=== PATIENT | male | born 1935 | race Two or more races ===

== ENCOUNTER 2017-07-18 13:01 | Inpatient (IN) | payer MEDICARE ==
[~2017-07-18] VITALS: Ht 167.6 cm; Wt 105.7 kg
--- NOTE | 2017-07-18 13:07 | NUR ---
BBPA FROM [place]:S/P GLF TODAY; REFUSES TO EAT; LETHARGIC. PLACED ON MONITOR. AWAITING MD ORDER
[2017-07-18 13:36] LABS: BASOPHILS # (AUTO) 0.3 /CMM (0.0-0.2); BASOPHILS % (AUTO) 4.4 % (0.0-2.0); EOSINOPHILS % (AUTO) 2.5 % (0.0-6.0); HEMATOCRIT 41 % (39-51); HEMOGLOBIN 13.7 g/dL (13.5-17.5); LYMPHOCYTES # (AUTO) 1.3 /CMM (0.8-4.8); LYMPHOCYTES % (AUTO) 21.7 % (20.0-44.0); MEAN CORPUSCULAR HGB CONC 33 g/dl (31.0-36.0); MEAN CORPUSCULAR VOLUME 86 fL (80-96); MONOCYTES # (AUTO) 0.4 /CMM (0.1-1.30); NEUTROPHILS # (AUTO) 3.9 /CMM (1.8-8.9); NEUTROPHILS % (AUTO) 64.4 % (43.0-81.0); PLATELET COUNT (AUTO) 143 /CMM (150-450); RED BLOOD CELL COUNT(AUTO) 4.83 MIL/uL (4.5-6.0); WHITE BLOOD COUNT (AUTO) 6.1 K/uL (4.3-11.0)
--- NOTE | 2017-07-18 13:36 | NUR ---
EKG IN PROGRESS
--- NOTE | 2017-07-18 13:36 | NUR ---
RAC #20 IV ACCESS. BLOOD SAMPLE COLLECTED SENT TO LAB
[2017-07-18 13:48] LABS: CALCIUM, SERUM 8.8 mg/dL (8.5-10.1); CARBON DIOXIDE 29 mmol/L (21-32); CHLORIDE 106 mmol/L (98-107); CREATININE 1.7 mg/dL (0.6-1.3); GLUCOSE 113 mg/dL (74-106); POTASSIUM 4.3 mmol/L (3.5-5.1); SODIUM SERUM 141 mmol/L (136-145); UREA NITROGEN, BLOOD 27 mg/dL (7-18)
[2017-07-18 13:54] LABS: TROPONIN I < 0.017 ng/mL (0.00-0.056)
--- NOTE | 2017-07-18 13:59 | NUR ---
PT TAKEN TO CT
[2017-07-18 14:01] LABS: ALANINE AMINOTRANSFERASE 19 U/L (12-78); ALBUMIN 3.3 g/dL (3.4-5.0); ALKALINE PHOSPHATASE 68 U/L (46-116); ASPARTATE AMINOTRANSFERASE 22 U/L (15-37); B-TYPE NATRIURETIC PEPTIDE 856 PG/ML (0-125); BILIRUBIN,DIRECT 0.1 mg/dL (0.0-0.2); BILIRUBIN,TOTAL 0.4 mg/dL (0.2-1.0); TOTAL PROTEIN, SERUM 7.1 g/dL (6.4-8.2)
[2017-07-18] MEDS ORDERED: NORT25CA PO (15:22)
[2017-07-18] MEDS ORDERED: PARO40TA4 PO (15:22)
[2017-07-18] MEDS ORDERED: ROSU10TA PO (15:22)
[2017-07-18] MEDS ORDERED: GABA-534 PO (15:22)
[2017-07-18] MEDS ORDERED: TAMS0.4C34 PO (15:22)
[2017-07-18] MEDS ORDERED: LEVO150T8 PO (15:22)
--- NOTE | 2017-07-18 16:16 | NUR ---
PAGED DR BARKER
--- NOTE | 2017-07-18 16:56 | NUR ---
CALLED NURSE SUP FOR TELE BED Addendum: 07/18/17 at 1720 by RBATACLAN MED SURG BED
--- NOTE | 2017-07-18 17:53 | NUR ---
308-[facility]
--- NOTE | 2017-07-18 18:05 | NUR ---
GAVE REPORT TO FARHEEN LEMA RN ROOM 308-1 DR BARKER ADMITTING PUBIC RAMUS FX
--- NOTE | 2017-07-18 19:30 | NUR ---
MS RN ADMIN NOTES PT IS IN BED SLEEPING, EASILY AROUSED. A/O X2, POOR HISTORIAN. PT IS BREATHING EVENLY AND UNLABORED ON 4.5L NC. NO SIGNS OF SOB OR DISTRESS. DENIES PAIN AT THIS TIME. IV ACCESS IS INTACT AND PATENT WITH FLUIDS TO BE INFUSED. PSORIASIS ON BODY NOTED, PICTURES TAKEN. BED IS IN LOW AND LOCKED POSITION, CALL LIGHT WITHIN REACH. WILL CONTINUE TO MONITOR.
[2017-07-18 20:00] VITALS: BP 132/74
[2017-07-18] MEDS ORDERED: ONDANSETRON HCL/PF 4 MG/2 ML VIAL IV PRN (20:00)
[2017-07-18] MEDS ORDERED: ONDANSETRON HCL/PF 4 MG/2 ML VIAL IVP PRN (20:00)
[2017-07-18] MEDS ORDERED: IV NS 0.9% 1,000 ML IV PRN (20:00)
[2017-07-18] MEDS ORDERED: MORPHINE SULFATE INJ 2 MG/ML DISP.SYRIN IV PRN (20:00)
[2017-07-18] MEDS ORDERED: HYDROCODONE/APAP 5/325MG 1 EACH TABLET PO PRN ×2 (20:00)
[2017-07-18] MEDS ORDERED: IV NS 0.9% 1,000 ML BAG IV PRN (20:00)
[2017-07-18] MEDS ORDERED: ACETAMINOPHEN 325 MG TABLET PO PRN (20:00)
[2017-07-18] MEDS ORDERED: HYDROMORPHONE INJ 0.5 MG/0.5 ML SYRINGE IV PRN (20:00)
--- NOTE | 2017-07-19 06:21 | NUR ---
MS RN CLOSING NOTES PT IS IN BED RESTING. NO SIGNS OF SOB OR DISTRESS, BREATHING EVENLY AND UNLABORED ON 4L NC. NEW IV ACCESS WAS INSERTED, ITS INTACT AND PATENT. DENIES PAIN AT THIS TIME. BED IS IN LOW AND LOCKED POSITION, CALL LIGHT WITHIN REACH. WILL CONTINUE TO MONITOR PT.
[2017-07-19 06:43] LABS: BASOPHILS % (AUTO) 0.2 % (0.0-2.0); EOSINOPHILS % (AUTO) 1.4 % (0.0-6.0); HEMATOCRIT 40 % (39-51); HEMOGLOBIN 13.1 g/dL (13.5-17.5); LYMPHOCYTES % (AUTO) 14.2 % (20.0-44.0); MEAN CORPUSCULAR HGB CONC 33 g/dl (31.0-36.0); MEAN CORPUSCULAR VOLUME 87 fL (80-96); MONOCYTES # (AUTO) 0.5 /CMM (0.1-1.30); MONOCYTES % (AUTO) 7.4 % (2.0-12.0); NEUTROPHILS # (AUTO) 5.4 /CMM (1.8-8.9); NEUTROPHILS % (AUTO) 76.8 % (43.0-81.0); PLATELET COUNT (AUTO) 126 /CMM (150-450); RDW COEFFICIENT OF VARIATION 13.6 (11.5-15.0); RED BLOOD CELL COUNT(AUTO) 4.58 MIL/uL (4.5-6.0); WHITE BLOOD COUNT (AUTO) 7.1 K/uL (4.3-11.0)
[2017-07-19 06:44] LABS: CALCIUM, SERUM 8.6 mg/dL (8.5-10.1); CARBON DIOXIDE 32 mmol/L (21-32); CHLORIDE 106 mmol/L (98-107); CREATININE 1.5 mg/dL (0.6-1.3); GLUCOSE 98 mg/dL (74-106); MAGNESIUM 2.2 mg/dL (1.8-2.4); PHOSPHORUS 4.2 mg/dL (2.5-4.9); POTASSIUM 4.6 mmol/L (3.5-5.1); SODIUM SERUM 142 mmol/L (136-145); UREA NITROGEN, BLOOD 31 mg/dL (7-18)
--- NOTE | 2017-07-19 07:51 | NUR ---
RN OPENING NOTES RECEIVED PT. PT IS STABLE AND RESTING IN BED. A/OX3. PT APPEARS TO BE ANXIOUS, WITH X/O UNCONTROLLABLE COUGHING WHICH CAUSES PAIN IN THROAT, WILL F/U WITH . PT IS ON O2 2L VIA NC. IV ACCESS LOCATED ON LEFT FA 22G INFUSING NS AT 75 ML/HR. IV FLUID RATE TITRATED DOWN DUE TO ELEVATED BNP SUGGESTING CHF EXACERBATION. SAFETY MEASURES IN PLACE, CALL LIGHT WITHIN REACH. WILL CONTINUE TO MONITOR. Addendum: 07/19/17 at 0756 by IRVING SHABAZZ PLEASE DISREGARD NOTE, WRONG PATIENT REPORT.
--- NOTE | 2017-07-19 07:57 | NUR ---
RN OPENING NOTES RECEIVED PT. PT IS STABLE AND RESTING IN BED. NO S/S OF RESP DISTRESS OR SOB. NO C/O PAIN AT THIS TIME. A/OX2, PT IS FORGETFUL AND CONFUSED. IV ACCESS LOCATED ON RFA INFUSING NS AT 65 ML/HR. PT TO HAVE ORTHO CONSULT FOR PELVIC FX TODAY. SAFETY MEASURES IN PLACE, CALL LIGHT WITHIN REACH. WILL CONTINUE TO MONITOR.
[2017-07-19 08:00] VITALS: BP 147/77
[2017-07-19] MEDS: PANTOPRAZOLE 40 MG TABLET.DR PO SCH (08:19)
[2017-07-19 09:00] VITALS: BP 147/77
[2017-07-19] MEDS ORDERED: PANTOPRAZOLE 40 MG TABLET.DR PO SCH (09:00)
[2017-07-19] MEDS: ENOXAPARIN SODIUM 40 MG/0.4 ML DISP.SYRIN SQ SCH (12:30)
[2017-07-19] MEDS: TAMSULOSIN 0.4 MG CAP.SR.24H PO SCH ×2 (12:49→21:01)
[2017-07-19] MEDS: GABAPENTIN 300 MG CAPSULE PO SCH ×2 (12:50→16:26)
[2017-07-19] MEDS: NORTRIPTYLINE HCL 25 MG CAPSULE PO SCH ×2 (12:50→21:01)
[2017-07-19] MEDS: ATORVASTATIN 10 MG TABLET PO SCH (12:50)
[2017-07-19] MEDS: PAROXETINE HCL 20 MG TABLET PO SCH (12:50)
[2017-07-19 16:00] VITALS: BP 137/66
--- NOTE | 2017-07-19 18:28 | NUR ---
RN CLOSING NOTE PT IN BED RESTING. NO S/S OF RESP DISTRESS OR SOB. PT IS ON 2L O2 VIA NC. NO C/O PAIN AT THIS TIME. PER ORTHO, PT MOST LIKELY NOT TO HAVE ANY SURGICAL INTERVENTION FOR PELVIC FX. SARAH FINNEY TO ASSESS PT IN AM. ALL PT NEEDS ANTICIPATED AND MET. SAFETY MEASURES IN PLACE, CALL LIGHT IN REACH, WILL ENDORSE TO TESTBOARD OPERATOR FOR DEEPIKA.
--- NOTE | 2017-07-19 18:56 | NUR ---
Patient resides at [facility] [phone]. Patient requires assistance with adl's and ambulation with walker prior to admission.Awaiting ortho consult. Current plan is for SNF placement for rehab. Addendum: 07/19/17 at 1857 by CHERYL CASE RN Amended: Links added.
--- NOTE | 2017-07-19 19:30 | NUR ---
MS RN INITIAL NOTES PT IS IN BED RESTING, EASILY AROUSED. NO SIGNS OF SOB OR DISTRESS. BREATHING EVENLY AND UNLABORED ON 4L NC. BED IS IN LOW AND LOCKED POSITION, CALL LIGHT WITHIN REACH. WILL CONTINUE TO MONITOR PT
[2017-07-19 20:00] VITALS: BP 141/68
--- NOTE | 2017-07-20 06:19 | NUR ---
MS RN CLOSING NOTES PT IS IN BED RESTING. NO SIGNS OF SOB OR DISTRESS, BREATHING EVENLY AND UNLABORED ON 4L NC. IV ACCESS IS INTACT AND PATENT. DENIES PAIN AT THIS TIME. BED IS IN LOW AND LOCKED POSITION, CALL LIGHT WITHIN REACH. WILL CONTINUE TO MONITOR PT.
[2017-07-20 08:00] VITALS: BP 145/76
[2017-07-20] MEDS: PAROXETINE HCL 20 MG TABLET PO SCH (09:59)
[2017-07-20] MEDS: ATORVASTATIN 10 MG TABLET PO SCH (09:59)
[2017-07-20] MEDS: LEVOTHYROXINE SODIUM 75 MCG TABLET PO SCH (09:59)
[2017-07-20] MEDS: GABAPENTIN 300 MG CAPSULE PO SCH ×3 (09:59→18:26)
[2017-07-20] MEDS: ENOXAPARIN SODIUM 40 MG/0.4 ML DISP.SYRIN SQ SCH (10:01)
[2017-07-20] MEDS: PANTOPRAZOLE 40 MG TABLET.DR PO SCH (10:04)
--- NOTE | 2017-07-20 11:00 | NUR ---
DR. BARKER IN,PHYSICAL [place]. HERE AND GOT PT. UP.PT. COOPERATIVE,PLEASANT,CONFUSED.MED COMPLIANT.NO C/O PAIN.
--- NOTE | 2017-07-20 14:30 | NUR ---
ADENIKE SMITH HERE AND DISCUSSED POSSIBLE NEED FOR SURGERY-BUT THAT HIS SURGERY MDS DON,T DO THE PROCEDURE PT. NEEDS.
[2017-07-20 16:00] VITALS: BP 147/65
--- NOTE | 2017-07-20 18:00 | NUR ---
NO CHG. IN STATUS.
[2017-07-20 20:00] VITALS: BP 148/74
--- NOTE | 2017-07-20 20:00 | NUR ---
RN NOTES PATIENT AWAKE IN BED, VERY ANXIOUS TO GO HOME TO [facility], EXPLAINED TO PATIENT THAT THERE IS NO DISCHARGE ORDER YET FROM THE DOCTOR. PATIENT VERBALIZES UNDERSTANDING. ALERT AND ORIENTED, NO DISTRESS NOTED. BREATHING EVEN AND UNLABORED. NO COMPLAINT OF PAIN OR DISCOMFORT. KEPT CLEAN AND DRY.
[2017-07-20] MEDS: NORTRIPTYLINE HCL 25 MG CAPSULE PO SCH (21:22)
[2017-07-20] MEDS: TAMSULOSIN 0.4 MG CAP.SR.24H PO SCH (21:22)
--- NOTE | 2017-07-21 06:40 | NUR ---
RN CLOSING NOTES IN BED WITH NO DISTRESS NOTED. AWAKE, ABLE TO COMMUNICATE NEEDS. NO COMPLAINT OF PAIN OR DISCOMFORT. NO SIGNIFICANT CHANGE OF CONDITION. VITAL SIGNS WNL. WILL ENDORSE TO AM SHIFT FOR CONTINUITY OF CARE
--- NOTE | 2017-07-21 07:15 | NUR ---
RN OPENING NOTES RECEIVED PT. IN BED A&OX2-3. BREATHING UNLABORED, AND EVENLY ON OXYGEN 4L/MIN VIA NASAL CANNULA. IV FLUIDS AT BEDSIDE. NO S/S OF ACUTE DISTRESS. BED IS IN LOWEST, AND LOCKED POSITION. 2 SIDE RAILS UP, AND CALL LIGHT IS WITHIN REACH. WILL CONTINUE TO ASSESS AND MONITOR. ALL NEEDS MET.
[2017-07-21 08:53] VITALS: BP 155/75
[2017-07-21] MEDS: GABAPENTIN 300 MG CAPSULE PO SCH ×3 (11:12→18:22)
[2017-07-21] MEDS: LEVOTHYROXINE SODIUM 75 MCG TABLET PO SCH (11:13)
[2017-07-21] MEDS: PAROXETINE HCL 20 MG TABLET PO SCH (11:13)
[2017-07-21] MEDS: ATORVASTATIN 10 MG TABLET PO SCH (11:13)
[2017-07-21] MEDS: PANTOPRAZOLE 40 MG TABLET.DR PO SCH (11:13)
[2017-07-21] MEDS: ENOXAPARIN SODIUM 40 MG/0.4 ML DISP.SYRIN SQ SCH (11:14)
[2017-07-21 16:12] VITALS: BP 146/92
--- NOTE | 2017-07-21 19:25 | NUR ---
MS/TAX PREPARER; RECEIVED PT IN BED AWAKE, ALERT AND VERBALLY RESPONSIVE BUT FORGETFUL KEEP TAKING OFF O2. WITH O2 4L NC ON. NOTED PT IS COUGHING. HL ON RFA INTACT. BED ON LOWER POSITION AND LOCKED FOR SAFETY. SIDE RAILS ARE ALL UP FOR SAFETY. CALL LIGHT WITHIN REACH. WILL CONTINUE TO MONITOR.
--- NOTE | 2017-07-21 19:30 | NUR ---
RN CLOSING NOTES PT. IN BED A&OX2-3. BREATHING UNLABORED, AND EVENLY ON OXYGEN 4L/MIN VIA NASAL CANNULA. IV FLUIDS AT BEDSIDE. NO S/S OF ACUTE DISTRESS. BED IS IN LOWEST, AND LOCKED POSITION. 2 SIDE RAILS UP, AND CALL LIGHT IS WITHIN REACH. WILL ENDORSE REPORT TO NURSE.
[2017-07-21 20:00] VITALS: BP 158/76
--- NOTE | 2017-07-21 21:00 | NUR ---
MS/COMBINED RAIL OPERATOR; PT HAS BEEN MONITORED FOR SAFETY. NOTED PT KEPT MOVING AND REMOVING O2 AT THIS. PT REMINDED NOT TO REMOVE THE O2 HE RESPONDED BUT FORGETFUL . INCONTINENT URINE DEE CARE DONE AND DIAPER CHANGED. REPOSITIONED. COUGHING STILL NOTED.
--- NOTE | 2017-07-21 22:20 | NUR ---
MS/LABOR RELATIONS OFFICER; CHARGE NURSE NOTIFIED PT APPEARED RESTLESS. PT NOTED WITH SLIGHT WHEEZING. REMAINED ON O2. PT REPOSITIONED. CHARGE NURSE SAID PT HAS BEEN LIKE THAT DURING THE DAY SHIFT. I DID TRY TO SUCTION PT ORALLY BUT REFUSED.
[2017-07-21] MEDS: TAMSULOSIN 0.4 MG CAP.SR.24H PO SCH (22:34)
[2017-07-21] MEDS: NORTRIPTYLINE HCL 25 MG CAPSULE PO SCH (22:35)
--- NOTE | 2017-07-21 22:50 | NUR ---
MS/SURVEY PROJECT MANAGER; PT C/O NAUSEA BUT NO ACTUAL EMESIS. I TOLD THE RN TO GIVE PT ZOFRAN IV.
--- NOTE | 2017-07-21 23:07 | NUR ---
ms/rn notes Patient complained of nausea and vomiting , medicated with zofran 4 mg ivp as ordered. will monitor.
--- NOTE | 2017-07-21 23:35 | NUR ---
MS/ENERGY CONSERVATION TECHNICIAN; AT THIS TIME PT APPEARED CALM BUT AROUSABLE WHEN I CALLED HIS NAME AND RESPONDING.
[2017-07-22] VITALS (48 sets, daily range): BP systolic 92–164; BP diastolic 29–108
--- NOTE | 2017-07-22 01:45 | NUR ---
MS/ACCESSORIES REPAIRER; I INFORMED AGAIN THE PT TO RE ASSESS THE PT. AND SHE CHECKED THE PT AND SHE SAID TO CHECK THE O2 SAT.
--- NOTE | 2017-07-22 01:55 | NUR ---
MS/EMERGENCY SERVICES PROFESSIONAL ; PT'S RA BP 92/ 53 HR 85 O2 SAT 91 % AT 4L NC.
--- NOTE | 2017-07-22 02:00 | NUR ---
MS /MARKET DEVELOPMENT MANAGER; O2 SAT AT THIS TIME 94 % HR 108, 144, 145 LETHARGIC BUT AROUSABLE WITH OPENED EYES BUT UNABLE TO UNDERSTAND PT .
--- NOTE | 2017-07-22 02:15 | NUR ---
MS/SMELLER; CHARGE NURSE SAID SHE WILL ORDER ABG AND EKG AND I CALLED THE RT AND SAMIR CABALLERO , RT ALSO CAME AND DID TRY TO SUCTION BY NASAL AND ORALLY. PT COUGHING WITH CRACKLES BREATHING SOUND. THEY ARE ON THE PROCESS OF DOING ABG AND EKG. BS 110.
--- NOTE | 2017-07-22 02:30 | NUR ---
MS/HOT METAL MIXER OPERATOR; HR 89, O2 SAT ON 4L NC 94 % .
--- NOTE | 2017-07-22 02:45 | NUR ---
MS/CERTIFIED ATHLETIC TRAINER; O2 SAT DOWN TO 81, 86 THEN 94 HR 94.
[2017-07-22 02:47] LABS: ABG BASE EXCESS 0.6 mmol/L; ABG OXYGEN SATURATION 96.1 % (92.0-98.5); ABG PCO2 84.7 mmHg (35.0-45.0); ABG PH 7.185 (7.350-7.450); ABG PO2 96.8 mmHg (75.0-100.0); AaDO2 179.1 mmHg; COHb 1.5 % (0.5-1.5); MetHb 0.4 % (0.0-1.5); O2Hb 94.3 % (94.0-97.0); SITE, ABG Right Radial; VENT MODE, BG Simple Mask
--- NOTE | 2017-07-22 02:50 | NUR ---
MS/HARD METALS HAND ENGRAVER; I PLACED A CALL TO DR. BARKER REGARDING PT'S PRESENT CONDITION I LEFT MESSAGE. AWAITING. CHARGE NURSE CALLED ICU SPOKE TO [facility] ICU MELE. CHARGE NURSE SPOKE TO NURSING CLINICAL SECRETARY. I PLACED PT ON CORRECTIONAL COOK PER CHARGE NURSE. ST 132.
--- NOTE | 2017-07-22 03:00 | NUR ---
MS/SEALER OPERATOR; CHARGE NURSE CALLED FOR RAPID RESPONSE AND ICU CHARGE NURSE RT,CHARGE AND ME WITH THE PT. BS 118.
--- NOTE | 2017-07-22 03:15 | NUR ---
MS/ASSIGNMENT OFFICER; PT TRANSFERRED TO ICU VIA BED ACCOMPANIED BY THE CERTIFIED MEDICAL DOSIMETRIST , RT, BICYCLE FITTER AND ME .
--- NOTE | 2017-07-22 03:20 | NUR ---
MS/MEAT SLICER ; CHARGE NURSE ERWIN TALKED TO DR. BARKER REGRADING PT'S PRESENT CONDITION WITH ORDER TO TRANSFER TO ICU . PT ON ROOM 262. REPORTS GIVEN TO ACTIVITIES ASSISTANTJAIDEN.
--- NOTE | 2017-07-22 03:42 | NUR ---
PT PLACED ON BIPAP. WILL CONTINUE TO MONITOR.
--- NOTE | 2017-07-22 03:49 | NUR ---
BUCKET HOOKER. RECEIVED THE PT FROM MED/SURG. S/P UTILITY SPECIALIST. TRANSFER ,THE PT IN THE ICU ROOM 262.FOR PT WAS LETHARGIC, ABG DONE, BIPAP PLACED. SETTINGS 22/5,RATE IS 18,FIO2 40%. SAT 98%PT AWAKE, ALERT, LETHARGIC, AFEBRILE. HOB ELEVATED. IV LT HAND 22G. WILL CONTINUE TO MONITOR VITALS.
--- NOTE | 2017-07-22 03:55 | NUR ---
CALL WORKER PERSON, VENEER TAPING MACHINE OPERATOR SHOWING AFIB. EKG DONE.
--- NOTE | 2017-07-22 04:00 | NUR ---
ICU/RN- RECEIVED PT. FROM Katelyn CASTRO RN S/P PANCAKE PROFESSIONAL FROM [facility] FOR ALTERED RESPIRATORY STATUS R/T RESPIRATORY FAILURE. PT. ON BIPAP, AROUSABLE TO STIMULATION BUT FALLS BACK TO SLEEP RIGHT AWAY. SATS.-93%, NO S/S OF DISTRESS. EKG ATRIAL FIBRILLATION W/ RVR. HR-130'S. WILL NOTIFY MD. WAITING FOR ABG RESULT. NOTED TO HAVE RED, RAISED, DRY SKIN LESIONS ALL OVER THE BODY. WILL CONTINUE TO MONITOR PER PROTOCOL. PT. IS A FULL CODE.
--- NOTE | 2017-07-22 04:05 | NUR ---
/ZULLY; I PLACED A CALL TO PT'S SISTER HELIO SUN TELEPHONE # [phone] AND I SPOKE THER AND NOTIFIED THAT PT WAS TRANSFERRED TO ICU ROOM # 262 fFOR RESPIRATORY PROBLEM AND SHE SAID OK.
--- NOTE | 2017-07-22 04:40 | NUR ---
ABG DONE. NOTIFIED RN WITH THE RESULT. WILL CONTINUE TO MONITOR.
[2017-07-22 04:48] LABS: ABG BASE EXCESS -0.5 mmol/L; ABG PCO2 71.7 mmHg (35.0-45.0); ABG PH 7.224 (7.350-7.450); ABG PO2 75.4 mmHg (75.0-100.0); AaDO2 127.3 mmHg; COHb 1.3 % (0.5-1.5); MetHb 0.4 % (0.0-1.5); O2Hb 91.4 % (94.0-97.0); SITE, ABG Right Radial
--- NOTE | 2017-07-22 04:59 | NUR ---
ICU/RN- DR. BARKER WAS CALLED REGARDING ABG RESULTS AND EKG AFIB W/ RVR, HR-130'S-140'S, W/ PHONE ORDERS TO CONSULT DR. GARCIA FOR CARDIOLOGY, START CARDIZEM DRIP PER PROTOCOL, BIPAP CHANGES ORDERED.
--- NOTE | 2017-07-22 05:12 | NUR ---
BIPAP SETTINGS CHANGED PER DR BARKER. IPAP 25, RATE 22. Addendum: 07/22/17 at 0514 by CODEY NIX RT Amended: Links added.
--- NOTE | 2017-07-22 05:15 | NUR ---
ICU/RN- NOW EKG IS ATRIAL FIB. W/ HR-85/MIN. WILL HOLD OFF ON THE CARDIZEM AND WILL NOTIFY DR. GARCIA. WILL MONITOR CLOSELY PER PROTOCOL.
[2017-07-22] MEDS ORDERED: DILTIAZEM HCL 25 MG IV IV ONE (05:30)
[2017-07-22] MEDS ORDERED: DILTIAZEM HCL IV 125 MG in IV D5W 100 ML IV PRN (05:30)
--- NOTE | 2017-07-22 05:50 | NUR ---
ICU/RN- DR. GARCIA HERE TO SEE PT. AWARE OF NOT STARTING CARDIZEM DRIP DUE TO HR-80'S
[2017-07-22 07:25] LABS: EOSINOPHILS % (AUTO) 0.4 % (0.0-6.0); HEMATOCRIT 38 % (39-51); HEMOGLOBIN 12.5 g/dL (13.5-17.5); LYMPHOCYTES % (AUTO) 13.7 % (20.0-44.0); MEAN CORPUSCULAR HGB CONC 33 g/dl (31.0-36.0); MEAN CORPUSCULAR VOLUME 87 fL (80-96); MONOCYTES # (AUTO) 0.4 /CMM (0.1-1.30); MONOCYTES % (AUTO) 5.6 % (2.0-12.0); NEUTROPHILS # (AUTO) 6.1 /CMM (1.8-8.9); NEUTROPHILS % (AUTO) 80.3 % (43.0-81.0); PLATELET COUNT (AUTO) 117 /CMM (150-450); RDW COEFFICIENT OF VARIATION 13.8 (11.5-15.0); RED BLOOD CELL COUNT(AUTO) 4.32 MIL/uL (4.5-6.0); WHITE BLOOD COUNT (AUTO) 7.6 K/uL (4.3-11.0)
[2017-07-22] MEDS: LEVOTHYROXINE SODIUM 75 MCG TABLET PO SCH (07:30)
[2017-07-22 07:37] LABS: CALCIUM, SERUM 8.6 mg/dL (8.5-10.1); CARBON DIOXIDE 30 mmol/L (21-32); CHLORIDE 104 mmol/L (98-107); CREATININE 1.9 mg/dL (0.6-1.3); GLUCOSE 115 mg/dL (74-106); POTASSIUM 5.1 mmol/L (3.5-5.1); SODIUM SERUM 142 mmol/L (136-145); UREA NITROGEN, BLOOD 37 mg/dL (7-18)
[2017-07-22 07:41] LABS: TROPONIN I 0.105 ng/mL (0.00-0.056)
--- NOTE | 2017-07-22 07:45 | NUR ---
PAYMENT PROCESSOR RECEIVED PATIENT FROM THE PREVIOUS SHIFT. PATIENT IS IN BED. RESTLESS ON THE BIPAP. STABLE VITAL SINGS. WILL CONTINUE TO MONITOR AND PROVIDE CARE.
[2017-07-22 07:47] LABS: ALANINE AMINOTRANSFERASE 25 U/L (12-78); ALKALINE PHOSPHATASE 56 U/L (46-116); ASPARTATE AMINOTRANSFERASE 25 U/L (15-37); BILIRUBIN,TOTAL 0.5 mg/dL (0.2-1.0); CHOLESTEROL 107 mg/dL (<200); HDL CHOLESTEROL 34 mg/dL (40-60); LDL 64 mg/dL (0-99); MAGNESIUM 2.2 mg/dL (1.8-2.4); PHOSPHORUS 4.9 mg/dL (2.5-4.9); THYROID STIMULATING HORMONE 0.151 uIU/mL (0.358-3.74); TOTAL PROTEIN, SERUM 6.7 g/dL (6.4-8.2); TRIGLYCERIDES 75 mg/dL (30-150)
[2017-07-22] MEDS: GABAPENTIN 300 MG CAPSULE PO SCH ×3 (08:33→16:36)
[2017-07-22] MEDS: ATORVASTATIN 10 MG TABLET PO SCH (08:33)
[2017-07-22] MEDS: PAROXETINE HCL 20 MG TABLET PO SCH (08:33)
[2017-07-22] MEDS: PANTOPRAZOLE 40 MG VIAL IV SCH (08:40)
[2017-07-22] MEDS: ENOXAPARIN SODIUM 40 MG/0.4 ML DISP.SYRIN SQ SCH (08:41)
[2017-07-22 09:40] LABS: ABG BASE EXCESS 1.7 mmol/L; ABG OXYGEN SATURATION 90.5 % (92.0-98.5); ABG PH 7.195 (7.350-7.450); ABG PO2 66.6 mmHg (75.0-100.0); AaDO2 193.2 mmHg; MetHb 0.4 % (0.0-1.5); O2Hb 89.2 % (94.0-97.0); SITE, ABG Left Radial
--- NOTE | 2017-07-22 10:10 | NUR ---
WOUND CARE CONSULT: PT NOT SEEN YET FOR SKIN ASSESSMENT DUE TO PT BEING PREPARED FOR INTUBATION AT THIS TIME. RECOMMENDATIONS MADE FOR SKIN PROTECTION. DISCUSSED WITH NURSING STAFF. BARIMAX BED ORDERED. WILL SEE PRN. IN AGREEMENT WITH PLAN OF CARE.
[2017-07-22] MEDS ORDERED: Z GUARD REMEDY 2 OZ OINT TP PRN (10:30)
--- NOTE | 2017-07-22 10:49 | NUR ---
RT NOTE PT INTUBATED PER MD ORDER. 7.5 ETT 23 CM @ LIP. SETTINGS PRESCRIBED AC 16 600 +5 100%. ALARMS SET FOR PROTOCOL AND AUDIBLE. VENT PLUGGED IN TO RED OUTLET. AMBU BAG AT BEDSIDE. NO DISTRESS NOTED AT MOMENT. WILL CONTINUE TO MONITOR. Addendum: 07/22/17 at 1054 by LUCIEN ALVARES RT Amended: Links added.
--- NOTE | 2017-07-22 10:50 | NUR ---
MODELING AGENT PATIENT INTUBATED BY ER PHYSICIAN PER MD ORDER. STABLE ON THE VENT. PROPOFOL FOR SEDATION. WILL CONTINUE TO MONITOR.
[2017-07-22] MEDS: Z GUARD REMEDY 2 OZ OINT TP SCH (11:16)
[2017-07-22] MEDS: VANCOMYCIN 1.25 GM in IV NS 0.9% 500 ML IV SCH (11:16)
[2017-07-22] MEDS: PIPERACILLIN /TAZOBACTAM 2.25 G in IV D5W 50 ML IV SCH ×3 (11:17→23:18)
[2017-07-22 11:59] LABS: ABG BASE EXCESS 1.3 mmol/L; ABG OXYGEN SATURATION 90.8 % (92.0-98.5); ABG PCO2 48.8 mmHg (35.0-45.0); ABG PH 7.365 (7.350-7.450); ABG PO2 55.5 mmHg (75.0-100.0); AaDO2 246.1 mmHg; COHb 0.7 % (0.5-1.5); MetHb 0.2 % (0.0-1.5); PEEP,BG 5 cm H2O; SITE, ABG Left Radial; VT, ABG 600 mL
[2017-07-22] MEDS ORDERED: PIPERACILLIN /TAZOBACTAM 3.375 G in IV D5W 50 ML IV SCH (12:00)
[2017-07-22] MEDS ORDERED: FEE PK DOSING 1 MIN EA MC ONE (12:02)
[2017-07-22] MEDS: PROPOFOL 100 ML IV PRN ×2 (12:27→21:24)
--- NOTE | 2017-07-22 12:42 | NUR ---
WOUND CARE CONSULT: PT SEEN FOR SKIN ASSESSMENT. PT INTUBATED AND IMMOBILE. BOLAND CATH NOTED. PT HAS SKIN CONDITION WITH PATCHY AREAS TO RT ELBOW AND ARM AND FEW RED SPOTS TO BUTTOCKS AND THIGHS. DEFER TO MD FOR SKIN CONDITION. DRY ABRASIONS NOTED TO BILATERAL TOES. NO DRAINAGE NOTED. RECOMMEND BARIMAX BED. RECOMMENDATIONS MADE FOR SKIN PROTECTION AND DISCUSSED WITH NURSING STAFF. WILL SEE PRN. MD IN AGREEMENT WITH PLAN OF CARE. Addendum: 07/22/17 at 1244 by ЮЛИЯ PAGE WNDNU Amended: Links added.
[2017-07-22] MEDS ORDERED: ETOMIDATE 2 MG/ML VIAL ONE (13:12)
[2017-07-22] MEDS ORDERED: SUCCINYLCHOLINE CHLORIDE 20 MG/ML VIAL ONE (13:12)
[2017-07-22] MEDS ORDERED: ALBUTEROL HALF STRENGTH 1.25 MG/3 ML VIAL.NEB NEB SCH (15:00)
[2017-07-22] MEDS ORDERED: ALBUTEROL HALF STRENGTH 1.25 MG/3 ML VIAL.NEB ONE (15:03)
[2017-07-22] MEDS ORDERED: IPRATROPIUM NEB FS 0.5 MG/2.5 ML AMPUL.NEB ONE (15:03)
[2017-07-22] MEDS: IPRATROPIUM NEB FS 0.5 MG/2.5 ML AMPUL.NEB NEB SCH ×3 (15:04→23:56)
[2017-07-22] MEDS: ALBUTEROL HALF STRENGTH 1.25 MG/3 ML VIAL.NEB NEB SCH ×3 (15:30→23:56)
[2017-07-22] MEDS: methylPREDNISolone SOD SUCC 125 MG/2ML VIAL IV SCH ×2 (16:36→21:43)
[2017-07-22] MEDS: ACETAMINOPHEN 325 MG TABLET PO PRN (18:27)
--- NOTE | 2017-07-22 19:41 | NUR ---
VENDETTE. INITIAL ASSESSMENT. RECEIVED THE PT REST ON THE BED. ORALLY INTUBATED. SEDATED WITH DIPRIVAN. ETT 7.5CM,LIP 23CM,RATE 16,TV 550,FIO2 60%,PEEP 5. SAT 98%. NO ACUTE DISTRESS NOTED. FINANCIAL ADMINISTRATIVE ASSISTANT SHOWING NSR. IV RT UPPER ARM MID LINE DIPRIVAN 25MCG/KG/MIN,LT FA 22G, OGT INTACT, NPO. FC PATENT. HOB ELEVATED. LORELEI SOT WRIST RESTRAINT CHECKED AND RELEASED. NO INJURY OR REDNESS NOTED. WILL CONTINUE TO MONITOR VITALS.
[2017-07-22] MEDS: TAMSULOSIN 0.4 MG CAP.SR.24H PO SCH (21:43)
[2017-07-22] MEDS: NORTRIPTYLINE HCL 25 MG CAPSULE PO SCH (22:00)
[2017-07-23] VITALS (50 sets, daily range): BP systolic 98–189; BP diastolic 42–109
[2017-07-23] MEDS: PROPOFOL 100 ML IV PRN ×4 (00:13→19:59)
--- NOTE | 2017-07-23 03:06 | NUR ---
cvicu rn. AM CARE, ORAL CARE, BED BATH GIVEN. LINEN CHANGED. REMAINING SAME VENT SETTING TOLERATED WELL, SAT 98%. NO ACUTE DISTRESS NOTED. MEASURER SHOWING AFIB. IV RT UPPER ARM MID LINE DIPRIVAN 30MCG/KG/MIN. HOB ELEVATED. LORELEI SOFT WRIST RESTRAINT CHECKED AND RELEASED. NO INJURY OR REDNESS NOTED. FC PATENT. OGT INTACT. NPO. TU=RN AND REPOSITION Q2H. WILL CONTINUE TO MONITOR VITALS.
[2017-07-23] MEDS: IPRATROPIUM NEB FS 0.5 MG/2.5 ML AMPUL.NEB NEB SCH ×6 (03:45→23:30)
[2017-07-23] MEDS: ALBUTEROL HALF STRENGTH 1.25 MG/3 ML VIAL.NEB NEB SCH ×6 (03:45→23:30)
[2017-07-23 04:43] LABS: HEMATOCRIT 38 % (39-51); HEMOGLOBIN 12.7 g/dL (13.5-17.5); LYMPHOCYTES # (AUTO) 0.6 /CMM (0.8-4.8); LYMPHOCYTES % (AUTO) 6.5 % (20.0-44.0); MEAN CORPUSCULAR HGB CONC 34 g/dl (31.0-36.0); MEAN CORPUSCULAR VOLUME 86 fL (80-96); MONOCYTES # (AUTO) 0.1 /CMM (0.1-1.30); MONOCYTES % (AUTO) 1.5 % (2.0-12.0); NEUTROPHILS # (AUTO) 8.8 /CMM (1.8-8.9); PLATELET COUNT (AUTO) 110 /CMM (150-450); RDW COEFFICIENT OF VARIATION 13.6 (11.5-15.0); RED BLOOD CELL COUNT(AUTO) 4.38 MIL/uL (4.5-6.0); WHITE BLOOD COUNT (AUTO) 9.5 K/uL (4.3-11.0)
[2017-07-23 04:56] LABS: ALANINE AMINOTRANSFERASE 22 U/L (12-78); ALBUMIN 2.8 g/dL (3.4-5.0); ALKALINE PHOSPHATASE 52 U/L (46-116); ASPARTATE AMINOTRANSFERASE 23 U/L (15-37); BILIRUBIN,TOTAL 0.5 mg/dL (0.2-1.0); CALCIUM, SERUM 8.3 mg/dL (8.5-10.1); CARBON DIOXIDE 28 mmol/L (21-32); CHLORIDE 104 mmol/L (98-107); CREATININE 1.8 mg/dL (0.6-1.3); GLUCOSE 167 mg/dL (74-106); MAGNESIUM 2.3 mg/dL (1.8-2.4); PHOSPHORUS 3.2 mg/dL (2.5-4.9); POTASSIUM 4.4 mmol/L (3.5-5.1); SODIUM SERUM 141 mmol/L (136-145); TOTAL PROTEIN, SERUM 6.7 g/dL (6.4-8.2); UREA NITROGEN, BLOOD 41 mg/dL (7-18)
[2017-07-23 04:58] LABS: TROPONIN I 0.069 ng/mL (0.00-0.056)
[2017-07-23] MEDS: methylPREDNISolone SOD SUCC 125 MG/2ML VIAL IV SCH ×3 (05:11→21:12)
[2017-07-23] MEDS: PIPERACILLIN /TAZOBACTAM 2.25 G in IV D5W 50 ML IV SCH ×3 (05:11→17:16)
[2017-07-23] MEDS: CLONIDINE HCL 0.2MG/24H PTWK 1 EA PATCH TD SCH (08:16)
[2017-07-23] MEDS: LEVOTHYROXINE SODIUM 75 MCG TABLET PO SCH (08:16)
--- NOTE | 2017-07-23 09:22 | NUR ---
VP TRAINING DURING SEDATION VACATION PATIENT NOTED TO WAKE UP. UNABLE TO FOLLOW COMMANDS. RESTLESS NOTED WITH MOVEMENT WITHOUT PURPOSE. RESTRAINTS ON FOR SAFETY. AGITATION WITH ORAL SECRETIONS. RE SEDATED FOR COMFORT.
[2017-07-23] MEDS: Z GUARD REMEDY 2 OZ OINT TP SCH (10:13)
[2017-07-23] MEDS: PAROXETINE HCL 20 MG TABLET PO SCH (10:18)
[2017-07-23] MEDS: PANTOPRAZOLE 40 MG VIAL IV SCH (10:18)
[2017-07-23] MEDS: GABAPENTIN 300 MG CAPSULE PO SCH ×3 (10:18→17:16)
[2017-07-23] MEDS: ENOXAPARIN SODIUM 40 MG/0.4 ML DISP.SYRIN SQ SCH (10:19)
[2017-07-23] MEDS: NITROGLYCERIN 30 GM TUBE TP SCH ×2 (10:21→21:13)
[2017-07-23] MEDS: VANCOMYCIN 1.25 GM in IV NS 0.9% 500 ML IV SCH (10:21)
[2017-07-23 11:07] LABS: ABG BASE EXCESS 4.1 mmol/L; ABG OXYGEN SATURATION 96.1 % (92.0-98.5); ABG PCO2 50.4 mmHg (35.0-45.0); ABG PH 7.393 (7.350-7.450); ABG PO2 89.3 mmHg (75.0-100.0); AaDO2 210.5 mmHg; COHb 0.3 % (0.5-1.5); MetHb 0.4 % (0.0-1.5); O2Hb 95.4 % (94.0-97.0); PEEP,BG 5 cm H2O; SITE, ABG Right Radial; VENT MODE, BG AC16; VT, ABG 550 mL
[2017-07-23] MEDS: IV D5/ 0.9% NACL 1,000 ML IV PRN (17:17)
--- NOTE | 2017-07-23 20:00 | NUR ---
Received patient sedated on Diprivan gtt at 30 mcg via zach midline.Noted purposeful movement both arms.Bilateral soft wrist restraints on for safety.Maintained on current prescribed vent support.Well tolerated.No distress noted.SR with occasional pvc's.Normotensive.OGT clamped and placement verified. NPO with ivf infusing well.FC to gravity drainage.Turned and repositioned.
[2017-07-23] MEDS: TAMSULOSIN 0.4 MG CAP.SR.24H PO SCH (21:41)
[2017-07-23] MEDS: NORTRIPTYLINE HCL 25 MG CAPSULE PO SCH (21:42)
[2017-07-24] VITALS (49 sets, daily range): BP systolic 119–167; BP diastolic 42–87
--- NOTE | 2017-07-24 | NUR ---
Patient resting.VS stable.No distress noted.Turned and repositioned.
[2017-07-24] MEDS: PIPERACILLIN /TAZOBACTAM 2.25 G in IV D5W 50 ML IV SCH ×2 (00:01→05:30)
[2017-07-24] MEDS: PROPOFOL 100 ML IV PRN ×4 (00:02→19:29)
[2017-07-24] MEDS: IV D5/ 0.9% NACL 1,000 ML IV PRN ×2 (03:36→17:34)
[2017-07-24] MEDS: IPRATROPIUM NEB FS 0.5 MG/2.5 ML AMPUL.NEB NEB SCH ×6 (03:54→23:26)
[2017-07-24] MEDS: ALBUTEROL HALF STRENGTH 1.25 MG/3 ML VIAL.NEB NEB SCH ×6 (03:54→23:26)
--- NOTE | 2017-07-24 04:30 | NUR ---
Patient resting.VS stable.SR with occasional pac's.Bed bath rendered and complete linens changed.Oral care done.Turned and repositioned.
[2017-07-24] MEDS: methylPREDNISolone SOD SUCC 125 MG/2ML VIAL IV SCH ×3 (05:01→20:58)
[2017-07-24 05:05] LABS: CALCIUM, SERUM 7.7 mg/dL (8.5-10.1); CARBON DIOXIDE 27 mmol/L (21-32); CHLORIDE 109 mmol/L (98-107); CREATININE 1.7 mg/dL (0.6-1.3); GLUCOSE 182 mg/dL (74-106); POTASSIUM 4.3 mmol/L (3.5-5.1); SODIUM SERUM 146 mmol/L (136-145); UREA NITROGEN, BLOOD 40 mg/dL (7-18)
[2017-07-24] MEDS: hydrALAZINE HCL IV 20 MG VIAL IV PRN (05:36)
--- NOTE | 2017-07-24 07:15 | NUR ---
RADIO REPAIRMAN RECEIVED PATIENT FROM THE PREVIOUS SHIFT. PATIENT IS IN BED. RESTING COMFORTABLY. NO ACUTE DISTRESS NOTED. EVEN AND NON LABORED BREATHING PATTERN. VENT SETTINGS REVIEWED AND VERIFIED. AFEBRILE. SINUS RHYTHM ON MONITOR WITH PACS. TURNED AND REPOSITIONED FOR COMFORT AND WOUND PREVENTION. WILL CONTINUE TO MONITOR AND PROVIDE CARE.
--- NOTE | 2017-07-24 07:36 | NUR ---
REFUSE AND RECYCLING WORKER RECEIVED PATIENT FROM THE PREVIOUS SHIFT. PATIENT IS IN BED. RESTING COMFORTABLY. NO ACUTE DISTRESS NOTED. SEDATED ON DIPRIVAN. VENT SETTINGS REVIEWED AND VERIFIED. TURNED AND REPOSITIONED FOR COMFORT AND WOUND PREVENTION. WILL CONTINUE TO MONITOR AND PROVIDE CARE.
--- NOTE | 2017-07-24 09:45 | NUR ---
SUPPLY SPECIALIST PATIENT WAS LEFT OFF OF PROPOFOL FOR 20 MINUTES. PATIENT NOTED TO WAKE UP WITH SEVERE AGITATION. PATIENT NOTED TO FOLLOW SIMPLE COMMANDS. PATIENT NOTED TO HAVE COPIOUS AMOUNTS OF ORAL AND ETT SECRETIONS. PATIENT WAS PLACED ON SIMV MODE. SEEN BY BOWLING ALLEY FLOORS INSTALLER AFTER.
[2017-07-24 09:52] LABS: ABG BASE EXCESS -3.1 mmol/L; ABG OXYGEN SATURATION 88.4 % (92.0-98.5); ABG PCO2 51.6 mmHg (35.0-45.0); ABG PH 7.287 (7.350-7.450); ABG PO2 62.7 mmHg (75.0-100.0); AaDO2 163.2 mmHg; COHb 0.3 % (0.5-1.5); MetHb 0.3 % (0.0-1.5); O2Hb 87.9 % (94.0-97.0); PEEP,BG 5 cm H2O; SITE, ABG Right Radial
[2017-07-24] MEDS: Z GUARD REMEDY 2 OZ OINT TP SCH (09:56)
[2017-07-24] MEDS: PANTOPRAZOLE 40 MG VIAL IV SCH (09:58)
[2017-07-24] MEDS: GABAPENTIN 300 MG CAPSULE PO SCH ×3 (09:58→17:34)
[2017-07-24] MEDS: PAROXETINE HCL 20 MG TABLET PO SCH (09:58)
[2017-07-24] MEDS: NITROGLYCERIN 30 GM TUBE TP SCH ×2 (09:59→21:07)
[2017-07-24] MEDS: ENOXAPARIN SODIUM 40 MG/0.4 ML DISP.SYRIN SQ SCH (10:00)
[2017-07-24] MEDS: LEVOTHYROXINE SODIUM 75 MCG TABLET PO SCH (10:04)
--- NOTE | 2017-07-24 10:10 | NUR ---
PHARMACY HELPER PRIMARY MD MADE AWARE OF PATIENT'S MARGINAL URINE OUTPUT.
[2017-07-24] MEDS: VANCOMYCIN 1.25 GM in IV NS 0.9% 500 ML IV SCH (10:30)
[2017-07-24] MEDS: PIPERACILLIN /TAZOBACTAM 3.375 G in IV D5W 50 ML IV SCH ×2 (12:13→17:34)
--- NOTE | 2017-07-24 14:09 | NUR ---
RT NOTE: @0842- PATIENT PLACE ON SIMV @0933- ABG REPORTED TO NURSE(TINY) AND PATIENT PLACED BACK ON AC PER MD ORDER. PATIENT RECEIVED ORALLY INTUBATED WITH 7.5 ETT TAPED AT 23 CM MID LIP LINE ON PB 840 VENT. ETT MOVED FROM LEFT TO RIGHT SIDE OF THE MOUTH THROUGHOUT SHIFT VIA ANCHOR FAST. PATIENT SUCTIONED AND LAVAGED TO OBTAIN MODERATE-LARGE AMOUNTS OF THICK BROTHERS SECRETIONS. VENT PLUGGED INTO RED OUTLET. AMBU BAG AT [facility].
[2017-07-24] MEDS: LACTOBACILLUS RHAMNOSUS GG 1 EACH CAP.SPRINK PO SCH (17:34)
[2017-07-24] MEDS: FIBERSOURCE HN 1,000 ML BOTTLE GT PRN (18:18)
--- NOTE | 2017-07-24 20:00 | NUR ---
TRUCK BRACER - NOTES - RECEIVED PATIENT FROM THE PREVIOUS SHIFT. PATIENT IS IN BED. RESTING COMFORTABLY. NO ACUTE DISTRESS NOTED. EVEN AND NON LABORED BREATHING PATTERN. VENT SETTINGS REVIEWED AND VERIFIED. AFEBRILE. SINUS RHYTHM ON MONITOR WITH PACS. TURNED AND REPOSITIONED FOR COMFORT AND WOUND PREVENTION. WILL CONTINUE TO MONITOR AND PROVIDE CARE.
[2017-07-24] MEDS: TAMSULOSIN 0.4 MG CAP.SR.24H PO SCH (21:07)
[2017-07-24] MEDS: NORTRIPTYLINE HCL 25 MG CAPSULE PO SCH (21:07)
[2017-07-25] VITALS (55 sets, daily range): BP systolic 132–173; BP diastolic 43–107
[2017-07-25] MEDS: PROPOFOL 100 ML IV PRN ×5 (00:15→20:40)
[2017-07-25] MEDS: PIPERACILLIN /TAZOBACTAM 3.375 G in IV D5W 50 ML IV SCH ×4 (00:15→17:15)
[2017-07-25] MEDS: IPRATROPIUM NEB FS 0.5 MG/2.5 ML AMPUL.NEB NEB SCH ×6 (03:47→23:55)
[2017-07-25] MEDS: ALBUTEROL HALF STRENGTH 1.25 MG/3 ML VIAL.NEB NEB SCH ×6 (03:47→23:55)
[2017-07-25] MEDS: methylPREDNISolone SOD SUCC 125 MG/2ML VIAL IV SCH ×3 (04:39→20:41)
[2017-07-25] MEDS: VANCOMYCIN 1.25 GM in IV D5W 500 ML IV SCH ×2 (04:39→21:36)
--- NOTE | 2017-07-25 05:05 | NUR ---
SHORTLY AFTER CHEST XRAY, PT CONVERTS TO AFIB, HR 120S-130S, BP WNL
[2017-07-25 05:31] LABS: HEMATOCRIT 36 % (39-51); HEMOGLOBIN 11.9 g/dL (13.5-17.5); LYMPHOCYTES # (AUTO) 0.7 /CMM (0.8-4.8); LYMPHOCYTES % (AUTO) 4.9 % (20.0-44.0); MEAN CORPUSCULAR HGB CONC 33 g/dl (31.0-36.0); MEAN CORPUSCULAR VOLUME 87 fL (80-96); MONOCYTES # (AUTO) 0.3 /CMM (0.1-1.30); MONOCYTES % (AUTO) 2.4 % (2.0-12.0); NEUTROPHILS # (AUTO) 13.2 /CMM (1.8-8.9); NEUTROPHILS % (AUTO) 92.7 % (43.0-81.0); PLATELET COUNT (AUTO) 132 /CMM (150-450); RDW COEFFICIENT OF VARIATION 13.9 (11.5-15.0); RED BLOOD CELL COUNT(AUTO) 4.16 MIL/uL (4.5-6.0); WHITE BLOOD COUNT (AUTO) 14.3 K/uL (4.3-11.0)
[2017-07-25 05:53] LABS: CALCIUM, SERUM 7.7 mg/dL (8.5-10.1); CARBON DIOXIDE 27 mmol/L (21-32); CHLORIDE 107 mmol/L (98-107); CREATININE 1.4 mg/dL (0.6-1.3); GLUCOSE 187 mg/dL (74-106); MAGNESIUM 2.4 mg/dL (1.8-2.4); PHOSPHORUS 3.4 mg/dL (2.5-4.9); SODIUM SERUM 144 mmol/L (136-145); UREA NITROGEN, BLOOD 38 mg/dL (7-18)
--- NOTE | 2017-07-25 07:35 | NUR ---
NON DESTRUCTIVE TESTER RECEIVED PATIENT FROM THE PREVIOUS SHIFT. PATIENT IS IN BED. RESTING COMFORTABLY. NO ACUTE DISTRESS. SEDATED ON DIPRIVAN. AFIB ON MONITOR. GOOD BP. AFEBRILE. BOLAND DRAINING URINE TO GRAVITY. TURNED AND REPOSITIONED FOR COMFORT AND WOUND PREVENTION. WILL CONTINUE TO MONITOR AND PROVIDE CARE.
[2017-07-25] MEDS: Z GUARD REMEDY 2 OZ OINT TP SCH (08:10)
[2017-07-25] MEDS: GABAPENTIN 300 MG CAPSULE PO SCH ×3 (08:20→16:05)
[2017-07-25] MEDS: PAROXETINE HCL 20 MG TABLET PO SCH (08:20)
[2017-07-25] MEDS: IV D5/ 0.9% NACL 1,000 ML IV PRN ×2 (08:20→20:40)
[2017-07-25] MEDS: PANTOPRAZOLE 40 MG VIAL IV SCH (08:20)
[2017-07-25] MEDS: LEVOTHYROXINE SODIUM 75 MCG TABLET PO SCH (08:20)
[2017-07-25] MEDS: LACTOBACILLUS RHAMNOSUS GG 1 EACH CAP.SPRINK PO SCH ×2 (08:20→16:05)
[2017-07-25] MEDS: NITROGLYCERIN 30 GM TUBE TP SCH ×2 (08:21→20:42)
[2017-07-25] MEDS: ENOXAPARIN SODIUM 40 MG/0.4 ML DISP.SYRIN SQ SCH (08:23)
[2017-07-25] MEDS ORDERED: AMIODARONE 150 MG in IV D5W 100 ML IV ONE (09:00)
[2017-07-25 09:26] LABS: ABG OXYGEN SATURATION 95.5 % (92.0-98.5); ABG PCO2 44.8 mmHg (35.0-45.0); ABG PH 7.359 (7.350-7.450); ABG PO2 82.6 mmHg (75.0-100.0); AaDO2 187.3 mmHg; COHb 0.2 % (0.5-1.5); MetHb 0.2 % (0.0-1.5); O2Hb 95.1 % (94.0-97.0); PEEP,BG 5 cm H2O; SITE, ABG Right Radial; VT, ABG 550 mL
[2017-07-25] MEDS: AMIODARONE 900 MG in IV D5W 482 ML IV PRN (09:36)
--- NOTE | 2017-07-25 09:37 | NUR ---
DIRECTOR SHOPPER MARKETING RN CONTACTED DR. CUNNINGHAM AND INFORMED THAT PATIENT CONVERTED BACK TO SINUS RHYTHM. RECEIVED MD ORDERS TO HOLD AMIODARONE IV BOLUS AND MAINTENANCE DOSES. WILL CONTINUE TO MONITOR.
--- NOTE | 2017-07-25 10:11 | NUR ---
TRACK LAYING MACHINE OPERATOR DURING 20 MINUTE SEDATION VACATION, RN TURNED OFF THE PROPOFOL GTT. PATIENT NOTED TO WAKE UP, FOLLOW SIMPLE COMMANDS. PATIENT WAS ALSO SEVERELY AGITATED, RESTLESS MOVING ALL LIMBS. COPIOUS AMOUNTS OF SECRETIONS ALSO NOTED. WILL CONTINUE TO MONITOR AND PROVIDE CARE.
--- NOTE | 2017-07-25 10:15 | NUR ---
WARDROBE SPECIALIST RN INFORMED PROCESSING ASSISTANT THAT PATIENT'S ETT TIP IS 5.3 CM ABOVE DURAN PER CXR. NO ADJUSTMENTS NECESSARY PER MD.
[2017-07-25] MEDS: FIBERSOURCE HN 1,000 ML BOTTLE GT PRN (16:03)
--- NOTE | 2017-07-25 20:00 | NUR ---
BRANCH CONTROLLER - NOTES - RECEIVED PATIENT FROM THE PREVIOUS SHIFT. PATIENT IS IN BED. RESTING COMFORTABLY. NO ACUTE DISTRESS. SEDATED ON DIPRIVAN. SR W PACS ON MONITOR. BP WNL. AFEBRILE. BOLAND DRAINING URINE TO GRAVITY. TURNED AND REPOSITIONED FOR COMFORT AND WOUND PREVENTION. WILL CONTINUE TO MONITOR AND PROVIDE CARE.
[2017-07-25] MEDS: hydrALAZINE HCL IV 20 MG VIAL IV PRN (20:41)
[2017-07-25] MEDS: NORTRIPTYLINE HCL 25 MG CAPSULE PO SCH (21:36)
[2017-07-25] MEDS: TAMSULOSIN 0.4 MG CAP.SR.24H PO SCH (21:36)
--- NOTE | 2017-07-25 22:16 | NUR ---
PT RECEIVED INTUBATED 7.5 ETT SECURED AT 23CM AT THE LIP. PT IS ON 840 VENT TOLERATING VENT SETTINGS. SX'D FOR SML AMT OF THIN PALE SECRETIONS. VENT ALARMS SET AND AUDIBLE. AMBU BAG AT BEDSIDE. VENT PLUGGED INTO RED OUTLET. WILL CONTINUE TO MONITOR. Addendum: 07/25/17 at 2218 by CODEY NIX RT Amended: Links added.
[2017-07-26] VITALS (51 sets, daily range): BP systolic 132–179; BP diastolic 58–93
[2017-07-26] MEDS: PIPERACILLIN /TAZOBACTAM 3.375 G in IV D5W 50 ML IV SCH ×2 (00:06→05:24)
[2017-07-26] MEDS: PROPOFOL 100 ML IV PRN ×3 (01:00→08:38)
[2017-07-26] MEDS: ALBUTEROL HALF STRENGTH 1.25 MG/3 ML VIAL.NEB NEB SCH ×5 (03:30→19:53)
[2017-07-26] MEDS: IPRATROPIUM NEB FS 0.5 MG/2.5 ML AMPUL.NEB NEB SCH ×5 (03:30→19:53)
[2017-07-26 05:09] LABS: HEMATOCRIT 35 % (39-51); HEMOGLOBIN 11.7 g/dL (13.5-17.5); LYMPHOCYTES # (AUTO) 0.7 /CMM (0.8-4.8); LYMPHOCYTES % (AUTO) 5.9 % (20.0-44.0); MEAN CORPUSCULAR HGB CONC 33 g/dl (31.0-36.0); MEAN CORPUSCULAR VOLUME 87 fL (80-96); MONOCYTES # (AUTO) 0.4 /CMM (0.1-1.30); MONOCYTES % (AUTO) 3.3 % (2.0-12.0); NEUTROPHILS # (AUTO) 11.6 /CMM (1.8-8.9); NEUTROPHILS % (AUTO) 90.8 % (43.0-81.0); PLATELET COUNT (AUTO) 132 /CMM (150-450); RDW COEFFICIENT OF VARIATION 13.9 (11.5-15.0); RED BLOOD CELL COUNT(AUTO) 4.03 MIL/uL (4.5-6.0); WHITE BLOOD COUNT (AUTO) 12.8 K/uL (4.3-11.0)
[2017-07-26 05:22] LABS: CALCIUM, SERUM 7.5 mg/dL (8.5-10.1); CARBON DIOXIDE 28 mmol/L (21-32); CHLORIDE 108 mmol/L (98-107); CREATININE 1.5 mg/dL (0.6-1.3); GLUCOSE 159 mg/dL (74-106); MAGNESIUM 2.3 mg/dL (1.8-2.4); POTASSIUM 4.3 mmol/L (3.5-5.1); SODIUM SERUM 142 mmol/L (136-145); UREA NITROGEN, BLOOD 35 mg/dL (7-18)
[2017-07-26] MEDS: methylPREDNISolone SOD SUCC 125 MG/2ML VIAL IV SCH ×3 (05:24→21:16)
--- NOTE | 2017-07-26 08:04 | NUR ---
ICU/RN INITIAL NOTES,AM RECEIVED REPORT FROM NIGHT NURSE. RECEIVED PT SEDATED ON DIPRIVAN, INTUBATED ETT 7.5 23CM AT THE LIP, ON VENT SETTINGS ORDERED BY MD, NO ACUTE DISTRESS NOTED AT THIS TIME. PT ON TELE, SINUS RHYTHM/SINUS DESTINY. OG TUBE IN PLACE, TUBE FEEDING INFUSING, TOLERATING WELL, NO ISSUES NOTED. RIGHT UPPER ARM MIDLINE AND PIV PATENT AND INTACT, NO S/S OF INFECTION OR INFILTRATION NOTED. IV FLUIDS INFUSING ORDERED. BOLAND CATH IN PLACE, DRAINING URINE. ALL NEEDS WILL BE ATTENDED TO, SAFETY MEASURES TAKEN, BED IN LOW POSITION, PT TURNED AND REPOSITIONED. WILL CONTINUE CARE. BILATERAL WRIST RESTRAINTS ON, ASSESSED PER PROTOCOL.
[2017-07-26] MEDS: ENOXAPARIN SODIUM 40 MG/0.4 ML DISP.SYRIN SQ SCH (08:21)
[2017-07-26] MEDS: LEVOTHYROXINE SODIUM 75 MCG TABLET PO SCH (08:21)
[2017-07-26] MEDS: PANTOPRAZOLE 40 MG VIAL IV SCH (08:21)
[2017-07-26] MEDS: GABAPENTIN 300 MG CAPSULE PO SCH ×3 (08:22→17:00)
[2017-07-26] MEDS: LACTOBACILLUS RHAMNOSUS GG 1 EACH CAP.SPRINK PO SCH ×2 (08:22→17:00)
[2017-07-26] MEDS: PAROXETINE HCL 20 MG TABLET PO SCH (08:22)
[2017-07-26] MEDS: Z GUARD REMEDY 2 OZ OINT TP SCH (08:23)
[2017-07-26] MEDS: NITROGLYCERIN 30 GM TUBE TP SCH ×2 (08:25→21:17)
--- NOTE | 2017-07-26 12:35 | NUR ---
ICU/RN: PER WE ARE TO WEAN OFF SEDATION FOR WEANING TRIAL. DIPRIVAN OFF PER PROTOCOL. WILL CONTINUE TO MONITOR AND ASSESS
--- NOTE | 2017-07-26 12:40 | NUR ---
ICU/RN: PT PLACED ON CPAP MODE. TOLERATING WELL, WILL CONTINUE TO MONITOR AND ASSESS.
[2017-07-26] MEDS: PIPERACILLIN /TAZOBACTAM 2.25 G in IV D5W 50 ML IV SCH ×2 (12:54→17:34)
[2017-07-26] MEDS: IV D5/ 0.9% NACL 1,000 ML IV PRN (13:01)
--- NOTE | 2017-07-26 13:35 | NUR ---
ICU/RN: ABG DONE. PER OK TO EXTUBATE. PT EXTUBATED, PLACED ON SIMPLE MASK. TOLERATING WELL, HOWEVER TAKING OFF MASK. LOT OF SECRETIONS NOTED, PT SUCTIONED PRIOR TO EXTUBATION. PT ABLE TO SPEAK, FOLLOWS COMMANDS YET CONFUSED. WILL CONTINUE TO CLOSELY MONITOR. Addendum: 07/26/17 at 1826 by JENNIFER TOURE RN DISREGARD, WRONG TIME DOCUMENTED.
[2017-07-26 13:52] LABS: ABG BASE EXCESS -0.5 mmol/L; ABG PCO2 48.7 mmHg (35.0-45.0); ABG PO2 89.5 mmHg (75.0-100.0); COHb 0.1 % (0.5-1.5); MetHb 0.4 % (0.0-1.5); O2Hb 95.5 % (94.0-97.0); SITE, ABG Right Radial; VENT MODE, BG CPAP 5 PS10
--- NOTE | 2017-07-26 15:10 | NUR ---
ICU/RN: ABG DONE. PER OK TO EXTUBATE. PT EXTUBATED, PLACED ON SIMPLE MASK. TOLERATING WELL, HOWEVER TAKING OFF MASK. LOT OF SECRETIONS NOTED, PT SUCTIONED PRIOR TO EXTUBATION. PT ABLE TO SPEAK, FOLLOWS COMMANDS YET CONFUSED. WILL CONTINUE TO CLOSELY MONITOR.
[2017-07-26] MEDS: VANCOMYCIN 1.25 GM in IV D5W 500 ML IV SCH (15:58)
[2017-07-26] MEDS: hydrALAZINE HCL IV 20 MG VIAL IV PRN (17:40)
--- NOTE | 2017-07-26 18:00 | NUR ---
ICU/RN: PT PULLED OUT LEFT PIV. PT AGITATED, CONFUSED. REORIENTED PT AND PLACED ON 6LITERS NASAL CANULA. WILL CONTINUE TO MONITOR AND ASSESS.
--- NOTE | 2017-07-26 18:28 | NUR ---
ICU/RN ENDING NOTES,AM REPORT WILL BE ENDORSED TO NIGHT NURSE FOR CONTINUATION OF CARE, ALL NEEDS ATTENDED TO. PT EXTUBATED TODAY, NOW ON NASAL CANULA, NO ACUTE DISTRESS NOTED. SECRETIONS NOTED, SUCTION AT BEDSIDE. PT SINUS ON MONITOR WITH OCCASIONAL PAC'S. IV FLUIDS INFUSING ORDERED, LEFT PIV INTACT AND NO S/S OF INFECTION OR INFILTRATION NOTED, PT PULLED OUT OTHER IV AND REFUSED INSERTION OF ANOTHER PIV. ATTEMPTED TWICE. ALL NEEDS ATTENDED TO, SAFETY MEASURES TAKEN, EMANUEL IN LOW POSITION, SIDE RAILS UP, CALL LIGHT WITHIN REACH. PT TURNED AND REPOSITIONED, LINENS CHANGED.
--- NOTE | 2017-07-26 19:30 | NUR ---
Received patient awake alert and confused,verbally abusive and combative tried to kick RN and kicking side rails.With bilateral soft wrist restraints on.Afebrile.SR with occasional pac's. Normotensive.With O2 6L NC saturation 90%-93%.Respiration even and unlabored.NPO status. Awaiting swallow eval.IVF infusing well to RH.FC to gravity.Denies pain.Continue monitoring.
[2017-07-26] MEDS: TAMSULOSIN 0.4 MG CAP.SR.24H PO SCH (22:00)
[2017-07-26] MEDS: NORTRIPTYLINE HCL 25 MG CAPSULE PO SCH (22:00)
[2017-07-27] VITALS (39 sets, daily range): BP systolic 72–165; BP diastolic 52–100
--- NOTE | 2017-07-27 | NUR ---
Patient awake oriented to person and place but still with periods of confusion.Incontinent of stool. Perineal care and bed bath rendered.Complete linens changed.Turned and repositioned.
[2017-07-27] MEDS: IPRATROPIUM NEB FS 0.5 MG/2.5 ML AMPUL.NEB NEB SCH ×7 (00:09→23:58)
[2017-07-27] MEDS: ALBUTEROL HALF STRENGTH 1.25 MG/3 ML VIAL.NEB NEB SCH ×7 (00:09→23:58)
[2017-07-27] MEDS: PIPERACILLIN /TAZOBACTAM 2.25 G in IV D5W 50 ML IV SCH ×5 (00:14→23:45)
[2017-07-27] MEDS ORDERED: AMIODARONE 150 MG/3 ML VIAL IV ONE (03:36)
[2017-07-27] MEDS: AMIODARONE 900 MG in IV D5W 482 ML IV PRN ×2 (03:48→17:01)
--- NOTE | 2017-07-27 03:48 | NUR ---
Patient Tele reading Afib with RVR.Amiodarone drip started per protocol.Continue monitoring.
[2017-07-27 04:12] LABS: BASOPHILS # (AUTO) 0.1 /CMM (0.0-0.2); BASOPHILS % (AUTO) 0.4 % (0.0-2.0); HEMATOCRIT 40 % (39-51); LYMPHOCYTES # (AUTO) 0.8 /CMM (0.8-4.8); LYMPHOCYTES % (AUTO) 5.6 % (20.0-44.0); MEAN CORPUSCULAR HGB CONC 33 g/dl (31.0-36.0); MEAN CORPUSCULAR VOLUME 87 fL (80-96); MONOCYTES # (AUTO) 0.4 /CMM (0.1-1.30); MONOCYTES % (AUTO) 2.6 % (2.0-12.0); NEUTROPHILS # (AUTO) 13.4 /CMM (1.8-8.9); NEUTROPHILS % (AUTO) 91.4 % (43.0-81.0); PLATELET COUNT (AUTO) 132 /CMM (150-450); RDW COEFFICIENT OF VARIATION 13.9 (11.5-15.0); RED BLOOD CELL COUNT(AUTO) 4.54 MIL/uL (4.5-6.0); WHITE BLOOD COUNT (AUTO) 14.6 K/uL (4.3-11.0)
[2017-07-27 04:34] LABS: CALCIUM, SERUM 7.9 mg/dL (8.5-10.1); CARBON DIOXIDE 24 mmol/L (21-32); CHLORIDE 112 mmol/L (98-107); CREATININE 1.5 mg/dL (0.6-1.3); GLUCOSE 152 mg/dL (74-106); MAGNESIUM 2.5 mg/dL (1.8-2.4); POTASSIUM 4.5 mmol/L (3.5-5.1); SODIUM SERUM 145 mmol/L (136-145); UREA NITROGEN, BLOOD 42 mg/dL (7-18)
[2017-07-27] MEDS: IV D5/ 0.9% NACL 1,000 ML IV PRN ×2 (04:38→17:02)
[2017-07-27] MEDS: methylPREDNISolone SOD SUCC 125 MG/2ML VIAL IV SCH ×3 (05:20→21:03)
--- NOTE | 2017-07-27 07:00 | NUR ---
Patient resting in no acute distress.VS stable.Still Afib 130's.Amiodarone gtt infusing well. All due medications administered.Report will be given to am shift RN for continuity of care.
--- NOTE | 2017-07-27 07:15 | NUR ---
MEDICAL OBSERVER NOTES RECEIVED PATIENT AWAKE ALERT X2 WITH EPISODES OF CONFUSION , ON 6LPM NC SPO2 OF 90-92% , AFIB - SR 85 ON BEDSIDE MONITOR , FC DRAINING WITH NAYELI COLORED URINE VIA GRAVITY , [facility] , IV OF R HAND # 18 WITH D5NS @ 80ML/HR , AMIODRIP @ 1MG/HR INFUSING WELL , ALL NEEDS ATTENDED , BED ON LOW AND LOCKED POSITION , SIDE RAILS X2 ,CALL LIGHT WITHIN REACH , HOB @ 35 , WILL CONTINUE TO MONITOR
[2017-07-27] MEDS: LEVOTHYROXINE SODIUM 75 MCG TABLET PO SCH (07:30)
[2017-07-27] MEDS: GABAPENTIN 300 MG CAPSULE PO SCH ×3 (09:00→17:01)
[2017-07-27] MEDS: PAROXETINE HCL 20 MG TABLET PO SCH (09:00)
[2017-07-27] MEDS: LACTOBACILLUS RHAMNOSUS GG 1 EACH CAP.SPRINK PO SCH ×2 (09:00→17:01)
--- NOTE | 2017-07-27 09:30 | NUR ---
TRANSIT MAN NOTES SEEN AND EVALUATED BY DR PIERRE , DISCUSSED LABS , CHEST XRAY , ON 6LPM NC SPO2 OF 88-90% , AFIB - SR 70-80 ON BEDSIDE MONITOR , AFEBRILE , AWARE
[2017-07-27] MEDS: Z GUARD REMEDY 2 OZ OINT TP SCH (09:31)
[2017-07-27] MEDS: VANCOMYCIN 1.25 GM in IV D5W 500 ML IV SCH (09:31)
[2017-07-27] MEDS: NITROGLYCERIN 30 GM TUBE TP SCH ×2 (09:33→21:04)
[2017-07-27] MEDS: ENOXAPARIN SODIUM 40 MG/0.4 ML DISP.SYRIN SQ SCH (09:35)
[2017-07-27] MEDS: PANTOPRAZOLE 40 MG VIAL IV SCH (09:35)
--- NOTE | 2017-07-27 11:31 | NUR ---
WORKFORCE PLANNER NOTES SEEN AND EVALUATED BY DR DR BARKER , DISCUSSED LABS , CHEXT XRAY ON 6LPM NC SPO2 OF 93% , AFIB SR 132 ON BEDSIDE MONITOR F/U FOR CARDIO EVAL , ON AMIODRIP STARTED @ 0348 , CURRENTLY ON 0.5MG AMIODRIP , AFEBRILE , AOX2 CONFUSED , AGITATED , MD AWARE SPEECH EVAL AT BEDSIDE FOR DIET , AWAITING FOR DIET ORDER
[2017-07-27] MEDS ORDERED: DILTIAZEM HCL CD 240 MG PO SCH (16:00)
[2017-07-27] MEDS ORDERED: DILTIAZEM HCL CD 120 MG PO SCH (17:00)
[2017-07-27] MEDS: DILTIAZEM HCL CD 120 MG PO SCH (17:16)
[2017-07-27] MEDS: hydrALAZINE HCL IV 20 MG VIAL IV PRN (19:05)
--- NOTE | 2017-07-27 20:00 | NUR ---
Received patient awake and oriented x 2 otherwise confused.Talking to himself and aggressive at times during patient care.SR with occasional pac's.Maintained on O2 6L NC sat 93%.Respiration even and unlabored.VS stable.Patient complaints of headache and will administer Tylenol as requested.FC to gravity with dark anne-marie urine.Turned and repositioned.Continue monitoring. Addendum: 07/27/17 at 2057 by CHERYL ORTA RN Amiodarone gtt infusing via zach midline and ivf.Site intact.
[2017-07-27] MEDS: ACETAMINOPHEN 325 MG TABLET PO PRN (20:08)
[2017-07-27] MEDS: NORTRIPTYLINE HCL 25 MG CAPSULE PO SCH (22:04)
[2017-07-27] MEDS: TAMSULOSIN 0.4 MG CAP.SR.24H PO SCH (22:04)
[2017-07-28] VITALS (38 sets, daily range): BP systolic 121–184; BP diastolic 45–125
--- NOTE | 2017-07-28 | NUR ---
Patient resting.VS remains stable.SR with occasional pac's.Denies pain.Turned and repositioned.
[2017-07-28] MEDS ORDERED: VANCOMYCIN 1 GM in IV D5W 250 ML IV SCH (04:00)
[2017-07-28] MEDS: ALBUTEROL HALF STRENGTH 1.25 MG/3 ML VIAL.NEB NEB SCH ×6 (04:03→23:30)
[2017-07-28] MEDS: IPRATROPIUM NEB FS 0.5 MG/2.5 ML AMPUL.NEB NEB SCH ×6 (04:03→23:35)
[2017-07-28 04:58] LABS: HEMATOCRIT 38 % (39-51); HEMOGLOBIN 12.4 g/dL (13.5-17.5); LYMPHOCYTES # (AUTO) 0.6 /CMM (0.8-4.8); LYMPHOCYTES % (AUTO) 3.6 % (20.0-44.0); MEAN CORPUSCULAR HGB CONC 33 g/dl (31.0-36.0); MEAN CORPUSCULAR VOLUME 87 fL (80-96); MONOCYTES # (AUTO) 0.1 /CMM (0.1-1.30); MONOCYTES % (AUTO) 0.8 % (2.0-12.0); NEUTROPHILS # (AUTO) 15.3 /CMM (1.8-8.9); NEUTROPHILS % (AUTO) 95.6 % (43.0-81.0); PLATELET COUNT (AUTO) 144 /CMM (150-450); RDW COEFFICIENT OF VARIATION 14.2 (11.5-15.0); RED BLOOD CELL COUNT(AUTO) 4.35 MIL/uL (4.5-6.0)
[2017-07-28] MEDS: methylPREDNISolone SOD SUCC 125 MG/2ML VIAL IV SCH ×3 (05:01→21:27)
[2017-07-28 05:10] LABS: CALCIUM, SERUM 7.8 mg/dL (8.5-10.1); CARBON DIOXIDE 25 mmol/L (21-32); CHLORIDE 111 mmol/L (98-107); CREATININE 1.6 mg/dL (0.6-1.3); GLUCOSE 164 mg/dL (74-106); MAGNESIUM 2.5 mg/dL (1.8-2.4); POTASSIUM 4.4 mmol/L (3.5-5.1); SODIUM SERUM 146 mmol/L (136-145); UREA NITROGEN, BLOOD 45 mg/dL (7-18)
[2017-07-28] MEDS: PIPERACILLIN /TAZOBACTAM 2.25 G in IV D5W 50 ML IV SCH ×2 (05:33→12:38)
--- NOTE | 2017-07-28 06:00 | NUR ---
Patient awake with stable vs during the night.AM care done.Oral care done.Turned and repositioned. Good po intake.No BM noted.Slept at short intervals.Most of the time talking to himself.No distress noted.
[2017-07-28] MEDS: IV D5/ 0.9% NACL 1,000 ML IV PRN (06:10)
--- NOTE | 2017-07-28 07:15 | NUR ---
FORENSIC IDENTIFICATION SPECIALIST NOTES RECEIVED PATIENT AWAKE ALERT X2 WITH EPISODES OF CONFUSION , ON 6LPM NC SPO2 OF 93% , ASR 85 ON BEDSIDE MONITOR , FC DRAINING WITH NAYELI COLORED URINE VIA GRAVITY , ON BARIMAXXX BED , IV OF R HAND # 18 PATENT AND INTACT SL , LIONEL MIDLINE WITH D5NS @ 80ML/HR INFUSING WELL , ALL NEEDS ATTENDED , BED ON LOW AND LOCKED POSITION , SIDE RAILS X2 ,CALL LIGHT WITHIN REACH , HOB @ 35 , WILL CONTINUE TO MONITOR
[2017-07-28] MEDS: LACTOBACILLUS RHAMNOSUS GG 1 EACH CAP.SPRINK PO SCH ×2 (08:02→16:20)
[2017-07-28] MEDS: NITROGLYCERIN 30 GM TUBE TP SCH ×2 (08:02→21:29)
[2017-07-28] MEDS: PAROXETINE HCL 20 MG TABLET PO SCH (08:03)
[2017-07-28] MEDS: PANTOPRAZOLE 40 MG VIAL IV SCH (08:03)
[2017-07-28] MEDS: GABAPENTIN 300 MG CAPSULE PO SCH ×3 (08:03→16:20)
[2017-07-28] MEDS: LEVOTHYROXINE SODIUM 75 MCG TABLET PO SCH (08:03)
[2017-07-28] MEDS: DILTIAZEM HCL CD 120 MG PO SCH (08:03)
[2017-07-28] MEDS: ENOXAPARIN SODIUM 40 MG/0.4 ML DISP.SYRIN SQ SCH (08:03)
[2017-07-28] MEDS: Z GUARD REMEDY 2 OZ OINT TP SCH (08:04)
[2017-07-28] MEDS ORDERED: AMIODARONE 150 MG in IV D5W 100 ML IV ONE (09:30)
[2017-07-28] MEDS ORDERED: AMIODARONE 900 MG in IV D5W 482 ML IV SCH (09:30)
--- NOTE | 2017-07-28 11:30 | NUR ---
ELECTRONICS ENGINEER NOTES SEEN AND EVALUATED BY DR SPAULDING , DISCUSSED LABS , CHEST XEAY RESULT , ON 6LPM NC SPO2 OF 90-92% , AFEBRILE , V.S STABLE , AWARE
--- NOTE | 2017-07-28 11:30 | NUR ---
SENIOR SOUS CHEF NOTES SEEN AND EVALUATED BY DR BARKER , DISCUSSED LABS , CHEST XRAY , AFEBRILE , V/S STABLE ON 6LPM NC SPO2 OF 90-92% , PT HAS EPISODES OF CONFUSION , CRYING , VERIFYING WITH MD IF PT NEEDS PSCY CONSULT , MD AWARE , AWAITING FOR ORDERS
--- NOTE | 2017-07-28 12:54 | NUR ---
AUDIT MACHINE OPERATOR NOTES SPOKE WITH DR BARKER , VERIFIED IF HE WANTS TO CONTINUE ANTIBIOTICS PT WBC IS 16.0 , AFEBRILE , ON SOLU MEDROL 80MG Q8 , PER MD MARTINS ALL IV ANTIBIOTICS , DECREASE SOLU DEMROL DOSE TO 40MG Q12 , ORDERS CARRIED OUT
[2017-07-28] MEDS: hydrALAZINE HCL IV 20 MG VIAL IV PRN (16:20)
--- NOTE | 2017-07-28 16:30 | NUR ---
TECHNICAL SUPPORT CONSULTANT NOTES DISCUSSED WITH DR BARKER THAT PT STILL CONFUSE HALLUCINATING , PER MD HE WILL CALL [facility] FOR CONSULT ,
--- NOTE | 2017-07-28 20:00 | NUR ---
Received patient awake oriented x 2with periods of confusion.Bilateral soft restraints in place for safety.VS stable.Denies pain. Respiration even and unlabored with O2 6L NC.Afib 147 per monitor with Amiodarone gtt infusing at 0.5 mcg/min via zach midline. Site intact.FC with anne-marie urine.Turned and repositioned.
[2017-07-28] MEDS: TAMSULOSIN 0.4 MG CAP.SR.24H PO SCH (21:27)
[2017-07-28] MEDS: NORTRIPTYLINE HCL 25 MG CAPSULE PO SCH (21:28)
[2017-07-29] VITALS (26 sets, daily range): BP systolic 107–171; BP diastolic 64–89
[2017-07-29] MEDS ORDERED: TEMAZEPAM 15 MG CAPSULE PO PRN (00:30)
--- NOTE | 2017-07-29 00:40 | NUR ---
Patient awake and restless.Tele monitoring with sustained Afib 140's with Amiodarone gtt infusing. notified with orders received.Medicated with Restoril as PRN.Will reassess effectiveness of medication.
--- NOTE | 2017-07-29 02:00 | NUR ---
Patient still awake.Bed bath rendered for comfort.Complete linens changed.Turned and repositioned. Addendum: 07/29/17 at 0340 by CHERYL ORTA RN Patient desat to 87 RT,Lorenzo here and notified.Placed patient on Simple mask 7L.O2 sat went up to 93%-95%. Continue to monitor.
[2017-07-29] MEDS: IPRATROPIUM NEB FS 0.5 MG/2.5 ML AMPUL.NEB NEB SCH ×6 (03:28→23:15)
[2017-07-29] MEDS: ALBUTEROL HALF STRENGTH 1.25 MG/3 ML VIAL.NEB NEB SCH ×3 (03:28→11:49)
--- NOTE | 2017-07-29 04:00 | NUR ---
Patient quietly resting in bed.VS stable.Turned and repositioned.
[2017-07-29 05:13] LABS: HEMATOCRIT 39 % (39-51); HEMOGLOBIN 12.9 g/dL (13.5-17.5); LYMPHOCYTES # (AUTO) 0.6 /CMM (0.8-4.8); LYMPHOCYTES % (AUTO) 2.9 % (20.0-44.0); MEAN CORPUSCULAR HGB CONC 33 g/dl (31.0-36.0); MEAN CORPUSCULAR VOLUME 87 fL (80-96); MONOCYTES # (AUTO) 0.1 /CMM (0.1-1.30); MONOCYTES % (AUTO) 0.4 % (2.0-12.0); NEUTROPHILS % (AUTO) 96.7 % (43.0-81.0); PLATELET COUNT (AUTO) 165 /CMM (150-450); RDW COEFFICIENT OF VARIATION 14.3 (11.5-15.0); RED BLOOD CELL COUNT(AUTO) 4.51 MIL/uL (4.5-6.0); WHITE BLOOD COUNT (AUTO) 20.7 K/uL (4.3-11.0)
[2017-07-29 05:32] LABS: CARBON DIOXIDE 21 mmol/L (21-32); CHLORIDE 111 mmol/L (98-107); CREATININE 1.6 mg/dL (0.6-1.3); GLUCOSE 158 mg/dL (74-106); MAGNESIUM 2.5 mg/dL (1.8-2.4); POTASSIUM 4.6 mmol/L (3.5-5.1); SODIUM SERUM 144 mmol/L (136-145); UREA NITROGEN, BLOOD 51 mg/dL (7-18)
--- NOTE | 2017-07-29 06:54 | NUR ---
Patient sleeping at this time.VS stable.Remains Afib with RVR 140's Amiodarone drip infusing. Safety precaution maintained with call light in his hand.No distress noted.All needs attended. Will endorse to AM shift RN for continuity of care.
[2017-07-29] MEDS ORDERED: AMIODARONE 900 MG in IV D5W 482 ML IV SCH (08:00)
[2017-07-29] MEDS: LEVOTHYROXINE SODIUM 75 MCG TABLET PO SCH (08:22)
[2017-07-29] MEDS: GABAPENTIN 300 MG CAPSULE PO SCH ×3 (08:22→16:26)
[2017-07-29] MEDS: LACTOBACILLUS RHAMNOSUS GG 1 EACH CAP.SPRINK PO SCH ×2 (08:23→16:26)
[2017-07-29] MEDS: PANTOPRAZOLE 40 MG VIAL IV SCH (08:23)
[2017-07-29] MEDS: methylPREDNISolone SOD SUCC 125 MG/2ML VIAL IV SCH ×2 (08:23→22:00)
[2017-07-29] MEDS: Z GUARD REMEDY 2 OZ OINT TP SCH (08:23)
[2017-07-29] MEDS: PAROXETINE HCL 20 MG TABLET PO SCH (08:23)
[2017-07-29] MEDS: DILTIAZEM HCL CD 120 MG PO SCH (08:48)
[2017-07-29] MEDS: NITROGLYCERIN 30 GM TUBE TP SCH ×2 (08:48→22:08)
[2017-07-29] MEDS: ENOXAPARIN SODIUM 60 MG/0.6 ML DISP.SYRIN SQ SCH ×2 (08:50→22:03)
[2017-07-29 09:13] LABS: ABG BASE EXCESS -3.3 mmol/L; ABG OXYGEN SATURATION 96.5 % (92.0-98.5); ABG PCO2 44.6 mmHg (35.0-45.0); ABG PH 7.326 (7.350-7.450); ABG PO2 96.9 mmHg (75.0-100.0); AaDO2 281.8 mmHg; COHb 0.9 % (0.5-1.5); MetHb 0.5 % (0.0-1.5); O2Hb 95.1 % (94.0-97.0); SITE, ABG Left Radial; VENT MODE, BG SIMPLE MASK
[2017-07-29] MEDS ORDERED: MORPHINE SULFATE INJ 4 MG/ML DISP.SYRIN IV PRN (09:30)
[2017-07-29 09:43] LABS: BAND % (MANUAL) 3 % (0.0-5.0); LYMPHOCYTES % (MANUAL) 6 % (16-48); MONOCYTES % (MANUAL) 2 % (0-11.0); NEUTROPHILS % (MANUAL) 89 (42-76)
[2017-07-29] MEDS ORDERED: LORAZEPAM 0.5 MG TABLET PO PRN (10:00)
--- NOTE | 2017-07-29 14:43 | NUR ---
MANAGER MEDICAL AFFAIRS NOTE 0720: Received patient awake, A/Ox2, with confusion. On 7LPM of O2 via simple mask. 97% O2 sat. Will titrate as tolerated. Afib 140's on the monitor. LIONEL midline intact, on Amio drip 0.5mg/min. FOOD OPERATIONS MANAGER restraints on for safety. On Barimaxx. Fang cath intact, noted with yellow urine with sediments. 0900: S/E by Dr. Velez, with order to change Amio drip to keep on 1mg/min and he added Cardizem PO. On Pureed diet, tolerated well, given assistance on feeding. No downgrade from ICU for now per Cardio. 1130: S/E by Dr. Serra, with order to DC albuterol for still AFlutter 140's. 1200: S/E by Dr. Centeno, with order to DC Pamelor and new order of Ativan PRN. 1430: No any significant changes noted at this time. Kept clean, warm and dry. Needs attended. Kept call light at reach. Remained on 6LPM of O2 via NC or 7LPM of O2 via simple mask when noted Sat 89 at times on NC.
[2017-07-29] MEDS ORDERED: OLANZAPINE 2.5 MG TABLET PO PRN (17:00)
--- NOTE | 2017-07-29 18:43 | NUR ---
LADLER NOTE 1615: Patient converted to SR 60's with PACs. 1830: Done with dinner, tolerated. Remained SR 60's with PACs. Kept clean, warm and dry. Remained on 6LPM of O2 via NC.
[2017-07-29] MEDS: TAMSULOSIN 0.4 MG CAP.SR.24H PO SCH (22:00)
--- NOTE | 2017-07-29 23:00 | NUR ---
CAMERA OPERATOR NOTES Received patient asleep ,but easily awakens,converses,answers coherently,although a little confuse with date and place.Follows commands,cooperative and calm.comfort care done,needs attended.On Amiodarone drip for Afib with RVR ,now HR in the low 60's,will closely monitor HR ,may need rto decrease or DC Amiodarone.O2 face mask alternating with Nasal Cannula 6-7 L/min.Not in acute distress but with productive cough.Encouraged deep breathing and coughing exercise. Addendum: 07/30/17 at 0614 by TARUN MONROE RN ABOVE NOTE IS FOR 1899
[2017-07-30] VITALS (40 sets, daily range): BP systolic 112–172; BP diastolic 47–94
--- NOTE | 2017-07-30 | NUR ---
HAWK MISSILE SYSTEM CREWMEMBER NOTES r Remains stable,not in distress,sleeps on and off but coughing a lot,encouraged to cough out phlegm.HR consistently in the low 60's -58-59.Amiodarone drip decrease to 0.5 mcg.
--- NOTE | 2017-07-30 01:00 | NUR ---
GRINDER MACHINE SETTER NOTES HR STILL IN THE 58-59,60 .bp STABLE ,SINUS BRADYCARDIA,AMIODARONE DRIP DC'D.WILL CLOSELY MONITOR HR.
[2017-07-30] MEDS: IPRATROPIUM NEB FS 0.5 MG/2.5 ML AMPUL.NEB NEB SCH ×6 (02:58→23:17)
--- NOTE | 2017-07-30 04:00 | NUR ---
ETHICS OFFICER NOTES AM CARE DONE,TOLERATED FLAT ON BED ,NO SOB NOTED.
--- NOTE | 2017-07-30 07:00 | NUR ---
STORAGE BATTERY INSPECTOR NOTES 0600 Seen by Dami Johnston ,aware of the low HR 58-60 ,SR . 0700 Remains stable,Report given to Chinedu WELSH
[2017-07-30] MEDS: GABAPENTIN 300 MG CAPSULE PO SCH ×4 (08:30→18:32)
[2017-07-30] MEDS: LACTOBACILLUS RHAMNOSUS GG 1 EACH CAP.SPRINK PO SCH ×3 (08:31→18:32)
[2017-07-30] MEDS: CLONIDINE HCL 0.2MG/24H PTWK 1 EA PATCH TD SCH (08:31)
[2017-07-30] MEDS: PAROXETINE HCL 20 MG TABLET PO SCH (08:31)
[2017-07-30] MEDS: LEVOTHYROXINE SODIUM 75 MCG TABLET PO SCH (08:31)
[2017-07-30] MEDS: ASPIRIN 325 MG TABLET PO SCH (08:31)
[2017-07-30] MEDS: DILTIAZEM HCL CD 120 MG PO SCH (08:31)
[2017-07-30] MEDS: ENOXAPARIN SODIUM 60 MG/0.6 ML DISP.SYRIN SQ SCH ×2 (08:32→21:42)
[2017-07-30] MEDS: methylPREDNISolone SOD SUCC 125 MG/2ML VIAL IV SCH ×2 (08:32→21:40)
[2017-07-30] MEDS: PANTOPRAZOLE 40 MG VIAL IV SCH (08:32)
[2017-07-30] MEDS: Z GUARD REMEDY 2 OZ OINT TP SCH (08:33)
[2017-07-30] MEDS: NITROGLYCERIN 30 GM TUBE TP SCH ×2 (08:33→21:57)
[2017-07-30] MEDS: AMIODARONE HCL 200 MG TABLET PO SCH ×2 (08:34→22:34)
[2017-07-30 08:59] LABS: CARBON DIOXIDE 23 mmol/L (21-32); CHLORIDE 109 mmol/L (98-107); CREATININE 1.9 mg/dL (0.6-1.3); GLUCOSE 151 mg/dL (74-106); POTASSIUM 5.2 mmol/L (3.5-5.1); SODIUM SERUM 142 mmol/L (136-145); UREA NITROGEN, BLOOD 69 mg/dL (7-18)
[2017-07-30 09:07] LABS: ABG BASE EXCESS -4.1 mmol/L; ABG OXYGEN SATURATION 94.1 % (92.0-98.5); ABG PCO2 54.6 mmHg (35.0-45.0); ABG PH 7.254 (7.350-7.450); ABG PO2 77.7 mmHg (75.0-100.0); AaDO2 144.7 mmHg; COHb 0.6 % (0.5-1.5); MetHb 0.5 % (0.0-1.5); O2Hb 93.1 % (94.0-97.0); SITE, ABG Left Radial; VENT MODE, BG N/C 5LPM
[2017-07-30 09:25] LABS: HEMATOCRIT 39 % (39-51); HEMOGLOBIN 12.8 g/dL (13.5-17.5); LYMPHOCYTES # (AUTO) 0.7 /CMM (0.8-4.8); LYMPHOCYTES % (AUTO) 3.2 % (20.0-44.0); MEAN CORPUSCULAR HGB CONC 33 g/dl (31.0-36.0); MEAN CORPUSCULAR VOLUME 88 fL (80-96); MONOCYTES # (AUTO) 0.3 /CMM (0.1-1.30); MONOCYTES % (AUTO) 1.1 % (2.0-12.0); NEUTROPHILS # (AUTO) 21.3 /CMM (1.8-8.9); NEUTROPHILS % (AUTO) 95.7 % (43.0-81.0); PLATELET COUNT (AUTO) 173 /CMM (150-450); RED BLOOD CELL COUNT(AUTO) 4.43 MIL/uL (4.5-6.0); WHITE BLOOD COUNT (AUTO) 22.3 K/uL (4.3-11.0)
--- NOTE | 2017-07-30 10:49 | NUR ---
RT NOTE PLACED PT ON BIPAP MODE DUE TO MD ORDERS POST ABG RESULTS WILL MONITOR CLOSELY. Addendum: 07/30/17 at 1052 by JOE HAMMER RT Amended: Links added.
--- NOTE | 2017-07-30 10:52 | NUR ---
SHOVEL OPERATOR NOTE 0720: Received awake, A/Ox3 patient. No respiratory distress noted at this time, on 6LPM of O2 via mask, tolerated at this time. With LIONEL midline intact. Fang cath intact, noted with dark anne-marie colored urine with sediments. On Barimaxx. 0900: Pureed diet on breakfast tolerated well. 1030: S/E by Dr. Cody, made aware for the ABG, with order to place patient on Bipap, RT at bedside. Cleaned patient before placing on Bipap, as requested, noted with good brown soft BM. 1035: S/E by Dr. Machuca, aware for placing patient on Bipap. Made aware patient converted back on SB-SR 50-60's. 1045: Placed on Bipap by RT, tolerated at this time, will continue to monitor.
[2017-07-30] MEDS ORDERED: CEFTRIAXONE 1 G VIAL IM SCH (15:00)
--- NOTE | 2017-07-30 15:08 | NUR ---
ACTIVITIES DIRECTOR SCOUTING NOTE Patient c/o burning sensation on the urinary tract, WBC 22.3, not on ATB at this time, made Dr. Machuca aware. With order of UA CS and Rocephin 1gm IV q24. aware for PCN allergy, said ok to give, made patient aware for the new order, agreed for Rocephin order. Will monitor for S/S adverse reactions. Sent urine specimen to lab, awaiting ATB first dose. Temp 98.4 at this time.
[2017-07-30] MEDS: CEFTRIAXONE 1 G in IV D5W 50 ML IV SCH (15:55)
[2017-07-30 16:54] LABS: APPEARANCE,URINE CLOUDY (CLEAR); COLOR,URINE RED (YELLOW)
[2017-07-30 16:56] LABS: RBC,URINE TOO NUMEROUS TO COUN /HPF (0-2)
[2017-07-30 16:57] LABS: BACTERIA,URINE 1+ /HPF (None Seen); SQUAMOUS EPITHELIAL CELL,UR 0-2 /HPF (None Seen)
--- NOTE | 2017-07-30 17:00 | NUR ---
RECEIVED PT ON 6LPM, SPO2 AT 96% ATTEMPTED TO PLACE PT ON N/C BUT SPO2 DROPPED BELOW 90%, PLACED BACK ON MASK, WHEN PT WAS AWAKE, PLACED PT ON NASAL CANNULA SPO2 AT 93%, ROUTINE ABG DONE, SHOWED RESP ACIDOSIS, MD ORDERED TO BE PLACED ON BIPAP, WILL MONITOR CLOSELY
--- NOTE | 2017-07-30 19:00 | NUR ---
EXCEPTIONAL STUDENT EDUCATION TEACHER NOTES Received patient on BIPAP awakae,alert,converses,coherent and appropriate but confuse with date ,time ,year.Follows commands and cooperative.Tolerating BIPAP,breathing regular and nonlabored.Comfort care done,needs attended.Will closely monitor on BIPAP.
--- NOTE | 2017-07-30 21:24 | NUR ---
PT RECEIVED ON BIPAP WAKE AND ALERT. PT TOLERATING SETTINGS. NO RESP DISTRESS. BIPAP ALARMS SET AND AUDIBLE. AMBU BAG AT BEDSIDE. WILL CONTINUE TO MONITOR. Addendum: 07/30/17 at 2125 by CODEY NIX RT Amended: Links added.
[2017-07-30] MEDS: TAMSULOSIN 0.4 MG CAP.SR.24H PO SCH ×2 (21:40→22:36)
--- NOTE | 2017-07-30 22:00 | NUR ---
EDITOR SOUND NOTES Awakens very confuse and uncooperative,fighting ,refusing to take all meds .,will hold off meds for now and try later once patient calm and less confuse
[2017-07-31] VITALS (34 sets, daily range): BP systolic 102–154; BP diastolic 36–121
--- NOTE | 2017-07-31 | NUR ---
INTERNAL GRINDING MACHINE OPERATOR NOTES Awake,now calm and cooperative again,stated he was sorry the way he behaves.Still with a litle confusion but now cooperative,coherent.
[2017-07-31] MEDS: IPRATROPIUM NEB FS 0.5 MG/2.5 ML AMPUL.NEB NEB SCH ×6 (03:24→23:44)
[2017-07-31 04:36] LABS: HEMATOCRIT 38 % (39-51); HEMOGLOBIN 12.6 g/dL (13.5-17.5); LYMPHOCYTES # (AUTO) 1.9 /CMM (0.8-4.8); LYMPHOCYTES % (AUTO) 10.4 % (20.0-44.0); MEAN CORPUSCULAR HGB CONC 33 g/dl (31.0-36.0); MEAN CORPUSCULAR VOLUME 87 fL (80-96); MONOCYTES # (AUTO) 0.4 /CMM (0.1-1.30); MONOCYTES % (AUTO) 2.4 % (2.0-12.0); NEUTROPHILS # (AUTO) 15.5 /CMM (1.8-8.9); NEUTROPHILS % (AUTO) 87.2 % (43.0-81.0); PLATELET COUNT (AUTO) 165 /CMM (150-450); RDW COEFFICIENT OF VARIATION 13.9 (11.5-15.0); RED BLOOD CELL COUNT(AUTO) 4.41 MIL/uL (4.5-6.0); WHITE BLOOD COUNT (AUTO) 17.8 K/uL (4.3-11.0)
[2017-07-31 04:42] LABS: CARBON DIOXIDE 26 mmol/L (21-32); CHLORIDE 109 mmol/L (98-107); CREATININE 1.7 mg/dL (0.6-1.3); GLUCOSE 161 mg/dL (74-106); MAGNESIUM 2.6 mg/dL (1.8-2.4); SODIUM SERUM 143 mmol/L (136-145); UREA NITROGEN, BLOOD 66 mg/dL (7-18)
--- NOTE | 2017-07-31 07:00 | NUR ---
ENVELOPE PATTERNMAKER NOTES Stable,still on BIPAP,tolerating well.report give to Chinedu WELSH
--- NOTE | 2017-07-31 07:58 | NUR ---
Pt received on BiPAP. BiPAP is plugged into a red outlet, alarms are set and audible, and BVM is at bedside. Addendum: 07/31/17 at 0759 by SHREYAS CHAVEZ RT Amended: Links added.
[2017-07-31] MEDS: PANTOPRAZOLE 40 MG VIAL IV SCH (08:16)
[2017-07-31] MEDS: ASPIRIN 325 MG TABLET PO SCH (08:16)
[2017-07-31] MEDS: LACTOBACILLUS RHAMNOSUS GG 1 EACH CAP.SPRINK PO SCH ×2 (08:16→17:05)
[2017-07-31] MEDS: PAROXETINE HCL 20 MG TABLET PO SCH (08:16)
[2017-07-31] MEDS: methylPREDNISolone SOD SUCC 125 MG/2ML VIAL IV SCH ×2 (08:16→20:36)
[2017-07-31] MEDS: GABAPENTIN 300 MG CAPSULE PO SCH ×3 (08:16→17:05)
[2017-07-31] MEDS: LEVOTHYROXINE SODIUM 75 MCG TABLET PO SCH (08:17)
[2017-07-31] MEDS: DILTIAZEM HCL CD 120 MG PO SCH (08:17)
[2017-07-31] MEDS: Z GUARD REMEDY 2 OZ OINT TP SCH (08:18)
[2017-07-31] MEDS: AMIODARONE HCL 200 MG TABLET PO SCH ×2 (08:18→20:36)
[2017-07-31] MEDS: NITROGLYCERIN 30 GM TUBE TP SCH ×2 (08:20→20:37)
[2017-07-31 08:58] LABS: ABG BASE EXCESS -1.6 mmol/L; ABG OXYGEN SATURATION 93.5 % (92.0-98.5); ABG PCO2 46.9 mmHg (35.0-45.0); ABG PH 7.337 (7.350-7.450); ABG PO2 74.5 mmHg (75.0-100.0); AaDO2 185.8 mmHg; COHb 0.5 % (0.5-1.5); MetHb 0.2 % (0.0-1.5); O2Hb 92.8 % (94.0-97.0); SITE, ABG Left Radial; VENT MODE, BG Nasal Cannula
[2017-07-31] MEDS: CEFTRIAXONE 1 G in IV D5W 50 ML IV SCH (15:24)
--- NOTE | 2017-07-31 18:23 | NUR ---
SEWING MACHINE OPERATOR PAPER BAGS NOTE S/E by MDs today. Dr. Cody, seen ABG and with order for Bipap PRN. S/E/ by Dr. Machuca, still hematuric, no adverse reactions from Rocephin. WBC trending down. With order to keep in ICU and do CBI, changed Fang to 3way. S/E by Dr. Velez, with order to DC Lovenox for hematuria. S/E by Dr. Centeno, no new orders at this time. Kept clean, warm and dry. Needs attended. Kept call light at reach. 6LPM of O2 via NC tolerated. On Barimaxx. With episode of Afib 1700 to 1800, back to SR 70's.
--- NOTE | 2017-07-31 19:00 | NUR ---
RN INITIAL NOTES RECEIVED PT AWAKE ON BED, A/O X1 WITH PERIODS OF CONFUSION. ON 5L HUMIDIFIED O2 THRU NASAL CANNULA. UNCONTROLLED AFIB ON THE MONITOR, HR 140'S. BOLAND WITH CONTINUOUS BLADDER IRRIGATION FOR HEMATURIA. RIGHT UPPER ARM MIDLINE AND RIGHT HAND 18G BOTH FLUSHED AND PATENT, NO S/S OF INFILTRATION/INFECTION, DRESSINGS CDI. BED LOW AND LOCKED, SIDERAILS UP, CALL LIGHT WITHIN REACH. WILL MONITOR
[2017-07-31] MEDS: ENOXAPARIN SODIUM 60 MG/0.6 ML DISP.SYRIN SQ SCH (20:18)
--- NOTE | 2017-07-31 20:18 | NUR ---
RN NOTES NON-ADMINISTERED SCHEDULED LOVENOX DUE TO ACTIVE HEMATURIA
[2017-08-01] VITALS (21 sets, daily range): BP systolic 112–163; BP diastolic 46–74
[2017-08-01] MEDS: IPRATROPIUM NEB FS 0.5 MG/2.5 ML AMPUL.NEB NEB SCH ×6 (03:46→23:41)
[2017-08-01 04:49] LABS: BASOPHILS % (AUTO) 0.1 % (0.0-2.0); HEMATOCRIT 33 % (39-51); HEMOGLOBIN 10.8 g/dL (13.5-17.5); LYMPHOCYTES # (AUTO) 0.4 /CMM (0.8-4.8); LYMPHOCYTES % (AUTO) 2.2 % (20.0-44.0); MEAN CORPUSCULAR HGB CONC 33 g/dl (31.0-36.0); MEAN CORPUSCULAR VOLUME 87 fL (80-96); MONOCYTES # (AUTO) 0.4 /CMM (0.1-1.30); MONOCYTES % (AUTO) 1.8 % (2.0-12.0); NEUTROPHILS # (AUTO) 18.5 /CMM (1.8-8.9); NEUTROPHILS % (AUTO) 95.9 % (43.0-81.0); PLATELET COUNT (AUTO) 140 /CMM (150-450); RDW COEFFICIENT OF VARIATION 13.9 (11.5-15.0); RED BLOOD CELL COUNT(AUTO) 3.79 MIL/uL (4.5-6.0); WHITE BLOOD COUNT (AUTO) 19.3 K/uL (4.3-11.0)
[2017-08-01 04:57] LABS: CALCIUM, SERUM 7.7 mg/dL (8.5-10.1); CARBON DIOXIDE 27 mmol/L (21-32); CHLORIDE 109 mmol/L (98-107); CREATININE 1.7 mg/dL (0.6-1.3); GLUCOSE 169 mg/dL (74-106); POTASSIUM 5.5 mmol/L (3.5-5.1); SODIUM SERUM 144 mmol/L (136-145); UREA NITROGEN, BLOOD 60 mg/dL (7-18)
[2017-08-01 05:06] LABS: BAND % (MANUAL) 6 % (0.0-5.0); LYMPHOCYTES % (MANUAL) 4 % (16-48); MONOCYTES % (MANUAL) 3 % (0-11.0); NEUTROPHILS % (MANUAL) 87 (42-76)
--- NOTE | 2017-08-01 05:06 | NUR ---
TOOK PT OFF BIPAP. PLACED ON NC 5L.
--- NOTE | 2017-08-01 06:00 | NUR ---
RN CLOSING NOTES PT REMAINS STABLE OF THE MOMENT. ALL DUE MEDS GIVEN, AM CARE PROVIDED. WILL ENDORSE DEEPIKA TO AM RN
[2017-08-01 08:05] LABS: ABG BASE EXCESS 0.3 mmol/L; ABG OXYGEN SATURATION 94.6 % (92.0-98.5); ABG PCO2 57.2 mmHg (35.0-45.0); ABG PH 7.301 (7.350-7.450); AaDO2 165.5 mmHg; COHb 0.3 % (0.5-1.5); MetHb 0.4 % (0.0-1.5); O2Hb 93.9 % (94.0-97.0); SITE, ABG Right Radial; VENT MODE, BG 6L N/C
[2017-08-01] MEDS: methylPREDNISolone SOD SUCC 125 MG/2ML VIAL IV SCH ×2 (08:14→21:01)
[2017-08-01] MEDS: DILTIAZEM HCL CD 120 MG PO SCH (08:14)
[2017-08-01] MEDS: PANTOPRAZOLE 40 MG VIAL IV SCH (08:14)
[2017-08-01] MEDS: LEVOTHYROXINE SODIUM 75 MCG TABLET PO SCH (08:14)
[2017-08-01] MEDS: LACTOBACILLUS RHAMNOSUS GG 1 EACH CAP.SPRINK PO SCH ×2 (08:14→16:49)
[2017-08-01] MEDS: ASPIRIN 325 MG TABLET PO SCH (08:15)
[2017-08-01] MEDS: Z GUARD REMEDY 2 OZ OINT TP SCH (08:15)
[2017-08-01] MEDS: GABAPENTIN 300 MG CAPSULE PO SCH ×3 (08:15→16:49)
[2017-08-01] MEDS: ENOXAPARIN SODIUM 60 MG/0.6 ML DISP.SYRIN SQ SCH (08:15)
[2017-08-01] MEDS: PAROXETINE HCL 20 MG TABLET PO SCH (08:15)
[2017-08-01] MEDS: NITROGLYCERIN 30 GM TUBE TP SCH ×2 (08:17→21:23)
[2017-08-01] MEDS: AMIODARONE HCL 200 MG TABLET PO SCH ×2 (09:00→21:00)
--- NOTE | 2017-08-01 13:43 | NUR ---
CREDIT COLLECTIONS REP NOTE 0720: Received patient awake, A/Ox3. No respiratory distress noted at this time. Off Bipap, on 6LPM of O2 via NC tolerated at this time. With LIONEL midline intact. Fang cath [address] imnt[address], still connected to CBI with 50mL/hr infusing, noted hematuria resolved, will continue to monitor and resume CBI if needed. On Barimaxx. 0830: Patient tolerated Pureed diet well. Meds given as ordered. Will continue to hold Lovenox. 1000: S/E by Dr. Serra, aware for the ABG on 6LPM, continue POC. Per MD MELE verbalized may transfer to [facility]. 1100: Patient sleeping, noted with mouth breathing, placed NC 2LPM of O2 in the mouth, 96% O2 sat. Will continue to monitor. 1240: S/E by Dr. Centeno, aware for the episode of agitation last night. 1340: No any significant changes noted at this time. Kept clean, warm and dry. Needs attended, kept call light at reach. Remained on 2LPM of O2 via NC in the mouth, 96% O2 sat. Patient remained compliant to care at this time.
[2017-08-01] MEDS: CEFTRIAXONE 1 G in IV D5W 50 ML IV SCH (14:56)
--- NOTE | 2017-08-01 16:15 | NUR ---
MILK POWDER GRINDER NOTE Transferred patient via bed, suing ACLS protocol. Patient has no significant changes noted. Kept clean, warm and dry. Needs attended. Able to tolerate 2-4LPM of O2 via NC when awake and 2LPM of O2 via NC in mouth when asleep.
--- NOTE | 2017-08-01 19:30 | NUR ---
RN NOTES PT ASLEEP WELL ON BED BREATHING EVEN AND UNLABORED WITH O2 6LPM VIA NC .. PT IS AOX 3 ABLE TO VERBALIZED NEEDS. DENIES PAIN AT THIS TIME. TELE MONITOR REVEALS SB HR 58/ WITH IV SITE ON LIONEL PICC LINE TLC INTACT AND PATENT WITH GOOD BLOOD RETURN. WITH BLADDER IRRIGATION RUNNING WT 50 CC/HR F/C DRAINED WITH PINKISH COLOR SEDIMENTED URINE. PT IS CHEERFUL. COMPLIANT WITH CARE. UNDERSTAND REGARDING PLAN OF CARE. KEPT PT CLEAN AND COMFORTABLE IN BED. ENCOURAGED TO USED CALL LIGHT WHEN NEEDS ASSISTANCE CALL LIGHT KEPT WITHIN EASY REACH. WILL CONTINUE TO MONITOR. OFFLOADED EXT WITH PILLOWS. REPOSITIONED FOR SKIN MANAGEMENT . WILL CONTINUE TO MONITOR.
[2017-08-01] MEDS: TAMSULOSIN 0.4 MG CAP.SR.24H PO SCH (21:01)
--- NOTE | 2017-08-01 21:10 | NUR ---
RN NOTES HELD AMIODARONE AT THIS TIME HR SUSTAINED AT 50'S PT TELE MONITOR REVEALS SINUS DESTINY HR 56-58
[2017-08-02] VITALS: BP 159/61
--- NOTE | 2017-08-02 00:10 | NUR ---
RN NOTES BIPAP PLACED TO PT BY RT
[2017-08-02] MEDS: IPRATROPIUM NEB FS 0.5 MG/2.5 ML AMPUL.NEB NEB SCH ×6 (03:30→20:31)
[2017-08-02 04:00] VITALS: BP 152/62
--- NOTE | 2017-08-02 05:30 | NUR ---
RN NOTES REQUEST TO REMOVE THE BIPAP. BIPAP REMOVE BY RT. PT REMAINED IN STABLE CONDITION. SB ON TELE MONITOR. SATURATION > 92% AOX 3 NO UNUSUAL CHANGE OF MENTAL STATUS. PT ATE PUDDING AND DRINK JUICE ALL NEEDS ATTENDED. WILL ENDORSED CONTINUITY OF CARE TO AM NURSE.
[2017-08-02 07:54] LABS: HEMATOCRIT 32 % (39-51); HEMOGLOBIN 10.7 g/dL (13.5-17.5); LYMPHOCYTES # (AUTO) 0.6 /CMM (0.8-4.8); LYMPHOCYTES % (AUTO) 3.2 % (20.0-44.0); MEAN CORPUSCULAR HGB CONC 33 g/dl (31.0-36.0); MEAN CORPUSCULAR VOLUME 87 fL (80-96); MONOCYTES # (AUTO) 0.2 /CMM (0.1-1.30); MONOCYTES % (AUTO) 1.3 % (2.0-12.0); NEUTROPHILS # (AUTO) 18.8 /CMM (1.8-8.9); NEUTROPHILS % (AUTO) 95.5 % (43.0-81.0); PLATELET COUNT (AUTO) 120 /CMM (150-450); RDW COEFFICIENT OF VARIATION 13.9 (11.5-15.0); WHITE BLOOD COUNT (AUTO) 19.7 K/uL (4.3-11.0)
[2017-08-02 08:00] VITALS: BP 143/50
--- NOTE | 2017-08-02 08:00 | NUR ---
RN NOTE RECEIVED PATIENT AWAKE ALERT AND ORIENTED. HE IS ABLE TO MAKE THINGS KNOWN. BREATHING EVEN UNLABORED WITH CONTINUOUS O2 @5LPM VIA SATURATING AT 95%. ON CONTRACT ADMINISTRATOR WITH SINUS RHYTHM HR-57. F/C INTACT AND PATENT WITH ADEQUATE FLOW OF URINE NOTED WITH PINK TINGED COLOR WITH CONTINUOUS BLADDER IRRIGATION PRN. LIONEL PICC INTACT AND PATENT. WILL CONTINUE TO MONITOR. PLACED CALL LIGHT WITHIN REACH.
[2017-08-02 08:13] LABS: CALCIUM, SERUM 7.8 mg/dL (8.5-10.1); CARBON DIOXIDE 29 mmol/L (21-32); CHLORIDE 107 mmol/L (98-107); CREATININE 1.4 mg/dL (0.6-1.3); GLUCOSE 182 mg/dL (74-106); MAGNESIUM 2.5 mg/dL (1.8-2.4); POTASSIUM 5.4 mmol/L (3.5-5.1); SODIUM SERUM 141 mmol/L (136-145); UREA NITROGEN, BLOOD 56 mg/dL (7-18)
[2017-08-02] MEDS: PANTOPRAZOLE 40 MG VIAL IV SCH (08:50)
[2017-08-02] MEDS: LACTOBACILLUS RHAMNOSUS GG 1 EACH CAP.SPRINK PO SCH ×2 (08:50→16:29)
[2017-08-02] MEDS: GABAPENTIN 300 MG CAPSULE PO SCH ×3 (08:50→16:29)
[2017-08-02] MEDS: methylPREDNISolone SOD SUCC 125 MG/2ML VIAL IV SCH (08:50)
[2017-08-02] MEDS: PAROXETINE HCL 20 MG TABLET PO SCH (08:50)
[2017-08-02] MEDS: AMIODARONE HCL 200 MG TABLET PO SCH ×2 (08:51→21:00)
[2017-08-02] MEDS: ASPIRIN 325 MG TABLET PO SCH (08:52)
[2017-08-02] MEDS: LEVOTHYROXINE SODIUM 75 MCG TABLET PO SCH (08:52)
[2017-08-02] MEDS: DILTIAZEM HCL CD 120 MG PO SCH (08:52)
[2017-08-02] MEDS: Z GUARD REMEDY 2 OZ OINT TP SCH (08:53)
[2017-08-02] MEDS: NITROGLYCERIN 30 GM TUBE TP SCH ×2 (08:53→21:05)
[2017-08-02 12:00] VITALS: BP 141/56
[2017-08-02 12:08] LABS: BAND % (MANUAL) 4 % (0.0-5.0); LYMPHOCYTES % (MANUAL) 3 % (16-48); METAMYELOCYTES % 1 % (0-0); MONOCYTES % (MANUAL) 1 % (0-11.0); NEUTROPHILS % (MANUAL) 91 (42-76)
[2017-08-02] MEDS: CEFTRIAXONE 1 G in IV D5W 50 ML IV SCH (15:31)
[2017-08-02 16:00] VITALS: BP 128/51
--- NOTE | 2017-08-02 18:54 | NUR ---
RN NOTES PT RESTING IN BED COMFORTABLY. ON UPRIGHT SITTING POSITION. AFEBRILE. O2@6LPM VIA NC WITH HUMIDIFIER. PT WITH EPISODES OF DESATINNG DOWN TO 88% WHEN ASLEEP. DENIES SOB. DENIES PAIN AT THIS TIME. COMPLETE BED BATH GIVEN. PT ON CONTINUOS BLADDER IRRIGATION, RATE DECREASED TO 10ML/HR, HEMATURIA IMPROVING. ATE 100% DINNER. ALL DUE MEDS GIVEN, NEEDS ATTENDED AND MET. MONITORED CLOSELY.
[2017-08-02 20:00] VITALS: BP 126/59
[2017-08-02] MEDS: TAMSULOSIN 0.4 MG CAP.SR.24H PO SCH (21:04)
[2017-08-02] MEDS: methylPREDNISolone SOD SUCC 40 MG/ML VIAL IV SCH (21:20)
[2017-08-02] MEDS ORDERED: OLANZAPINE 2.5 MG TABLET PO SCH (22:00)
[2017-08-03] MEDS: IPRATROPIUM NEB FS 0.5 MG/2.5 ML AMPUL.NEB NEB SCH ×7 (00:01→23:57)
[2017-08-03 00:03] VITALS: BP 127/50
[2017-08-03 04:00] VITALS: BP 138/67
[2017-08-03 07:06] LABS: CALCIUM, SERUM 7.8 mg/dL (8.5-10.1); CARBON DIOXIDE 30 mmol/L (21-32); CHLORIDE 107 mmol/L (98-107); CREATININE 1.2 mg/dL (0.6-1.3); GLUCOSE 123 mg/dL (74-106); MAGNESIUM 2.3 mg/dL (1.8-2.4); POTASSIUM 5.4 mmol/L (3.5-5.1); SODIUM SERUM 142 mmol/L (136-145); UREA NITROGEN, BLOOD 46 mg/dL (7-18)
--- NOTE | 2017-08-03 07:23 | NUR ---
BULK TRUCK DRIVER NOTES RECEIVED PT ON BED SLEEPING SLEEPING ON BIPAP. A/OX3. ON TELE MONITOR HR 45. ON [address] WAY BOLAND CCATH WITH CONTINUOUS IRRIGATION. IV ACCESS ON LIONEL MID TKO.HEAD OF BED ELEVATED, SIDE RAILS UP.CALL LIGHT WITHIN REACH. WILL CONTINUE TO MONITOR PT CLOSELY.
[2017-08-03 08:00] VITALS: BP 128/58
[2017-08-03] MEDS: ASPIRIN 325 MG TABLET PO SCH (08:56)
[2017-08-03] MEDS: LEVOTHYROXINE SODIUM 75 MCG TABLET PO SCH (08:56)
[2017-08-03] MEDS: methylPREDNISolone SOD SUCC 40 MG/ML VIAL IV SCH (08:56)
[2017-08-03] MEDS: PANTOPRAZOLE 40 MG VIAL IV SCH (08:56)
[2017-08-03] MEDS: GABAPENTIN 300 MG CAPSULE PO SCH ×3 (08:56→17:54)
[2017-08-03] MEDS: PAROXETINE HCL 20 MG TABLET PO SCH (08:56)
[2017-08-03] MEDS: LACTOBACILLUS RHAMNOSUS GG 1 EACH CAP.SPRINK PO SCH ×2 (08:56→17:54)
[2017-08-03] MEDS: DILTIAZEM HCL CD 120 MG PO SCH (08:58)
[2017-08-03] MEDS: NITROGLYCERIN 30 GM TUBE TP SCH ×2 (08:58→21:14)
[2017-08-03] MEDS: AMIODARONE HCL 200 MG TABLET PO SCH ×2 (08:59→21:00)
[2017-08-03] MEDS: Z GUARD REMEDY 2 OZ OINT TP SCH (09:00)
--- NOTE | 2017-08-03 11:00 | NUR ---
SOLAR INSTALLER PV NOTES PER DOCTOR MJ OBSERVE FOR HEMATURIA WHILE BLADDER IRRIGATION IS CLAMPED.
[2017-08-03 12:00] VITALS: BP 126/61
[2017-08-03] MEDS: CEFTRIAXONE 1 G in IV D5W 50 ML IV SCH (15:39)
[2017-08-03 16:00] VITALS: BP 115/68
--- NOTE | 2017-08-03 18:25 | NUR ---
PAPERBACK MACHINE OPERATOR NOTES NO ACUTE CHANGES NOTED DURING THE SHIFT. HEAD OF BED ELEVATED. DUE MEDS GIVEN. WILL ENDORSE TO THE PM NURSE FOR DEEPIKA.
[2017-08-03 20:00] VITALS: BP 161/59
[2017-08-03] MEDS ORDERED: methylPREDNISolone SOD SUCC 40 MG/ML VIAL IV SCH (21:00)
[2017-08-03] MEDS: OLANZAPINE 2.5 MG TABLET PO SCH (21:13)
[2017-08-03] MEDS: TAMSULOSIN 0.4 MG CAP.SR.24H PO SCH (21:13)
[2017-08-04] VITALS: BP 130/42
[2017-08-04 04:00] VITALS: BP 123/54
[2017-08-04] MEDS: IPRATROPIUM NEB FS 0.5 MG/2.5 ML AMPUL.NEB NEB SCH ×6 (04:01→23:28)
[2017-08-04 06:25] LABS: CARBON DIOXIDE 32 mmol/L (21-32); CHLORIDE 107 mmol/L (98-107); CREATININE 1.1 mg/dL (0.6-1.3); GLUCOSE 103 mg/dL (74-106); POTASSIUM 5.1 mmol/L (3.5-5.1); SODIUM SERUM 142 mmol/L (136-145); UREA NITROGEN, BLOOD 40 mg/dL (7-18)
[2017-08-04 06:35] LABS: EOSINOPHILS % (AUTO) 0.1 % (0.0-6.0); HEMATOCRIT 32 % (39-51); HEMOGLOBIN 10.8 g/dL (13.5-17.5); LYMPHOCYTES # (AUTO) 0.8 /CMM (0.8-4.8); LYMPHOCYTES % (AUTO) 4.7 % (20.0-44.0); MEAN CORPUSCULAR HGB CONC 34 g/dl (31.0-36.0); MEAN CORPUSCULAR VOLUME 87 fL (80-96); MONOCYTES # (AUTO) 0.1 /CMM (0.1-1.30); MONOCYTES % (AUTO) 0.4 % (2.0-12.0); NEUTROPHILS # (AUTO) 17.1 /CMM (1.8-8.9); NEUTROPHILS % (AUTO) 94.8 % (43.0-81.0); PLATELET COUNT (AUTO) 111 /CMM (150-450); RDW COEFFICIENT OF VARIATION 13.6 (11.5-15.0); RED BLOOD CELL COUNT(AUTO) 3.72 MIL/uL (4.5-6.0)
--- NOTE | 2017-08-04 07:15 | NUR ---
MOTION PICTURE OPERATOR NOTES RECEIVED PT ON BED SLEEPING, ON BIPAP. SATURATING WELL. IV ACCESS ON LIONEL MIDLINE @ TKO. HEAD OF BED ELEVATED. SIDE RAILS UP. CALL LIGHT WITHIN REACH. WILL CONTINUE TO MONITOR PT CLOSELY.
[2017-08-04 08:00] VITALS: BP 117/48
[2017-08-04] MEDS: methylPREDNISolone SOD SUCC 40 MG/ML VIAL IV SCH (08:21)
[2017-08-04] MEDS: NITROGLYCERIN 30 GM TUBE TP SCH ×2 (08:22→21:49)
[2017-08-04] MEDS: GABAPENTIN 300 MG CAPSULE PO SCH ×3 (08:22→18:08)
[2017-08-04] MEDS: ASPIRIN 325 MG TABLET PO SCH (08:23)
[2017-08-04] MEDS: DILTIAZEM HCL CD 120 MG PO SCH (08:23)
[2017-08-04] MEDS: LEVOTHYROXINE SODIUM 75 MCG TABLET PO SCH (08:23)
[2017-08-04] MEDS: Z GUARD REMEDY 2 OZ OINT TP SCH (08:23)
[2017-08-04] MEDS: PAROXETINE HCL 20 MG TABLET PO SCH (08:23)
[2017-08-04] MEDS: LACTOBACILLUS RHAMNOSUS GG 1 EACH CAP.SPRINK PO SCH ×2 (08:23→18:08)
[2017-08-04] MEDS: AMIODARONE HCL 200 MG TABLET PO SCH ×2 (08:24→21:00)
[2017-08-04 09:02] LABS: LYMPHOCYTES % (MANUAL) 4 % (16-48); MONOCYTES % (MANUAL) 4 % (0-11.0); NEUTROPHILS % (MANUAL) 92 (42-76)
--- NOTE | 2017-08-04 09:43 | NUR ---
COMPUTER NETWORK ENGINEER NOTES HOLDING AMIODARONE AND DILTIAZEM. HR IS 55-59.
[2017-08-04 12:00] VITALS: BP 110/45
--- NOTE | 2017-08-04 15:06 | NUR ---
TELE/RN NOTES DAY NURSE ENDORSE REPORT FOR DEEPIKA, WHILE PATIENT RESTING IN BED , SLEEPING AT THIS TIME, AROUSABLE TO VERBAL, TACTILE STIMULI. RESPIRATIONS EVEN AND UNLABORED, ON OXYGEN VIA NC AT 4LPM, NO S/S OF PAIN OR DISCOMFORT NOTED. ON TELE MONITOR SB HR 58. IV TO LIONEL MIDLINE TKO, BOLAND CATH DRAINING YELLOW URINE, IRRIGATION ORDER DISCONTINUE. PATIENT HAS BIPAP NEXT TO BEDSIDE FOR NIGHTLY USE. WILL CONTINUE TO MONITOR PT.
[2017-08-04 16:00] VITALS: BP 139/49
[2017-08-04] MEDS: CEFTRIAXONE 1 G in IV D5W 50 ML IV SCH (16:43)
--- NOTE | 2017-08-04 19:15 | NUR ---
TELE/RN NOTES RECEIVED PT IN BED, AWAKE, A/O X 3, VERBALLY RESPONSIVE. NO DISTRESS NOR SOB NOTED, RESPIRATIONS EVEN AND UNLABORED, ON OXYGEN VIA NC AT 4LPM, YOKASTA WELL. NO C/O OF PAIN OR DISCOMFORT NOTED. ON TELE MONITOR SB HR 58. LIONEL MIDLINE INTACT AND PATENT, NO S/S OF INFECTION NOR INFILTRATION NOTED. BOLAND CATH DRAINING WITH YELLOW URINE, NO HEMATURIA NOTED. ALL NEEDS ATTENDED AND MET , PLAN OF CARE DISCUSSED WITH THE PT , VERBALIZED UNDERSTANDING. CALL LIGHT WITHIN REACH. SAFETY PRECAUTIONS OBSERVED. WILL CONTINUE TO MONITOR PT CLOSELY. Addendum: 08/05/17 at 0449 by DELMY KILLIAN RN INCORRECT TIME DOCUMENTATION
--- NOTE | 2017-08-04 19:30 | NUR ---
TELE/RN NOTES PATIENT RESTING IN BED COMFORTABLY, IN NO ACUTE DISTRESS, APPEARS CALM AND COMFORTABLE. ALL DUE MEDICATIONS GIVEN, ALL NEEDS MET AND ATTENDED. BOLAND CATH IN PLACE DRAINING WELL. PER TELE READING SB, 02 ABOVE 91%. TKO TO LIONEL , ON 0XYGEN CONNECTED TO HUMIDIFIER. BREATHING TX SCHEDULED. RECEIVED PHYSICAL THERAPY TODAY. SAFETY MEASURES RENDERED. WILL ENDORSE CARE TO CONTROL CLERK AUDITING FOR DEEPIKA.
--- NOTE | 2017-08-04 19:30 | NUR ---
TELE/RN NOTES RECEIVED PT IN BED, AWAKE, A/O X 3, VERBALLY RESPONSIVE. NO DISTRESS NOR SOB NOTED, RESPIRATIONS EVEN AND UNLABORED, ON OXYGEN VIA NC AT 4LPM, YOKASTA WELL. NO C/O OF PAIN OR DISCOMFORT NOTED. ON TELE MONITOR SB HR 58. LIONEL MIDLINE INTACT AND PATENT, NO S/S OF INFECTION NOR INFILTRATION NOTED. BOLAND CATH DRAINING WITH YELLOW URINE, NO HEMATURIA NOTED. ALL NEEDS ATTENDED AND MET , PLAN OF CARE DISCUSSED WITH THE PT , VERBALIZED UNDERSTANDING. CALL LIGHT WITHIN REACH. SAFETY PRECAUTIONS OBSERVED. WILL CONTINUE TO MONITOR PT CLOSELY.
[2017-08-04 20:00] VITALS: BP_SYST 129; BP_SYST 141; BP_DIAS 51; BP_DIAS 56
[2017-08-04] MEDS: OLANZAPINE 2.5 MG TABLET PO SCH (20:38)
[2017-08-04] MEDS: TAMSULOSIN 0.4 MG CAP.SR.24H PO SCH (21:48)
--- NOTE | 2017-08-04 23:40 | NUR ---
RT AT BEDSIDE SETTING UP BIPAP.
[2017-08-05] VITALS: BP 133/55
--- NOTE | 2017-08-05 | NUR ---
PT IS RESTING COMFORTABLY AT THIS TIME, NO DISTRESS , NO C/O PAIN OR DISCOMFORT AT THIS TIME, ON BIPAP YOKASTA WELL. CALL LIGHT WITHIN REACH. WILL CONT TO MONITOR.
[2017-08-05] MEDS: IPRATROPIUM NEB FS 0.5 MG/2.5 ML AMPUL.NEB NEB SCH ×5 (03:12→19:30)
[2017-08-05 04:00] VITALS: BP 143/58
--- NOTE | 2017-08-05 06:27 | NUR ---
TELE/RN NOTES PT IN BED, RESTING COMFORTABLY IN BED, AROUSES EASILY A/O X 3, VERBALLY RESPONSIVE. NO DISTRESS NOR SOB NOTED, RESPIRATIONS EVEN AND UNLABORED, ON BIPAP YOKASTA SET UP BY RT. NO C/O OF PAIN OR DISCOMFORT NOTED. ON TELE MONITOR SB HR 56 WITH PAC'S. LIONEL MIDLINE INTACT AND PATENT, NO S/S OF INFECTION NOR INFILTRATION NOTED. BOLAND CATH DRAINING WITH YELLOW URINE, NO HEMATURIA NOTED. ALL NEEDS ATTENDED AND MET. ALL DUE MEDS GIVEN. CALL LIGHT WITHIN REACH. SAFETY PRECAUTIONS OBSERVED. WILL ENDORSE PT TO DAY SHIFT NURSE ACCORDINGLY.
[2017-08-05 07:20] LABS: CALCIUM, SERUM 7.6 mg/dL (8.5-10.1); CARBON DIOXIDE 36 mmol/L (21-32); CHLORIDE 106 mmol/L (98-107); CREATININE 1.1 mg/dL (0.6-1.3); GLUCOSE 82 mg/dL (74-106); SODIUM SERUM 143 mmol/L (136-145); UREA NITROGEN, BLOOD 35 mg/dL (7-18)
[2017-08-05 08:00] VITALS: BP 115/55
--- NOTE | 2017-08-05 08:00 | NUR ---
RN NOTES RECEIVED PATIENT IN THE BED WITH BIPAP WHICH IS REMOVED BY RT, V/S TAKEN STABLE, PATIENT ON O2-2L NC, PATIENT A/O X3/4, NO ACUTE RESPIRATORY DISTRESS, PATIENT D/C ON TELE AT THIS TIME FOR MED/SURGE PER DR NEWSOME. PATIENT MED COMPLIANT, MIDLINE ON RIGHT UPPER ARM INTACT. ASSIST EATING, ASSIST TURN AND REPOSTION Q 2 HR, CALL LIGHT WITHIN TO REACH, CONTINUED MONITORING.
[2017-08-05 08:44] LABS: BASOPHILS % (AUTO) 0.1 % (0.0-2.0); EOSINOPHILS % (AUTO) 0.8 % (0.0-6.0); HEMATOCRIT 34 % (39-51); LYMPHOCYTES # (AUTO) 1.3 /CMM (0.8-4.8); LYMPHOCYTES % (AUTO) 8.9 % (20.0-44.0); MEAN CORPUSCULAR HGB CONC 33 g/dl (31.0-36.0); MEAN CORPUSCULAR VOLUME 87 fL (80-96); MONOCYTES # (AUTO) 0.3 /CMM (0.1-1.30); MONOCYTES % (AUTO) 1.9 % (2.0-12.0); NEUTROPHILS # (AUTO) 12.6 /CMM (1.8-8.9); NEUTROPHILS % (AUTO) 88.3 % (43.0-81.0); PLATELET COUNT (AUTO) 103 /CMM (150-450); RED BLOOD CELL COUNT(AUTO) 3.84 MIL/uL (4.5-6.0); WHITE BLOOD COUNT (AUTO) 14.3 K/uL (4.3-11.0)
[2017-08-05] MEDS: ASPIRIN 325 MG TABLET PO SCH (10:23)
[2017-08-05] MEDS: methylPREDNISolone SOD SUCC 40 MG/ML VIAL IV SCH (10:24)
[2017-08-05] MEDS: DILTIAZEM HCL CD 120 MG PO SCH (10:25)
[2017-08-05] MEDS: LACTOBACILLUS RHAMNOSUS GG 1 EACH CAP.SPRINK PO SCH ×2 (10:25→17:19)
[2017-08-05] MEDS: LEVOTHYROXINE SODIUM 75 MCG TABLET PO SCH (10:25)
[2017-08-05] MEDS: GABAPENTIN 300 MG CAPSULE PO SCH ×3 (10:25→17:18)
[2017-08-05] MEDS: PAROXETINE HCL 20 MG TABLET PO SCH (10:25)
[2017-08-05] MEDS: AMIODARONE HCL 200 MG TABLET PO SCH (10:26)
[2017-08-05] MEDS: Z GUARD REMEDY 2 OZ OINT TP SCH (10:26)
[2017-08-05] MEDS: NITROGLYCERIN 30 GM TUBE TP SCH (10:29)
[2017-08-05 12:00] VITALS: BP 144/53
[2017-08-05 13:00] VITALS: BP 144/53
--- NOTE | 2017-08-05 13:33 | NUR ---
RN NOTES PATIENT STABLE , EATING LUNCH, SCHEDULED MEDICATION ADMINISTERED, PATIENT GOING TO D/C SNF.
--- NOTE | 2017-08-05 15:30 | NUR ---
RN NOTES PATIENT UNABLE TO SIGN DISCHARGE PAPER, PICTURE TAKEN. PATIENT'S SISTER NAME HELIO PHONE # [phone] NOTIFIED ABOUT DISCHARGE PLANING.
--- NOTE | 2017-08-05 18:23 | NUR ---
RN NOTES PATIENT IN THE BED, EATING. SCHEDULED MEDICATION ADMINISTERED, V/S STABLE, NO ACUTE RESPIRATORY DISTRESS, ASSIST PATIENT TURN AND REPOSTION Q 2 HR. REPORT GIVEN SNF RN BLAISE REILLY VERBALIZED UNDERSTANDING. ENDORSED ONCOMING NURSE FOR DEEPIKA.
--- NOTE | 2017-08-05 19:40 | NUR ---
MS RN NOTE PT HAS DC ORDER AND AMBULANCE ARRIVED FOR TRANSPORT TO [facility]. REPORT GIVEN AND CONFIRMED WITH THE FACILITY THAT HIS BIPAP MACHINE IS AVAILABLE OR NOT. MID LINE AND ID REMOVED. DC PACKET ALREADY PREPARED BY DAY SHIFT NURSE, PATIENT SIGNED ALREADY.
== END 2017-08-05 20:00 | DRG 535 ==
LOC: ER 13:03 → MED 18:31 → ICU 07-22 03:19 → TELE-TD 08-01 15:49 → TELE1 08-02 12:29 → MEDSG1 08-05 10:01
PROVIDERS: ADMIT Legal Medicine; ATTEND Legal Medicine
PROC: 5A1955Z Respiratory Ventilation, Greater than 96 Consecutive Hours (ICD-10-PCS; principal; 2017-07-22)
PROC: 0BH17EZ Insertion of Endotracheal Airway into Trachea, Via Natural or Artificial Opening (ICD-10-PCS; 2017-07-22)
PROC: 05H533Z Insertion of Infusion Device into Right Subclavian Vein, Percutaneous Approach (ICD-10-PCS; 2017-07-22)
PROC: B546ZZA Ultrasonography of Right Subclavian Vein, Guidance (ICD-10-PCS; 2017-07-22)
PROC: 5A09557 Assistance with Respiratory Ventilation, Greater than 96 Consecutive Hours, Continuous Positive Airway Pressure (ICD-10-PCS; 2017-07-30)
DX: S32.502A Unspecified fracture of left pubis, initial encounter for closed fracture (principal); J69.0 Pneumonitis due to inhalation of food and vomit; J96.01 Acute respiratory failure with hypoxia; I21.A1 Myocardial infarction type 2; J90 Pleural effusion, not elsewhere classified; N17.9 Acute kidney failure, unspecified; I48.0 Paroxysmal atrial fibrillation; D68.59 Other primary thrombophilia; E87.2 Acidosis; G31.84 Mild cognitive impairment of uncertain or unknown etiology; I48.92 Unspecified atrial flutter; G40.909 Epilepsy, unspecified, not intractable, without status epilepticus; E03.9 Hypothyroidism, unspecified; W06.XXXA Fall from bed, initial encounter; E78.5 Hyperlipidemia, unspecified; I10 Essential (primary) hypertension; Y92.122 Bedroom in nursing home as the place of occurrence of the external cause; G47.33 Obstructive sleep apnea (adult) (pediatric); J44.9 Chronic obstructive pulmonary disease, unspecified; F32.9 Major depressive disorder, single episode, unspecified; Z88.0 Allergy status to penicillin; Z91.010 Allergy to peanuts; F41.9 Anxiety disorder, unspecified; I25.10 Atherosclerotic heart disease of native coronary artery without angina pectoris; I70.0 Atherosclerosis of aorta; M16.0 Bilateral primary osteoarthritis of hip; M41.9 Scoliosis, unspecified; M48.061 Spinal stenosis, lumbar region without neurogenic claudication; Y95 Nosocomial condition; Z79.899 Other long term (current) drug therapy; E55.9 Vitamin D deficiency, unspecified; J40 Bronchitis, not specified as acute or chronic
CPT/HCPCS: 31720; 36415; 36569; 36600; 71045-TC; 72131-TC; 72170-TC; 72192-TC; 80048-TC; 80053-TC; 80061-TC; 80076-TC; 80202-TC; 81000-TC; 82140-TC; 82306; 82803-TC; 82962-TC; 83735-TC; 83880; 84100-TC; 84439-TC; 84443-TC; 84484-TC; 85025-TC; 85730-TC; 87040-TC; 87081-TC; 87086-TC; 92611-TC; 93307-TC; 94002-TC; 94003-TC; 94660; 94760-TC; 94762-TC; 94799-TC; 97110-TC; 97530-TC; A4217; A4606; C9113; J0282; J0330; J0360; J0696; J1650; J2405; J2543; J2920; J2930; J3370; J3490; J7030; J7040; J7042; J7050; J7060; Z7610

== ENCOUNTER 2017-08-13 08:47 | Inpatient (IN) | payer MEDICARE ==
[2017-08-13] VITALS (29 sets, daily range): BP systolic 101–133; BP diastolic 35–79
[~2017-08-13] VITALS: Ht 167.6 cm; Wt 119.3 kg
[~2017-08-13 08:47] MED LIST: GABA-534 PO; LEVO150T8 PO; NORT25CA PO; PARO40TA4 PO; ROSU10TA PO; TAMS0.4C34 PO
--- NOTE | 2017-08-13 08:47 | NUR ---
RADHA Guevara FROM [facility]. HOME FOR SOB, 02 SAT IN 80'S WITH CONGESTION. PLACED ON 15 LPM NON REBREATHER MASK. PLACED ON MONITOR. AWAITING MD ORDER.
--- NOTE | 2017-08-13 08:52 | NUR ---
LEFT FOREARM #20 IV ACCESS.
--- NOTE | 2017-08-13 08:57 | NUR ---
LAB AT BEDSIDE FOR BLOOD DRAW
[2017-08-13] MEDS ORDERED: AMIO200T4 PO (08:58)
[2017-08-13] MEDS ORDERED: IPRA0.2S9 IH (08:58)
[2017-08-13] MEDS ORDERED: LORA0.5T PO (08:58)
[2017-08-13] MEDS ORDERED: NA P133E RC (08:58)
[2017-08-13] MEDS ORDERED: ASPI-992 PO (08:58)
[2017-08-13] MEDS ORDERED: BISA10SU8 RC (08:58)
[2017-08-13] MEDS ORDERED: OLAN2.5T3 PO (08:58)
[2017-08-13] MEDS ORDERED: ACET-868 PO (08:58)
[2017-08-13] MEDS ORDERED: DOCU-141 PO (08:58)
[2017-08-13] MEDS ORDERED: CLON1PAT2 TD (08:58)
[2017-08-13] MEDS ORDERED: PARO20TA7 PO (08:58)
[2017-08-13] MEDS ORDERED: MAGN400O6 PO (08:58)
[2017-08-13] MEDS ORDERED: SACC250C PO (08:58)
[2017-08-13] MEDS ORDERED: DILT240C88 PO (08:58)
--- NOTE | 2017-08-13 09:08 | NUR ---
ADMIT PATIENT TO [facility] PER DR. BARKER'S OFFICE VOICE MESSAGE
[2017-08-13 09:16] LABS: ABG BASE EXCESS 4.2 mmol/L; ABG OXYGEN SATURATION 98.7 % (92.0-98.5); ABG PCO2 63.3 mmHg (35.0-45.0); ABG PH 7.318 (7.350-7.450); ABG PO2 260.1 mmHg (75.0-100.0); AaDO2 389.6 mmHg; COHb 0.3 % (0.5-1.5); MetHb 0.7 % (0.0-1.5); O2Hb 97.7 % (94.0-97.0); SITE, ABG Right Radial; VENT MODE, BG NRB
[2017-08-13 09:26] LABS: BASOPHILS % (AUTO) 0.1 % (0.0-2.0); EOSINOPHILS % (AUTO) 3.8 % (0.0-6.0); HEMATOCRIT 31 % (39-51); HEMOGLOBIN 10.1 g/dL (13.5-17.5); LYMPHOCYTES # (AUTO) 0.9 /CMM (0.8-4.8); LYMPHOCYTES % (AUTO) 10.8 % (20.0-44.0); MEAN CORPUSCULAR HGB CONC 33 g/dl (31.0-36.0); MEAN CORPUSCULAR VOLUME 87 fL (80-96); MONOCYTES # (AUTO) 0.4 /CMM (0.1-1.30); MONOCYTES % (AUTO) 4.7 % (2.0-12.0); NEUTROPHILS # (AUTO) 6.5 /CMM (1.8-8.9); NEUTROPHILS % (AUTO) 80.6 % (43.0-81.0); PLATELET COUNT (AUTO) 74 /CMM (150-450); RED BLOOD CELL COUNT(AUTO) 3.49 MIL/uL (4.5-6.0); WHITE BLOOD COUNT (AUTO) 8.1 K/uL (4.3-11.0)
[2017-08-13 09:36] LABS: CALCIUM, SERUM 8.3 mg/dL (8.5-10.1); CARBON DIOXIDE 34 mmol/L (21-32); CHLORIDE 105 mmol/L (98-107); CREATININE 1.5 mg/dL (0.6-1.3); GLUCOSE 125 mg/dL (74-106); POTASSIUM 3.9 mmol/L (3.5-5.1); SODIUM SERUM 143 mmol/L (136-145); UREA NITROGEN, BLOOD 20 mg/dL (7-18)
[2017-08-13 09:44] LABS: TROPONIN I 0.019 ng/mL (0.00-0.056)
[2017-08-13 09:45] LABS: INR 1.03 (0.87-1.13)
[2017-08-13 09:47] LABS: EOSINOPHILS % (MANUAL) 2 % (0-4); LYMPHOCYTES % (MANUAL) 14 % (16-48); MONOCYTES % (MANUAL) 5 % (0-11.0); NEUTROPHILS % (MANUAL) 79 (42-76)
--- NOTE | 2017-08-13 09:48 | NUR ---
BIPAP 15/5 FIO2 40% RATE 12
[2017-08-13 09:49] LABS: ALANINE AMINOTRANSFERASE 36 U/L (12-78); ALBUMIN 2.3 g/dL (3.4-5.0); ALKALINE PHOSPHATASE 44 U/L (46-116); ASPARTATE AMINOTRANSFERASE 16 U/L (15-37); B-TYPE NATRIURETIC PEPTIDE 880 PG/ML (0-125); BILIRUBIN,DIRECT 0.1 mg/dL (0.0-0.2); BILIRUBIN,TOTAL 0.5 mg/dL (0.2-1.0); TOTAL PROTEIN, SERUM 5.4 g/dL (6.4-8.2)
--- NOTE | 2017-08-13 09:54 | NUR ---
[facility] CALLED [phone], DR RIOS MANAGEMENT ASSOCIATE.
--- NOTE | 2017-08-13 10:23 | NUR ---
ICU 260
--- NOTE | 2017-08-13 10:28 | NUR ---
GIVEN REPORT TO [facility] ICU ROOM 262 DR RIOS ADMITTING . ACUTE REPSIRATORY FAILURE ON BIPAP
--- NOTE | 2017-08-13 10:40 | NUR ---
SKOOG OPERATOR NOTES RECEIVED PATIENT FROM ER WITH DIAGNOSIS OF ACUTE RESPIRATORY FAILURE AOX2 FOLLOWS COMMANDS , ON BIPAP RATE OF 12 15/5 FIO2 OF 40% WITH SPO2 OF 92% , AFIB 65 ON BEDSIDE MONITOR , IV OF L FA # 20 AND R AC # 20 PATENT AND INTACT SL , SKIN ASSESSMENT DONE , TOOK PICTURES AND PLACED ON THE CHART , CALLED DR RIOS FOR ADMISSION ORDERED , PT STABLE , AFEBRILE , ALL NEEDS ATTENDED , BED ON LOW AND LOCKED POSITION , SIDE RAILS X2, CALL LIGHT WITHIN REACH , HOB @ 45 , WILL CONTINUE TO MONITOR .
[2017-08-13] MEDS ORDERED: ONDANSETRON HCL/PF 4 MG/2 ML VIAL IVP PRN (11:30)
[2017-08-13] MEDS ORDERED: HYDROCODONE/APAP 5/325MG 1 EACH TABLET PO PRN (11:30)
[2017-08-13] MEDS ORDERED: ZOLPIDEM TARTRATE 5 MG TABLET PO PRN (11:30)
[2017-08-13] MEDS ORDERED: Z GUARD REMEDY 2 OZ OINT TP PRN (11:30)
[2017-08-13] MEDS ORDERED: MAGNESIUM HYDROXIDE 30 ML UDC PO PRN ×2 (11:30→14:00)
[2017-08-13] MEDS ORDERED: MAG HYDROX/AL HYDROX/SIMETH 30 ML UDC PO PRN (11:30)
[2017-08-13] MEDS: PANTOPRAZOLE 40 MG VIAL IV SCH (11:40)
[2017-08-13] MEDS: ENOXAPARIN SODIUM 40 MG/0.4 ML DISP.SYRIN SQ SCH (11:41)
[2017-08-13] MEDS ORDERED: ALBUTEROL SULFATE 8 GM HFA.AER.AD IH PRN (13:30)
[2017-08-13] MEDS ORDERED: IPRATROPIUM BROMIDE 14 GM INHALER (or 12.9 GM) IH PRN (13:30)
[2017-08-13] MEDS ORDERED: LEVOFLOXACIN 500 MG /D5W 100ML 500 MG in PREMIX 1 EA IV SCH (13:30)
--- NOTE | 2017-08-13 13:58 | NUR ---
REAL ESTATE SALES AGENT NOTES SEEN AND EVALUATED BY DR GRANT , DISCUSSED LABS , CHEST XRAY , CURRENT V/S AFEBRILE , ABG FROM ER , TOLERATING CURRENT BIPAP SETTINGS WITH SPO2 OF 91% WITH NO SIGNS OF DISTRESS , TITRATED FIO2 TO 35% PER MD ORDERED , AWAITING FOR ORDERS Addendum: 08/13/17 at 1400 by EDMAR TAYLOR RN PATIENT IS AOX2 CONFUSE , ABLE TO FOLLOWS COMMANDS ,
[2017-08-13] MEDS ORDERED: BISACODYL SUPP (10 MG) 10 MG/SUPP.RECT SUPP.RECT RC PRN (14:00)
[2017-08-13] MEDS ORDERED: IPRATROPIUM NEB FS 0.5 MG/2.5 ML AMPUL.NEB NEB PRN (14:00)
[2017-08-13] MEDS ORDERED: ALBUTEROL FS 2.5 MG/0.5 ML VIAL.NEB NEB PRN (14:00)
[2017-08-13] MEDS ORDERED: NA PHOS,M-B/NA PHOS,DI-BA 1 EA ENEMA RC PRN (14:00)
[2017-08-13] MEDS ORDERED: ACETAMINOPHEN 325 MG TABLET PO PRN (14:00)
--- NOTE | 2017-08-13 14:10 | NUR ---
JUDGE NOTES ABG RESULT RELAYED TO DR GRANT , FIO2 TITRATED TO 40% , SPO2 OF 95% WITH NO SIGNS OF DISTRESS , AWAITING FOR CALL BACK
[2017-08-13 14:18] LABS: ABG BASE EXCESS 5.9 mmol/L; ABG OXYGEN SATURATION 89.7 % (92.0-98.5); ABG PCO2 57.3 mmHg (35.0-45.0); ABG PO2 59.3 mmHg (75.0-100.0); AaDO2 123.6 mmHg; MetHb 0.5 % (0.0-1.5); O2Hb 89.3 % (94.0-97.0); SITE, ABG Right Radial; VENT MODE, BG 15/5 PS 10
--- NOTE | 2017-08-13 15:00 | NUR ---
PRESS MACHINE FEEDER NOTES SEEN AND EVALUATED BY RANDY EPPERSON , DISCUSSED LABS , CHEST XRAY , REPEAT ABG @ 1400 , CURRENT V/S , PT IS AFEBRILE , TOLERATING CURRENT BIPAP SETTINGS , AOX2 CONFUSED BUT ABLE TO FOLLOW COMMANDS , NOTED WITH LARGE BRUISE AT ABDOMINAL REGION , AFIB 55-60 ON BEDSIDE MONITOR , FC DRAINING VIA GRAVITY WITH ADEQUATE UO . TELEGRAPH OFFICE MANAGER AWARE .
[2017-08-13] MEDS: IPRATROPIUM NEB FS 0.5 MG/2.5 ML AMPUL.NEB IH SCH ×3 (15:02→23:38)
[2017-08-13] MEDS: CLONIDINE HCL 0.2MG/24H PTWK 1 EA PATCH TD SCH (15:36)
[2017-08-13] MEDS: GABAPENTIN 300 MG CAPSULE PO SCH (15:37)
[2017-08-13] MEDS: IV NS 0.9% 250 ML IV PRN (15:41)
[2017-08-13] MEDS: CEFTRIAXONE 1 G in IV D5W 50 ML IV SCH (15:41)
[2017-08-13 16:53] LABS: APPEARANCE,URINE SL CLOUDY (CLEAR); BILIRUBIN,URINE NEGATIVE (NEGATIVE); BLOOD, URINE 3+ Ery/uL (NEGATIVE); COLOR,URINE YELLOW (YELLOW); KETONES,URINE NEGATIVE (NEGATIVE); LEUKOCYTE ESTERASE ,URINE NEGATIVE (NEGATIVE); NITRITE, URINE NEGATIVE (NEGATIVE); PH,URINE 5.5 (5.0-8.0); PROTEIN,URINE TRACE mg/dl (NEGATIVE); UGLUCOSE NEGATIVE (NEGATIVE); UROBILINOGEN,URINE 0.2 EU/dL (0.2)
[2017-08-13 17:10] LABS: BACTERIA,URINE 2+ /HPF (None Seen); RBC,URINE 51-80 /HPF (0-2); SQUAMOUS EPITHELIAL CELL,UR 0-2 /HPF (None Seen)
[2017-08-13 17:11] LABS: MUCUS,URINE Few /LPF (None Seen)
--- NOTE | 2017-08-13 19:00 | NUR ---
SOLAR PROJECT MANAGER NOTES Received patient asleep on BIPAP,easily awakens ,converses,appropriate,follows commands.Not in acute distress but with mild SB on exertion ,on BIPAP 12, 15/5, 40 %.,tolerating BIPAP well. Comfort care done,needs attended
[2017-08-13] MEDS: NORTRIPTYLINE HCL 25 MG CAPSULE PO SCH (22:00)
[2017-08-13] MEDS: TAMSULOSIN 0.4 MG CAP.SR.24H PO SCH (22:00)
[2017-08-13] MEDS: OLANZAPINE 2.5 MG TABLET PO SCH (22:00)
[2017-08-14] VITALS (32 sets, daily range): BP systolic 111–158; BP diastolic 34–82
--- NOTE | 2017-08-14 | NUR ---
BEAD WORKER SEWING NOTES Remains stable,asleep most of the time but easily awakens.Continues to comply with BIPAP breathing regular and non labored,not in distress,.Comfort care done ,needs attended. 0200 AM care done/skin care done,Tolerated flat position,able to turn side to side with no difficulty of breathing.
[2017-08-14] MEDS: IPRATROPIUM NEB FS 0.5 MG/2.5 ML AMPUL.NEB IH SCH ×6 (03:17→23:11)
[2017-08-14 04:48] LABS: BASOPHILS % (AUTO) 0.1 % (0.0-2.0); EOSINOPHILS % (AUTO) 4.5 % (0.0-6.0); HEMATOCRIT 32 % (39-51); HEMOGLOBIN 10.6 g/dL (13.5-17.5); LYMPHOCYTES # (AUTO) 0.6 /CMM (0.8-4.8); LYMPHOCYTES % (AUTO) 7.1 % (20.0-44.0); MEAN CORPUSCULAR HGB CONC 33 g/dl (31.0-36.0); MEAN CORPUSCULAR VOLUME 88 fL (80-96); MONOCYTES # (AUTO) 0.3 /CMM (0.1-1.30); MONOCYTES % (AUTO) 3.3 % (2.0-12.0); NEUTROPHILS # (AUTO) 7.4 /CMM (1.8-8.9); PLATELET COUNT (AUTO) 75 /CMM (150-450); RDW COEFFICIENT OF VARIATION 15.4 (11.5-15.0); RED BLOOD CELL COUNT(AUTO) 3.62 MIL/uL (4.5-6.0); WHITE BLOOD COUNT (AUTO) 8.7 K/uL (4.3-11.0)
[2017-08-14 05:13] LABS: CALCIUM, SERUM 8.5 mg/dL (8.5-10.1); CARBON DIOXIDE 35 mmol/L (21-32); CHLORIDE 106 mmol/L (98-107); CREATININE 1.3 mg/dL (0.6-1.3); GLUCOSE 111 mg/dL (74-106); MAGNESIUM 1.9 mg/dL (1.8-2.4); PHOSPHORUS 4.2 mg/dL (2.5-4.9); POTASSIUM 4.5 mmol/L (3.5-5.1); SODIUM SERUM 144 mmol/L (136-145); UREA NITROGEN, BLOOD 18 mg/dL (7-18)
[2017-08-14 05:15] LABS: CHOLESTEROL 139 mg/dL (<200); HDL CHOLESTEROL 43 mg/dL (40-60); LDL 86 mg/dL (0-99); THYROID STIMULATING HORMONE 0.561 uIU/mL (0.358-3.74); TRIGLYCERIDES 101 mg/dL (30-150)
--- NOTE | 2017-08-14 07:10 | NUR ---
FISH CUTTER NOTES Remains stable,not in any distress,converses,coherent and appropriate.Wants to eat/drink.Will probably tolerate off BIPAP during daytime.Will follow up with MD,Report given to Jarred WELSH dayshift.
--- NOTE | 2017-08-14 07:15 | NUR ---
ONLINE EDUCATION MANAGER NOTES RECEIVED AOX2 MORE AWAKE , FOLLOWS COMMANDS , ON BIPAP RATE OF 12 15/5 FIO2 OF 40% WITH SPO2 OF 93% , AFIB 67 ON BEDSIDE MONITOR , IV OF L FA # 20 AND R WRIST # 20 PATENT AND INTACT WITH NS @ TKO , PT STABLE , AFEBRILE , ALL NEEDS ATTENDED , BED ON LOW AND LOCKED POSITION , SIDE RAILS X2, CALL LIGHT WITHIN REACH , HOB @ 45 , WILL CONTINUE TO MONITOR .
[2017-08-14] MEDS ORDERED: LEVOTHYROXINE SODIUM 150 MCG TABLET PO SCH (07:30)
--- NOTE | 2017-08-14 08:00 | NUR ---
HANDBELL CHOIR DIRECTOR NOTES RT SWEET AT BEDSIDE , PT OFF BIPAP , PLACED ON 3LPM SPO2 OF 90% WITH NO SIGNS OF DISTRESS , WILL CONTINUE TO MONITOR
[2017-08-14 08:32] LABS: ABG BASE EXCESS 7.3 mmol/L; ABG OXYGEN SATURATION 89.6 % (92.0-98.5); ABG PCO2 54.9 mmHg (35.0-45.0); ABG PH 7.402 (7.350-7.450); ABG PO2 56.8 mmHg (75.0-100.0); AaDO2 92.6 mmHg; COHb 0.4 % (0.5-1.5); MetHb 0.5 % (0.0-1.5); O2Hb 88.8 % (94.0-97.0); SITE, ABG Right Radial; VENT MODE, BG 3L N/C
[2017-08-14] MEDS ORDERED: ASPIRIN 325 MG TABLET PO SCH (09:00)
[2017-08-14] MEDS: DOCUSATE SODIUM 100 MG CAPSULE PO SCH (09:40)
[2017-08-14] MEDS: PAROXETINE HCL 20 MG TABLET PO SCH (09:40)
[2017-08-14] MEDS: DILTIAZEM HCL CD 240 MG PO SCH (09:40)
[2017-08-14] MEDS: GABAPENTIN 300 MG CAPSULE PO SCH ×3 (09:40→16:23)
[2017-08-14] MEDS: AMIODARONE HCL 200 MG TABLET PO SCH (09:40)
[2017-08-14] MEDS: PANTOPRAZOLE 40 MG VIAL IV SCH (09:40)
[2017-08-14] MEDS: ENOXAPARIN SODIUM 40 MG/0.4 ML DISP.SYRIN SQ SCH (09:42)
--- NOTE | 2017-08-14 10:25 | NUR ---
MOVIE EDITOR NOTES SEEN AND EVALUATED BY DR GRANT ,PATIENT IS AWAKE ALERT X2-3 , DISCUSSED LABS , CHEST XRAY, OFF BIPAP SINCE 0800 , ON 3LPM NC SPO2 OF 90-92% TOLERATING WELL WITH NO SIGNS OF DISTRESS , DISCUSSED ABG RESULT , V/S STABLE ,AFEBRILE , MD AWARE , RECEIVED ORDERED FOR NOCTURNAL BIPAP WITH SETTINGS OF RATE 12 , 15/5 TITRATE FIO2 TO KEEP SPO2 88-92% , ABG AND CHEST XRAY FOR GLEN AM . ORDERS CARRIED OUT
--- NOTE | 2017-08-14 11:46 | NUR ---
LOTTERY MANAGER NOTES SEEN AND EVALUATED BY RANDY EPPERSON , DISCUSSED LABS , CHEST XRAY , ABG AND CURRENT V/S , AFEBRILE , OFF BIPAP @ 0800 TOLERATING NC @ 3LPM WITH SPO2 OF 90% WITH NO SIGNS OF DISTRESS , AOX3-4 , F/U WITH DIET ORDER , PER [facility]KHAND SHRIMP BOAT START PT ON PUREE DIET ,
[2017-08-14] MEDS: CEFTRIAXONE 1 G in IV D5W 50 ML IV SCH (16:25)
--- NOTE | 2017-08-14 16:40 | NUR ---
ACCESS DEVELOPER NOTES PLACED PT ON BIPAP SETTINGS ORDERED DUE TO SPO2 OF 80% ON 3LPM SUSTAINING , WILL CONTINUE TO MONITOR
--- NOTE | 2017-08-14 17:03 | NUR ---
WELDING MACHINE OPERATOR THERMIT NOTES NOTIFIED DR GRANT THAT PT IS HAVING UNPRODUCTIVE COUGH , RECEIEVED A T.O ORDER OF ROBITUSSIN SYRUP 10ML QID SCHEDULED ,
[2017-08-14] MEDS: GUAIFENESIN/D-METHORPHAN HB 5 ML UDC PO SCH ×2 (17:30→23:49)
--- NOTE | 2017-08-14 19:00 | NUR ---
RECEIVING AND PROCESSING SUPERVISOR NOTES Received patient asleep on BIPAP,easily awakens,converses,answers appropriately but only oriented to person and place.Follows commands,moves all extremities.Not in distressbreathing regular and non labored.Comfort care done ,needs attended.
--- NOTE | 2017-08-14 19:57 | NUR ---
PT IS AWAKE ALERT ON BIPAP. NO DISTRESS. PT TOLERATING SETTINGS. NOTICED REDNESS ON BRIDGE OF THE NOSE. MEPILEX IN PLACE RN AWARE. WILL CONTINUE TO MONITOR. Addendum: 08/14/17 at 1959 by CODEY NIX RT Amended: Links added.
[2017-08-14] MEDS: ACETAMINOPHEN 325 MG TABLET PO PRN (21:49)
[2017-08-14] MEDS: OLANZAPINE 2.5 MG TABLET PO SCH (21:49)
[2017-08-14] MEDS: TAMSULOSIN 0.4 MG CAP.SR.24H PO SCH (21:49)
[2017-08-14] MEDS: NORTRIPTYLINE HCL 25 MG CAPSULE PO SCH (21:49)
--- NOTE | 2017-08-14 22:00 | NUR ---
DATABASE ARCHITECT NOTES Patient asleep ,easily awakens,du e PO meds given,tolerated meds /able to swallow well.Comfort care done,cooperative.
[2017-08-15] VITALS (46 sets, daily range): BP systolic 94–133; BP diastolic 38–79
--- NOTE | 2017-08-15 | NUR ---
INFORMATICA MDM ARCHITECT NOTES Status unchanged,asleep on BIPAP but awakens on and off.
--- NOTE | 2017-08-15 03:00 | NUR ---
ROUSTABOUT CREW PUSHER NOTES AM care/bath rendered ,patient seems more lethargic ,harder to arouse,awakens ,helped to turn to sides and move but easily falls back to sleep.Maintain on bIPAP,AND WILL CLOSELY MONITOR NEURO STATUS.
[2017-08-15] MEDS: IPRATROPIUM NEB FS 0.5 MG/2.5 ML AMPUL.NEB IH SCH ×5 (03:19→20:06)
[2017-08-15 04:47] LABS: BASOPHILS % (AUTO) 0.3 % (0.0-2.0); EOSINOPHILS % (AUTO) 6.5 % (0.0-6.0); HEMATOCRIT 30 % (39-51); HEMOGLOBIN 9.9 g/dL (13.5-17.5); LYMPHOCYTES # (AUTO) 0.8 /CMM (0.8-4.8); LYMPHOCYTES % (AUTO) 11.4 % (20.0-44.0); MEAN CORPUSCULAR HGB CONC 33 g/dl (31.0-36.0); MEAN CORPUSCULAR VOLUME 88 fL (80-96); MONOCYTES # (AUTO) 0.5 /CMM (0.1-1.30); NEUTROPHILS % (AUTO) 74.8 % (43.0-81.0); PLATELET COUNT (AUTO) 77 /CMM (150-450); RDW COEFFICIENT OF VARIATION 15.3 (11.5-15.0); RED BLOOD CELL COUNT(AUTO) 3.43 MIL/uL (4.5-6.0); WHITE BLOOD COUNT (AUTO) 6.8 K/uL (4.3-11.0)
[2017-08-15 04:58] LABS: CALCIUM, SERUM 7.9 mg/dL (8.5-10.1); CARBON DIOXIDE 32 mmol/L (21-32); CHLORIDE 106 mmol/L (98-107); CREATININE 1.5 mg/dL (0.6-1.3); POTASSIUM 3.9 mmol/L (3.5-5.1); SODIUM SERUM 143 mmol/L (136-145); UREA NITROGEN, BLOOD 19 mg/dL (7-18)
[2017-08-15 05:07] LABS: GLUCOSE 103 mg/dL (74-106)
[2017-08-15 05:18] LABS: EOSINOPHILS % (MANUAL) 4 % (0-4); LYMPHOCYTES % (MANUAL) 14 % (16-48); MONOCYTES % (MANUAL) 7 % (0-11.0); NEUTROPHILS % (MANUAL) 75 (42-76)
[2017-08-15] MEDS: GUAIFENESIN/D-METHORPHAN HB 5 ML UDC PO SCH ×3 (06:00→17:59)
--- NOTE | 2017-08-15 07:00 | NUR ---
STAFF AIR DEFENSE OFFICER NOTES Report given to Jzamín WELSH.Patient still on BIPAP ,still sleeping but now easily awakens,
--- NOTE | 2017-08-15 07:36 | NUR ---
INITIAL SHOWER SCREEN INSTALLER NOTE RCVD PT AWAKE AND ALERT TO SELF, SHOWING NO S/O DISTRESS/PAIN. AFIB ON TELE. TOLERATING BIPAP WELL. O2 SENSOR CHANGED. BOLAND TO GRAVITY DRAINING CLOUDY, YELLOW URINE. IV SITES C/D/I/PATENT. NO S/O INFILTRATION/PHLEBITIS OBSERVED UPON FLUSHING. WILL CONTINUE TO MONITOR PT FOR SAFETY AND COMFORT. CALL LIGHT WITHIN REACH. BED IN LOW AND LOCKED POSITION.
[2017-08-15] MEDS: GABAPENTIN 300 MG CAPSULE PO SCH ×3 (08:37→17:59)
[2017-08-15] MEDS: AMIODARONE HCL 200 MG TABLET PO SCH ×3 (08:37→17:59)
[2017-08-15] MEDS: PANTOPRAZOLE 40 MG VIAL IV SCH (08:37)
[2017-08-15] MEDS: DOCUSATE SODIUM 100 MG CAPSULE PO SCH (08:37)
[2017-08-15] MEDS: LEVOTHYROXINE SODIUM 75 MCG TABLET PO SCH (08:37)
[2017-08-15] MEDS: DILTIAZEM HCL CD 240 MG PO SCH (08:37)
[2017-08-15] MEDS: PAROXETINE HCL 20 MG TABLET PO SCH (08:39)
[2017-08-15] MEDS: ENOXAPARIN SODIUM 40 MG/0.4 ML DISP.SYRIN SQ SCH (09:00)
--- NOTE | 2017-08-15 10:03 | NUR ---
FREELANCE COPYWRITER NOTE DR. GARCIA IN UNIT INFORMED OF PT'S ELEVATED HR TO 140's A-FIB/FLUTTER, SINUS WITH PACs. HE STATED THAT PT'S BEING TX ALREADY FOR CURRENT RHYTHM. HE WAS ALSO INFORMED THAT PT'S PLATELETS 77 THIS AM, MARKED BRUISING NOTED OVER ABDOMINAL AREA. HE RECOMMENDED TO DISCONTINUE LOVENOX WHICH WAS HELD THIS AM. WILL CONTINUE TO MONITOR PT.
--- NOTE | 2017-08-15 10:26 | NUR ---
WOUND CARE CONSULT: PT PRESENTS WITH HUGE BRUISE TO ABDOMEN, DRY ABRASIONS TO NOSE AND TO BILATERAL TOES. PT ON [facility] BED WITH ETS AIR. ALL SKIN PROTECTION MEASURES IN PLACE AND DISCUSSED WITH NURSING STAFF. PT OFF BIPAP AT THIS TIME. WILL SEE PRN. CURRENT ODALIS SCORE IS 15. MD IN AGREEMENT WITH PLAN OF CARE. Addendum: 08/15/17 at 1029 by ЮЛИЯ PAGE WNDNU SLIGHT BRUISING NOTED TO BUTTOCKS, PRESENT ON ADMISSION. PT HAS LOW PLATELETS.
[2017-08-15 10:54] LABS: ABG BASE EXCESS 9.1 mmol/L; ABG OXYGEN SATURATION 86.6 % (92.0-98.5); ABG PCO2 57.2 mmHg (35.0-45.0); ABG PH 7.409 (7.350-7.450); ABG PO2 51.6 mmHg (75.0-100.0); AaDO2 138.7 mmHg; COHb 0.5 % (0.5-1.5); MetHb 0.6 % (0.0-1.5); O2Hb 85.6 % (94.0-97.0); SITE, ABG Right Radial; VENT MODE, BG N/C
--- NOTE | 2017-08-15 11:42 | NUR ---
JUVENILE DETENTION OFFICER NOTE PT'S SKIN FELT WARM, ORAL TEMP 103.1, RECTAL TEMP RE-CHECK 103.7. ZHOU PADILLA IN UNIT INFORMED OF PT'S CONDITION. COOLING MEASURES STARTED, COOLING BLANKET ORDERED FROM CENTRAL SUPPLY, TYLENOL WILL BE GIVEN ORDERED.
[2017-08-15] MEDS: ACETAMINOPHEN 325 MG TABLET PO PRN (12:09)
[2017-08-15] MEDS: DIGOXIN INJ 0.5 MG/2 ML AMPUL IV SCH ×2 (12:09→17:59)
--- NOTE | 2017-08-15 12:52 | NUR ---
pt placed back into bipap due to low saturation. Addendum: 08/15/17 at 1253 by VALERY SIMMS RT Amended: Links added.
[2017-08-15] MEDS: CEFTRIAXONE 1 G in IV D5W 50 ML IV SCH (16:52)
[2017-08-15] MEDS ORDERED: FEE PK DOSING 1 MIN EA MC ONE (18:54)
--- NOTE | 2017-08-15 18:59 | NUR ---
ELECTRICIAN SUPERVISOR AIRPLANE NOTE PT REMAINS STABLE OFF BIPAP FOR DINNER TOLERATED WELL, THEN PT FALLING ASLEEP SATURATION DECREASING PT PLACED BACK ON BIPAP. PT ALERT TO SELF. AFIB ON TELE. BOLAND TO GRAVITY. IV SITES C/D/I/PATENT. NO S/O INFILTRATION/PHLEBITIS OBSERVED UPON FLUSHING. PT'S CARE WILL BE ENDORSED TO GROCERY STORE MANAGER RN FOR CONTINUITY OF CARE. BED IN LOW AND LOCKED POSITION. CALL LIGHT WITHIN REACH.
[2017-08-15] MEDS: OSELTAMIVIR PHOSPHATE 75 MG CAPSULE PO SCH (19:09)
[2017-08-15] MEDS ORDERED: VANCOMYCIN 1.25 GM in IV D5W 500 ML IV SCH (20:00)
[2017-08-15] MEDS ORDERED: AZITHROMYCIN 500 MG in IV D5W 250 ML IV SCH (20:00)
[2017-08-15] MEDS: MEROPENEM 1 G in IV NS 0.9% 100 ML IV SCH (20:55)
[2017-08-15] MEDS: TAMSULOSIN 0.4 MG CAP.SR.24H PO SCH (21:10)
[2017-08-15] MEDS: NORTRIPTYLINE HCL 25 MG CAPSULE PO SCH (21:12)
[2017-08-15] MEDS: OLANZAPINE 2.5 MG TABLET PO SCH (21:13)
--- NOTE | 2017-08-15 22:00 | NUR ---
WATER CONSERVATION SPECIALIST - RECEIVED PT. ON BIPAP MASK W/O2 SATS TEETERING IN THE HIGH 80'S-MID 90'S. O2 SENSOR REPLACED TWICE. PT. WOULD NOD OFF & HR WOULD GO DOWN TO 38. PT.IS ALREADY IN AFIB/AFLUTTER. PT. AWOKE QUICKLY, BUT STARTLED. HE KNOWS HIS NAME & THAT HE IS IN THE HOSPITAL. PT.IS REORIENTED FREQUENTLY. CALL HALE AT BS. LT. WRIST PIV IS LEAKING. REMOVED. PT.CAN SWALLOW MEDS WELL. N/P COUGH NOTED. PT. WAS ALSO REC'D W/COOLING BLANKET ON. HIS CURRENT RECTAL TEMP IS 99.6 F. COOLING MEASURES ALREADY STARTED. OLIGURIC/VIA/BOLAND CATH TO GRAVITY. PT.IS ALSO ON A BIG BOY BED. PT.IS OBESE W/SEVERAL AREAS OF EDEMA PRESENT. PT.HAS SCATTERED ECCHYMOSES & SCABS TO BODY. CONT. POC.
[2017-08-16] VITALS (85 sets, daily range): BP systolic 39–155; BP diastolic 18–120
[2017-08-16] MEDS: DIGOXIN INJ 0.5 MG/2 ML AMPUL IV SCH
[2017-08-16] MEDS: IPRATROPIUM NEB FS 0.5 MG/2.5 ML AMPUL.NEB IH SCH ×7 (00:02→23:20)
[2017-08-16] MEDS: GUAIFENESIN/D-METHORPHAN HB 5 ML UDC PO SCH ×4 (00:27→17:08)
[2017-08-16] MEDS: IV NS 0.9% 250 ML IV PRN (05:08)
[2017-08-16 05:25] LABS: ALANINE AMINOTRANSFERASE 30 U/L (12-78); ALBUMIN 2.2 g/dL (3.4-5.0); ALKALINE PHOSPHATASE 46 U/L (46-116); ASPARTATE AMINOTRANSFERASE 15 U/L (15-37); BILIRUBIN,TOTAL 0.4 mg/dL (0.2-1.0); CALCIUM, SERUM 7.5 mg/dL (8.5-10.1); CARBON DIOXIDE 32 mmol/L (21-32); CHLORIDE 102 mmol/L (98-107); GLUCOSE 103 mg/dL (74-106); MAGNESIUM 1.6 mg/dL (1.8-2.4); PHOSPHORUS 4.2 mg/dL (2.5-4.9); POTASSIUM 4.4 mmol/L (3.5-5.1); SODIUM SERUM 140 mmol/L (136-145); TOTAL PROTEIN, SERUM 5.3 g/dL (6.4-8.2); UREA NITROGEN, BLOOD 25 mg/dL (7-18)
[2017-08-16] MEDS: ACETAMINOPHEN 325 MG TABLET PO PRN ×2 (05:25→17:08)
[2017-08-16 05:44] LABS: LYMPHOCYTES # (AUTO) 0.4 /CMM (0.8-4.8); MEAN CORPUSCULAR VOLUME 88 fL (80-96); MONOCYTES # (AUTO) 0.2 /CMM (0.1-1.30); MONOCYTES % (AUTO) 3.4 % (2.0-12.0); PLATELET COUNT (AUTO) 56 /CMM (150-450)
[2017-08-16 05:49] LABS: EOSINOPHILS % (AUTO) 2.1 % (0.0-6.0); HEMATOCRIT 29 % (39-51); HEMOGLOBIN 9.4 g/dL (13.5-17.5); LYMPHOCYTES % (AUTO) 6.7 % (20.0-44.0); MEAN CORPUSCULAR HGB CONC 33 g/dl (31.0-36.0); NEUTROPHILS # (AUTO) 4.6 /CMM (1.8-8.9); NEUTROPHILS % (AUTO) 87.8 % (43.0-81.0); RED BLOOD CELL COUNT(AUTO) 3.27 MIL/uL (4.5-6.0); WHITE BLOOD COUNT (AUTO) 5.3 K/uL (4.3-11.0)
--- NOTE | 2017-08-16 06:40 | NUR ---
SECURITIES BROKER CLOSING NOTES PT'S RECTAL TEMP WENT BACK UP TO 101.9. COOLING BLANKET, ICE BAGS TO AXILLA & TYLENOL 650 PO ADM. PT. WAS ABLE TO SIT UP & SWALLOW MEDS SLOWLY. COOLING MEASURES CONT. COMP.BEDBATH ADM. W/ORAL,DEE & SKIN/WOUND CARE ADM. CONT.POC. Addendum: 08/16/17 at 0729 by ESAU LUIS RN VERBAL REPORT ENDORSED TO DERICK WELSH.
[2017-08-16] MEDS: LEVOTHYROXINE SODIUM 75 MCG TABLET PO SCH (07:30)
--- NOTE | 2017-08-16 07:48 | NUR ---
INITIAL PASSENGER VESSEL CHEF NOTE RCVD PT LETHARGIC, RESPONDS TO NAME AT TIMES BUT UNABLE TO KEEP EYES OPEN, AFIB ON TELE. ON BIPAP AT 100% BOLAND TO GRAVITY WITH NO URINARY OUTPUT. COOLING BLANKET IN PLACE. PT OBSERVED WITH A TEMP OF 101.6 AND SHIVERING. NO PATENT IV ACCESS NOTICED UPON FLUSHING. PT'S BREAKFAST HELD DUE TO MENTAL STATUS. SBP DROPPING TO 70s-80s AT TIMES. WILL CONTINUE TO MONITOR PT FOR SAFETY AND COMFORT. CALL LIGHT WITHIN REACH. BED IN LOW AND LOCKED POSITION.
[2017-08-16] MEDS ORDERED: NOREPINEPHRINE 16 MG in IV D5W 500 ML IV PRN (08:00)
[2017-08-16] MEDS: AMIODARONE HCL 200 MG TABLET PO SCH (08:17)
[2017-08-16] MEDS: DOCUSATE SODIUM 100 MG CAPSULE PO SCH (08:17)
[2017-08-16] MEDS: GABAPENTIN 300 MG CAPSULE PO SCH ×3 (08:17→17:08)
[2017-08-16] MEDS: PAROXETINE HCL 20 MG TABLET PO SCH (08:17)
[2017-08-16] MEDS: DILTIAZEM HCL CD 240 MG PO SCH (08:18)
[2017-08-16] MEDS: OSELTAMIVIR PHOSPHATE 75 MG CAPSULE PO SCH ×2 (08:18→17:08)
--- NOTE | 2017-08-16 08:24 | NUR ---
MEDICATION NOTE PO AM MEDS HELD DUE TO PT'S ALTERED MENTAL STATUS AND RISK OF ASPIRATION. WILL CONTINUE TO MONITOR.
--- NOTE | 2017-08-16 08:38 | NUR ---
PT TRIED OFF BIPAP. PLACED ON NASAL CANNULA AND SIMPLE MASK. PT IS SLIGHTLY AROUSED, DID NOT TOLERATE OFF BIPAP. PLACED BACK ON BIPAP, WITH MEPILEX SINCE PT DOES HAVE A DTI ON THE BRIDGE OF THE NOSE. PT REC'D ON FIO2 OF 100%. WILL TITRATE BEST POSSIBLE. BLAISE HERNANDEZ AWARE OF ALL THIS. Addendum: 08/16/17 at 0842 by GIOVANNI MOHAN RT Amended: Links added.
[2017-08-16] MEDS: MEROPENEM 1 G in IV NS 0.9% 100 ML IV SCH ×2 (09:30→21:46)
[2017-08-16] MEDS: PANTOPRAZOLE 40 MG VIAL IV SCH (09:30)
[2017-08-16] MEDS: PROPOFOL 100 ML IV PRN ×2 (10:11→19:22)
--- NOTE | 2017-08-16 10:14 | NUR ---
ENCODING CLERK NOTE IN UNIT ASSESSED PT RECOMMENDED PT TO BE INTUBATED. PT WAS INTUBATED BY ER MD SUCCESSFULLY, CHEST X-RAY ORDERED, OG-TUBE PLACED. BILATERAL WRIST RESTRAINTS IN PLACE TO PREVENT INJURY FROM PULLING ET TUBE. WILL CONTINUE TO MONITOR PT.
--- NOTE | 2017-08-16 10:18 | NUR ---
PT INTUBATED BY ER DR. ACEVEDO WITH A 7.5 ETT AT 24CM AT THE LIP. POSITIVE COLOR CHANGE ON CAP, BILAT. B/S AUSCULTATED BY DR. ACEVEDO. SX'D MOD AMT OF THICK YELLOW SECRETIONS. VENT SETTINGS PER DR. SPAULDING. VENT ALARMS SET AND AUDIBLE PER POLICY. VENT PLUGGED INTO RED OUTLET. AMBU BAG AT HOB. Addendum: 08/16/17 at 1020 by GIOVANNI MOHAN RT Amended: Links added.
--- NOTE | 2017-08-16 10:28 | NUR ---
MEDICATION ORDER DIPRIVAN ORDERED WITH INTUBATION, PT HAS PEANUT ALLERGY. PHARMACY CALLED SPOKE WITH ADELA WHO STATES THAT NO INTERACTION WITH DIPRIVAN. OF TO ORDER.
[2017-08-16] MEDS ORDERED: IV NS 0.9% 1,000 ML BAG IV ONE (11:00)
[2017-08-16] MEDS ORDERED: IV NS 0.9% 1,000 ML BAG IV PRN (11:00)
[2017-08-16] MEDS ORDERED: Magnesium 1GM/D5W 100ML PREMIX 100 ML IV SCH (11:01)
--- NOTE | 2017-08-16 11:20 | NUR ---
COMPENSATOR NOTE PT'S SBP DROPPING TO 60s, NO PICC, CENTRAL LINE AVAILABLE, PER HOUSE SUP CIERRA TO HAVE ITA PARRISH OR ER PLACE LINE. ER MD DR. ACEVEDO DECLINED TO PLACE LINE SINCE ER IS BUSY. TIA PARRISH RETURNED CALL UNABLE TO COME AND PLACE LINE UNTIL THIS AFTERNOON. HE GAVE ORDER TO START PT ON SEPSIS PROTOCOL IVF 3.6 L PER PT'S WEIGHT AND THEN CONTINUE TO 80ML/HR. ORDER CONFIRMED WITH DR. SPAULDING LONG SATURATION IS GOOD WHICH PT'S SATURATION 100% AT THIS TIME. WILL CONTINUE TO MONITOR.
[2017-08-16] MEDS ORDERED: HYDROCORTISONE SOD SUCCINATE 100 MG/2 ML VIAL IV SCH (11:30)
--- NOTE | 2017-08-16 11:36 | NUR ---
PREMIUM SERVICE REPRESENTATIVE NOTE PT'S SBP DROPPING 50-60s NO CENTRAL LINE IN PLACE. HOUSE SUP, [place] ADVISED TO CALL ER MD TO PLACE LINE. DR. SULLIVAN STATES THAT SHE'S BUSY WITH ER PT'S AT THIS TIME. [place] AWARE THAT TIA FRANCOIS WON'T BE IN UNTIL THIS AFTERNOON. WILL CONTINUE TO MONITOR PT.
[2017-08-16] MEDS: DIGOXIN 0.25 MG TABLET PO SCH (12:08)
[2017-08-16 12:09] LABS: ABG BASE EXCESS 1.2 mmol/L; ABG PH 7.275 (7.350-7.450); ABG PO2 79.6 mmHg (75.0-100.0); AaDO2 277.8 mmHg; COHb 0.4 % (0.5-1.5); MetHb 0.5 % (0.0-1.5); O2Hb 94.1 % (94.0-97.0); PEEP,BG 0 cm H2O; SITE, ABG Right Radial; VT, ABG 500 mL
[2017-08-16 12:12] LABS: APPEARANCE,URINE CLOUDY (CLEAR); BILIRUBIN,URINE NEGATIVE (NEGATIVE); BLOOD, URINE 3+ Ery/uL (NEGATIVE); COLOR,URINE DARK YELLO (YELLOW); KETONES,URINE TRACE (NEGATIVE); LEUKOCYTE ESTERASE ,URINE TRACE (NEGATIVE); NITRITE, URINE NEGATIVE (NEGATIVE); PH,URINE 5.5 (5.0-8.0); PROTEIN,URINE 2+ mg/dl (NEGATIVE); UGLUCOSE NEGATIVE (NEGATIVE); UROBILINOGEN,URINE 0.2 EU/dL (0.2)
[2017-08-16 12:29] LABS: BACTERIA,URINE Many /HPF (None Seen); SQUAMOUS EPITHELIAL CELL,UR Rare /HPF (None Seen)
[2017-08-16 12:32] LABS: RBC,URINE TOO NUMEROUS TO COUN /HPF (0-2)
[2017-08-16 12:33] LABS: URIC ACID CRYSTALS,URINE Few /HPF (None Seen)
[2017-08-16] MEDS ORDERED: SUCCINYLCHOLINE CHLORIDE 20 MG/ML VIAL IV ONE (12:51)
[2017-08-16] MEDS ORDERED: ETOMIDATE 2 MG/ML VIAL IV ONE (12:51)
[2017-08-16] MEDS: IV NS 0.9% 1,000 ML IV PRN ×2 (15:27→18:29)
[2017-08-16] MEDS ORDERED: methylPREDNISolone SOD SUCC 125 MG/2ML VIAL IV SCH (17:00)
--- NOTE | 2017-08-16 18:40 | NUR ---
YARD SWITCH OPERATOR NOTE PT REMAINS INTUBATED TOLERATING ORDERED VENT SETTINGS WELL, ON LOW DOSE DIPRIVAN FOR COMFORT, PT ABLE TO FOLLOW COMMANDS. A-FLUTTER ON TELE. OG-TUBE PLACEMENT VERIFIED BY AUSCULTATION/ASPIRATION, GREEN GASTRIC CONTENTS OBTAINED. BOLAND TO GRAVITY DRAINING YELLOW CLOUDY URINE. IV SITES C/D/I/PATENT. NO S/O INFILTRATION/PHLEBITIS OBSERVED IVF INFUSING. PT'S CARE WILL BE ENDORSED TO MERCHANDISING INTERNSHIP RN FOR CONTINUITY OF CARE. CALL LIGHT WITHIN REACH. BED IN LOW AND LOCKED POSITION.
[2017-08-16] MEDS ORDERED: VANCOMYCIN 1 GM in IV D5W 250 ML IV SCH (20:00)
[2017-08-16] MEDS: HYDROCORTISONE SOD SUCCINATE 100 MG/2 ML VIAL IV SCH (21:45)
[2017-08-16] MEDS: TAMSULOSIN 0.4 MG CAP.SR.24H PO SCH (21:46)
[2017-08-16] MEDS: NORTRIPTYLINE HCL 25 MG CAPSULE PO SCH (21:47)
[2017-08-16] MEDS: OLANZAPINE 2.5 MG TABLET PO SCH (21:47)
--- NOTE | 2017-08-16 21:54 | NUR ---
PT RECEIVED INTUBATED 7.5 ETT SECURED AT 24CM AT THE LIP. NO RESP DISTRESS NOTED. PT TOERATING VENT SETTINGS. SX'D FOR MOD AMT OF THICK YELLOW SECRETIONS. VENT ALARMS SET AND AUDIBLE. AMBU BAG AT BEDSIDE. LUKASZ PLUGGED INTO RED OUTLET. WILL CONTINUE TO MONITOR. Addendum: 08/16/17 at 2156 by CODEY NIX RT Amended: Links added.
[2017-08-17] VITALS (74 sets, daily range): BP systolic 101–175; BP diastolic 46–99
[2017-08-17] MEDS: GUAIFENESIN/D-METHORPHAN HB 5 ML UDC PO SCH ×2 (00:17→05:52)
[2017-08-17] MEDS: PROPOFOL 100 ML IV PRN ×5 (00:18→21:52)
[2017-08-17] MEDS: IPRATROPIUM NEB FS 0.5 MG/2.5 ML AMPUL.NEB IH SCH ×6 (03:29→23:49)
[2017-08-17 04:56] LABS: EOSINOPHILS % (AUTO) 1.2 % (0.0-6.0); HEMATOCRIT 30 % (39-51); HEMOGLOBIN 10.1 g/dL (13.5-17.5); LYMPHOCYTES # (AUTO) 0.5 /CMM (0.8-4.8); LYMPHOCYTES % (AUTO) 7.9 % (20.0-44.0); MEAN CORPUSCULAR HGB CONC 34 g/dl (31.0-36.0); MEAN CORPUSCULAR VOLUME 86 fL (80-96); MONOCYTES # (AUTO) 0.1 /CMM (0.1-1.30); MONOCYTES % (AUTO) 2.3 % (2.0-12.0); NEUTROPHILS # (AUTO) 5.8 /CMM (1.8-8.9); NEUTROPHILS % (AUTO) 88.6 % (43.0-81.0); PLATELET COUNT (AUTO) 59 /CMM (150-450); RDW COEFFICIENT OF VARIATION 14.8 (11.5-15.0); WHITE BLOOD COUNT (AUTO) 6.6 K/uL (4.3-11.0)
[2017-08-17] MEDS: HYDROCORTISONE SOD SUCCINATE 100 MG/2 ML VIAL IV SCH ×3 (04:56→19:38)
[2017-08-17 05:18] LABS: CALCIUM, SERUM 6.8 mg/dL (8.5-10.1); CARBON DIOXIDE 27 mmol/L (21-32); CHLORIDE 104 mmol/L (98-107); GLUCOSE 146 mg/dL (74-106); MAGNESIUM 1.7 mg/dL (1.8-2.4); PHOSPHORUS 3.4 mg/dL (2.5-4.9); POTASSIUM 3.8 mmol/L (3.5-5.1); SODIUM SERUM 139 mmol/L (136-145); UREA NITROGEN, BLOOD 25 mg/dL (7-18)
[2017-08-17 05:26] LABS: EOSINOPHILS % (MANUAL) 1 % (0-4); LYMPHOCYTES % (MANUAL) 7 % (16-48); MONOCYTES % (MANUAL) 4 % (0-11.0); NEUTROPHILS % (MANUAL) 88 (42-76)
--- NOTE | 2017-08-17 07:45 | NUR ---
ICU/RN - Initial Notes Received pt sedated, orally intubated to mechanical ventilator with settings as ordered. No s/s of pain or discomfort. On tele reading Aflutter 60s. OG tube clamped, kept NPO as ordered. Fang catheter intact draining urine to gravity. Safety and comfort measures in place. Will continue to monitor pt closely.
[2017-08-17] MEDS ORDERED: BUMETANIDE INJ 8 MG in IV NS 0.9% 48 ML IV ONE (08:00)
[2017-08-17] MEDS: OSELTAMIVIR PHOSPHATE 75 MG CAPSULE PO SCH ×2 (08:27→16:10)
[2017-08-17] MEDS: LEVOTHYROXINE SODIUM 75 MCG TABLET PO SCH (08:27)
[2017-08-17] MEDS: DOCUSATE SODIUM LIQ 100 MG/10 ML UDC NG SCH (08:27)
[2017-08-17] MEDS: PAROXETINE HCL 20 MG TABLET PO SCH (08:27)
[2017-08-17] MEDS: DILTIAZEM HCL CD 240 MG PO SCH (08:27)
[2017-08-17] MEDS: GABAPENTIN 300 MG CAPSULE PO SCH ×3 (08:27→16:10)
[2017-08-17] MEDS: PANTOPRAZOLE 40 MG VIAL IV SCH (08:28)
[2017-08-17] MEDS: MEROPENEM 1 G in IV NS 0.9% 100 ML IV SCH (08:28)
[2017-08-17] MEDS ORDERED: HYDROCORTISONE SOD SUCCINATE 100 MG/2 ML VIAL IV SCH ×2 (09:00→20:00)
[2017-08-17 09:04] LABS: ABG BASE EXCESS 2.1 mmol/L; ABG OXYGEN SATURATION 97.6 % (92.0-98.5); ABG PCO2 45.4 mmHg (35.0-45.0); ABG PH 7.397 (7.350-7.450); AaDO2 248.9 mmHg; COHb 0.3 % (0.5-1.5); MetHb 1.3 % (0.0-1.5); PEEP,BG 0 cm H2O; SITE, ABG Left Radial; VT, ABG 550 mL
--- NOTE | 2017-08-17 09:10 | NUR ---
ICU/RN - Notes Diprivan gtt titrated down for sedation vacation. While off sedation, pt opens eyes, does not follow commands, attempting to reach for ET tube and bucking ventilator. Sedation turned back on to ensure comfort as pt is orally intubated as there are no plans to wean of mechanical ventilator today.
[2017-08-17] MEDS ORDERED: Magnesium 1GM/D5W 100ML PREMIX 100 ML IV SCH (10:30)
[2017-08-17] MEDS: DIGOXIN 0.25 MG TABLET PO SCH (12:02)
--- NOTE | 2017-08-17 12:45 | NUR ---
ICU/RN - Notes Received call from pt's sister Aruna Mckenzie [phone]. Updates provided. Notified family that area safety manager came to visit pt as requested.
[2017-08-17] MEDS: PROSOURCE / PROSTAT (PYXIS) 30 ML UDC NG SCH (16:10)
[2017-08-17] MEDS: FIBERSOURCE HN 1,000 ML BOTTLE NG PRN (16:11)
[2017-08-17] MEDS: LACTOBACILLUS RHAMNOSUS GG 1 EACH CAP.SPRINK PO SCH (16:11)
--- NOTE | 2017-08-17 16:30 | NUR ---
ICU/RN - Notes Tube feeding started as ordered.
[2017-08-17] MEDS: CEFEPIME 1 GM in IV NS 0.9% 50 ML IV SCH (17:53)
--- NOTE | 2017-08-17 19:00 | NUR ---
RN INITIAL NOTES RECEIVED THE PATIENT SEDATED ON BED WITH DIPRIVAN @ 15 MCG/KG/MIN. INTUBATED AND ON VENT WITH SETTINGS AC 16, TV 550, FIO2 60%, PEEP 0, 7.5/24@LIP, SATURATING WELL, NO S/S OF RESP DISTRESS. SB ON THE MONITOR, HR 50'S. OG TO FIBERSOURCE FEEDING @ 20MLS/HR, NO RESIDUALS, TOLERATING WELL. BOLAND CATH INTACT. LEFT IJ 3LUMEN AND LEFT FOREARM 20G, BOTH FLUSHED AND PATENT, NO S/S OF INFILTRATION/INFECTION, DRESSINGS CDI. BED LOW AND LOCKED, SIDERAILS UP. WILL CONTINUE TO MONITOR
[2017-08-17] MEDS: NORTRIPTYLINE HCL 25 MG CAPSULE PO SCH (21:10)
[2017-08-17] MEDS: TAMSULOSIN 0.4 MG CAP.SR.24H PO SCH (21:10)
[2017-08-17] MEDS: OLANZAPINE 2.5 MG TABLET PO SCH (21:11)
[2017-08-18] VITALS (34 sets, daily range): BP systolic 95–140; BP diastolic 40–69
[2017-08-18] MEDS: HYDROCORTISONE SOD SUCCINATE 100 MG/2 ML VIAL IV SCH ×3 (03:19→19:23)
[2017-08-18] MEDS: IPRATROPIUM NEB FS 0.5 MG/2.5 ML AMPUL.NEB IH SCH ×4 (04:13→20:29)
[2017-08-18 05:23] LABS: EOSINOPHILS % (AUTO) 0.1 % (0.0-6.0); HEMATOCRIT 27 % (39-51); HEMOGLOBIN 8.9 g/dL (13.5-17.5); LYMPHOCYTES # (AUTO) 0.7 /CMM (0.8-4.8); LYMPHOCYTES % (AUTO) 10.7 % (20.0-44.0); MEAN CORPUSCULAR HGB CONC 33 g/dl (31.0-36.0); MEAN CORPUSCULAR VOLUME 87 fL (80-96); MONOCYTES # (AUTO) 0.2 /CMM (0.1-1.30); MONOCYTES % (AUTO) 3.4 % (2.0-12.0); NEUTROPHILS # (AUTO) 5.4 /CMM (1.8-8.9); NEUTROPHILS % (AUTO) 85.8 % (43.0-81.0); PLATELET COUNT (AUTO) 84 /CMM (150-450); RDW COEFFICIENT OF VARIATION 14.7 (11.5-15.0); RED BLOOD CELL COUNT(AUTO) 3.11 MIL/uL (4.5-6.0); WHITE BLOOD COUNT (AUTO) 6.3 K/uL (4.3-11.0)
[2017-08-18] MEDS: PROPOFOL 100 ML IV PRN ×3 (05:27→19:30)
[2017-08-18 05:47] LABS: ALANINE AMINOTRANSFERASE 27 U/L (12-78); ALBUMIN 1.6 g/dL (3.4-5.0); ALKALINE PHOSPHATASE 29 U/L (46-116); ASPARTATE AMINOTRANSFERASE 11 U/L (15-37); BILIRUBIN,TOTAL 0.4 mg/dL (0.2-1.0); CALCIUM, SERUM 6.4 mg/dL (8.5-10.1); CARBON DIOXIDE 29 mmol/L (21-32); CHLORIDE 104 mmol/L (98-107); CREATININE 1.8 mg/dL (0.6-1.3); GLUCOSE 146 mg/dL (74-106); MAGNESIUM 1.7 mg/dL (1.8-2.4); PHOSPHORUS 3.5 mg/dL (2.5-4.9); POTASSIUM 3.1 mmol/L (3.5-5.1); SODIUM SERUM 141 mmol/L (136-145); UREA NITROGEN, BLOOD 33 mg/dL (7-18)
--- NOTE | 2017-08-18 06:30 | NUR ---
RN CLOSING NOTES PT REMAINS STABLE OF THE MOMENT. ALL DUE MEDS GIVEN, AM CARE PROVIDED. WILL ENDORSE DEEPIKA TO AM RN
--- NOTE | 2017-08-18 07:44 | NUR ---
INITIAL TOP DYEING MACHINE LOADER NOTE RCVD PT INTUBATED ETT 7.5 24 AT UPPER LIP LINE, TOLERATING ORDERED VENT SETTINGS WELL. LIGHTLY SEDATED ON DIPRIVAN ABLE TO FOLLOW COMMANDS SUCH SQUEEZING HANDS, AND OPENING/CLOSING MOUTH. BILATERAL SOFT WRIST RESTRAINTS IN PLACE. CIRCULATION CHECKS DONE. SB ON TELE. OG-TUBE PLACEMENT VERIFIED BY AUSCULTATION/ASPIRATION. MINIMAL RESIDUAL OBTAINED. BOLAND TO GRAVITY DRAINING CLOUDY, YELLOW URINE WITH SEDIMENT. LEFT IJ C/D/I/PATENT. NO S/O INFILTRATION/PHLEBITIS OBSERVED UPON FLUSHING. WILL CONTINUE TO MONITOR PT FOR SAFETY AND COMFORT. CALL LIGHT WITHIN REACH. BED IN LOW AND LOCKED POSITION.
[2017-08-18] MEDS: LEVOTHYROXINE SODIUM 75 MCG TABLET PO SCH (08:13)
[2017-08-18] MEDS: PAROXETINE HCL 20 MG TABLET PO SCH (08:13)
[2017-08-18] MEDS: PANTOPRAZOLE 40 MG VIAL IV SCH (08:13)
[2017-08-18] MEDS: LACTOBACILLUS RHAMNOSUS GG 1 EACH CAP.SPRINK PO SCH ×2 (08:13→16:56)
[2017-08-18] MEDS: DOCUSATE SODIUM LIQ 100 MG/10 ML UDC NG SCH (08:13)
[2017-08-18] MEDS: OSELTAMIVIR PHOSPHATE 75 MG CAPSULE PO SCH (08:13)
[2017-08-18] MEDS: GABAPENTIN 300 MG CAPSULE PO SCH ×3 (08:13→16:56)
[2017-08-18] MEDS: PROSOURCE / PROSTAT (PYXIS) 30 ML UDC NG SCH ×3 (08:16→16:56)
[2017-08-18] MEDS: IV NS 0.9% 250 ML IV PRN (08:20)
[2017-08-18] MEDS: DILTIAZEM HCL CD 240 MG PO SCH (09:00)
--- NOTE | 2017-08-18 09:31 | NUR ---
GROUP UNDERWRITER NOTE DR. FULLER IN UNIT INFORMED OF PT'S LOW MG AND K THIS AM. HE ORDERED REPLACEMENTS. ORDERS ENTERED AND ACKNOWLEDGED.
[2017-08-18] MEDS: Magnesium 1GM/D5W 100ML PREMIX 100 ML IV SCH ×2 (09:38→10:49)
[2017-08-18] MEDS: POTASSIUM CL. PREMIX PERIPHER. 50 ML IV SCH ×4 (09:38→12:59)
[2017-08-18] MEDS ORDERED: BUMETANIDE INJ 8 MG in IV NS 0.9% 48 ML IV ONE (12:00)
[2017-08-18] MEDS: DIGOXIN 0.25 MG TABLET PO SCH (12:38)
[2017-08-18] MEDS: CEFEPIME 1 GM in IV NS 0.9% 50 ML IV SCH (17:01)
[2017-08-18] MEDS: FIBERSOURCE HN 1,000 ML BOTTLE NG PRN (17:05)
--- NOTE | 2017-08-18 18:27 | NUR ---
PADDER CUSHION NOTE PT REMAINS STABLE, INTUBATED, LIGHTLY SEDATED, ABLE TO RESPOND TO NAME AND FOLLOW SIMPLE COMMANDS. SB ON TELE. TOLERATING ORDERED VENT SETTINGS. OG-TUBE PLACEMENT VERIFIED BY AUSCULTATION/ASPIRATION. NO RESIDUAL OBTAINED. RATE TITRATED UP PER DIETITIAN RECOMMENDATION. BOLAND TO GRAVITY DRAINING PALE, YELLOW URINE. LEFT IJ C/D/I/PATENT. NO S/O INFILTRATION/PHLEBITIS OBSERVED IVF INFUSING TKO. PT'S CARE WILL BE ENDORSED TO BEEF SPLITTER RN FOR CONTINUITY OF CARE. BED IN LOW AND LOCKED POSITION.
--- NOTE | 2017-08-18 20:00 | NUR ---
RN INITIAL NOTES RECEIVED THE PATIENT SEDATED ON BED WITH DIPRIVAN @ 15 MCG/KG/MIN. INTUBATED AND ON VENT WITH SETTINGS AC 16, TV 550, FIO2 45%, PEEP 0, SATURATING WELL, NO S/S OF RESP DISTRESS. SB ON THE MONITOR, HR 60'S. OG TO FIBERSOURCE FEEDING @ 40MLS/HR, NO RESIDUALS, TOLERATING WELL. BOLAND CATH INTACT. LEFT IJ 3LUMEN AND LEFT FOREARM 20G, BOTH FLUSHED AND PATENT, NO S/S OF INFILTRATION/INFECTION, DRESSINGS CDI. BED LOW AND LOCKED, SIDERAILS UP. WILL CONTINUE TO MONITOR
[2017-08-18] MEDS: NORTRIPTYLINE HCL 25 MG CAPSULE PO SCH (21:29)
[2017-08-18] MEDS: OLANZAPINE 2.5 MG TABLET PO SCH (21:30)
[2017-08-18] MEDS: TAMSULOSIN 0.4 MG CAP.SR.24H PO SCH (21:30)
[2017-08-19] VITALS (34 sets, daily range): BP systolic 98–162; BP diastolic 40–104
[2017-08-19] MEDS: IPRATROPIUM NEB FS 0.5 MG/2.5 ML AMPUL.NEB IH SCH ×7 (00:26→23:43)
[2017-08-19] MEDS: PROPOFOL 100 ML IV PRN (03:19)
[2017-08-19] MEDS: HYDROCORTISONE SOD SUCCINATE 100 MG/2 ML VIAL IV SCH ×3 (03:27→19:35)
[2017-08-19 04:52] LABS: CALCIUM, SERUM 6.6 mg/dL (8.5-10.1); CARBON DIOXIDE 35 mmol/L (21-32); CHLORIDE 106 mmol/L (98-107); CREATININE 1.8 mg/dL (0.6-1.3); GLUCOSE 162 mg/dL (74-106); SODIUM SERUM 146 mmol/L (136-145); UREA NITROGEN, BLOOD 42 mg/dL (7-18)
--- NOTE | 2017-08-19 04:55 | NUR ---
PT RECEIVED INTUBATED 7.5 ETT SECURED AT 24CM AT THE LIP. NO RESP DISTRESS NOTED. PT TOERATING VENT SETTINGS CHARTED. SX'D FOR MOD AMT OF THICK YELLOW SECRETIONS. VENT ALARMS SET AND AUDIBLE. AMBU BAG AT BEDSIDE. LUKASZ PLUGGED INTO RED OUTLET. WILL CONTINUE TO MONITOR. Addendum: 08/19/17 at 0529 by FEDERICO NEWTON RT Amended: Links added.
[2017-08-19 05:45] LABS: POTASSIUM 2.7 mmol/L (3.5-5.1)
[2017-08-19] MEDS ORDERED: POTASSIUM CL. PREMIX PERIPHER. 50 ML ONE (06:08)
[2017-08-19] MEDS: POTASSIUM CL. PREMIX PERIPHER. 50 ML IV SCH ×4 (06:13→13:27)
--- NOTE | 2017-08-19 06:30 | NUR ---
RN CLOSING NOTES PT REMAINS STABLE OF THE MOMENT. ALL DUE MEDS GIVEN, AM CARE PROVIDED. WILL ENDORSE DEEPIKA TO AM RN
[2017-08-19] MEDS: LEVOTHYROXINE SODIUM 75 MCG TABLET PO SCH (08:00)
--- NOTE | 2017-08-19 08:00 | NUR ---
SWEATBAND CUTTING MACHINE OPERATOR: pt.is sedated with 15 mcg/kg/min Diprivan, can open eyes, eyes contact+, rest now, on wrists restraints, SB 50-60, SBP over 100, O2 sat., OGTF residual WNL, spoke with RT, plan: wean/SIMV today, will stop sedation in 10 min, K+ 2.7, ordered K+ 40 meq IV/4 bags by report, first bag is given, Pixys is empty, spoke with pharmacy order for 120meq via GT (40meq q1h x3) in eMAR by , will check am Mg+
[2017-08-19] MEDS: POTASSIUM CHLORIDE 20 MEQ POWDER PACKET NG SCH ×3 (08:02→09:56)
--- NOTE | 2017-08-19 08:30 | NUR ---
Intubated pt received on AC mode. Pt placed on SIMV mode per MD order. Pt ETT it secured at 24cm at the lip. Vent is plugged into a red outlet, alarms are set and audible, and BVM is at bedside. Addendum: 08/19/17 at 0833 by SHREYAS CHAVEZ RT Amended: Links added.
[2017-08-19] MEDS: DOCUSATE SODIUM LIQ 100 MG/10 ML UDC NG SCH (08:42)
[2017-08-19] MEDS: PROSOURCE / PROSTAT (PYXIS) 30 ML UDC NG SCH ×3 (08:43→16:54)
[2017-08-19] MEDS: LACTOBACILLUS RHAMNOSUS GG 1 EACH CAP.SPRINK PO SCH ×2 (08:43→16:53)
[2017-08-19] MEDS: PAROXETINE HCL 20 MG TABLET PO SCH (08:43)
[2017-08-19] MEDS: GABAPENTIN 300 MG CAPSULE PO SCH ×3 (08:43→16:54)
[2017-08-19] MEDS: PANTOPRAZOLE 40 MG VIAL IV SCH (08:43)
[2017-08-19] MEDS: DILTIAZEM HCL CD 240 MG PO SCH (08:44)
[2017-08-19] MEDS ORDERED: DC PROPOFOL WHEN EXTUBATED XX PRN (09:00)
--- NOTE | 2017-08-19 09:25 | NUR ---
COPY HOLDER: pt. is on SIMV mode, awake, can follow simple commands, weak, O2sat. over 95%, VSS, is in room, updated with pt.current condition, VS, ABG, suctions amount, said: continue monitoring
[2017-08-19 09:35] LABS: ABG BASE EXCESS 6.8 mmol/L; ABG OXYGEN SATURATION 96.5 % (92.0-98.5); ABG PCO2 44.3 mmHg (35.0-45.0); ABG PH 7.467 (7.350-7.450); ABG PO2 97.1 mmHg (75.0-100.0); AaDO2 173.4 mmHg; COHb 0.3 % (0.5-1.5); MetHb 0.8 % (0.0-1.5); O2Hb 95.4 % (94.0-97.0); SITE, ABG Right Radial; VENT MODE, BG SIMV 4 550 PS 12 45% +5
--- NOTE | 2017-08-19 10:30 | NUR ---
ASSISTANT HVAC MECHANIC: is in room to reevaluate pt., ordered: extubate pt., OGTF was stopped
--- NOTE | 2017-08-19 11:10 | NUR ---
STATE TESTED NURSING ASSISTANT: pt.was multiple suctioned and extubated, now on SM, O2 sat. over 95%, pt. is able to speak, A/Ox2, able to follow commands, no c/o, continue monitoring
--- NOTE | 2017-08-19 11:16 | NUR ---
FIRESTOPPER TECHNICIAN: pt.is on n/c 3L O2, sat. 91-93% now, reassessed pt., spoke with RT, ordered CPAP PRN over night with sleep apnea, continue monitoring
--- NOTE | 2017-08-19 12:00 | NUR ---
BUCKET WASH OPERATOR: pt.is A/Ox2, no c/o, no pain, on 5L n/c O2 sat. 91-96%, no SOB, able swallow ice chips well
[2017-08-19] MEDS: DIGOXIN 0.25 MG TABLET PO SCH (13:00)
--- NOTE | 2017-08-19 14:31 | NUR ---
CSM CONSULTANT: pt.is asking for food, able swallow pills, ice chips well, had 2gm Na purred diet before
--- NOTE | 2017-08-19 15:30 | NUR ---
SENIOR FIRE PROTECTION ENGINEER: pt.removed L.IJ TLC, tip is intact, no bleeding, applied 10 mins pressure/dressing, pt.said: I just did it spontaneously, no any c/o, reoriented pt.for POC again. was in room, updated with pt.current status, VS, orders, POC
--- NOTE | 2017-08-19 16:30 | NUR ---
MEDICAL LABORATORY TECHNOLOGIST: placed over L.foot 22G PIVL in small vein, but vein got broken with first NS flushing. Unable to stick for PIVL over arms d/t edema, waiting around 18.00-19.00 for PICC or Midline placement, consent is done
--- NOTE | 2017-08-19 18:30 | NUR ---
EPILEPSY PHYSICIAN: pt. is A/Ox2, no c/o now, SR/SB 58, SBP over 100, O2sat. 92-94% on 6L n/c, no SOB, PM/skin care done, pt.sister called and updated with pt.condition, VS, POC
--- NOTE | 2017-08-19 19:00 | NUR ---
RN INITIAL NOTES RECEIVED AWAKE ON BED, A/O X2, FOLLOWS COMMANDS. EXTUBATED TODAY IN AM, NOW ON 6L HUMIDIFIED O2 VIA NASAL CANNULA, SATURATING WELL, NO S/S OF RESP DISTRESS. SB/SR ON THE MONITOR, HR 50-60'S. BOLAND CATH INTACT. PATIENT HAS NO IV ACCESS SINCE HE HAD ACCIDENTALLY PULLED IT OUT, AWAITING DR PARRISH FOR PICC LINE INSERTION. BED LOW AND LOCKED, SIDERAILS UP, CALL LIGHT WITHIN REACH. WILL CONTINUE TO MONITOR
[2017-08-19] MEDS: TAMSULOSIN 0.4 MG CAP.SR.24H PO SCH (21:22)
[2017-08-19] MEDS: OLANZAPINE 2.5 MG TABLET PO SCH (21:22)
[2017-08-19] MEDS: NORTRIPTYLINE HCL 25 MG CAPSULE PO SCH (21:23)
--- NOTE | 2017-08-19 23:48 | NUR ---
PT PLACED ON BIPAP PER MD ORDER, PT WAS PLACED ON A NASAL MASK BECAUSE HE DOES HAVE A BRUISING ON BRIDGE OF HIS NOSE FROM PREVIOUS, PT TOLERATING WELL Addendum: 08/19/17 at 5534 by SLADE ROBERTS RT Amended: Links added.
[2017-08-20] VITALS (32 sets, daily range): BP systolic 124–169; BP diastolic 41–86
[2017-08-20] MEDS: CEFEPIME 1 GM in IV NS 0.9% 50 ML IV SCH ×2 (01:43→18:01)
[2017-08-20] MEDS: hydrALAZINE HCL IV 20 MG VIAL IV PRN ×2 (01:50→15:16)
[2017-08-20] MEDS: IPRATROPIUM NEB FS 0.5 MG/2.5 ML AMPUL.NEB IH SCH ×5 (03:41→20:25)
[2017-08-20] MEDS: HYDROCORTISONE SOD SUCCINATE 100 MG/2 ML VIAL IV SCH ×3 (04:21→20:53)
[2017-08-20 05:16] LABS: CALCIUM, SERUM 7.3 mg/dL (8.5-10.1); CARBON DIOXIDE 32 mmol/L (21-32); CHLORIDE 110 mmol/L (98-107); CREATININE 1.7 mg/dL (0.6-1.3); GLUCOSE 112 mg/dL (74-106); POTASSIUM 4.1 mmol/L (3.5-5.1); SODIUM SERUM 148 mmol/L (136-145); UREA NITROGEN, BLOOD 50 mg/dL (7-18)
--- NOTE | 2017-08-20 06:00 | NUR ---
RN CLOSING NOTES PT REMAINS STABLE OF THE MOMENT. ALL DUE MEDS GIVEN, AM CARE PROVIDED. WILL ENDORSE DEEPIKA TO AM RN
[2017-08-20] MEDS: LEVOTHYROXINE SODIUM 75 MCG TABLET PO SCH (07:18)
--- NOTE | 2017-08-20 07:34 | NUR ---
LINEN CONTROLLER: pt.is sleepy, no c/o, no pain, oriented for POC, A/Ox2, on Bipap, O2sat. 98-100%, SB 47-58, had SBP up to 169, K+ 4.1
--- NOTE | 2017-08-20 07:45 | NUR ---
DISTANCE LEARNING COORDINATOR: is in room, updated with pt.current condition, VS, SB, meds, orders, POC, see new orders
[2017-08-20] MEDS: LACTOBACILLUS RHAMNOSUS GG 1 EACH CAP.SPRINK PO SCH ×2 (08:10→16:44)
[2017-08-20] MEDS: GABAPENTIN 300 MG CAPSULE PO SCH ×3 (08:10→16:44)
[2017-08-20] MEDS: PROSOURCE / PROSTAT (PYXIS) 30 ML UDC NG SCH ×3 (08:10→16:44)
[2017-08-20] MEDS: DOCUSATE SODIUM LIQ 100 MG/10 ML UDC NG SCH (08:10)
[2017-08-20] MEDS: PANTOPRAZOLE 40 MG VIAL IV SCH (08:10)
[2017-08-20] MEDS: PAROXETINE HCL 20 MG TABLET PO SCH (08:10)
[2017-08-20] MEDS: DILTIAZEM HCL CD 240 MG PO SCH (09:00)
--- NOTE | 2017-08-20 09:30 | NUR ---
NETWORK SUPPORT TECHNICIAN: pt.is A/Ox3, no any pain, no c/o, on 6L O2 n/c, O2 sat. over 94%, continue titrate, RR WNL, SR max 62, SB lower 56, SBP over 100 below 150, good appetite
--- NOTE | 2017-08-20 11:45 | NUR ---
RADIO INTERFERENCE INVESTIGATOR: is in room, updated with pt.current condition, VS (SB), I/O, diet, meds, O2sat. on n/c 5L, nocturnal CPAP, see new orders
[2017-08-20] MEDS: DIGOXIN 0.25 MG TABLET PO SCH (13:00)
--- NOTE | 2017-08-20 13:15 | NUR ---
DATA MANAGEMENT: is in room/informed re pt.history, extubation yesterday, O2 sat. on n/c, resp.Tx, VS, SB, meds, siad: ok for nocturnal CPAP d/t sleep apnea
--- NOTE | 2017-08-20 13:40 | NUR ---
ASPHALT PAVING SUPERVISOR: is in room, assessed pt., updated with pt.VS, condition, meds, labs, I/O
[2017-08-20] MEDS: CLONIDINE HCL 0.2MG/24H PTWK 1 EA PATCH TD SCH (14:11)
--- NOTE | 2017-08-20 20:00 | NUR ---
RN INITIAL NOTES RECEIVED AWAKE ON BED, A/O X2, FOLLOWS COMMANDS. PT ON 4L HUMIDIFIED O2 VIA NASAL CANNULA, SATURATING WELL, NO S/S OF RESP DISTRESS. SB/SR ON THE MONITOR, HR 59, BOLAND CATH INTACT. PATIENT HAS A KACIE MIDLINE, BED LOW AND LOCKED, SIDE RAILS UPX2, CALL LIGHT WITHIN REACH. WILL CONTINUE TO MONITOR
[2017-08-20] MEDS: NORTRIPTYLINE HCL 25 MG CAPSULE PO SCH (21:08)
[2017-08-20] MEDS: TAMSULOSIN 0.4 MG CAP.SR.24H PO SCH (21:08)
[2017-08-20] MEDS: OLANZAPINE 2.5 MG TABLET PO SCH (21:09)
[2017-08-21] VITALS (24 sets, daily range): BP systolic 93–169; BP diastolic 47–86
[2017-08-21] MEDS: IPRATROPIUM NEB FS 0.5 MG/2.5 ML AMPUL.NEB IH SCH ×7 (00:01→23:19)
[2017-08-21] MEDS: hydrALAZINE HCL IV 20 MG VIAL IV PRN (02:25)
[2017-08-21] MEDS: HYDROCORTISONE SOD SUCCINATE 100 MG/2 ML VIAL IV SCH ×3 (04:01→21:18)
[2017-08-21 05:03] LABS: BASOPHILS % (AUTO) 0.4 % (0.0-2.0); EOSINOPHILS % (AUTO) 0.6 % (0.0-6.0); HEMATOCRIT 29 % (39-51); HEMOGLOBIN 9.6 g/dL (13.5-17.5); LYMPHOCYTES % (AUTO) 16.6 % (20.0-44.0); MEAN CORPUSCULAR HGB CONC 33 g/dl (31.0-36.0); MEAN CORPUSCULAR VOLUME 87 fL (80-96); MONOCYTES # (AUTO) 0.3 /CMM (0.1-1.30); MONOCYTES % (AUTO) 5.4 % (2.0-12.0); NEUTROPHILS # (AUTO) 4.8 /CMM (1.8-8.9); PLATELET COUNT (AUTO) 181 /CMM (150-450); RDW COEFFICIENT OF VARIATION 15.2 (11.5-15.0); RED BLOOD CELL COUNT(AUTO) 3.36 MIL/uL (4.5-6.0); WHITE BLOOD COUNT (AUTO) 6.2 K/uL (4.3-11.0)
[2017-08-21 05:17] LABS: CALCIUM, SERUM 7.3 mg/dL (8.5-10.1); CARBON DIOXIDE 33 mmol/L (21-32); CHLORIDE 107 mmol/L (98-107); CREATININE 1.4 mg/dL (0.6-1.3); GLUCOSE 121 mg/dL (74-106); POTASSIUM 4.5 mmol/L (3.5-5.1); SODIUM SERUM 147 mmol/L (136-145); UREA NITROGEN, BLOOD 49 mg/dL (7-18)
--- NOTE | 2017-08-21 06:57 | NUR ---
RN CLOSING NOTES PT REMAINS STABLE OF THE MOMENT. ALL DUE MEDS GIVEN, AM CARE PROVIDED. WILL ENDORSE DEEPIKA TO AM RN
--- NOTE | 2017-08-21 07:30 | NUR ---
API PRODUCT MANAGER RECEIVED PATIENT AWAKE ON BIG BOY BED WITH NASAL CANNULA AT 4 L/MIN SATURATING WELL CAN EASILY WAKE UP NO PAIN AT THE MOMENT BLOOD PRESSURE SLIGHTLY ELEVATED, SINUS BRADYCARDIA NOTED PATIENT IS PLEASING TO TALK TO WITH BOLAND CATHETER DRAINS TO YELLOWISH URINE ADEQUATE IN AMOUNT
[2017-08-21] MEDS: LEVOTHYROXINE SODIUM 75 MCG TABLET PO SCH (07:56)
[2017-08-21] MEDS: DILTIAZEM HCL CD 240 MG PO SCH ×2 (09:00→10:28)
[2017-08-21] MEDS: DOCUSATE SODIUM LIQ 100 MG/10 ML UDC NG SCH (09:38)
[2017-08-21] MEDS: PAROXETINE HCL 20 MG TABLET PO SCH (09:38)
[2017-08-21] MEDS: PROSOURCE / PROSTAT (PYXIS) 30 ML UDC NG SCH (09:38)
[2017-08-21] MEDS: LACTOBACILLUS RHAMNOSUS GG 1 EACH CAP.SPRINK PO SCH ×2 (09:38→17:06)
[2017-08-21] MEDS: GABAPENTIN 300 MG CAPSULE PO SCH ×3 (09:38→17:06)
[2017-08-21] MEDS: PANTOPRAZOLE 40 MG VIAL IV SCH (09:39)
[2017-08-21] MEDS ORDERED: acetaZOLAMIDE SODIUM 500 MG/VIAL VIAL IV ONE (11:00)
[2017-08-21] MEDS: DIGOXIN 0.25 MG TABLET PO SCH (12:16)
[2017-08-21] MEDS: CEFEPIME 1 GM in IV NS 0.9% 50 ML IV SCH (18:12)
--- NOTE | 2017-08-21 18:34 | NUR ---
SPORTS PHYSICIAN 1100 SINUS TACHYCARDIA NOTED WITH OBSCURE MORPHOLOGY SHOWED RHYTHM TO DR. FULLER, DILTIAZEM GIVEN EARLIER
--- NOTE | 2017-08-21 20:00 | NUR ---
RN INITIAL NOTES RECEIVED AWAKE ON BED, A/O X2, FOLLOWS COMMANDS. PT ON 4L HUMIDIFIED O2 VIA NASAL CANNULA, SATURATING WELL, NO S/S OF RESP DISTRESS. SB/SR ON THE MONITOR, HR 50-59, BOLAND CATH INTACT. PATIENT HAS A KACIE MIDLINE, BED LOW AND LOCKED, SIDE RAILS UPX2, CALL LIGHT WITHIN REACH. WILL CONTINUE TO MONITOR
[2017-08-21] MEDS: NORTRIPTYLINE HCL 25 MG CAPSULE PO SCH (21:18)
[2017-08-21] MEDS: OLANZAPINE 2.5 MG TABLET PO SCH (21:18)
[2017-08-21] MEDS: TAMSULOSIN 0.4 MG CAP.SR.24H PO SCH (21:18)
[2017-08-22] VITALS (15 sets, daily range): BP systolic 112–142; BP diastolic 51–74
[2017-08-22] MEDS: IPRATROPIUM NEB FS 0.5 MG/2.5 ML AMPUL.NEB IH SCH ×6 (03:12→23:35)
[2017-08-22] MEDS: HYDROCORTISONE SOD SUCCINATE 100 MG/2 ML VIAL IV SCH ×3 (04:25→20:15)
--- NOTE | 2017-08-22 06:57 | NUR ---
RN CLOSING NOTES PT REMAINS STABLE OVER NIGHT. ALL DUE MEDS GIVEN, ALL NEEDS MET. PT SLEPT IN BI-PAP UNTIL 0100. WILL ENDORSE DEEPIKA TO AM RN
[2017-08-22] MEDS: PANTOPRAZOLE 40 MG VIAL IV SCH (08:26)
[2017-08-22] MEDS: DOCUSATE SODIUM 100 MG CAPSULE PO SCH (08:27)
[2017-08-22] MEDS: LACTOBACILLUS RHAMNOSUS GG 1 EACH CAP.SPRINK PO SCH ×2 (08:27→16:31)
[2017-08-22] MEDS: LEVOTHYROXINE SODIUM 75 MCG TABLET PO SCH (08:27)
[2017-08-22] MEDS: GABAPENTIN 300 MG CAPSULE PO SCH ×3 (08:27→16:31)
[2017-08-22] MEDS: DILTIAZEM HCL CD 240 MG PO SCH (08:28)
[2017-08-22] MEDS: PAROXETINE HCL 20 MG TABLET PO SCH (08:29)
[2017-08-22 09:48] LABS: ABG BASE EXCESS 4.6 mmol/L; ABG OXYGEN SATURATION 92.2 % (92.0-98.5); ABG PCO2 48.8 mmHg (35.0-45.0); ABG PH 7.408 (7.350-7.450); ABG PO2 67.4 mmHg (75.0-100.0); AaDO2 103.7 mmHg; COHb 0.3 % (0.5-1.5); MetHb 1.6 % (0.0-1.5); O2Hb 90.4 % (94.0-97.0); SITE, ABG Left Brachial; VENT MODE, BG 3L NC
--- NOTE | 2017-08-22 11:30 | NUR ---
RN NOTES RECEIVED PT FROM ICU IN ROOM 105 [facility] STATUS , A/Ox3, ON 3L O2 N/C RESPIRATION EVEN AND UNLABORED, NO SOB NOTED, ON TELE SB HR IN HIGH 50'S , BOLAND DRAINING TO GRAVITY WITH YELLOW CLEAR URINE, L UPPER ARM MIDLINE CDI, SR UP x3, CALL LIGHT WITHIN EASY REACH, BED LOCKED AND IN LOWEST POSITION , WILL CONTINUE TO MONITOR PT CESAR .
--- NOTE | 2017-08-22 11:43 | NUR ---
LIME SUPERVISOR NOTE 0720: Received patient awake, A/Ox3. No respiratory distress noted. On 3LPM of O2 via NC tolerated. No c/o discomfort at this time. Fang cath intact, noted with clear anne-marie colored urine drained to BSD. KACIE midline intact. 0930: S/E by Dr. Serra, with order to may transfer to [facility]. 1120: S/E by Dr. Louise, no new order at this time. 1140: Transferred patient via bed using ACLS protocol. No any significant changes. No respiratory distress noted, remained on 3LPM of O2 via NC. Kept clean, warm and dry. Needs attended. Endorsed care to Carrie WELSH.
[2017-08-22] MEDS: PYRIDOXINE HCL 50 MG TABLET PO SCH (12:21)
[2017-08-22] MEDS: DIGOXIN 0.25 MG TABLET PO SCH (12:21)
[2017-08-22] MEDS ORDERED: CEFEPIME 1 GM in IV NS 0.9% 50 ML IV SCH (18:00)
--- NOTE | 2017-08-22 18:00 | NUR ---
RN NOTES PT STABLE , TOLERATING O2 AT 3 L N/C WELL, NO SOB NOTED , RESPIRATION EVEN AND UNLABORED, WILL ENDORSE TO HARNESS PREPARER NURSE FOR DEEPIKA .
--- NOTE | 2017-08-22 19:40 | NUR ---
RN [facility] NOTES, PATIENT AWAKE, ALERT AND ORIENTED IN BED, BREATHING EVEN AND UNLABORED, NO S/S OF SOB/ACUTE DISTRESS OR DISCOMFORT AT THIS TIME, KACIE MIDLINE PATENT AND INTACT, F/C IN PLACE DRAINING YELLOW URINE BY GRAVITY, PATENCY INTACT, DRY AND CLEAN AT THIS TIME, BED LOCKED AND LOWEST POSITION, CALL LIGHT W/I REACH, WILL CONTINUE TO MONITOR CLOSELY.
[2017-08-22] MEDS: NORTRIPTYLINE HCL 25 MG CAPSULE PO SCH (21:07)
[2017-08-22] MEDS: TAMSULOSIN 0.4 MG CAP.SR.24H PO SCH (21:07)
[2017-08-22] MEDS: OLANZAPINE 2.5 MG TABLET PO SCH (21:08)
[2017-08-22] MEDS ORDERED: AMITRIPTYLINE HCL 10 MG TABLET PO SCH (22:00)
[2017-08-23] VITALS: BP 141/73
[2017-08-23] MEDS: HYDROCORTISONE SOD SUCCINATE 100 MG/2 ML VIAL IV SCH ×3 (03:53→19:59)
[2017-08-23 04:00] VITALS: BP 154/61
[2017-08-23] MEDS: IPRATROPIUM NEB FS 0.5 MG/2.5 ML AMPUL.NEB IH SCH ×6 (04:27→23:27)
--- NOTE | 2017-08-23 06:35 | NUR ---
RN RAD[facility] CLOSING NOTES, PATIENT AWAKE, ALERT AND ORIENTED IN BED, BREATHING EVEN AND UNLABORED, NO S/S OF SOB/ACUTE DISTRESS OR DISCOMFORT AT THIS TIME, IN STABLE CONDITION THROUGHOUT THE NIGHT, KACIE MIDLINE PATENT AND INTACT, F/C IN PLACE DRAINING YELLOW URINE BY GRAVITY, PATENCY INTACT, DRY AND CLEAN AT THIS TIME, BED LOCKED AND LOWEST POSITION, CALL LIGHT W/I REACH, WILL ENDORSE CONTINUITY OF CARE TO ONCOMING NURSE.
[2017-08-23 06:46] LABS: BASOPHILS % (AUTO) 0.1 % (0.0-2.0); EOSINOPHILS % (AUTO) 0.1 % (0.0-6.0); HEMATOCRIT 32 % (39-51); HEMOGLOBIN 10.7 g/dL (13.5-17.5); LYMPHOCYTES # (AUTO) 1.3 /CMM (0.8-4.8); MEAN CORPUSCULAR HGB CONC 33 g/dl (31.0-36.0); MEAN CORPUSCULAR VOLUME 87 fL (80-96); MONOCYTES # (AUTO) 0.4 /CMM (0.1-1.30); MONOCYTES % (AUTO) 3.9 % (2.0-12.0); NEUTROPHILS # (AUTO) 7.4 /CMM (1.8-8.9); NEUTROPHILS % (AUTO) 81.9 % (43.0-81.0); PLATELET COUNT (AUTO) 252 /CMM (150-450); RDW COEFFICIENT OF VARIATION 15.4 (11.5-15.0); RED BLOOD CELL COUNT(AUTO) 3.71 MIL/uL (4.5-6.0); WHITE BLOOD COUNT (AUTO) 9.1 K/uL (4.3-11.0)
[2017-08-23 07:07] LABS: CALCIUM, SERUM 8.1 mg/dL (8.5-10.1); CARBON DIOXIDE 31 mmol/L (21-32); CHLORIDE 105 mmol/L (98-107); CREATININE 1.2 mg/dL (0.6-1.3); GLUCOSE 135 mg/dL (74-106); MAGNESIUM 1.9 mg/dL (1.8-2.4); PHOSPHORUS 3.6 mg/dL (2.5-4.9); POTASSIUM 4.2 mmol/L (3.5-5.1); SODIUM SERUM 141 mmol/L (136-145); UREA NITROGEN, BLOOD 41 mg/dL (7-18)
--- NOTE | 2017-08-23 07:10 | NUR ---
RN NOTES, RECEIVED PT ON BED, A/Ox3, ON 3 L O2 N/C , NO SOB NOTED, RESPIRATION EVEN AND UNLABORED, KACIE MIDLINE PATENT SITE CDI, BOLAND DRAINING TO GRAVITY WITH YELLOW URINE, BED LOCKED AND LOWEST POSITION, SR UP x3, CALL LIGHT WITHIN EASY REACH, WILL CONTINUE TO MONITOR PT CLOSELY.
[2017-08-23 08:00] VITALS: BP_SYST 172; BP_SYST 176; BP_DIAS 78
[2017-08-23] MEDS: LEVOTHYROXINE SODIUM 75 MCG TABLET PO SCH (08:05)
[2017-08-23] MEDS: GABAPENTIN 300 MG CAPSULE PO SCH ×3 (08:05→16:08)
[2017-08-23] MEDS: PAROXETINE HCL 20 MG TABLET PO SCH (08:05)
[2017-08-23] MEDS: PANTOPRAZOLE 40 MG VIAL IV SCH (08:05)
[2017-08-23] MEDS: PYRIDOXINE HCL 50 MG TABLET PO SCH (08:06)
[2017-08-23] MEDS: DOCUSATE SODIUM 100 MG CAPSULE PO SCH (08:06)
[2017-08-23] MEDS: LACTOBACILLUS RHAMNOSUS GG 1 EACH CAP.SPRINK PO SCH ×2 (08:06→16:09)
[2017-08-23] MEDS: DILTIAZEM HCL CD 240 MG PO SCH (08:12)
[2017-08-23] MEDS: hydrALAZINE HCL IV 20 MG VIAL IV PRN (08:17)
--- NOTE | 2017-08-23 08:17 | NUR ---
RN NOTES BP =172/76 , HYDRALAZINE 10MG IV x1 GIVEN , DR Juanita GARCIA NOTIFIED , CONTINUE TO MONITOR.
--- NOTE | 2017-08-23 09:00 | NUR ---
RN NOTES BP 155/70 , PT SIL ANY DISTRESS, CONTINUE TO MONITOR.
[2017-08-23] MEDS: VALSARTAN 80 MG TABLET PO SCH (09:03)
[2017-08-23 12:00] VITALS: BP 129/50
--- NOTE | 2017-08-23 13:00 | NUR ---
RN NOTES PT STABLE, ATE 100% OF HIS LUNCH , NO DISTRESS NOTED, CONTINUE TO MONITOR
[2017-08-23 16:00] VITALS: BP 109/62
--- NOTE | 2017-08-23 18:25 | NUR ---
RN NOTES VSS STABLE, L UPPER ARM MIDLINE CDI, WILL ENDORSE TO SHIPPING ROOM HELPER NURSE FOR DEEPIKA.
--- NOTE | 2017-08-23 19:30 | NUR ---
RN NOTES RECEIVED PATIENT ON BED, AWAKE A/Ox3, ON 3 L O2 N/C , NO SOB NOTED, RESPIRATION EVEN AND UNLABORED, KACIE MIDLINE PATENT SITE CDI, BOLAND DRAINING TO GRAVITY WITH YELLOW COLORED URINE. PATIENT REPOSITIONED TO OFFLOAD PRESSURE AREAS. BED LOCKED AND LOWEST POSITION, SR UP x3, HOB KEPT ELEVATED FOR COMFORT. CALL LIGHT WITHIN EASY REACH, WILL CONTINUE TO MONITOR PATIENT CLOSELY.
[2017-08-23 20:00] VITALS: BP 122/51
[2017-08-23] MEDS: TAMSULOSIN 0.4 MG CAP.SR.24H PO SCH (21:07)
[2017-08-23] MEDS: OLANZAPINE 2.5 MG TABLET PO SCH (21:07)
[2017-08-23] MEDS: NORTRIPTYLINE HCL 25 MG CAPSULE PO SCH (21:07)
--- NOTE | 2017-08-23 23:00 | NUR ---
RN NOTES PATIENT PLACED ON BIPAP BY RT. PATIENT TOLERATING WELL, NODS YES WHEN ASKED IF HE IS COMFORTABLE. NO S/S OF RESPIRATORY DISTRESS NOTED. WILL CONTINUE TO CLOSELY MONITOR. CALL LIGHT WITHIN EASY REACH. WILL MONITOR CLOSELY
[2017-08-24] VITALS: BP 114/69
[2017-08-24] MEDS: IPRATROPIUM NEB FS 0.5 MG/2.5 ML AMPUL.NEB IH SCH ×6 (03:07→23:56)
[2017-08-24 04:00] VITALS: BP 120/55
[2017-08-24] MEDS: HYDROCORTISONE SOD SUCCINATE 100 MG/2 ML VIAL IV SCH ×3 (04:48→20:24)
--- NOTE | 2017-08-24 07:00 | NUR ---
RN CLOSING NOTES PATIENT RESTING IN BED, APPEARS COMFORTABLE, TOLERATING BIPAP WELL AT THIS TIME. WILL ENDORSE THE PATIENT TO THE AM SHIFT NURSE FOR DEEPIKA
--- NOTE | 2017-08-24 07:40 | NUR ---
AUTOMOBILE RENTAL AGENT NOTE: RECEIVED PATIENT IN BED, AWAKE AND VERBALLY RESPONSIVE. ON O2 @3L/MIN VIA NC AND SATURATING 100%. ON COAL FEEDER OPERATOR SB HR=46. HOB ELEVATED. (L) UA MIDLINE NOTED INTACT AND PATENT. BED ALARM AND LOCKED AT ALL TIMES. CALL LIGHT WITHIN REACH. NEEDS ANTICIPATED. BOLAND CATHETER IN PLACED W/ YELLOW URINE DRAINING TO GRAVITY.
[2017-08-24 08:00] VITALS: BP 127/58
[2017-08-24] MEDS: LEVOTHYROXINE SODIUM 75 MCG TABLET PO SCH (08:18)
[2017-08-24] MEDS: DILTIAZEM HCL CD 240 MG PO SCH (09:00)
[2017-08-24] MEDS: VALSARTAN 80 MG TABLET PO SCH (09:00)
[2017-08-24] MEDS: PYRIDOXINE HCL 50 MG TABLET PO SCH (09:43)
[2017-08-24] MEDS: LACTOBACILLUS RHAMNOSUS GG 1 EACH CAP.SPRINK PO SCH ×2 (09:43→16:08)
[2017-08-24] MEDS: DOCUSATE SODIUM 100 MG CAPSULE PO SCH (09:44)
[2017-08-24] MEDS: PAROXETINE HCL 20 MG TABLET PO SCH (09:44)
[2017-08-24] MEDS: PANTOPRAZOLE 40 MG VIAL IV SCH (09:44)
[2017-08-24] MEDS: GABAPENTIN 300 MG CAPSULE PO SCH ×3 (09:44→16:08)
[2017-08-24 12:00] VITALS: BP 112/54
[2017-08-24 16:00] VITALS: BP 101/53
--- NOTE | 2017-08-24 19:42 | NUR ---
IMPORT AND EXPORT CLERK NOTE: PATIENT IN BED, AWAKE AND VERBALLY RESPONSIVE. ON O2 @3L/MIN VIA NC AND SATURATING 9 3%. ON BELLMAN SB HR=56. HOB ELEVATED. (L) UA MIDLINE NOTED INTACT AND PATENT. BED ALARM AND LOCKED AT ALL TIMES. CALL LIGHT WITHIN REACH. BOLAND CATHETER IN PLACED W/ YELLOW URINE DRAINING TO GRAVITY. REPORT GIVEN TO PM SHIFT NURSE FOR CONTINUITY OF CARE.
[2017-08-24 20:00] VITALS: BP 110/76
[2017-08-24] MEDS: OLANZAPINE 2.5 MG TABLET PO SCH (22:15)
[2017-08-24] MEDS: NORTRIPTYLINE HCL 25 MG CAPSULE PO SCH (22:15)
[2017-08-24] MEDS: TAMSULOSIN 0.4 MG CAP.SR.24H PO SCH (22:15)
[2017-08-25] VITALS: BP 136/70
[2017-08-25] MEDS: IPRATROPIUM NEB FS 0.5 MG/2.5 ML AMPUL.NEB IH SCH ×4 (03:59→15:52)
[2017-08-25 04:00] VITALS: BP 147/76
[2017-08-25] MEDS: HYDROCORTISONE SOD SUCCINATE 100 MG/2 ML VIAL IV SCH ×2 (04:57→12:27)
[2017-08-25 06:39] LABS: CARBON DIOXIDE 30 mmol/L (21-32); CHLORIDE 105 mmol/L (98-107); CREATININE 1.5 mg/dL (0.6-1.3); GLUCOSE 125 mg/dL (74-106); POTASSIUM 4.3 mmol/L (3.5-5.1); SODIUM SERUM 141 mmol/L (136-145); UREA NITROGEN, BLOOD 53 mg/dL (7-18)
[2017-08-25 07:05] LABS: BASOPHILS % (AUTO) 0.2 % (0.0-2.0); HEMATOCRIT 33 % (39-51); HEMOGLOBIN 10.8 g/dL (13.5-17.5); LYMPHOCYTES # (AUTO) 1.3 /CMM (0.8-4.8); LYMPHOCYTES % (AUTO) 10.3 % (20.0-44.0); MEAN CORPUSCULAR HGB CONC 33 g/dl (31.0-36.0); MEAN CORPUSCULAR VOLUME 87 fL (80-96); MONOCYTES # (AUTO) 0.4 /CMM (0.1-1.30); MONOCYTES % (AUTO) 3.4 % (2.0-12.0); NEUTROPHILS # (AUTO) 11.2 /CMM (1.8-8.9); NEUTROPHILS % (AUTO) 86.1 % (43.0-81.0); PLATELET COUNT (AUTO) 222 /CMM (150-450); RDW COEFFICIENT OF VARIATION 16.1 (11.5-15.0); RED BLOOD CELL COUNT(AUTO) 3.77 MIL/uL (4.5-6.0)
--- NOTE | 2017-08-25 07:30 | NUR ---
MIXING MACHINE TENDER CORK ROD INITIAL NOTES RECEIVED PATIENT IN BED, AOX3. ON O2 @3L/MIN VIA NC AND SATURATING 100%. ON COMPUTED TOMOGRAPHY TECHNOLOGIST SB HR 53. HOB ELEVATED. KACIE MIDLINE NOTED INTACT AND PATENT. OLEY CATHETER IN PLACED W/ YELLOW URINE DRAINING TO GRAVITY. BED IN LOW AND LOCKED POSITION CALL LIGHT WITHIN REACH, WILL CONTINUE TO MONITOR.
[2017-08-25 08:00] VITALS: BP 138/74
[2017-08-25] MEDS: PAROXETINE HCL 20 MG TABLET PO SCH (08:48)
[2017-08-25] MEDS: DOCUSATE SODIUM 100 MG CAPSULE PO SCH (08:48)
[2017-08-25] MEDS: LEVOTHYROXINE SODIUM 75 MCG TABLET PO SCH (08:48)
[2017-08-25] MEDS: GABAPENTIN 300 MG CAPSULE PO SCH ×2 (08:48→12:27)
[2017-08-25] MEDS: PYRIDOXINE HCL 50 MG TABLET PO SCH (08:48)
[2017-08-25] MEDS: DILTIAZEM HCL CD 240 MG PO SCH (08:49)
[2017-08-25] MEDS: VALSARTAN 80 MG TABLET PO SCH (08:49)
[2017-08-25] MEDS: LACTOBACILLUS RHAMNOSUS GG 1 EACH CAP.SPRINK PO SCH (08:52)
[2017-08-25] MEDS ORDERED: PANTOPRAZOLE 40 MG TABLET.DR PO SCH (09:00)
[2017-08-25 12:00] VITALS: BP 134/65
--- NOTE | 2017-08-25 16:25 | NUR ---
NETWORK CABLE INSTALLER NOTES PATIENT DC ORDERS GIVEN BY DR. BARKER, ALL DC PAPERWORK DONE, DISCHARGE TEACHING DONE, PATIENT VERBALIZES UNDERSTANDING, ALL NEEDS MET, ALL PICTURES TAKEN AND PLACED IN THE CHART, PATIENTS MEDICATION AND PRESCRIPTION FOR NEW MEDICATION PLACED IN FOLDER FOR SNF, BELONGINGS LIST SIGNED, PATIENT'S SISTER CALLED AND INFORMED ABOUT DISCHARGED. ALL NEEDS MET, FC AND MIDLINE REMAIN FOR SNF. REPORT GIVEN TO [place]INAW GROCERY CLERK MARKINGBLAISE SPEAR.
== END 2017-08-25 16:32 | DRG 871 ==
LOC: ER 08:48 → ICU 10:29 → TELE-TD 08-22 11:25 → TELE1 08-23 08:44
PROVIDERS: ADMIT Legal Medicine; ATTEND Legal Medicine
PROC: 5A09457 Assistance with Respiratory Ventilation, 24-96 Consecutive Hours, Continuous Positive Airway Pressure (ICD-10-PCS; 2017-08-13)
PROC: 5A1945Z Respiratory Ventilation, 24-96 Consecutive Hours (ICD-10-PCS; principal; 2017-08-16)
PROC: 0BH18EZ Insertion of Endotracheal Airway into Trachea, Via Natural or Artificial Opening Endoscopic (ICD-10-PCS; 2017-08-16)
PROC: 0JHF3XZ Insertion of Tunneled Vascular Access Device into Left Upper Arm Subcutaneous Tissue and Fascia, Percutaneous Approach (ICD-10-PCS; 2017-08-17)
PROC: 05HN33Z Insertion of Infusion Device into Left Internal Jugular Vein, Percutaneous Approach (ICD-10-PCS; 2017-08-17)
PROC: B544ZZA Ultrasonography of Left Jugular Veins, Guidance (ICD-10-PCS; 2017-08-17)
PROC: 05H633Z Insertion of Infusion Device into Left Subclavian Vein, Percutaneous Approach (ICD-10-PCS; 2017-08-20)
DX: A41.9 Sepsis, unspecified organism (principal); J96.21 Acute and chronic respiratory failure with hypoxia; N17.0 Acute kidney failure with tubular necrosis; R65.21 Severe sepsis with septic shock; G93.41 Metabolic encephalopathy; J90 Pleural effusion, not elsewhere classified; J15.6 Pneumonia due to other Gram-negative bacteria; I50.33 Acute on chronic diastolic (congestive) heart failure; E44.0 Moderate protein-calorie malnutrition; J96.22 Acute and chronic respiratory failure with hypercapnia; E66.2 Morbid (severe) obesity with alveolar hypoventilation; Z68.41 Body mass index [BMI] 40.0-44.9, adult; J98.11 Atelectasis; E87.0 Hyperosmolality and hypernatremia; L89.329 Pressure ulcer of left buttock, unspecified stage; L89.319 Pressure ulcer of right buttock, unspecified stage; I11.0 Hypertensive heart disease with heart failure; D69.6 Thrombocytopenia, unspecified; I48.2 Chronic atrial fibrillation; G40.909 Epilepsy, unspecified, not intractable, without status epilepticus; I25.10 Atherosclerotic heart disease of native coronary artery without angina pectoris; F32.9 Major depressive disorder, single episode, unspecified; E03.9 Hypothyroidism, unspecified; Z88.0 Allergy status to penicillin; Z91.010 Allergy to peanuts; Z79.899 Other long term (current) drug therapy; Z79.82 Long term (current) use of aspirin; J44.9 Chronic obstructive pulmonary disease, unspecified; D63.8 Anemia in other chronic diseases classified elsewhere; I35.0 Nonrheumatic aortic (valve) stenosis; J20.9 Acute bronchitis, unspecified; D64.9 Anemia, unspecified; M85.9 Disorder of bone density and structure, unspecified; Z91.81 History of falling; S32.599S Other specified fracture of unspecified pubis, sequela; W19.XXXS Unspecified fall, sequela; E78.5 Hyperlipidemia, unspecified; Z87.891 Personal history of nicotine dependence; Z86.718 Personal history of other venous thrombosis and embolism; M19.90 Unspecified osteoarthritis, unspecified site; Z86.711 Personal history of pulmonary embolism; L30.9 Dermatitis, unspecified; Y95 Nosocomial condition; E87.6 Hypokalemia
CPT/HCPCS: 31720; 36415; 36600; 71045-TC; 80048-TC; 80053-TC; 80061-TC; 80076-TC; 80162-TC; 81000-TC; 82533; 82803-TC; 83605-TC; 83690-TC; 83735-TC; 83880; 84100-TC; 84443-TC; 84484-TC; 85025-TC; 85730-TC; 87040-TC; 87070-TC; 87081-TC; 87086-TC; 87186-TC; 87400; 94002-TC; 94003-TC; 94640-TC; 94660; 94760-TC; 94762-TC; 94799-TC; A4216; A4606; C1751; C9113; J0330; J0360; J0456; J0692; J0696; J1120; J1160; J1650; J1720; J1956; J2185; J3370; J3475; J3480; J3490; J7030; J7050; J7060; Z7610

== ENCOUNTER 2017-09-17 18:36 | Inpatient (IN) | payer MEDICARE ==
[2017-09-17] VITALS (8 sets, daily range): BP systolic 96–140; BP diastolic 40–95
[~2017-09-17] VITALS: Ht 177.8 cm; Wt 108.0 kg
[~2017-09-17 18:36] MED LIST changes: +ACET-868 PO; +AMIO200T4 PO; +ASPI-992 PO; +BISA10SU8 RC; +CLON1PAT2 TD; +DILT240C88 PO; +DOCU-141 PO; +IPRA0.2S9 IH; +LORA0.5T PO; +MAGN400O6 PO; +NA P133E RC; +OLAN2.5T3 PO; +PARO20TA7 PO; -PARO40TA4 PO; +SACC250C PO
--- NOTE | 2017-09-17 18:52 | NUR ---
PT TO ED ROOM 08. BIB RA C/O SOB, PLACED ON CPAP IN FIELD. DALOC, DIMINISHED LUNG SOUNDS. DR VARGAS AT BEDSIDE FOR EMERGENCY INTUBATION.
--- NOTE | 2017-09-17 19:00 | NUR ---
LLE G 18 IV STARTED.
--- NOTE | 2017-09-17 19:03 | NUR ---
BLOOD TESTS AND CULTURES DRAWN AND SEND TO THE [facility].
--- NOTE | 2017-09-17 19:05 | NUR ---
PT INTUBATED: 7.5, 25 AT LIP LINE. 12/500/100%/PEEP5
[2017-09-17 19:10] LABS: BASOPHILS % (AUTO) 0.3 % (0.0-2.0); EOSINOPHILS % (AUTO) 2.4 % (0.0-6.0); HEMATOCRIT 30 % (39-51); HEMOGLOBIN 9.8 g/dL (13.5-17.5); LYMPHOCYTES # (AUTO) 1.2 /CMM (0.8-4.8); LYMPHOCYTES % (AUTO) 11.5 % (20.0-44.0); MEAN CORPUSCULAR HGB CONC 33 g/dl (31.0-36.0); MEAN CORPUSCULAR VOLUME 88 fL (80-96); MONOCYTES # (AUTO) 0.7 /CMM (0.1-1.30); MONOCYTES % (AUTO) 6.4 % (2.0-12.0); NEUTROPHILS # (AUTO) 8.3 /CMM (1.8-8.9); NEUTROPHILS % (AUTO) 79.4 % (43.0-81.0); PLATELET COUNT (AUTO) 312 /CMM (150-450); RED BLOOD CELL COUNT(AUTO) 3.38 MIL/uL (4.5-6.0); WHITE BLOOD COUNT (AUTO) 10.4 K/uL (4.3-11.0)
--- NOTE | 2017-09-17 19:10 | NUR ---
RECEIVED REPORT FROM BLAISE SALAS FOR DEEPIKA.
[2017-09-17 19:15] LABS: CALCIUM, SERUM 8.4 mg/dL (8.5-10.1); CARBON DIOXIDE 34 mmol/L (21-32); CHLORIDE 108 mmol/L (98-107); CREATININE 1.7 mg/dL (0.6-1.3); GLUCOSE 126 mg/dL (74-106); POTASSIUM 4.7 mmol/L (3.5-5.1); SODIUM SERUM 146 mmol/L (136-145); UREA NITROGEN, BLOOD 30 mg/dL (7-18)
--- NOTE | 2017-09-17 19:19 | NUR ---
REC'D PT IN SOB. PT INTUBATED WITH 7.5 ETT AT 25 CM ON THE LIP. NO ADVERSE REACTION NOTED. BS EQUAL BILAT, POSITVE CAP CONFIRMED. PT PLACE ON [facility] VENT WITH NOTED SETTINGS. AC 500, 12, +5 100% PER MD VARGAS. VENT PLUGGED INTO RED OUTLET. AMBU BAG AT BEDSIDE. WILL CONTINUE TO MONITOR. Addendum: 09/17/17 at 1923 by SUZY WEBER RT Amended: Links added.
--- NOTE | 2017-09-17 19:22 | NUR ---
BOLAND CATHETER INSERTED. SAMPLE COLLECTED AND SEND TO LAB.
[2017-09-17 19:26] LABS: INR 1.01 (0.85-1.15)
[2017-09-17] MEDS ORDERED: PYRI50TA9 PO (19:27)
[2017-09-17] MEDS ORDERED: POTA20TA83 PO (19:27)
[2017-09-17] MEDS ORDERED: ASCO500T10 PO (19:27)
[2017-09-17] MEDS ORDERED: FURO40TA5 PO (19:27)
[2017-09-17] MEDS ORDERED: APIX5TAB PO (19:27)
[2017-09-17] MEDS ORDERED: SERT50TA PO (19:27)
[2017-09-17] MEDS ORDERED: GABA-534 PO (19:27)
[2017-09-17] MEDS ORDERED: PANT40TA2 PO (19:27)
[2017-09-17] MEDS ORDERED: VALS160T29 PO (19:27)
[2017-09-17] MEDS ORDERED: LEVO100T9 PO (19:27)
[2017-09-17] MEDS ORDERED: IV NS 0.9% 1,000 ML BAG IV ONE ×3 (19:30)
[2017-09-17] MEDS ORDERED: SUCCINYLCHOLINE CHLORIDE 20 MG/ML VIAL IV ONE (19:30)
[2017-09-17] MEDS ORDERED: ETOMIDATE 2 MG/ML VIAL IV ONE (19:30)
--- NOTE | 2017-09-17 19:30 | NUR ---
RT BEDSIDE FOR ABG BLOOD DRAW
[2017-09-17 19:57] LABS: BILIRUBIN,URINE Negative (NEGATIVE); BLOOD, URINE Negative Ery/uL (NEGATIVE); COLOR,URINE Yellow (YELLOW); KETONES,URINE Negative (NEGATIVE); LEUKOCYTE ESTERASE ,URINE Negative (NEGATIVE); NITRITE, URINE Negative (NEGATIVE); PROTEIN,URINE Negative (NEGATIVE); UGLUCOSE Negative (NEGATIVE); UROBILINOGEN,URINE 0.2 EU/dL (0.2)
[2017-09-17 19:58] LABS: APPEARANCE,URINE CLEAR (CLEAR)
--- NOTE | 2017-09-17 20:15 | NUR ---
CALLED DR BARKER'S ANSWERING SERVICE, LEFT A VOICEMAIL.
--- NOTE | 2017-09-17 20:21 | NUR ---
VENT CHANGES MADE POST VT 600 RR 16 Addendum: 09/17/17 at 2021 by SUZY WEBER RT Amended: Links added.
--- NOTE | 2017-09-17 20:24 | NUR ---
REPORT GIVEN TO COVERAGE SPECIALIST RNBLAISE HWANG FOR DEEPIKA.
[2017-09-17] MEDS ORDERED: ENOXAPARIN SODIUM 40 MG/0.4 ML DISP.SYRIN SQ SCH (21:00)
[2017-09-17] MEDS ORDERED: ACETAMINOPHEN 650 MG/SUPP.RECT RC PRN (21:00)
[2017-09-17] MEDS ORDERED: IV NS 0.9% 1,000 ML IV PRN (21:00)
[2017-09-17] MEDS: PANTOPRAZOLE 40 MG VIAL IV SCH (21:24)
[2017-09-17] MEDS ORDERED: VANCOMYCIN 1 GM VIAL ONE (21:32)
[2017-09-17] MEDS ORDERED: VANCOMYCIN 1,500 MG in IV D5W 250 ML IV ONE (22:00)
[2017-09-17] MEDS ORDERED: MEROPENEM 1 G VIAL IV ONE (22:27)
[2017-09-17] MEDS ORDERED: MEROPENEM 1 G in IV NS 0.9% 50 ML IV ONE (22:30)
[2017-09-17] MEDS ORDERED: PROPOFOL 100 ML ONE (22:41)
[2017-09-17] MEDS ORDERED: PROPOFOL 100 ML IV PRN (23:00)
[2017-09-17] MEDS: PROPOFOL 100 ML IV PRN (23:29)
--- NOTE | 2017-09-17 23:30 | NUR ---
CONVEYOR TECHNICIAN NEW ADMISSION. PT BEING ADMITTED TO RESPIRATORY FAILURE ORALLY INTUBATED. SEDATED WITH DIPRIVAN 20MCG/KG/MIN,FC PATENT. IV RT AND LT LEG AND RT IJ. IVF NS 100ML/HPT HAS PEANUT AND PENICILLIN ALLERGY I CALLED DR KESHA ALBERTS CHANGED TO MERREM STARTED PER PHARMACY DOSE. OK TO CONTINUE DIPRIVAN. MADE AWARE.
[2017-09-17 23:43] LABS: ABG BASE EXCESS 7.1 mmol/L; ABG OXYGEN SATURATION 98.1 % (92.0-98.5); ABG PCO2 45.3 mmHg (35.0-45.0); ABG PH 7.462 (7.350-7.450); ABG PO2 133.7 mmHg (75.0-100.0); AaDO2 244.3 mmHg; COHb 0.6 % (0.5-1.5); MetHb 0.4 % (0.0-1.5); O2Hb 97.1 % (94.0-97.0); PEEP,BG 5 cm H2O; SITE, ABG Right Radial; VT, ABG 600 mL
--- NOTE | 2017-09-17 23:43 | NUR ---
GRANULAR OPERATOR. ETT 7.5CM,LIP 23CM,AC 16,TV 600,FIO2 60%. PEEP 5. SAT 98%. NO ACUTE DISTRESS NOTED. WILL CONTINUE TO MONITOR VITALS.
--- NOTE | 2017-09-17 23:46 | NUR ---
SUPERVISOR BEET END. S/P INTUBATION ABG DONE.
[2017-09-18] VITALS (43 sets, daily range): BP systolic 106–149; BP diastolic 48–86
[2017-09-18] MEDS: PROPOFOL 100 ML IV PRN ×5 (03:29→22:47)
--- NOTE | 2017-09-18 04:19 | NUR ---
FINISHED GOODS INSPECTOR AM CARE.ORAL CARE, BED BATH GIVEN.LINEN CHANGED. REMAINING SAME VENT SETTING TOLERATED WELL. SAT 98%. NO ACUTE DISTRESS NOTED; CORPORATE TRAINER SHOWING S BLOCK.IV RT EJ. IVF NS 100ML/H. DIPRIVAN 20MCG/MIN. FC INTACT. OGT CLAMPED LORELEI.SOFT WRIST RESTRAINT CHECKED AND RELEASED. NO INJURY OR REDNESS NOTED.TURN AND REPOSITION Q2H. WILL CONTINUE TO MONITOR VITALS.
[2017-09-18 04:36] LABS: BASOPHILS % (AUTO) 0.5 % (0.0-2.0); EOSINOPHILS % (AUTO) 3.5 % (0.0-6.0); HEMATOCRIT 28 % (39-51); HEMOGLOBIN 8.8 g/dL (13.5-17.5); MEAN CORPUSCULAR HGB CONC 32 g/dl (31.0-36.0); MEAN CORPUSCULAR VOLUME 88 fL (80-96); MONOCYTES # (AUTO) 0.4 /CMM (0.1-1.30); MONOCYTES % (AUTO) 5.2 % (2.0-12.0); NEUTROPHILS # (AUTO) 6.3 /CMM (1.8-8.9); NEUTROPHILS % (AUTO) 77.8 % (43.0-81.0); PLATELET COUNT (AUTO) 234 /CMM (150-450); RDW COEFFICIENT OF VARIATION 17.9 (11.5-15.0); RED BLOOD CELL COUNT(AUTO) 3.15 MIL/uL (4.5-6.0); WHITE BLOOD COUNT (AUTO) 8.1 K/uL (4.3-11.0)
[2017-09-18] MEDS ORDERED: BISACODYL SUPP (10 MG) 10 MG/SUPP.RECT SUPP.RECT RC PRN (06:30)
[2017-09-18] MEDS ORDERED: FEE PK DOSING 1 MIN EA MC ONE (07:52)
--- NOTE | 2017-09-18 08:18 | NUR ---
RT PATIENT REC'D ORALLY INTUBATED ON [facility] VENT WITH SETTINGS SET BY MD YOKASTA CARTER. VENT ALARMS CHECKED + AUDIBLE. CUFF PRESSURE CHECKED CREDIT OR LOANS OFFICER. SX'D WITH SMALL/MOD AMT PALE SEMITHICK SECRETIONS. B/S DIMINISHED. AMBU BAG AT HOB Addendum: 09/18/17 at 1815 by KEE RAMIREZ RT Amended: Links added.
[2017-09-18] MEDS: AMIODARONE HCL 200 MG TABLET PO SCH (08:24)
[2017-09-18] MEDS: VALSARTAN 80 MG TABLET PO SCH (08:24)
[2017-09-18] MEDS: GABAPENTIN 300 MG CAPSULE PO SCH ×2 (08:24→16:53)
[2017-09-18] MEDS: ASCORBIC ACID 500 MG TABLET PO SCH ×2 (08:25→16:53)
[2017-09-18] MEDS: LEVOTHYROXINE SODIUM 100 MCG TABLET PO SCH (08:25)
[2017-09-18] MEDS: SERTRALINE HCL 50 MG TABLET PO SCH (08:25)
[2017-09-18 08:57] LABS: ABG BASE EXCESS 6.9 mmol/L; ABG OXYGEN SATURATION 94.5 % (92.0-98.5); ABG PCO2 36.9 mmHg (35.0-45.0); ABG PH 7.528 (7.350-7.450); ABG PO2 68.4 mmHg (75.0-100.0); AaDO2 174.4 mmHg; COHb 0.8 % (0.5-1.5); MetHb 0.2 % (0.0-1.5); O2Hb 93.6 % (94.0-97.0); SITE, ABG Right Radial
[2017-09-18] MEDS ORDERED: DOCUSATE SODIUM 100 MG CAPSULE PO SCH (09:00)
[2017-09-18 09:04] LABS: THYROID STIMULATING HORMONE 1.548 uIU/mL (0.358-3.74)
[2017-09-18] MEDS: APIXABAN 5 MG TABLET PO SCH ×2 (09:33→16:53)
[2017-09-18] MEDS: IPRATROPIUM NEB FS 0.5 MG/2.5 ML AMPUL.NEB NEB SCH ×4 (11:56→23:58)
[2017-09-18] MEDS: MEROPENEM 1 G in IV NS 0.9% 100 ML IV SCH ×2 (11:57→21:13)
[2017-09-18] MEDS: methylPREDNISolone SOD SUCC 125 MG/2ML VIAL IV SCH ×2 (11:58→16:53)
[2017-09-18] MEDS ORDERED: IV NS 0.9% 250 ML IV PRN (12:00)
[2017-09-18] MEDS: ALBUTEROL HALF STRENGTH 1.25 MG/3 ML VIAL.NEB NEB SCH ×4 (12:06→23:58)
[2017-09-18] MEDS ORDERED: ROCURONIUM BROMIDE 50 MG/5 ML IV ONE (17:31)
[2017-09-18] MEDS ORDERED: SUCCINYLCHOLINE CHLORIDE 20 MG/ML VIAL IV ONE (17:31)
[2017-09-18] MEDS ORDERED: ETOMIDATE 2 MG/ML VIAL IV ONE (17:31)
--- NOTE | 2017-09-18 18:28 | NUR ---
SALESPERSON FASHION ACCESSORIES NOTE 0720: Received patient sedated. With ETT to vent, tolerated settings. No respiratory distress noted at this time. With REJ, R foot and L leg PIVs. On Diprivan @ 20mcg, and NS @ 100. With Fooley cah intact, noted with clear anne-marie colored urine drained to BSD. AEROSPACE STRESS ENGINEER restraints on for safety. 0900: Rendered sedation vacation, patient alert and able to follow commands, able to nod. But noted with moderate agitation as evidenced by coughing often and trying to touch ETT. Asked patient if may place back on sedation, patient agreed. 0920: S/E by Dr. Louise with order to DC IVF. 0945: S/E by Dr. Serra, will continue to monitor. 1200: Able to place LAC g20, removed L leg and R foot PIVs. 1820: Noted with REJ PIV clogged, removed cannula. No significant changes noted at this time. Will re try to place another PIV. Kept clean, warm and dry. Needs attended. Kept call light at reach.
--- NOTE | 2017-09-18 20:26 | NUR ---
received pt from day shift, sedated on Diprivan at 30mcg, SR,SB, on the vent, lungs diminished/rhonchi, BL hand pitting edema, OG clamped, f/c good urine output, restraints on, v/s stable, no pain, pt turned and repositioned.
[2017-09-18] MEDS: PANTOPRAZOLE 40 MG VIAL IV SCH (21:13)
[2017-09-18] MEDS: TAMSULOSIN 0.4 MG CAP.SR.24H PO SCH (21:13)
[2017-09-18] MEDS: VANCOMYCIN 1.25 GM in IV D5W 500 ML IV SCH (22:42)
[2017-09-19] VITALS (37 sets, daily range): BP systolic 113–151; BP diastolic 44–101
--- NOTE | 2017-09-19 00:24 | NUR ---
pt is resting in the bed, v/s stable, no pain, pt turned and repositioned q2hrs.
[2017-09-19] MEDS: PROPOFOL 100 ML IV PRN ×5 (02:28→22:33)
[2017-09-19] MEDS: IPRATROPIUM NEB FS 0.5 MG/2.5 ML AMPUL.NEB NEB SCH ×6 (03:52→23:33)
[2017-09-19] MEDS: ALBUTEROL HALF STRENGTH 1.25 MG/3 ML VIAL.NEB NEB SCH ×6 (03:52→23:33)
--- NOTE | 2017-09-19 04:20 | NUR ---
pt is resting in the bed, no acute distress overnight, SB, sedated on Diprivan at 30mcg, good urine output, v/s stable, no pain, pt cleaned, changed and repositioned q2hrs.
[2017-09-19 04:38] LABS: HEMATOCRIT 30 % (39-51); HEMOGLOBIN 9.8 g/dL (13.5-17.5); LYMPHOCYTES # (AUTO) 0.7 /CMM (0.8-4.8); LYMPHOCYTES % (AUTO) 10.7 % (20.0-44.0); MEAN CORPUSCULAR HGB CONC 33 g/dl (31.0-36.0); MEAN CORPUSCULAR VOLUME 86 fL (80-96); MONOCYTES # (AUTO) 0.1 /CMM (0.1-1.30); MONOCYTES % (AUTO) 0.8 % (2.0-12.0); NEUTROPHILS % (AUTO) 88.5 % (43.0-81.0); PLATELET COUNT (AUTO) 265 /CMM (150-450); RDW COEFFICIENT OF VARIATION 17.6 (11.5-15.0); RED BLOOD CELL COUNT(AUTO) 3.48 MIL/uL (4.5-6.0); WHITE BLOOD COUNT (AUTO) 6.8 K/uL (4.3-11.0)
[2017-09-19 05:04] LABS: ALANINE AMINOTRANSFERASE 27 U/L (12-78); ALBUMIN 1.9 g/dL (3.4-5.0); ALKALINE PHOSPHATASE 50 U/L (46-116); ASPARTATE AMINOTRANSFERASE 21 U/L (15-37); BILIRUBIN,TOTAL 0.5 mg/dL (0.2-1.0); CALCIUM, SERUM 7.8 mg/dL (8.5-10.1); CARBON DIOXIDE 27 mmol/L (21-32); CHLORIDE 109 mmol/L (98-107); CREATININE 1.2 mg/dL (0.6-1.3); GLUCOSE 132 mg/dL (74-106); MAGNESIUM 2.2 mg/dL (1.8-2.4); PHOSPHORUS 3.8 mg/dL (2.5-4.9); POTASSIUM 4.1 mmol/L (3.5-5.1); SODIUM SERUM 144 mmol/L (136-145); TOTAL PROTEIN, SERUM 5.3 g/dL (6.4-8.2); UREA NITROGEN, BLOOD 24 mg/dL (7-18)
[2017-09-19 05:09] LABS: TROPONIN I < 0.017 ng/mL (0.00-0.056)
--- NOTE | 2017-09-19 07:50 | NUR ---
PATIENT PLACED ON VENT WEANING TRIAL PER DR SPAULDING. PLACE BACK ON FOR DISTRESS. Addendum: 09/19/17 at 1219 by KEE RAMIREZ RT Amended: Links added.
[2017-09-19] MEDS: DOCUSATE SODIUM LIQ 100 MG/10 ML UDC NG SCH (08:07)
[2017-09-19] MEDS: ASCORBIC ACID 500 MG TABLET PO SCH ×2 (08:07→17:07)
[2017-09-19] MEDS: GABAPENTIN 300 MG CAPSULE PO SCH ×2 (08:07→17:07)
[2017-09-19] MEDS: APIXABAN 5 MG TABLET PO SCH ×2 (08:07→17:06)
[2017-09-19] MEDS: LEVOTHYROXINE SODIUM 100 MCG TABLET PO SCH (08:07)
[2017-09-19] MEDS: VALSARTAN 80 MG TABLET PO SCH (08:07)
[2017-09-19] MEDS: SERTRALINE HCL 50 MG TABLET PO SCH (08:07)
[2017-09-19] MEDS: AMIODARONE HCL 200 MG TABLET PO SCH (08:07)
[2017-09-19] MEDS: methylPREDNISolone SOD SUCC 125 MG/2ML VIAL IV SCH ×2 (08:08→17:06)
[2017-09-19] MEDS: MEROPENEM 1 G in IV NS 0.9% 100 ML IV SCH ×2 (08:08→20:07)
[2017-09-19] MEDS: PANTOPRAZOLE 40 MG VIAL IV SCH (08:08)
[2017-09-19] MEDS: FUROSEMIDE 40 MG/4 ML VIAL IV SCH ×2 (08:26→11:12)
[2017-09-19 08:39] LABS: ABG BASE EXCESS 2.3 mmol/L; ABG OXYGEN SATURATION 94.1 % (92.0-98.5); ABG PCO2 48.9 mmHg (35.0-45.0); ABG PH 7.378 (7.350-7.450); ABG PO2 80.2 mmHg (75.0-100.0); AaDO2 148.8 mmHg; COHb 0.7 % (0.5-1.5); MetHb 0.6 % (0.0-1.5); O2Hb 92.9 % (94.0-97.0); SITE, ABG Right Radial; VENT MODE, BG simv 4 ps 12 +5 40%
--- NOTE | 2017-09-19 10:28 | NUR ---
NATIONAL SECRETARY NOTE 0720: Received patient sedated on Diprivan. ETT to vent, tolerated settings, no respiratory distress noted. With OGT clamped. PIVs intact. Fang cath intact, noted with clear anne-marie colored urine drained to BSD. 0800: S/E by Dr. Louise, with order of Lasix 40 x2. 0930: S/E by Dr. Machuca, no new order at this time. 1000: S/E by Dr. Ponce MD also spoke with Aruna Summerse via phone re: the POC. said he will talk again with the sister in the afternoon. 1025: Noted patient with agitation, placed back on AC mode and restarted sedation, MD aware.
--- NOTE | 2017-09-19 11:15 | NUR ---
PATIENT PLACED BACK ON AC VENT MODE FOR INCREASED WOB. RN AWARE. Addendum: 09/19/17 at 1221 by KEE RAMIREZ RT Amended: Links added.
--- NOTE | 2017-09-19 15:15 | NUR ---
IT INTERN NOTE [id number]: edu Jose visited and aware for the plan of trache. Interviewed patient with use of communication board. Patient agreed for the tracheostomy. 1500: Dr. Serra in the unit, spoke with Rebeca and made aware re: the plan for trache and patient agreed, MD said he will call a doctor to do the procedure.
[2017-09-19] MEDS ORDERED: DEXTROSE 50%-WATER 50 ML DISP.SYRIN IV PRN (17:30)
--- NOTE | 2017-09-19 19:00 | NUR ---
BOOKKEEPER NOTE Titrated down Diprivan for awhile to wake up patient. Patient is lucid and able to understand concept. Explained for the plan of Tracheostomy and aware for the procedure, agreed and signed/initialled consents for procedure, anesthesia and blood transfusion. Witnessed by another nurse. Patient has difficulty seeing papers due to he does not have his eye glasses. Patient showed understanding re: the procedure.
--- NOTE | 2017-09-19 20:00 | NUR ---
CROP RANCH HAND - NOTES - Received patient sedated on Diprivan 30 MCG. 7.5 ETT @ 25 CM @ LIP to vent , tolerated settings, no respiratory distress noted. With OGT clamped. PIVs intact. Fang cath intact, noted with clear yellow colored urine drained.
[2017-09-19] MEDS: BETAMETHASONE DIP 0.05% CREAM 15 GM TUBE TP SCH (20:06)
--- NOTE | 2017-09-19 20:12 | NUR ---
PT RECEIVED INTUBATED 7.5 ETT SECURED AT 25CM AT THE LIP. NO RESP DISTRESS. PT TOLERATING VENT SETTINGS. SX'D FRO SML AMT OF THICK BROTHERS SECRETIONS. VENT ALARMS SET AND AUDIBLE. AMBU BAG AT BEDSIDE. VENT PLUGGED INTO RED OUTLET. WILL CONTINUE TO MONITOR. Addendum: 09/19/17 at 2013 by CODEY NIX RT Amended: Links added.
[2017-09-19] MEDS: TAMSULOSIN 0.4 MG CAP.SR.24H PO SCH (22:02)
[2017-09-19] MEDS: VANCOMYCIN 1.25 GM in IV D5W 500 ML IV SCH (22:54)
[2017-09-20] VITALS (35 sets, daily range): BP systolic 111–149; BP diastolic 49–79
[2017-09-20] MEDS: PROPOFOL 100 ML IV PRN ×7 (01:30→23:13)
[2017-09-20] MEDS: IPRATROPIUM NEB FS 0.5 MG/2.5 ML AMPUL.NEB NEB SCH ×6 (03:17→23:19)
[2017-09-20] MEDS: ALBUTEROL HALF STRENGTH 1.25 MG/3 ML VIAL.NEB NEB SCH ×6 (03:17→23:19)
[2017-09-20 04:51] LABS: EOSINOPHILS % (AUTO) 0.5 % (0.0-6.0); HEMATOCRIT 31 % (39-51); HEMOGLOBIN 10.1 g/dL (13.5-17.5); LYMPHOCYTES # (AUTO) 0.8 /CMM (0.8-4.8); LYMPHOCYTES % (AUTO) 8.5 % (20.0-44.0); MEAN CORPUSCULAR HGB CONC 33 g/dl (31.0-36.0); MEAN CORPUSCULAR VOLUME 86 fL (80-96); MONOCYTES # (AUTO) 0.2 /CMM (0.1-1.30); MONOCYTES % (AUTO) 2.1 % (2.0-12.0); NEUTROPHILS # (AUTO) 8.2 /CMM (1.8-8.9); NEUTROPHILS % (AUTO) 88.9 % (43.0-81.0); PLATELET COUNT (AUTO) 272 /CMM (150-450); RDW COEFFICIENT OF VARIATION 17.4 (11.5-15.0); RED BLOOD CELL COUNT(AUTO) 3.56 MIL/uL (4.5-6.0); WHITE BLOOD COUNT (AUTO) 9.3 K/uL (4.3-11.0)
[2017-09-20 05:21] LABS: ALANINE AMINOTRANSFERASE 28 U/L (12-78); ALBUMIN 1.8 g/dL (3.4-5.0); ALKALINE PHOSPHATASE 46 U/L (46-116); ASPARTATE AMINOTRANSFERASE 15 U/L (15-37); BILIRUBIN,TOTAL 0.4 mg/dL (0.2-1.0); CALCIUM, SERUM 7.8 mg/dL (8.5-10.1); CARBON DIOXIDE 29 mmol/L (21-32); CHLORIDE 106 mmol/L (98-107); CREATININE 1.2 mg/dL (0.6-1.3); GLUCOSE 136 mg/dL (74-106); MAGNESIUM 2.1 mg/dL (1.8-2.4); PHOSPHORUS 3.8 mg/dL (2.5-4.9); POTASSIUM 3.4 mmol/L (3.5-5.1); SODIUM SERUM 143 mmol/L (136-145); UREA NITROGEN, BLOOD 27 mg/dL (7-18)
[2017-09-20] MEDS: BETAMETHASONE DIP 0.05% CREAM 15 GM TUBE TP SCH ×2 (06:13→18:17)
[2017-09-20] MEDS ORDERED: Z GUARD REMEDY 2 OZ OINT TP PRN (07:00)
[2017-09-20] MEDS: APIXABAN 5 MG TABLET PO SCH ×2 (07:30→16:47)
[2017-09-20] MEDS: LEVOTHYROXINE SODIUM 100 MCG TABLET PO SCH (07:30)
--- NOTE | 2017-09-20 07:48 | NUR ---
WOUND CARE CONSULT WOUND CARE RECEIVED CONSULT FOR SACRAL EXCORIATION. WOUND CARE WILL DEFER CONSULT AND ALL TREATMENT PLANS TO SURGICAL TEAM WHO ARE CURRENTLY FOLLOWING. PATIENT WITH ODALIS AT 15, ALL PRESSURE ULCER PREVENTION MEASURES ARE NOTED TO BE IN PLACE.
[2017-09-20] MEDS: methylPREDNISolone SOD SUCC 125 MG/2ML VIAL IV SCH ×2 (07:54→17:56)
[2017-09-20] MEDS: DOCUSATE SODIUM LIQ 100 MG/10 ML UDC NG SCH (07:55)
[2017-09-20] MEDS: FUROSEMIDE 40 MG/4 ML VIAL IV SCH ×3 (07:55→15:13)
[2017-09-20] MEDS: MEROPENEM 1 G in IV NS 0.9% 100 ML IV SCH ×2 (07:55→21:56)
[2017-09-20] MEDS: GABAPENTIN 300 MG CAPSULE PO SCH ×2 (07:55→16:47)
[2017-09-20] MEDS: AMIODARONE HCL 200 MG TABLET PO SCH (07:55)
[2017-09-20] MEDS: VALSARTAN 80 MG TABLET PO SCH (07:55)
[2017-09-20] MEDS: SERTRALINE HCL 50 MG TABLET PO SCH (07:56)
[2017-09-20] MEDS: ASCORBIC ACID 500 MG TABLET PO SCH ×2 (07:56→16:47)
--- NOTE | 2017-09-20 07:59 | NUR ---
PT RECEIVED ORALLY INTUBATED ON MECHANICAL VENT W/ SETTINGS PER MD ORDER. VENT ALARMS CHECKED AND AUDIBLE, VENT IN RED OUTLET, AMBUBAG AT BEDSIDE. PT SX'ED AND LAVAGED PRN. ETT SECURED W/ ANCHOFAST, CLEAN AND DRY. BS EQUAL, DIMINISHED. NO RESP DISTRESS NOTED. PLAN IS TO CONTINUE W/ CURRENT CARE UNDER MD ORDERS AND MONITOR FOR CHANGES IN STATUS. Addendum: 09/20/17 at 0802 by ROYAL CONNELLY RT Amended: Links added.
[2017-09-20 08:28] LABS: INR 1.03 (0.87-1.13)
[2017-09-20] MEDS: POTASSIUM CL. PREMIX PERIPHER. 50 ML IV SCH ×4 (08:44→11:58)
[2017-09-20] MEDS: Z GUARD REMEDY 2 OZ OINT TP SCH (08:44)
--- NOTE | 2017-09-20 09:55 | NUR ---
WATER TAXI CAPTAIN NOTE 0720: received patient sedated. With ETT to vent, tolerated settings well. With OGT clamped. Remained NPO for Sx prep. With Fang cath intact, noted with yellow urine drained to BSD. With PIVs intact. On Diprivan @ 30mcg. 0830: Rendered sedation vacation, patient A/Ox3, made aware for the tracheostomy placement to be done today, showed understanding as evidenced by nodding. Patient asked to be placed back on sedation due agitation as evidenced by frequent moving and gagging. 0930: S/E by Dr. Serra, asked to inform OR staffs to place size 6 for the trache. 0950: No any significant changes noted. Kept clean, warm and dry. Needs attended. Remained sedated for comfort/agitation. Spoke with edu Jsoe and aware for the plan of the procedure today.
[2017-09-20] MEDS: BLOOD SUGAR DIAGNOSTIC 1 EACH STRIP IN SCH ×2 (12:07→17:56)
--- NOTE | 2017-09-20 17:20 | NUR ---
DEFENSIVE FIRE CONTROL SYSTEMS OPERATOR NOTE Spoke with Rebeca via phone and made aware re: the cancellation of the procedure today and changed schedule to tomorrow, verbalized understanding. Rebeca said she will inform Aruna Summers, patient's sister.
--- NOTE | 2017-09-20 20:16 | NUR ---
PT RECEIVED INTUBATED 7.5 ETT SECURED AT 25CM AT THE LIP. NO RESP DISTRESS. PT TOLERATING VENT SETTINGS. SX'D FOR SML AMT OF THICK BROTHERS SECRETIONS. VENT ALARMS SET AND AUDIBLE. AMBU BAG AT BEDSIDE. VENT PLUGGED INTO RED OUTLET. WILL CONTINUE TO MONITOR. Addendum: 09/20/17 at 2017 by CODEY NIX RT Amended: Links added.
--- NOTE | 2017-09-20 21:19 | NUR ---
landscape horticulture instructor. initial assessment. received the pt rest on [facility] bed. orally intubated. sedated with diprivan. ett 7.5cm,lip 25,ac 16,tv 550, fio2 40%,peep 5. sat 98%. no acute distress noted. monitoring analyst showing s dorothea. iv lt hand 20g,22g. diprivan 50mcg/kg/min. samira soft wrist restraint checked and released. no injury or redness noted.fc patent. ogt intact. will continue to monitor vitals.
[2017-09-20] MEDS: VANCOMYCIN 1.25 GM in IV D5W 500 ML IV SCH (21:56)
[2017-09-20] MEDS: TAMSULOSIN 0.4 MG CAP.SR.24H PO SCH (21:56)
[2017-09-20] MEDS: PANTOPRAZOLE 40 MG VIAL IV SCH (21:56)
[2017-09-21] VITALS (36 sets, daily range): BP systolic 122–162; BP diastolic 53–87
[2017-09-21] MEDS: BLOOD SUGAR DIAGNOSTIC 1 EACH STRIP IN SCH ×5 (00:30→23:59)
[2017-09-21] MEDS: INSULIN REGULAR, HUMAN 100 UNIT/ML 3 ML VIAL SQ PRN ×3 (00:31→18:18)
[2017-09-21] MEDS: PROPOFOL 100 ML IV PRN ×4 (01:03→08:54)
[2017-09-21] MEDS: IPRATROPIUM NEB FS 0.5 MG/2.5 ML AMPUL.NEB NEB SCH ×6 (03:16→23:51)
[2017-09-21] MEDS: ALBUTEROL HALF STRENGTH 1.25 MG/3 ML VIAL.NEB NEB SCH ×6 (03:16→23:51)
--- NOTE | 2017-09-21 03:47 | NUR ---
VALVE MECHANIC. AM CARE, ORAL CARE, BED BATH GIVEN. LINEN CHANGED. REMAINING SAME VENT SETTING TOLERATED WELL. SAT 98%.O ACUTE DISTRESS NOTED. LIFE SKILLS CONSULTANT SHOWING S DESTINY. IV LT HAND 20G. DIPRIVAN 50MCG/KG/MIN. FC PATENT, OGT INTACT. CLAMPED/ PT IS NPO.TODAY POSTED FOR TRACHEOSTOMY. HOB ELEVATED. TURN AND REPOSITION Q2H. WILL CONTINUE TO MONITOR VITALS.
[2017-09-21 04:15] LABS: BASOPHILS # (AUTO) 0.1 /CMM (0.0-0.2)
[2017-09-21 04:17] LABS: BASOPHILS % (AUTO) 1.5 % (0.0-2.0); HEMATOCRIT 29 % (39-51); HEMOGLOBIN 9.6 g/dL (13.5-17.5); LYMPHOCYTES % (AUTO) 9.8 % (20.0-44.0); MEAN CORPUSCULAR HGB CONC 33 g/dl (31.0-36.0); MEAN CORPUSCULAR VOLUME 86 fL (80-96); MONOCYTES # (AUTO) 0.2 /CMM (0.1-1.30); MONOCYTES % (AUTO) 2.3 % (2.0-12.0); NEUTROPHILS # (AUTO) 8.4 /CMM (1.8-8.9); NEUTROPHILS % (AUTO) 86.4 % (43.0-81.0); PLATELET COUNT (AUTO) 202 /CMM (150-450); RDW COEFFICIENT OF VARIATION 17.6 (11.5-15.0); RED BLOOD CELL COUNT(AUTO) 3.42 MIL/uL (4.5-6.0); WHITE BLOOD COUNT (AUTO) 9.7 K/uL (4.3-11.0)
[2017-09-21 04:52] LABS: ALANINE AMINOTRANSFERASE 36 U/L (12-78); ALBUMIN 1.9 g/dL (3.4-5.0); ALKALINE PHOSPHATASE 45 U/L (46-116); ASPARTATE AMINOTRANSFERASE 33 U/L (15-37); BILIRUBIN,TOTAL 0.5 mg/dL (0.2-1.0); CARBON DIOXIDE 28 mmol/L (21-32); CHLORIDE 105 mmol/L (98-107); CREATININE 1.4 mg/dL (0.6-1.3); GLUCOSE 152 mg/dL (74-106); MAGNESIUM 2.2 mg/dL (1.8-2.4); PHOSPHORUS 4.5 mg/dL (2.5-4.9); POTASSIUM 3.9 mmol/L (3.5-5.1); SODIUM SERUM 141 mmol/L (136-145); TOTAL PROTEIN, SERUM 5.1 g/dL (6.4-8.2); UREA NITROGEN, BLOOD 28 mg/dL (7-18)
[2017-09-21] MEDS: BETAMETHASONE DIP 0.05% CREAM 15 GM TUBE TP SCH ×2 (06:22→18:17)
[2017-09-21] MEDS ORDERED: ANESTHESIA TRAY IN PYXIS 1 EA TRAY MC ONE (07:10)
--- NOTE | 2017-09-21 07:10 | NUR ---
RN INITIAL NOTES: Rec'd pt on bed, not in any distress, sedated. Has ETT on MV, sating at 98%. On telemonitor, SB w/ HR 53 bpm. Has OGT, clamped at this time (NPO for SX). Has FC to BSB draining to adequate yellowish urine output. Has 3 IV line access: L hand G20, L AC G22, LFA G20, all flushing well, w/ Diprivan at 50 mcg/hr infusing well at L AC, no s/sx of infection/infiltration noted. Has B wrist restraints on d/t episode of pulling out of lines. Provided comfort & safety measures. Bed kept low & in locked pos. Call light placed w/in reach. Will continue to monitor and attend pt needs. Addendum: 09/21/17 at 1007 by LEN REYNOSO RN ADDENDUM: Pt for scheduled tracheostomy in AM. Consent already secured & in the chart.
[2017-09-21] MEDS: LEVOTHYROXINE SODIUM 100 MCG TABLET PO SCH (07:30)
[2017-09-21] MEDS: FUROSEMIDE 40 MG/4 ML VIAL IV SCH ×3 (08:19→16:15)
[2017-09-21] MEDS ORDERED: ROCURONIUM BROMIDE 50 MG/5 ML ONE (08:47)
[2017-09-21] MEDS ORDERED: FENTANYL PF 100MCG/2ML AMPUL ONE (08:47)
[2017-09-21] MEDS: POTASSIUM CL. PREMIX PERIPHER. 50 ML IV SCH ×4 (08:48→13:37)
[2017-09-21] MEDS: DOCUSATE SODIUM LIQ 100 MG/10 ML UDC NG SCH (08:59)
[2017-09-21] MEDS: AMIODARONE HCL 200 MG TABLET PO SCH (09:00)
[2017-09-21] MEDS: VALSARTAN 80 MG TABLET PO SCH (09:00)
[2017-09-21] MEDS: GABAPENTIN 300 MG CAPSULE PO SCH ×2 (09:00→16:16)
[2017-09-21] MEDS: APIXABAN 5 MG TABLET PO SCH ×2 (09:00→16:16)
[2017-09-21] MEDS: SERTRALINE HCL 50 MG TABLET PO SCH (09:00)
[2017-09-21] MEDS: ASCORBIC ACID 500 MG TABLET PO SCH ×2 (09:00→16:16)
[2017-09-21] MEDS: Z GUARD REMEDY 2 OZ OINT TP SCH (09:02)
--- NOTE | 2017-09-21 09:11 | NUR ---
RN NOTES: Pt picked up by OR team for Tracheostomy procedure. Informed them MD ordered to put Trach Size 6. Pt left via bed via ACLS protocol. All IV lines, flushing well, patent & intact w/ no s/sx of infection/infiltration noted. IV running: Diprivan x 50 mcg/hr and KCL x 50 cc/hr (1st bag for K 3.9).
--- NOTE | 2017-09-21 10:30 | NUR ---
RN NOTES: Pt came back from OR, s/p tracheostomy (Shiley 8, cuffed), noted minimal serosanguineous drainage from the trach site. Dr. Serra made aware that Shiley 8 was used instead of Shiley 6. No new order made. Rebeca (niece) & Aruna Summers (sister) updated about pt condition. Also, consent for PICC line was secured via telephone call w/ Rebeca.
[2017-09-21] MEDS: methylPREDNISolone SOD SUCC 125 MG/2ML VIAL IV SCH ×2 (10:34→16:15)
[2017-09-21] MEDS: MEROPENEM 1 G in IV NS 0.9% 100 ML IV SCH ×2 (10:34→20:46)
--- NOTE | 2017-09-21 10:51 | NUR ---
RT NOTE PT IN STABLE CONDITION. PT MECHANICALLY VENTILATED VIA PORTEX 8 DCT CUFFED TRACH TUBE. CUFF INFLATED VIA HAIRSPRING TRUING INSPECTOR. SETTINGS PRESCRIBED. ALARMS SET PER PROTOCOL AND AUDIBLE. VENT PLUGGED IN TO RED OUTLET. TRACH MIDLINE AND SECURE. NO DISTRESS NOTED AT MOMENT. WILL CONTINUE TO MONITOR.
--- NOTE | 2017-09-21 16:00 | NUR ---
RN NOTES: Pt seen & examined by Dr. Machuca. Informed MD re: failed to insert NGT. MD to contact GI for PEG insertion.
--- NOTE | 2017-09-21 16:25 | NUR ---
RN NOTES: PICC line inserted on the R Brachial, 48 cm aseptically c/o BLAISE Vargas. Pt tolerated the procedure well.
--- NOTE | 2017-09-21 17:30 | NUR ---
RN NOTES: Pt seen & examined by ZHOU Espinoza w/ orders made to get consent for EGD/PEG. Tried talking to the pt but refused to do the sx. Olga EPPERSON is aware, said that pt should agree to the procedure. They might do the sx paola AM if pt agrees. Called Rebeca (niece) & informed about the planned EGD/PEG poss paola & also made her aware that pt is refusing. She said that she will come paola AM to try convince the pt.
--- NOTE | 2017-09-21 18:57 | NUR ---
RN CLOSING NOTES: Pt on bed, A/O x 2?, mouths words, s/p trach (shiley 8), MV settings tolerated well. Trach still has serosanguineous secretions on the site. On telemonitor, still SR/SB. Tried NGT insertion x2 but failed. Pt for poss PEG insertion paola. FC to BSB kept patent & intact. s/p LIONEL PUCC line TLC, all flushing well, off sedation, no s/sx of infection/infiltration noted. Still has B wrist restraints on d/t episode of restlessness. Kept well rested. Needs attended. Bed kept low & in locked pos. Call light placed w/in reach. Will endorse to PM RN for DEEPIKA.
--- NOTE | 2017-09-21 19:30 | NUR ---
SPARK TESTER: RECEIVED PT S/P TRACH. PLACEMENT WT VENT SETTINGS ORDERED. ALERT AND AWAKE, ABLE TO MOUTH WORDS AND FOLLOW SIMPLE COMMANDS. MINIMAL BLEEDING ON TRACH STOMA SITE NOTED. SR ON FITNESS ATTENDANT. F/C PATENT AND INTACT DRAINING YELLOW COLORED URINE TO GRAVITY. LIONEL PICC IN PLACE WT NO S/S OF COMPLICATIONS. BILAT. SOFT WRIST RESTRAINTS IN PLACE FOR EPISODES OF TRYING TO PULL TUBINGS. SKIN AND CIRCULATION WNL. HOB AT 35 DEGREES. WILL CONTINUE TO MONITOR.
[2017-09-21] MEDS: PANTOPRAZOLE 40 MG VIAL IV SCH (20:47)
[2017-09-21] MEDS: IV NS 0.9% 100 ML IV PRN (20:52)
[2017-09-21] MEDS ORDERED: IV NS 0.9% 100 ML BAG IV PRN (21:00)
[2017-09-21] MEDS: VANCOMYCIN 1.25 GM in IV D5W 500 ML IV SCH (21:57)
[2017-09-21] MEDS: TAMSULOSIN 0.4 MG CAP.SR.24H PO SCH (22:00)
[2017-09-22] VITALS (33 sets, daily range): BP systolic 98–156; BP diastolic 35–105
[2017-09-22] MEDS: INSULIN REGULAR, HUMAN 100 UNIT/ML 3 ML VIAL SQ PRN (00:01)
[2017-09-22] MEDS: IPRATROPIUM NEB FS 0.5 MG/2.5 ML AMPUL.NEB NEB SCH ×6 (04:10→23:00)
[2017-09-22] MEDS: ALBUTEROL HALF STRENGTH 1.25 MG/3 ML VIAL.NEB NEB SCH ×3 (04:10→10:50)
[2017-09-22 04:46] LABS: CALCIUM, SERUM 7.9 mg/dL (8.5-10.1); CARBON DIOXIDE 31 mmol/L (21-32); CHLORIDE 104 mmol/L (98-107); CREATININE 1.4 mg/dL (0.6-1.3); GLUCOSE 99 mg/dL (74-106); POTASSIUM 3.3 mmol/L (3.5-5.1); SODIUM SERUM 143 mmol/L (136-145); UREA NITROGEN, BLOOD 27 mg/dL (7-18)
[2017-09-22] MEDS: BLOOD SUGAR DIAGNOSTIC 1 EACH STRIP IN SCH ×3 (06:11→17:48)
[2017-09-22] MEDS: BETAMETHASONE DIP 0.05% CREAM 15 GM TUBE TP SCH ×2 (06:13→18:24)
--- NOTE | 2017-09-22 06:30 | NUR ---
GARMENT PARTS CUTTER HAND: NO SIGNIFICANT DEEPIKA. LARGE AMT. OF TRACHEAL STOMA PINK TINGED SECRETIONS NOTED. SUCTIONED, KEPT CLEAN AND DRY. PT. REMAINED UNCOOPERATIVE AND COMBATIVE DURING THE SHIFT AND REFUSED TO HAVE BED BATH. PT TEACHING RENDERED, EXPLAINED RISKS AND BENEFITS BUT STILL REFUSED AND TRIED TO KICK AND HIT STAFF. WAS LEFT ALONE AND STARTED TO CALM DOWN. REMAINED DRY WT F/C DRAINING CLEAR YELLOW URINE AND WT NO BOWEL MOVEMENT. BILAT. SOFT WRIST RESTRAINTS IN PLACE WT SKIN AND CIRCULATION WNL. SAFETY PRECAUTION NOTED AT ALL TIMES.
[2017-09-22] MEDS: LEVOTHYROXINE SODIUM 100 MCG TABLET PO SCH (07:30)
--- NOTE | 2017-09-22 07:50 | NUR ---
FISHER TROLL LINE NOTE PATIENT IN BED ,AWAKE ALERT , WITH TRACH TO VENT SETTING ORDERED , AMBU BAG AT HOB , WITH LARGE SECRETION AT TRACH SITE , SUCTION DONE , KEEP CLEAN DRY , WITH BOLAND CATH TO GRAVITY,WITH YELLOW COLOR URINE WITH SOFT BILATERAL RESTRAIN ORDERED , FOR PATIENT SAFETY , ON TELE MONITOR SB 58, RT UPPER ARM PICC LINE IN PLACE,ON NPO STATUS WILL AWAIT FOR CONSENT FOR EGD FROM NIECE WILL F\UBED IN LOWEST AND LOCKED POSITION , PLAN OF CARE DISCUSSED WITH PATIENT
[2017-09-22] MEDS: methylPREDNISolone SOD SUCC 125 MG/2ML VIAL IV SCH ×2 (08:31→16:31)
[2017-09-22] MEDS: MEROPENEM 1 G in IV NS 0.9% 100 ML IV SCH (08:31)
[2017-09-22] MEDS: APIXABAN 5 MG TABLET PO SCH ×2 (08:38→16:29)
[2017-09-22] MEDS: DOCUSATE SODIUM LIQ 100 MG/10 ML UDC NG SCH (08:38)
[2017-09-22] MEDS: AMIODARONE HCL 200 MG TABLET PO SCH (08:38)
[2017-09-22] MEDS: GABAPENTIN 300 MG CAPSULE PO SCH ×2 (08:38→16:29)
[2017-09-22] MEDS: VALSARTAN 80 MG TABLET PO SCH (08:38)
[2017-09-22] MEDS: ASCORBIC ACID 500 MG TABLET PO SCH ×2 (08:38→16:29)
[2017-09-22] MEDS: SERTRALINE HCL 50 MG TABLET PO SCH (08:39)
--- NOTE | 2017-09-22 08:42 | NUR ---
RT NOTE RECEIVED PT ON MECHANICAL VENTILATION VIA SHILEY 8 DCT TRACH TUBE. SETTINGS PRESCRIBED. TRACH MIDLINE AND SECURE. CUFF INFLATED BY FURNACE ATTENDANT. ALARMS SET PER PROTOCOL AND AUDIBLE. VENT PLUGGED IN TO RED OUTLET. AMBU BAG AT BED SIDE. PT PLACED ON CPAP MODE PER MD SPAULDING ORDER. PS 12 +5. NO DISTRESS NOTED AT MOMENT. PT AWAKE AND ALERT. WILL CONTINUE TO MONITOR. Addendum: 09/22/17 at 0845 by MATHIEU PEREZ RT Amended: Links added.
--- NOTE | 2017-09-22 08:56 | NUR ---
PULP PLANT SUPERVISOR NOTE PLACED ON CPAP MODE ORDERED BY RT, WILL CONT TO MONITOR CLOSELY
--- NOTE | 2017-09-22 09:45 | NUR ---
professor of floriculture note seen by dr bland aware that patent on cpap mode ,ok to order swallow eval ,called radiology left a message for st tr
--- NOTE | 2017-09-22 09:50 | NUR ---
SKID MACHINE OPERATORBLAISE WILSON FOR PATENT SIGNED CONSENT FOR EGD\PEG Addendum: 09/22/17 at 1813 by HAKAN TAYLOR RN MUSA SIGNED CONSENT FOR PEG\EGD
[2017-09-22 09:51] LABS: ABG BASE EXCESS 6.3 mmol/L; ABG OXYGEN SATURATION 93.7 % (92.0-98.5); ABG PCO2 41.1 mmHg (35.0-45.0); ABG PH 7.485 (7.350-7.450); ABG PO2 71.6 mmHg (75.0-100.0); AaDO2 166.3 mmHg; COHb 0.8 % (0.5-1.5); MetHb 0.6 % (0.0-1.5); O2Hb 92.4 % (94.0-97.0); SITE, ABG Right Radial; VENT MODE, BG CPAP PS 12 +5 40%
[2017-09-22] MEDS: Z GUARD REMEDY 2 OZ OINT TP SCH (10:20)
[2017-09-22] MEDS: POTASSIUM CL. PREMIX PERIPHER. 50 ML IV SCH ×4 (10:20→14:35)
--- NOTE | 2017-09-22 10:23 | NUR ---
forester silviculture note rt at bedside cooler aerosol placed as ordered by dr bland
--- NOTE | 2017-09-22 10:51 | NUR ---
neonatal icu coordinator note called [facility] ,left a message about swallow eval ,will f\u
--- NOTE | 2017-09-22 11:38 | NUR ---
MANAGER ANALYTICAL NOTE SPOKE WITH PHARMACY X2 ABOUT [facility]CI AT 1100 IV ,NOT DELIVERED STATED THAT WILL BRING SOON
--- NOTE | 2017-09-22 13:00 | NUR ---
ARCHITECTURAL SALES CONSULTANT NOTE CHARGE NURSE SPOKE WITH DR SPAULDING ABOUT HR 130 ON TELE MONITOR NO NEW ORDER GIVEN,NO NEED PLACE PATIENT BACK ON VENT BACK AT THIS TIME, WILL CONT TO MONITOR CLOSELY
--- NOTE | 2017-09-22 13:01 | NUR ---
TRANSPORTATION EQUIPMENT PAINTER NOTE ST AT BEDSIDE . SWALLOW EVAL DONE STATED THAT WILL COME TOMORROW TO CHECK AGAIN SO FAR OK TO GIVE ICE CHIPS
--- NOTE | 2017-09-22 14:00 | NUR ---
WAREHOUSE RECEIVING CLERK NOTE DR BARKER NOTIFIED THAT URINE OUTPUT SINCE 0700 120 ML STATED OK TO NO NEW ORDER GIVEN AT THI TIME ,WILL MONITOR CLOSELY
--- NOTE | 2017-09-22 15:01 | NUR ---
CHIEF LIBRARIAN EXTENSION DEPARTMENT NOTE UNABLE TO REMOVE RESTRAIN ,PATIENT STILL TRYING TO REMOVE TRACH AND OTHER LINES,WILL CONT TO MONITOR CLOSELY
--- NOTE | 2017-09-22 15:32 | NUR ---
LICENSING DIRECTOR NOTE CALLED TO DR GARCIA, NOTIFIED THAT ON TELE MONITOR SR WITH PARAXISMAL AFIB HR UP TO 130 -140 ON AND OFF ,BP 122/68 ,NO C\O CHEST PAIN , NOTIFIED THAT PATIENT WAS ON AMIODARONE 200 MG PO AND ELIQUIS BUT WAS HELD DUE TO NPO STATUS ALSO NOTIFIED THAT ST SWALLOW EVAL DONE ,WILL DO TOMORROW AGAIN ,STILL AT RISK FOR ASPIRATION , DR GARCIA STATED NO NEW ORDER AT THIS TIME , WILL MONITOR CLOSELY
--- NOTE | 2017-09-22 19:20 | NUR ---
RN NOTES RECEIVED PT AWAKE ON BED AOX 2 ABLE TO EXPRESS NEEDS BY MOUTHING WORDS. WITH TRACH SHILEY 8 ON COOL AEROSOL @ 10 LPM FIO2 40% SB ONT CHAU MONITOR HR 60'S DENIES ANY PAIN. WARMTH TO TOUCH, AFEBRILE. IV SITE ON LIONEL PICC LINE TLC ONLY ONE WORKS WELL WITH BLOOD RETURN. REPOSITIONED PT COMFORTABLE NOTED HR WENT UP TO 120'S AND 130'S DENIES CHEST PAIN OR ACUTE RESP DISTRESS. MD AWARE PER AM NURSE. KEPT PT CLEAN AND COMFORTABLE IN BED. CALL LIGHT KEPT WITHN EASY REACH. WILL CONTINUE TO MONITOR.
--- NOTE | 2017-09-22 19:41 | NUR ---
PT RCVD TRACHED ON CA 40% 10L . TRACH SIZE OF SHILEY 8. PT PLACED ON CPAP AT NIGHT PER MD'S ORDERED. NO RESPIRATORY DISTRESS NOTED AT THIS TIME. BREATHING TX GIVEN, NO ADVERSE REACTION NOTED. WILL CONTINUE TO MONITOR THE PT.
--- NOTE | 2017-09-22 20:00 | NUR ---
RN NOTES PT PLACE ON CPAP BY RT TOLERATED WELL.
[2017-09-22] MEDS: PANTOPRAZOLE 40 MG VIAL IV SCH (20:49)
[2017-09-22] MEDS: TAMSULOSIN 0.4 MG CAP.SR.24H PO SCH (21:59)
[2017-09-23] VITALS (48 sets, daily range): BP systolic 63–195; BP diastolic 34–115
[2017-09-23] MEDS: BLOOD SUGAR DIAGNOSTIC 1 EACH STRIP IN SCH ×4 (00:54→18:00)
[2017-09-23] MEDS: IPRATROPIUM NEB FS 0.5 MG/2.5 ML AMPUL.NEB NEB SCH ×6 (03:40→23:54)
[2017-09-23 05:03] LABS: CALCIUM, SERUM 7.8 mg/dL (8.5-10.1); CARBON DIOXIDE 32 mmol/L (21-32); CHLORIDE 107 mmol/L (98-107); CREATININE 1.3 mg/dL (0.6-1.3); GLUCOSE 99 mg/dL (74-106); POTASSIUM 3.7 mmol/L (3.5-5.1); SODIUM SERUM 145 mmol/L (136-145); UREA NITROGEN, BLOOD 29 mg/dL (7-18)
--- NOTE | 2017-09-23 06:34 | NUR ---
RN NOTES PT REMAINED IN STABLE CONDITION ON CPAP AT NIGHT. NO ACUTE RESP DISTRESS. TELE MONITOR REVEALS SB HR WENT DOWN TO 48 AND EPISODE OF A- FIB HR GOES UP TO 140'S. NO SIGNIFICANT CHANGES DENIES CHEST PAIN. REMAINED COOPERATIVE. ALL NEEDS ATTENDED. PT IS NPO THROUGHOUT THE SHIFT. NO S/S OG HYPOGLYCEMIA LAST BS 99 MG/DL .PT EDUCATE REGARDING SWALLOW EVAL AND SAFETY EATING. PT AWARE WITH EPISODE OF FORGETFUL. KEPT PT CLEAN AND DRY. WILL ENDORSED CONTINUITY OF CARE TO AM NURSE.
[2017-09-23] MEDS: BETAMETHASONE DIP 0.05% CREAM 15 GM TUBE TP SCH ×2 (06:58→19:00)
[2017-09-23] MEDS: LEVOTHYROXINE SODIUM 100 MCG TABLET PO SCH ×2 (07:30→09:10)
--- NOTE | 2017-09-23 07:52 | NUR ---
Pt taken off mechanical vent (CPAP mode) and placed on CA per MD order. Addendum: 09/23/17 at 0753 by SHREYAS CHAVEZ RT Amended: Links added.
--- NOTE | 2017-09-23 08:00 | NUR ---
ICU/RN AM SHIFT INITIAL NOTES RECEIVED PT AWAKE SITTING IN BED, PT A/O X 2-3 FORGETFUL, ABLE TO COMMUNICATE BY POINTING OUT ALPHABETS. DENIES ANY SYMPTOMS, NO ACUTE CHANGE OF CONDITION NOTED. PT PLACED ON COOL AEROSOL WITH 40% FIO2, LUNG SOUNDS RHONCHI, SUCTIONED FOR AIRWAY CLEARANCE, SATURATING @ 96%, ON TELE WITH SINUS DESTINY, HR 56. PICC LINE PATENT WITH POSITIVE BLOOD RETURN, FLUSHED, ON TKO. BOLAND CATHETER INTACT, NOTED WITH NAYELI COLORED URINE OUTPUT. PT ON NPO STATUS AT THIS TIME, SCHEDULED FOR FOLLOW-UP SWALLOW EVALUATION. ON SOFT BILATERAL WRISTS RESTRAINTS, REMOVED TO CHECK FOR CIRCULATION AND COMFORT, THE PLACED BACK. PT IS COMFORTABLE. SCHEDULED AM MEDS TO BE GIVEN. CL WITHIN REACHED AND SAFETY MAINTAINED. ON GOING MONITORING.
[2017-09-23] MEDS: GABAPENTIN 300 MG CAPSULE PO SCH ×3 (08:01→16:53)
[2017-09-23] MEDS: APIXABAN 5 MG TABLET PO SCH ×3 (08:01→16:53)
[2017-09-23] MEDS: ASCORBIC ACID 500 MG TABLET PO SCH ×3 (08:01→16:53)
[2017-09-23] MEDS: DOCUSATE SODIUM LIQ 100 MG/10 ML UDC NG SCH ×2 (08:01→09:09)
[2017-09-23] MEDS: SERTRALINE HCL 50 MG TABLET PO SCH ×2 (08:01→09:09)
[2017-09-23] MEDS: methylPREDNISolone SOD SUCC 125 MG/2ML VIAL IV SCH ×2 (09:09→16:53)
[2017-09-23] MEDS: AMIODARONE HCL 200 MG TABLET PO SCH (09:10)
[2017-09-23] MEDS: VALSARTAN 80 MG TABLET PO SCH (09:10)
[2017-09-23] MEDS: Z GUARD REMEDY 2 OZ OINT TP SCH (09:11)
--- NOTE | 2017-09-23 09:30 | NUR ---
ICU/RN SWALLOW EVALUATION - POSTPONED PER SPEECH THERAPIST, SWALLOW EVALUATION WILL BE POSTPONED UNTIL TUESDAY. ALSO SAID PT STILL BE NPO BUT EXCEPT MEDICATION. PT ABLE TO SWALLOW MEDICATION SAFELY WITH THICKENED WATER.
--- NOTE | 2017-09-23 12:40 | NUR ---
[facility] RN NOTES RECEIVED REPORT FROM JOSE RAFAEL FOR DEEPIKA.
--- NOTE | 2017-09-23 13:30 | NUR ---
ICU/RN DOWNGRADED - [facility] 117#1 TRANSFERRED PT VIA BED, ACCOMPANIED BY GROUP LEADER WAFER POLISHING TO ROOM 117#1, PT ENDORSED TO NURSE CAMARGO. SAFETY MAINTAINED.
--- NOTE | 2017-09-23 16:25 | NUR ---
[facility] RN NOTES REPORT GIVEN TO HAKAN WELSH FOR DEEPIKA.
--- NOTE | 2017-09-23 16:40 | NUR ---
ACCOUNTS PAYABLE LEAD NOTE RECEIVED PATIENT FROM RAMAN RN PATIENT WITH TRACH TO COOLER AEROSOL ORDERED , ALERT , ORIENTED X3 , WITH BOLAND CATH WITH HEMATURIA NOTED TELE MONITOR SB HR 57 ON NPO STATUS ORDERED RT UA PICCLINE IN PLCE BED IN LOWEST AND LOCKED POSITION , WILL CONT TO MONITOR CLOSELY
--- NOTE | 2017-09-23 17:00 | NUR ---
RIBBON BLOCKER NOTE NOTED PATIENT IS DESATURATED SAT 83% WITH SLIGHT SOB NOTED, RT AT BEDSIDE TRUING TO CHECK PATIENT
--- NOTE | 2017-09-23 17:20 | NUR ---
MULTIPLE RESAW OPERATOR NOTE PATIENT STILL IS DESATURATED SAT 75% AND NOTED LT SIDE ON NECK WITH SUBCUTANEOUS EMPHYSEMA , CALLED [facility]APID RESPOND TEAM , RT AT BEDSIDE TRYING TO CHANCE TRACH STILL NOT FEELING OK CALLED TO DR BARKER WITH ORDER CHEST XRAY STAT AND CALLED TO DR SPAULDING COFFEE FARMER Addendum: 09/23/17 at 1943 by HAKAN TAYLOR RN DR SPAULDING AND DR FERNANDEZ WAS CALLED BY RAPID RESPONSE TEAM NURSE
--- NOTE | 2017-09-23 17:20 | NUR ---
ICU/RN RAPID RESPONSE CALLED .PT HAS RECENTLY NEW TRACHEOSTOMY.WAS ON T-TUBE ,FIO2-40%.SAT O2 DECREASED TO 82%,PT IS AWAKE ,ALERT. BP STABLE.,RESPIRATORY THERAPIST AT BEDSIDE.PT HAS LEFT CHEST SUBCUTANEOUS EMPHYSEMA.CHEST X-RAY ORDERED. ASK ER DOCTOR GLADYS TO EVALUATE THE PATIENT .DR GRAHAM AT BEDSIDE.REFUSED TO GIVE ANY ORDERS ,ASKED TO CONTACT PRIMARY PHYSICIAN.UNABLE TO CONTACT DR SUERO AT THIS TIME.DR SPAULDING NOTIFIED .RECEIVED ORDER TRANSFER PT TO ICU AND CONTACT DR GARCIA.PT TRANSFERRED TO ICU .
--- NOTE | 2017-09-23 17:40 | NUR ---
INTERNATIONAL EDITORIAL PRODUCER NOTE DR SPAULDING AND DR FERNANDEZ CALLED BACK WITH ORDER TO TRANSFER TO ICU
--- NOTE | 2017-09-23 17:45 | NUR ---
ARCHITECTURAL DRAFTER NOTE TRANSFERRED TO ICU ORDERED REPORT GIVEN TO [facility] CHARGE NURSE
--- NOTE | 2017-09-23 17:45 | NUR ---
ICU/RN RECEIVED CHEST X-RAY REPORT FROM DR PRYOR.PT DEVELOPMENT OF SUBCUTANEOUS EMPHYSEMA WITHOUT PNEUMOTHORAX AND MALPOSITIONED TRACHEOSTOMY. DR GARCIA NOTIFIED.RECEIVED ORDERER TO CHANGE TRACHEOSTOMY TUBE TO XLT.RESPIRATORY THERAPIST AT BED SIDE.
--- NOTE | 2017-09-23 17:55 | NUR ---
ICU/RN CODE BLUE ACTIVATED.RESPIRATORY THERAPIST UNABLE TO SWITCH TRACHEOSTOMY TUBE ,PT NEED TO BE INTUBATED.DR GRAHAM REFUSED TO INTUBATE THE PATIENT.DR GUERRERO ANESTHESIOLOGIST INTUBATED THE PATIENT .PT PLACED ON THE VENT .
[2017-09-23] MEDS ORDERED: ETOMIDATE 2 MG/ML VIAL IV ONE (18:48)
[2017-09-23] MEDS ORDERED: SUCCINYLCHOLINE CHLORIDE 20 MG/ML VIAL IV ONE (18:48)
--- NOTE | 2017-09-23 19:15 | NUR ---
ICU/RN RECEIVED CHEST X-RAY RESULT.PT HAS BILATERAL PNEUMOTHORAX .DR GARCIA NOTIFIED.
--- NOTE | 2017-09-23 19:25 | NUR ---
LANGUAGE TRANSLATOR. DR CARY AT BED SIDE DURING CODE BLUE TIME. CODE BLUE SHEET SIGN MD CARY REFUSED. HEAD OF STORE OPERATIONS DIDI MADE AWARE.
[2017-09-23] MEDS ORDERED: NOREPINEPHRINE 16 MG in IV D5W 500 ML IV PRN (19:30)
[2017-09-23] MEDS ORDERED: MORPHINE SULFATE INJ 4 MG/ML DISP.SYRIN ONE (20:01)
[2017-09-23] MEDS ORDERED: MORPHINE SULFATE INJ 4 MG/ML DISP.SYRIN IV ONE (20:30)
--- NOTE | 2017-09-23 21:00 | NUR ---
SHOWROOM SALES CONSULTANT. RECEIVED THE PT ORALLT INTUBATED, SEDATED WITH DIPRIVAN, ETT #8,LIP 25CM,AC 16,TV 550,FIO2 100%, SAT 99%. NO ACUTE DISTRESS NOTED. OGT INSERTED. IV RT HAND PICC LINE. PICC LINE NOT WORKING. CALLED PICC LINE RN MILY SAID PICC LINE KINKED , PICC LINE REPLACED. DIPRIVAN 2MCG/KG/MIN STARTED. LEVOPHED 2MCG/MIN STARTED, FC PATENT. HEMATURIA NOTED. DIGESTER CAPPER SHOWING SARAH ND OUT AFIB UNCONTROLLED LISA COIN BOX INSPECTOR MADE AWARE. S/P CHEST TUBE XRAY AND ABG DONE. PER LISA EPPESRON PEEP 0. LORELEI SOT WRIST RESTRAINT CHECKED AND RELEASED. NO INJURY OR REDNESS NOTED. WILL CONTINUE TO MONITOR
[2017-09-23 21:15] LABS: ABG OXYGEN SATURATION 98.5 % (92.0-98.5); ABG PCO2 47.7 mmHg (35.0-45.0); ABG PH 7.382 (7.350-7.450); ABG PO2 195.2 mmHg (75.0-100.0); AaDO2 470.1 mmHg; COHb 0.3 % (0.5-1.5); MetHb 0.6 % (0.0-1.5); O2Hb 97.6 % (94.0-97.0); PEEP,BG 5 cm H2O; SITE, ABG Left Radial
--- NOTE | 2017-09-23 21:47 | NUR ---
PT RECEIVED ORALLY INTUBATED ON VENT 8.0 ETT SECURED AT 25CM AT THE LIP. PT TOLERATING VENT SETTINGS. MOD AMT OF THICK PALE SECRETIONS. VENT ALARMS SET AND AUDIBLE. AMBU BAG AT BEDSIDE. VENT PLUGGED INTO RED OUTLET. WILL CONTINUE TO MONITOR. Addendum: 09/23/17 at 2149 by CODEY NIX RT Amended: Links added.
[2017-09-23] MEDS: TAMSULOSIN 0.4 MG CAP.SR.24H PO SCH (22:09)
[2017-09-23] MEDS: PANTOPRAZOLE 40 MG VIAL IV SCH (22:09)
--- NOTE | 2017-09-23 22:30 | NUR ---
PEEP DC PER SILAS. BLAISE GRANADOS NOTIFIED. WILL CONTINUE TO MONITOR. Addendum: 09/23/17 at 2231 by CODEY NIX RT Amended: Links added.
[2017-09-23] MEDS: PROPOFOL 100 ML IV PRN (23:25)
--- NOTE | 2017-09-23 23:29 | NUR ---
INDUCTION COORDINATION ENGINEER. AROUND 191 PT ON PEA, ACTIVATED CODE BLUE SEE CODE BLUE SHEET. X RAY SHOWING LT SIDE PNEUMOTHORAX PT NEED CHEST TUBE PLACEMENT, ER MD CARY REFUSED, DR GARCIA CAME AND INSERTED LT SIDE CHEST TUBE . NO AIR LEAK NOTED. ORDER CONTINUES SUCTION. SEROUS FLUID NOTED.
[2017-09-24] VITALS (143 sets, daily range): BP systolic 69–186; BP diastolic 45–129
[2017-09-24] MEDS ORDERED: PHENYLEPHRINE 10 MG/ML VIAL ONE (00:09)
[2017-09-24] MEDS: PHENYLEPHRINE 40 MG in IV D5W 250 ML IV PRN ×3 (00:19→20:42)
[2017-09-24] MEDS: IPRATROPIUM NEB FS 0.5 MG/2.5 ML AMPUL.NEB NEB SCH ×6 (03:31→23:09)
--- NOTE | 2017-09-24 03:36 | NUR ---
BREAD ICER, AM CARE, ORAL CARE, BED BATH GIVEN, LINEMN CHANGED, REMAINING SAME VENT SETTING TOLERATED WELL SAT 98%, NO ACUTE DISTRESS NOTED. CIRCULATION LIBRARIAN SHOWING OGT CLAMPED. IV RT UPPER ARM PICC LINE IV DIPRIVAN 30MCG/KG FC PATENT. LORELEI SOFT WRIST RESTRAINT CHECKED AND RELEASED, NO INJURY OR REDNESS NOTED LT SIDE CHEST TUBE INTACT. TURN AND REPOSITION Q2H. LORELEI SOFT WRIST RESTRAINT CHEC IV LEVOPHED 2MCG. DIPRIAN 30MCG/KG/MIN. WILL CONTINUE TO MONITOR VITALS.
[2017-09-24] MEDS: PROPOFOL 100 ML IV PRN ×6 (03:46→20:17)
[2017-09-24 05:07] LABS: CALCIUM, SERUM 7.7 mg/dL (8.5-10.1); CARBON DIOXIDE 31 mmol/L (21-32); CHLORIDE 107 mmol/L (98-107); CREATININE 1.5 mg/dL (0.6-1.3); GLUCOSE 94 mg/dL (74-106); POTASSIUM 3.5 mmol/L (3.5-5.1); SODIUM SERUM 147 mmol/L (136-145); UREA NITROGEN, BLOOD 35 mg/dL (7-18)
[2017-09-24] MEDS: BLOOD SUGAR DIAGNOSTIC 1 EACH STRIP IN SCH ×4 (06:23→18:11)
--- NOTE | 2017-09-24 06:29 | NUR ---
TURN DOWN WORKER. DIPRIVAN 30MCG/KG/MIN,FARHANA 50MCG/MIN, HEMATURIA PRESENT IN THE URINE.WILL CONTINUE TO MONITOR,
--- NOTE | 2017-09-24 06:51 | NUR ---
PRECISION MILLWRIGHT. RADIOLOGIST CALLED FOR REGARDING PT X RAY RESULT , RT SIDE LARGE PNEUMOTHORAX WITH PROGRESSIVE COLLAPSE OF THE RT LUNG. LISA EPPERSON MADE AWARE RADIOLOGY RESULT. PAGED ENVIRONMENTAL RESEARCH SCIENTIST ROUTE VENDING MACHINE SERVICER JOSE ARMANDO. WAITING FOR CALL BACK.
[2017-09-24] MEDS: BETAMETHASONE DIP 0.05% CREAM 15 GM TUBE TP SCH ×2 (07:00→18:10)
[2017-09-24] MEDS: LEVOTHYROXINE SODIUM 100 MCG TABLET PO SCH (07:30)
--- NOTE | 2017-09-24 07:48 | NUR ---
COMMUNITY HEALTH PROGRAM REPRESENTATIVE DF CALLED DR GARCIA LEFT MESSAGE TO [phone] REGARDING AM PCXR SHOWS WORSENING RIGHT SIDE PTHX. PT VSS PT ON FIO2 70% WITH O2 SAT 94-95%.
--- NOTE | 2017-09-24 08:00 | NUR ---
RIGGER SUPERVISOR DF MD GARCIA CALLED BACK HE WILL NOT BE AT [facility] UNTIL AFTER 1500 TODAY.INFORMED MD GARCIA WHO IS ON PHONE WITH ER MD. PREPARING PT FOR STAT CHEST TUBE INSERTION OF RIGHT SIDE. I ATTEMPTED TO CALL FAMILY AISHA SUN [phone] LEFT MESSAGE TO CALL BACK.
--- NOTE | 2017-09-24 08:10 | NUR ---
QUARTER BACKER DF ER MD AT BEDSIDE FOR EMERGENT RIGHT SIDE CHEST TUBE PLACEMENT. PT SEDATED ON PROPOFOL. PT WITH BLEEDING TO RIGHT SIDE CHEST TUBE SITE. ER MD MONTOYA/MD GARCIA AT BEDSIDE..STAT CALL PLACED TO VASCULAR SGY MD MORAN. PT HAS ORDER FOR 4 UNITS PRBC O NEGATIVE BLOOD AND 2 UNITS FFP TO BE TRANSFUSED. POC TAKE PT TO SURGERY.
[2017-09-24] MEDS: methylPREDNISolone SOD SUCC 125 MG/2ML VIAL IV SCH ×2 (08:37→16:22)
[2017-09-24] MEDS: DOCUSATE SODIUM LIQ 100 MG/10 ML UDC NG SCH (08:38)
[2017-09-24] MEDS: SERTRALINE HCL 50 MG TABLET PO SCH (08:39)
[2017-09-24] MEDS: APIXABAN 5 MG TABLET PO SCH ×2 (08:39→16:25)
[2017-09-24] MEDS: AMIODARONE HCL 200 MG TABLET PO SCH (08:39)
[2017-09-24] MEDS: ASCORBIC ACID 500 MG TABLET PO SCH ×2 (08:39→16:24)
[2017-09-24] MEDS: GABAPENTIN 300 MG CAPSULE PO SCH ×2 (08:39→16:24)
[2017-09-24] MEDS: Z GUARD REMEDY 2 OZ OINT TP SCH (08:39)
--- NOTE | 2017-09-24 08:58 | NUR ---
CHIEF OPERATOR LOCK TENDER DF VASCULAR SGY MD MORAN AT BEDSIDE.MD GARCIA/DIONICIO ISSA/MD RIOS AT BEDSIDE TO EVAL AND TREAT PT. VSS. CHEST TUBE PLACEMENT IN PROGRESS.
[2017-09-24] MEDS ORDERED: CELLULOSE,OXIDIZED 1 EA PACK MC ONE (09:00)
[2017-09-24 09:11] LABS: CALCIUM, SERUM 6.5 mg/dL (8.5-10.1); CARBON DIOXIDE 25 mmol/L (21-32); CHLORIDE 108 mmol/L (98-107); CREATININE 1.1 mg/dL (0.6-1.3); GLUCOSE 133 mg/dL (74-106); POTASSIUM 4.5 mmol/L (3.5-5.1); SODIUM SERUM 142 mmol/L (136-145); UREA NITROGEN, BLOOD 31 mg/dL (7-18)
[2017-09-24 09:15] LABS: BASOPHILS % (AUTO) 0.3 % (0.0-2.0); EOSINOPHILS % (AUTO) 0.1 % (0.0-6.0); HEMATOCRIT 29 % (39-51); HEMOGLOBIN 9.5 g/dL (13.5-17.5); LYMPHOCYTES # (AUTO) 2.9 /CMM (0.8-4.8); LYMPHOCYTES % (AUTO) 17.9 % (20.0-44.0); MEAN CORPUSCULAR HGB CONC 33 g/dl (31.0-36.0); MEAN CORPUSCULAR VOLUME 85 fL (80-96); MONOCYTES # (AUTO) 1.1 /CMM (0.1-1.30); MONOCYTES % (AUTO) 6.7 % (2.0-12.0); NEUTROPHILS # (AUTO) 12.1 /CMM (1.8-8.9); PLATELET COUNT (AUTO) 333 /CMM (150-450); RDW COEFFICIENT OF VARIATION 17.8 (11.5-15.0); RED BLOOD CELL COUNT(AUTO) 3.38 MIL/uL (4.5-6.0); WHITE BLOOD COUNT (AUTO) 16.1 K/uL (4.3-11.0)
--- NOTE | 2017-09-24 09:30 | NUR ---
SUSTAINABLE DESIGN CONSULTANT DF ORDER TO HOLD PT,S AM MEDS DUE AT 0900. PT WAS UNDERGOING DIFFICULT CHEST TUBE INSERTION WITH ACUTE BLEEDING NOTED. ISSUES RESOLVED RIGHT SIDE CHEST TUBE PCXR SHOWS RIGHT NANCY RE EXPAND. NO ACUTE BLLEDING NOTED AT THIS TIME. PREVIOUSLY NOTED PT SEEN AND EVAL BY VASCULAR SGY MD MORAN. VSS AWAITING CBC RESULTS.
[2017-09-24] MEDS ORDERED: EPINEPHRINE (1:10,000) SYRINGE 1 MG/10 ML DISP.SYRIN IVP ONE (09:51)
[2017-09-24] MEDS ORDERED: SODIUM BICARBONATE SYR 50 MEQ/50 ML DISP.SYRIN IV ONE (09:51)
--- NOTE | 2017-09-24 10:04 | NUR ---
PHOTOGRAPHIC SPECIALIST DF 1 UNIT PRBC COMPLETED TRANSFUSING.VSS. NO SS/S OF ADVERSE REACTION NOTED. ORDERS TO RECHECK HGB/HCT IN 1 HOUR.
--- NOTE | 2017-09-24 10:14 | NUR ---
LONG WALL SHEAR OPERATOR DF NEOSYNEPHRINE TITRATED TO 50MCG PT BP OF 146/100. PT PRBC 1 UNIT COMPLETED TRANSFUSING. PT HAD 1 UNIT OF O NEGATIVE EMERGENT BLOOD TRANSFUSION ONE UNIT. HGB/HCT TO BE CHECKED AT 1100. DR RIOS COVERING FOR MD BARKER.
[2017-09-24] MEDS: MORPHINE SULFATE INJ 4 MG/ML DISP.SYRIN IV PRN ×2 (10:24→16:53)
--- NOTE | 2017-09-24 10:35 | NUR ---
PUSHER RUNNER DF PT ADMIN MORPHINE 4MG IVP PRN SEVERE PAIN 2ND CHEST TUBE INSERTION.DIPRIVAN DECREASED TO 40MCG, NEOSYNEPHRINE TITRATED TO 80MG CURRENT BP OF 137/86/ I SPOKE WITH PT,S FAMILY AISHA RAMAN SUN CONSENTED TO RIGHT SIDE CHEST TUBE INSERTION AND EMERGENT BLOOD TRANSFUSION.
--- NOTE | 2017-09-24 10:56 | NUR ---
STERILE PROCESSING MANAGER DF FATHER TASHA HERE FROM [facility] TO PERFORM ANOINTMENT. I S/W PT SISTER AISHA RAMAN WHO IS IN AGREEMENT WITH POC.
--- NOTE | 2017-09-24 11:47 | NUR ---
MOLD WASHER DF PT HGB/HCT DRAWN AWAITING RESULTS.
[2017-09-24 12:28] LABS: ABG BASE EXCESS 4.1 mmol/L; ABG OXYGEN SATURATION 98.4 % (92.0-98.5); ABG PCO2 37.6 mmHg (35.0-45.0); ABG PH 7.484 (7.350-7.450); ABG PO2 196.9 mmHg (75.0-100.0); AaDO2 478.5 mmHg; COHb 0.2 % (0.5-1.5); MetHb 0.5 % (0.0-1.5); O2Hb 97.7 % (94.0-97.0); SITE, ABG Left Radial; VT, ABG 550 mL
--- NOTE | 2017-09-24 12:32 | NUR ---
FLOWER CUTTER DF PT ABG RESULT PH 7.48 CO2 37/ PO2 196/ HCO3 27.3/ ORDERS TO CHANGE TV TO 500 AND FIO2 70%. MD MITCHELL AT BEDSIDE TO SEE PT.
[2017-09-24 13:00] LABS: BASOPHILS % (AUTO) 0.2 % (0.0-2.0); EOSINOPHILS % (AUTO) 0.1 % (0.0-6.0); HEMATOCRIT 33 % (39-51); HEMOGLOBIN 11.2 g/dL (13.5-17.5); LYMPHOCYTES # (AUTO) 2.6 /CMM (0.8-4.8); LYMPHOCYTES % (AUTO) 12.7 % (20.0-44.0); MEAN CORPUSCULAR HGB CONC 34 g/dl (31.0-36.0); MEAN CORPUSCULAR VOLUME 85 fL (80-96); MONOCYTES # (AUTO) 0.2 /CMM (0.1-1.30); MONOCYTES % (AUTO) 1.1 % (2.0-12.0); NEUTROPHILS # (AUTO) 17.5 /CMM (1.8-8.9); NEUTROPHILS % (AUTO) 85.9 % (43.0-81.0); PLATELET COUNT (AUTO) 346 /CMM (150-450); RED BLOOD CELL COUNT(AUTO) 3.91 MIL/uL (4.5-6.0); WHITE BLOOD COUNT (AUTO) 20.3 K/uL (4.3-11.0)
--- NOTE | 2017-09-24 13:03 | NUR ---
GORING CUTTER DF ACCU CHECK OF 83 NO COVERAGE PER EMAR.
--- NOTE | 2017-09-24 14:00 | NUR ---
DIRECTOR OF SUSTAINABILITY PROGRAMS DF HGB/HCT RESULTED 11.2 CALCIUM OF 6.5. MD RIOS/RADHA UPDATED. NO FURTHER ORDERS RECEIVED.
--- NOTE | 2017-09-24 14:28 | NUR ---
OFFICE RN DF NEOSYNEPHRINE TITRATED TO 70MCG BP OF 143/80.
--- NOTE | 2017-09-24 15:56 | NUR ---
CLOTH COVERED HELMET PULLER DF PT WITH FEVER OF 100.8 COOLING MEASURES AND WILL ADMINISTER TYLENOL 650 MG GT.
[2017-09-24] MEDS ORDERED: ACETAMINOPHEN LIQUID 160 MG/5 ML BOTTLE GT PRN (16:00)
--- NOTE | 2017-09-24 16:43 | NUR ---
JACQUARD LOOM CARD CHANGER DF BP OF 133/62 NEOSYNEPHRINE TITRATED TO 50MCG.
--- NOTE | 2017-09-24 18:13 | NUR ---
MECHANICAL SPREADER OPERATOR DF NEOSYNEPHRINE TITRATED TO 40 MCG UNABLE TO TITRATE FURTHER WITHOUT DECREASING BLOOD PRESSURE. DIPRIVAN 40MCG FOR SEDATION. PT MEDICATED WITH MORPHINE 4MG X2(SEE EMAR FOR ADMIN TIMES)PT RIGHT SIDE CHEST TUBE 60 ML/LEFT SIDE CHEST TUBE 55 ML.
--- NOTE | 2017-09-24 18:28 | NUR ---
BOXING MACHINE OPERATOR DF DIPRIVAN TITRATED TO 30MCG VERY SEDATED. WILL MONITOR FOR EFFECT.
--- NOTE | 2017-09-24 20:44 | NUR ---
TEAROOM HOSTESS, INITIAL ASSESSMENT. RECEIVED THE PT REST ON THE BED. ORALLY INTUBATED, SEDATED WITH DIPRIVAN. ETT #8,LIP 25CM,AC 16,TV 550,FIO2 70%, SAT 99%. NO ACUTE DISTRESS NOTED. MAT GAUGER SHOWING AFIB. IV RT UPPER ARM PICC LINE DIPRIVAN 30MCG/KG/MIN, FARHANA 30MCG.MIN, LORELEI SOFT WRIST RESTRAINT CHECKED AND RELEASED. NO INJURY OR REDNESS NOTED. LORELEI CHEST TUBE INTACT. STEVENSON AIR LEAK NOTED. FC PATENT. OGT CLAMPED. HOB ELEVATED. WILL CONTINUE TO MONITOR VITALS.
[2017-09-24] MEDS: PANTOPRAZOLE 40 MG VIAL IV SCH (23:28)
[2017-09-24] MEDS: TAMSULOSIN 0.4 MG CAP.SR.24H PO SCH (23:28)
[2017-09-25] VITALS (56 sets, daily range): BP systolic 91–153; BP diastolic 41–80
[2017-09-25] MEDS: BLOOD SUGAR DIAGNOSTIC 1 EACH STRIP IN SCH ×5 (01:33→23:21)
[2017-09-25] MEDS: IPRATROPIUM NEB FS 0.5 MG/2.5 ML AMPUL.NEB NEB SCH ×6 (03:06→23:38)
--- NOTE | 2017-09-25 03:38 | NUR ---
HIGH SCHOOL TUTOR. AM CARE, ORAL CARE, BED BATH GIVEN. LINEN CHANGED, REMAINING SAME VENT SETTING TOLERATED WELL. SAT 98%, NO ACUTE DISTRESS NOTED. WAREHOUSE RECEIVER SHOWING AFIB. HOB ELEVATED. OGT CLAMPED. LORELEI SOFT WRIST RESTRAINT CHECKED AND RELEASED, NO INJURY OR REDNESS NOTED, LORELEI CHEST TUBE INTACT. NO AIR LEAK NOTED. TURN AND REPOSITION Q2H. DIPRIVAN 30MCG/KG/MIN, FARHANA 25MCG/MIN. WILL CONTINUE TO MONITOR VITALS,
[2017-09-25] MEDS: PROPOFOL 100 ML IV PRN ×6 (04:16→23:15)
[2017-09-25 05:02] LABS: BASOPHILS # (AUTO) 0.1 /CMM (0.0-0.2); BASOPHILS % (AUTO) 0.7 % (0.0-2.0); HEMATOCRIT 32 % (39-51); HEMOGLOBIN 10.5 g/dL (13.5-17.5); LYMPHOCYTES # (AUTO) 1.3 /CMM (0.8-4.8); LYMPHOCYTES % (AUTO) 9.6 % (20.0-44.0); MEAN CORPUSCULAR HGB CONC 33 g/dl (31.0-36.0); MEAN CORPUSCULAR VOLUME 85 fL (80-96); MONOCYTES # (AUTO) 0.6 /CMM (0.1-1.30); NEUTROPHILS # (AUTO) 11.7 /CMM (1.8-8.9); NEUTROPHILS % (AUTO) 85.7 % (43.0-81.0); PLATELET COUNT (AUTO) 220 /CMM (150-450); RDW COEFFICIENT OF VARIATION 16.9 (11.5-15.0); RED BLOOD CELL COUNT(AUTO) 3.73 MIL/uL (4.5-6.0); WHITE BLOOD COUNT (AUTO) 13.6 K/uL (4.3-11.0)
[2017-09-25 05:14] LABS: ALANINE AMINOTRANSFERASE 50 U/L (12-78); ALBUMIN 1.8 g/dL (3.4-5.0); ALKALINE PHOSPHATASE 43 U/L (46-116); ASPARTATE AMINOTRANSFERASE 27 U/L (15-37); BILIRUBIN,TOTAL 0.5 mg/dL (0.2-1.0); CALCIUM, SERUM 7.7 mg/dL (8.5-10.1); CARBON DIOXIDE 28 mmol/L (21-32); CHLORIDE 110 mmol/L (98-107); CREATININE 1.1 mg/dL (0.6-1.3); GLUCOSE 116 mg/dL (74-106); MAGNESIUM 2.1 mg/dL (1.8-2.4); PHOSPHORUS 3.4 mg/dL (2.5-4.9); POTASSIUM 3.5 mmol/L (3.5-5.1); SODIUM SERUM 146 mmol/L (136-145); TOTAL PROTEIN, SERUM 4.8 g/dL (6.4-8.2); UREA NITROGEN, BLOOD 27 mg/dL (7-18)
[2017-09-25 05:18] LABS: TROPONIN I 0.145 ng/mL (0.00-0.056)
[2017-09-25] MEDS: BETAMETHASONE DIP 0.05% CREAM 15 GM TUBE TP SCH ×2 (06:14→18:39)
--- NOTE | 2017-09-25 06:19 | NUR ---
AUTOMOTIVE PARTS INTERPRETER. RT SIDE CHEST TUBE 40ML.BLOOD, LT SIDE O. WILL CONTINUE TO MONITOR.
--- NOTE | 2017-09-25 07:10 | NUR ---
ORDER DETAILER- INITIAL NOTE RECEIVED PT RESTING IN BED. PT LETHARGIC HOWEVER OPENS EYES TO VERBAL STIMULI AND ABLE TO FOLLOW COMMANDS. BEDSIDE MONITOR REVEALS SINUS BRADYCARDIA WITH OCCASIONAL PACS. OGT PRESENT AND CLAMPED. VERIFIED VIA AUSCULTATION. BOLAND CATHETER DRAINING NAYELI URINE, HEMATURIA NOTED. LIONEL PICC LINE RUNNING DIPRIVAN AT 30 MCG/MIN, NEOSYNEPHRINE @ 5 MCG/MIN AND NS @ TKO. WILL CONTINUE TO MONITOR.
[2017-09-25] MEDS: LEVOTHYROXINE SODIUM 100 MCG TABLET PO SCH (07:30)
[2017-09-25] MEDS: DOCUSATE SODIUM LIQ 100 MG/10 ML UDC NG SCH (08:22)
[2017-09-25] MEDS: APIXABAN 5 MG TABLET PO SCH ×2 (08:23→17:00)
[2017-09-25] MEDS: AMIODARONE HCL 200 MG TABLET PO SCH (08:23)
[2017-09-25] MEDS: GABAPENTIN 300 MG CAPSULE PO SCH ×2 (08:23→17:00)
[2017-09-25] MEDS: ASCORBIC ACID 500 MG TABLET PO SCH ×2 (08:23→17:00)
[2017-09-25] MEDS: SERTRALINE HCL 50 MG TABLET PO SCH (08:23)
[2017-09-25] MEDS: POTASSIUM CL. PREMIX PERIPHER. 50 ML IV SCH ×4 (09:00→12:06)
[2017-09-25] MEDS: methylPREDNISolone SOD SUCC 125 MG/2ML VIAL IV SCH ×2 (09:00→17:54)
[2017-09-25] MEDS: Z GUARD REMEDY 2 OZ OINT TP SCH (09:01)
[2017-09-25] MEDS: IV NS 0.9% 1,000 ML IV PRN ×2 (09:01→18:38)
[2017-09-25 09:25] LABS: ABG BASE EXCESS 4.8 mmol/L; ABG OXYGEN SATURATION 95.8 % (92.0-98.5); ABG PCO2 39.6 mmHg (35.0-45.0); ABG PH 7.478 (7.350-7.450); ABG PO2 86.1 mmHg (75.0-100.0); AaDO2 298.1 mmHg; COHb 0.2 % (0.5-1.5); MetHb 0.6 % (0.0-1.5); PEEP,BG 0 cm H2O; SITE, ABG Right Radial
[2017-09-25] MEDS ORDERED: ALBUMIN 25% 12.5 GM in PREMIX 1 EA IV ONE (10:30)
--- NOTE | 2017-09-25 20:05 | NUR ---
PT RECEIVED ORALLY INTUBATED 8.0 ETT SECURED AT 25CM AT THE LIP. PT IS AWAKE, TOLERATING VENT SETTINGS. SX'D FOR MOD AMT OF THICK YELLOW SECRETIONS. VENT ALARMS SET AND AUDIBLE. AMBU BAG AT BEDSIDE. VENT PLUGGED INTO RED OUTLET. WILL CONTINUE TO MONITOR. Addendum: 09/25/17 at 2006 by CODEY NIX RT Amended: Links added.
--- NOTE | 2017-09-25 20:28 | NUR ---
received pt from day shift, sedated on Diprivan at 40mcg, SB, on the vent, lungs diminished/rhonchi, R and L chest tubes, no air leak, L neck small emphysema, BL hand edema, OG clamped, f/c OK output, restraints on, v/s stable, no pain, pt turned and repositioned.
[2017-09-25] MEDS: PANTOPRAZOLE 40 MG VIAL IV SCH (21:18)
[2017-09-25] MEDS: TAMSULOSIN 0.4 MG CAP.SR.24H PO SCH (21:18)
[2017-09-26] VITALS (44 sets, daily range): BP systolic 105–164; BP diastolic 53–137
--- NOTE | 2017-09-26 00:08 | NUR ---
pt is resting in the bed, v/s stable, no pain, pt turned and repositioned q2hrs
[2017-09-26] MEDS: PROPOFOL 100 ML IV PRN ×7 (02:37→23:14)
[2017-09-26] MEDS: IPRATROPIUM NEB FS 0.5 MG/2.5 ML AMPUL.NEB NEB SCH ×6 (03:18→23:37)
--- NOTE | 2017-09-26 04:25 | NUR ---
pt is resting in the bed, no acute distress overnight, sedated on Diprivan at 40mcg, SB, v/s stable, no pain, pt cleaned, changed and repositioned q2hrs.
[2017-09-26 04:44] LABS: HEMATOCRIT 34 % (39-51); HEMOGLOBIN 11.2 g/dL (13.5-17.5); LYMPHOCYTES # (AUTO) 1.4 /CMM (0.8-4.8); LYMPHOCYTES % (AUTO) 11.5 % (20.0-44.0); MEAN CORPUSCULAR HGB CONC 33 g/dl (31.0-36.0); MEAN CORPUSCULAR VOLUME 86 fL (80-96); MONOCYTES # (AUTO) 0.3 /CMM (0.1-1.30); MONOCYTES % (AUTO) 2.7 % (2.0-12.0); NEUTROPHILS # (AUTO) 10.6 /CMM (1.8-8.9); NEUTROPHILS % (AUTO) 85.8 % (43.0-81.0); PLATELET COUNT (AUTO) 203 /CMM (150-450); RDW COEFFICIENT OF VARIATION 16.7 (11.5-15.0); RED BLOOD CELL COUNT(AUTO) 3.95 MIL/uL (4.5-6.0); WHITE BLOOD COUNT (AUTO) 12.3 K/uL (4.3-11.0)
[2017-09-26 04:57] LABS: CALCIUM, SERUM 7.9 mg/dL (8.5-10.1); CARBON DIOXIDE 26 mmol/L (21-32); CHLORIDE 109 mmol/L (98-107); CREATININE 1.1 mg/dL (0.6-1.3); GLUCOSE 118 mg/dL (74-106); POTASSIUM 4.3 mmol/L (3.5-5.1); SODIUM SERUM 145 mmol/L (136-145); UREA NITROGEN, BLOOD 27 mg/dL (7-18)
[2017-09-26] MEDS: IV NS 0.9% 1,000 ML IV PRN ×2 (04:58→15:15)
[2017-09-26] MEDS: BLOOD SUGAR DIAGNOSTIC 1 EACH STRIP IN SCH ×4 (05:07→23:21)
[2017-09-26] MEDS: BETAMETHASONE DIP 0.05% CREAM 15 GM TUBE TP SCH ×2 (06:02→18:32)
[2017-09-26] MEDS: LEVOTHYROXINE SODIUM 100 MCG TABLET PO SCH (07:30)
--- NOTE | 2017-09-26 08:00 | NUR ---
ICU/RN: Pt received, intubated, no distress noted, breathing even and unlabored, tolerating current vent settings. R and L chest tube in place, draining serosanguineous fluids, no airleaks noted. Orally suctioned with thick white secretions noted. Sedation vacation rendered, pt alert, oriented, communicative and follows simple commands, good bilat upper and lower ext strength noted. Pt placed back on sedation for comfort. SB on monitor when well sedated, asymptomatic with stable BP. Restraint care rendered. FC draining dark anne-marie urine to gravity, will cont to monitor pt.
[2017-09-26] MEDS: methylPREDNISolone SOD SUCC 125 MG/2ML VIAL IV SCH ×2 (08:29→16:04)
[2017-09-26] MEDS: Z GUARD REMEDY 2 OZ OINT TP SCH (08:29)
--- NOTE | 2017-09-26 08:45 | NUR ---
ICU/RN: Dr Serra at bedside; updated on pt status, CT drainage, decreased SQ emphysema, ABG's reported with vent changes ordered. Noted and carried out.
[2017-09-26] MEDS: ASCORBIC ACID 500 MG TABLET PO SCH ×2 (09:00→16:01)
[2017-09-26] MEDS: SERTRALINE HCL 50 MG TABLET PO SCH (09:00)
[2017-09-26] MEDS: APIXABAN 5 MG TABLET PO SCH ×2 (09:00→16:01)
[2017-09-26] MEDS: AMIODARONE HCL 200 MG TABLET PO SCH (09:00)
[2017-09-26] MEDS: GABAPENTIN 300 MG CAPSULE PO SCH ×2 (09:00→16:01)
[2017-09-26] MEDS: DOCUSATE SODIUM LIQ 100 MG/10 ML UDC NG SCH (09:00)
--- NOTE | 2017-09-26 13:00 | NUR ---
ICU/RN: Dr Champagne at bedside; updated on pt status; for tracheostomy placement on Tuesday. chief catalyst operator updated.
--- NOTE | 2017-09-26 14:30 | NUR ---
ICU/RN: Bed bath, wound care rendered. Pt tolerated well, pt able to assist with turning and repositioning.
--- NOTE | 2017-09-26 18:15 | NUR ---
ICU/RN: Chest tube Ax: R CT: 200 cc serosanguineous output L CT: 60 cc serosanguineous output. No air leaks/bubbles noted. Dressings C/D/I.
--- NOTE | 2017-09-26 19:30 | NUR ---
LABOR CUSTODIAN INITIAL NOTE RECEIVED PATIENT DROWSY, AROUSABLE. DENIES PAIN OR DISCOMFORT. NO RESPIRATORY DISTRESS NOTED, WITH ETT 8.0CM/25CM LIP, WITH VENT SETTINGS AC 16, TV 500, FIO2 50%, PEEP 0, SPO2 98-100%. WITH BILATERAL CHEST TUBES IN PLACE, ON CONTINUOS SUCTION, -20CM H20, WITH SEROUSANGUINOUS OUTPUT. ON TELE MONITOR SINUS DESTINY, ASYMPTOMATIC. WITH F/C PATENT AND INTACT, DRAINING BY GRAVITY. WITH OGT PATENT, INTACT, IN PLACE, CLAMPED. BILATERAL SOFT WRIST RESTRAINTS IN PLACE, CIRCULATION CHECKED. WITH LIONEL PICC LINE PATENT AND INTACT, WITH NS AT 100ML/HR AND DIPRIVAN AT 35 MCG/KG/MIN. HOB ELEVATED. TURNED AND REPOSITIONED. SIDE RAILS UP AND LOCKED. BED KEPT AT LOWEST POSITION. WILL CONTINUE TO MONITOR. Addendum: 09/26/17 at 2113 by LEELEE HADDAD RN CORRECTION: LEFT CHEST TUBE SEROUS OUTPUT, RIGHT CHEST TUBE SEROSANGUINOUS.
[2017-09-26] MEDS: PANTOPRAZOLE 40 MG VIAL IV SCH (20:59)
[2017-09-26] MEDS: TAMSULOSIN 0.4 MG CAP.SR.24H PO SCH (21:10)
[2017-09-27] VITALS (44 sets, daily range): BP systolic 110–163; BP diastolic 45–105
--- NOTE | 2017-09-27 02:20 | NUR ---
MEDICAL TRANSCRIPTION EDITOR NOTE RT AT BEDSIDE, FIO2 TITRATED TO 40%. WILL CONTINUE TO MONITOR.
[2017-09-27] MEDS: PROPOFOL 100 ML IV PRN ×5 (02:51→22:34)
[2017-09-27] MEDS: IV NS 0.9% 1,000 ML IV PRN ×3 (03:50→22:26)
[2017-09-27] MEDS: IPRATROPIUM NEB FS 0.5 MG/2.5 ML AMPUL.NEB NEB SCH ×6 (04:15→23:37)
[2017-09-27 05:14] LABS: CALCIUM, SERUM 7.9 mg/dL (8.5-10.1); CARBON DIOXIDE 22 mmol/L (21-32); CHLORIDE 112 mmol/L (98-107); CREATININE 0.9 mg/dL (0.6-1.3); GLUCOSE 102 mg/dL (74-106); POTASSIUM 5.6 mmol/L (3.5-5.1); SODIUM SERUM 144 mmol/L (136-145); UREA NITROGEN, BLOOD 27 mg/dL (7-18)
[2017-09-27] MEDS: BETAMETHASONE DIP 0.05% CREAM 15 GM TUBE TP SCH ×2 (06:01→18:37)
[2017-09-27] MEDS: BLOOD SUGAR DIAGNOSTIC 1 EACH STRIP IN SCH ×3 (06:01→17:05)
[2017-09-27 06:22] LABS: BASOPHILS % (AUTO) 0.1 % (0.0-2.0); EOSINOPHILS % (AUTO) 0.1 % (0.0-6.0); HEMATOCRIT 30 % (39-51); HEMOGLOBIN 9.9 g/dL (13.5-17.5); LYMPHOCYTES # (AUTO) 1.5 /CMM (0.8-4.8); LYMPHOCYTES % (AUTO) 11.9 % (20.0-44.0); MEAN CORPUSCULAR HGB CONC 33 g/dl (31.0-36.0); MEAN CORPUSCULAR VOLUME 84 fL (80-96); MONOCYTES # (AUTO) 0.2 /CMM (0.1-1.30); MONOCYTES % (AUTO) 1.6 % (2.0-12.0); NEUTROPHILS # (AUTO) 10.9 /CMM (1.8-8.9); NEUTROPHILS % (AUTO) 86.3 % (43.0-81.0); PLATELET COUNT (AUTO) 189 /CMM (150-450); RDW COEFFICIENT OF VARIATION 16.5 (11.5-15.0); WHITE BLOOD COUNT (AUTO) 12.6 K/uL (4.3-11.0)
--- NOTE | 2017-09-27 07:15 | NUR ---
ICU/RN: Chest tube Ax: RIGHT CHEST TUBE ATTACHED TO CONTINUOUS SUCTION VIA WATER SEAL ATRIUM DRAINING WITH SEROSANGUINEOUS OUTPUT LEFT CHEST TUBE ATTACHED TO CONTINUOUS SUCTION VIA WATER SEAL ATRIUM DRAINING WITH SEROUS OUTPUT No air leaks/bubbles noted. Dressings C/D/I.
--- NOTE | 2017-09-27 07:15 | NUR ---
CONSULTING NURSE NOTES RECEIVED PATIENT SEDATED , RESPONSIVE TO VERBAL STIMULI , OPENS EYES , ABLE TO FOLLOW COMMANDS , NOT IN ACUTE DISTRESS , TOLERATING CURRENT VENT SETTING WITH SPO2 OF 100% , ETT 8.0/[address] ,, SB WITH PAC 48 ON BEDSIDE MONITOR , OGT PATENT AND INTACT CLAMPED , FC DRAINING VIA GRAVITY WITH TEA COLORED URINE NOTED WITH SEDIMENTS , LIONEL PICC LINE PATENT AND INTACT WITH DIPRIVAN @ 35MCG/KG/MIN , NS @ 100ML/HR INFUSING WELL , ALL NEEDS ATTENDED , BED ON LOW AND LOCKED POSITION ,SIDE RAILS X2 , CALL LIGHT WITHIN REACH , HOB @ 35 ,W ILL CONTINUE TO MONITOR
[2017-09-27] MEDS: LEVOTHYROXINE SODIUM 100 MCG TABLET PO SCH (07:30)
[2017-09-27] MEDS: DOCUSATE SODIUM LIQ 100 MG/10 ML UDC NG SCH (07:43)
[2017-09-27] MEDS: AMIODARONE HCL 200 MG TABLET PO SCH (07:43)
[2017-09-27] MEDS: GABAPENTIN 300 MG CAPSULE PO SCH ×2 (07:43→16:01)
[2017-09-27] MEDS: ASCORBIC ACID 500 MG TABLET PO SCH ×2 (07:43→16:01)
[2017-09-27] MEDS: APIXABAN 5 MG TABLET PO SCH ×2 (07:43→16:01)
[2017-09-27] MEDS: SERTRALINE HCL 50 MG TABLET PO SCH (07:44)
[2017-09-27] MEDS: Z GUARD REMEDY 2 OZ OINT TP SCH (08:15)
[2017-09-27] MEDS: methylPREDNISolone SOD SUCC 125 MG/2ML VIAL IV SCH ×2 (08:21→17:02)
[2017-09-27 08:40] LABS: ABG BASE EXCESS 0.2 mmol/L; ABG OXYGEN SATURATION 94.7 % (92.0-98.5); ABG PCO2 38.3 mmHg (35.0-45.0); ABG PH 7.424 (7.350-7.450); ABG PO2 80.6 mmHg (75.0-100.0); AaDO2 160.6 mmHg; COHb 0.2 % (0.5-1.5); MetHb 0.4 % (0.0-1.5); O2Hb 94.1 % (94.0-97.0); PEEP,BG 0 cm H2O; SITE, ABG Right Radial; VT, ABG 500 mL
--- NOTE | 2017-09-27 09:00 | NUR ---
NARRATIVE WRITER NOTES PATIENT ON SEDATION VACATION , DIPRIVAN HELD , PT ON BILATERAL SOFT WRIST RESTRAINS , WILL CONTINUE TO MONITOR
--- NOTE | 2017-09-27 12:00 | NUR ---
ELECTRICAL WIRING LINEMAN NOTES DIPRIVAN RESTARTED @ 5MCG/KG/MIN PT NOTED WITH MODERATE AGITATION , V/S STABLE , TOLERATING CURRENT VENT SETTING , PT AOX2-3 ABLE TO FOLLOW COMMANDS , WILL CONTINUE TO MONITOR
--- NOTE | 2017-09-27 19:30 | NUR ---
DELIVERY REPRESENTATIVE INITIAL NOTE RECEIVED PATIENT DROWSY, AROUSABLE. NO S/S OF PAIN OR DISCOMFORT. NO RESPIRATORY DISTRESS NOTED, WITH ETT 8.0CM/25CM LIP, WITH VENT SETTINGS AC 16, TV 500, FIO2 40%, PEEP 0, SPO2 97-98%. WITH BILATERAL CHEST TUBES IN PLACE, ON CONTINUOS SUCTION, -20CM H20, WITH SEROSANGUINOUS OUTPUT ON RIGHT SIDE AND SEROUS OUTPUT ON LEFT SIDE, NO LEAKS NOTED. ON TELE MONITOR SINUS DESTINY, ASYMPTOMATIC. WITH F/C PATENT AND INTACT, DRAINING BY GRAVITY. WITH OGT PATENT, INTACT, IN PLACE, CLAMPED. BILATERAL SOFT WRIST RESTRAINTS IN PLACE, CIRCULATION CHECKED. WITH LIONEL PICC LINE PATENT AND INTACT, WITH NS AT 100ML/HR AND DIPRIVAN AT 35 MCG/KG/MIN. HOB ELEVATED. TURNED AND REPOSITIONED. SIDE RAILS UP AND LOCKED. BED KEPT AT LOWEST POSITION. WILL CONTINUE TO MONITOR.
[2017-09-27] MEDS: TAMSULOSIN 0.4 MG CAP.SR.24H PO SCH (21:35)
[2017-09-27] MEDS: PANTOPRAZOLE 40 MG VIAL IV SCH (21:35)
--- NOTE | 2017-09-27 21:35 | NUR ---
PT RECEIVED ORALLY INTUBATED 8.0 ETT SECURED AT 25CM AT THE LIP. PT TOLERATING VENT SETTINGS. SX'D FOR MOD AMT OF THICK YELLOW SECRETIONS. VENT ALARMS SET AND AUDIBLE. AMBU BAG AT BEDSIDE. VENT PLUGGED INTO RED OUTLET. WILL CONTINUE TO MONITOR. Addendum: 09/27/17 at 2136 by CODEY NIX RT Amended: Links added.
[2017-09-28] VITALS (38 sets, daily range): BP systolic 121–164; BP diastolic 58–103
[2017-09-28] MEDS: BLOOD SUGAR DIAGNOSTIC 1 EACH STRIP IN SCH ×4 (00:40→17:48)
[2017-09-28] MEDS: IPRATROPIUM NEB FS 0.5 MG/2.5 ML AMPUL.NEB NEB SCH ×6 (03:05→23:44)
[2017-09-28] MEDS: PROPOFOL 100 ML IV PRN ×5 (03:06→23:55)
--- NOTE | 2017-09-28 04:00 | NUR ---
CARPET OR RUG LAYER HELPER NOTE BED BATH GIVEN, TOLERATED WELL.
[2017-09-28 04:45] LABS: BASOPHILS # (AUTO) 0.1 /CMM (0.0-0.2); BASOPHILS % (AUTO) 0.4 % (0.0-2.0); HEMATOCRIT 31 % (39-51); HEMOGLOBIN 10.5 g/dL (13.5-17.5); LYMPHOCYTES # (AUTO) 1.7 /CMM (0.8-4.8); LYMPHOCYTES % (AUTO) 10.4 % (20.0-44.0); MEAN CORPUSCULAR HGB CONC 34 g/dl (31.0-36.0); MEAN CORPUSCULAR VOLUME 85 fL (80-96); MONOCYTES # (AUTO) 0.4 /CMM (0.1-1.30); MONOCYTES % (AUTO) 2.4 % (2.0-12.0); NEUTROPHILS # (AUTO) 13.8 /CMM (1.8-8.9); NEUTROPHILS % (AUTO) 86.8 % (43.0-81.0); PLATELET COUNT (AUTO) 174 /CMM (150-450); RDW COEFFICIENT OF VARIATION 16.4 (11.5-15.0); RED BLOOD CELL COUNT(AUTO) 3.67 MIL/uL (4.5-6.0); WHITE BLOOD COUNT (AUTO) 15.9 K/uL (4.3-11.0)
[2017-09-28 05:06] LABS: INR 1.03 (0.87-1.13)
[2017-09-28 05:12] LABS: CALCIUM, SERUM 7.5 mg/dL (8.5-10.1); CARBON DIOXIDE 21 mmol/L (21-32); CHLORIDE 112 mmol/L (98-107); CREATININE 0.9 mg/dL (0.6-1.3); GLUCOSE 91 mg/dL (74-106); MAGNESIUM 1.8 mg/dL (1.8-2.4); PHOSPHORUS 3.1 mg/dL (2.5-4.9); POTASSIUM 3.6 mmol/L (3.5-5.1); SODIUM SERUM 145 mmol/L (136-145); UREA NITROGEN, BLOOD 24 mg/dL (7-18)
[2017-09-28] MEDS: BETAMETHASONE DIP 0.05% CREAM 15 GM TUBE TP SCH ×2 (06:36→19:53)
--- NOTE | 2017-09-28 07:43 | NUR ---
RT PT RECEIVED ORALLY INTUBATED WITH A 8.0 ETT SECURED AT 25CM AT THE LIP LINE. PT RESPONDS TO STIMULI WHEN SX'D. VENT IS PLUGGED INTO RED OUTLET. VENT ALARMS ARE SET AND AUDIBLE WITH BVM BY BEDSIDE. BIODIESEL PLANT MANAGER CUFF PRESSURE NOTED. NO RESPIRATORY DISTRESS NOTED AT THIS TIME, WILL CONTINUE TO MONITOR. Addendum: 09/28/17 at 0813 by MAEGAN LORD RT Amended: Links added.
--- NOTE | 2017-09-28 07:55 | NUR ---
ISO COORDINATOR CLOSING NOTE NO SIGNIFICANT CHANGES OVERNIGHT. TOLERATING VENT SETTINGS. OGT IN PLACE. F/C DRAINING BY GRAVITY. PENDING TRACH PLACEMENT TODAY. CHEST TUBES IN PLACE, NO LEAKS NOTED. KEPT CLEAN AND DRY. BILATERAL WRIST RESTRAINTS IN PLACE, CIRCULATION CHECKED. TURNED AND REPOSITIONED Q2 AND PRN. WOUND TX PROVIDED. DIPRIVAN AT 35MCG/KG/MIN. IVF RUNNING. CONTINUITY OF CARE ENDORSED TO AM NURSE.
[2017-09-28] MEDS: LEVOTHYROXINE SODIUM 100 MCG TABLET PO SCH (08:08)
[2017-09-28] MEDS: Z GUARD REMEDY 2 OZ OINT TP SCH (08:47)
[2017-09-28] MEDS: DOCUSATE SODIUM LIQ 100 MG/10 ML UDC NG SCH (08:47)
[2017-09-28] MEDS: methylPREDNISolone SOD SUCC 125 MG/2ML VIAL IV SCH ×2 (08:47→17:23)
[2017-09-28] MEDS: GABAPENTIN 300 MG CAPSULE PO SCH ×2 (08:47→17:23)
[2017-09-28] MEDS: AMIODARONE HCL 200 MG TABLET PO SCH (08:48)
[2017-09-28] MEDS: ASCORBIC ACID 500 MG TABLET PO SCH ×2 (08:51→17:23)
[2017-09-28] MEDS: SERTRALINE HCL 50 MG TABLET PO SCH (08:51)
[2017-09-28] MEDS: APIXABAN 5 MG TABLET PO SCH ×2 (08:52→17:31)
[2017-09-28] MEDS: IV NS 0.9% 1,000 ML IV PRN (09:00)
[2017-09-28 09:38] LABS: ABG BASE EXCESS -3.2 mmol/L; ABG OXYGEN SATURATION 94.8 % (92.0-98.5); ABG PCO2 36.4 mmHg (35.0-45.0); ABG PH 7.386 (7.350-7.450); ABG PO2 81.7 mmHg (75.0-100.0); AaDO2 161.6 mmHg; COHb 0.3 % (0.5-1.5); MetHb 0.5 % (0.0-1.5); PEEP,BG 0 cm H2O; SITE, ABG Right Radial; VT, ABG 500 mL
[2017-09-28] MEDS ORDERED: MIDAZOLAM HCL 2 MG/2ML VIAL ONE (13:27)
[2017-09-28] MEDS ORDERED: ROCURONIUM BROMIDE 50 MG/5 ML ONE (13:28)
--- NOTE | 2017-09-28 13:37 | NUR ---
RT PT BROUGHT BACK FROM OR FOR TRACHEOSTOMY PROCEDURE. PT WAS PLACED BACK ON VENT WITH NOTED VENT SETTINGS. PT RECEIVED WITH A SHILEY 8 CUFFED TRACH. MARINE UNDERWRITER CUFF PRESSURE NOTED. EQUAL BILATERAL BREATHE SOUNDS AND CHEST RISE NOTED. NO RESPIRATORY DISTRESS NOTED AT THIS TIME, WILL CONTINUE TO MONITOR. Addendum: 09/28/17 at 1842 by MAEGAN LORD RT Amended: Links added.
[2017-09-28] MEDS ORDERED: BISACODYL SUPP (10 MG) 10 MG/SUPP.RECT SUPP.RECT RC ONE (17:30)
[2017-09-28] MEDS ORDERED: POLYETHYLENE GLYCOL 3350 17 GM POWD.PACK PO PRN (17:30)
--- NOTE | 2017-09-28 20:00 | NUR ---
RN NOTES RECEIVED PT OPENING EYES BUT SEDATED ON BED WITH DIPRIVAN, WITH TRACH CONNECTED TO VENT SETTING AC 16 TV 500 FIO2 40% NO PEEP. SATING 96% SB THEN TURNS TO A- FIB 100'S ON TELE MONITOR. ZERO FLACC PT CALM. NO ACUTE RESP DISTRESS. BILATERAL CHEST TUBE INTACT/ SEALED NO LEAKING OF AIR PRESENT. F/C DRAINED WITH YELLOW CLOUDY COLOR URINE. IV SITE ON LIONEL PICC LINE WITH PROPOFOL @ 35 MCG/KG/MIN AND NS @ 100 CC/HR ON ONE PORT. 2 LUMEN CLOGGED. REPOSITIONED PT OFFLOADED EXT WITH PILLOWS. KEPT PT CLEAN AND DRY WILL CONTINUE TO MONITOR.
[2017-09-28] MEDS: PANTOPRAZOLE 40 MG VIAL IV SCH (21:43)
[2017-09-28] MEDS: TAMSULOSIN 0.4 MG CAP.SR.24H PO SCH (21:43)
--- NOTE | 2017-09-28 22:17 | NUR ---
PATIENT RECEIVED ON MECHANICAL VENTILATION AND IS TRACHED ON SHILEY 8 CUFFED. VENT PLUGGED INTO RED OUTLET. AMBU BAG @ HOB. TX GIVEN, NO ADVERSE REACTIONS NOTED. SUCTION DONE, SMALL THICK WHITE YELLOW SECRETIONS NOTED. ALARMS ON AND AUDIBLE. WILL MONITOR CLOSELY. Addendum: 09/28/17 at 2218 by BIJAN CHANDLER RT Amended: Links added.
[2017-09-29] VITALS (43 sets, daily range): BP systolic 91–168; BP diastolic 46–102
[2017-09-29] MEDS: IV D5/ 0.9% NACL 1,000 ML IV PRN ×2 (00:13→18:12)
[2017-09-29] MEDS: BLOOD SUGAR DIAGNOSTIC 1 EACH STRIP IN SCH ×4 (00:15→18:09)
[2017-09-29] MEDS: IPRATROPIUM NEB FS 0.5 MG/2.5 ML AMPUL.NEB NEB SCH ×6 (03:32→23:14)
[2017-09-29] MEDS: PROPOFOL 100 ML IV PRN (05:45)
[2017-09-29] MEDS: BETAMETHASONE DIP 0.05% CREAM 15 GM TUBE TP SCH ×2 (05:57→18:12)
--- NOTE | 2017-09-29 07:23 | NUR ---
RN NOTES PT REMAINED INS TABLE CONDITION THROUGHOUT THE SHIFT. AFEBRILE. VS STABLE. CONTINUE ON DIPRIVAN AT 5 MCG/KG/MIN. AND D5NS @ 75 CC/HR ON LIONEL PICC LINE. PT IS MORE COMPLIANT AT THIS TIME. BUT BILATERAL SOFT WRIST RESTRAINT KEPT ON DUE TO PT HAS EPISODE OF FORGETFUL. LEFT AND RIGHT CHEST TUBE KEPT INTACT/SEALED AND NO LEAKING WITH 120 CC OUT ON BOTH SIDES. KEPT PT CLEAN AND DRY AND COMFORTABLE IN BED. ENDORSED CONTINUITY OF CARE TO AM NURSE.
--- NOTE | 2017-09-29 07:30 | NUR ---
ICU/RN: SEDATION TURNED OFF, WILL CONTINUE TO MONITOR
--- NOTE | 2017-09-29 08:00 | NUR ---
ICU/RN INITIAL NOTES,AM RECEIVED PT ALERT, AWAKE, FOLLOWING COMMANDS. PT ON LOW DOSE DIPRIVAN, TURNED OFF AT 0730. PT HAS FRESH TRACH FROM YESTERDAY, ON VENT SETTINGS ORDERED BY MD, NO ACUTE DISTRESS NOTED. PT CONVERTS BACK AND FORTH FROM SINUS TO A.FIB/A.FLUTER. DR. GARCIA AWARE. BOLAND IN PLACE, DRAINING YELLOW URINE. BILATERAL SOFT WRIST RESTRAINTS IN PLACE FOR SAFETY, ASSESSED PER PROTOCOL. RIGHT UPPER ARM PICC LINE PATENT, NO S/S OF INFECTION OR INFILTRATION NOTED. SOME PORTS SLUGGISH. IV FLUIDS INFUSING ORDERED. AWAITING FOR CLEARANCE FROM FOR PEG PLACEMENT. ALL NEEDS WILL BE ATTENDED TO, SAFETY MEASURES TAKEN, BED IN LOW POSITION, SIDE RAILS UP, CALL LIGHT WITHIN REACH.
[2017-09-29] MEDS: methylPREDNISolone SOD SUCC 125 MG/2ML VIAL IV SCH ×2 (09:14→16:40)
[2017-09-29] MEDS: SERTRALINE HCL 50 MG TABLET PO SCH (09:14)
[2017-09-29] MEDS: DOCUSATE SODIUM LIQ 100 MG/10 ML UDC NG SCH (09:14)
[2017-09-29] MEDS: ASCORBIC ACID 500 MG TABLET PO SCH ×2 (09:23→16:40)
[2017-09-29] MEDS: LEVOTHYROXINE SODIUM 100 MCG TABLET PO SCH (09:23)
[2017-09-29] MEDS: GABAPENTIN 300 MG CAPSULE PO SCH ×2 (09:23→16:40)
[2017-09-29] MEDS: APIXABAN 5 MG TABLET PO SCH ×2 (09:23→16:40)
[2017-09-29] MEDS: Z GUARD REMEDY 2 OZ OINT TP SCH (09:24)
[2017-09-29] MEDS: AMIODARONE HCL 200 MG TABLET PO SCH (09:44)
--- NOTE | 2017-09-29 10:00 | NUR ---
ICU/RN: PER RIGHT CHEST TUBE CLAMPED. ORDERS PLACED FOR CHEST XRAY AT 1200. WILL FOLLOW UP.
--- NOTE | 2017-09-29 10:00 | NUR ---
RT NOTE: ABG CANCELLED PER 'S ORDER.
--- NOTE | 2017-09-29 13:00 | NUR ---
ICU/RN: RADIOLOGY CALLED WITH CRITICAL RESULT. NEW RIGHT APICAL PNEUMOTHORAX. CHEST TUBE UNCLAMPED, NOTIFIED.
[2017-09-29] MEDS: LORAZEPAM INJ 2 MG/ML VIAL IV PRN (13:15)
--- NOTE | 2017-09-29 17:30 | NUR ---
RT NOTE: PATIENT RECEIVED WITH NATHAN #8 TRACH ON PB 840 VENT. ALARMS VERIFIED AND AUDIBLE. VENT PLUGGED INTO RED OUTLET. AMBU BAG AT [facility].
--- NOTE | 2017-09-29 19:04 | NUR ---
ICU/RN ENDING NOTES,AM REPORT ENDORSED TO NIGHT NURSE FOR CONTINUATION OF CARE. PT ON VENT SETTINGS ORDERED BY MD, NO ACUTE DISTRESS NOTED AT THIS TIME. PT CONVERTS BACK AND FORTH FROM SINUS TO AFIB/A.FLUTTER. ALL NEEDS ATTENDED TO, SAFETY MEASURES TAKEN, BED IN LOW POSITION, SIDE RIALS UP, CALL LIGHT WITHIN REACH. BILATERAL WRIST RESTRAINTS ON, ASSESSED PER PROTOCOL. PT WILL BE NPO AFTER MIDNIGHT. PEG PLACEMENT IN AM, CONSENT IN CHART.
[2017-09-29] MEDS: METOCLOPRAMIDE HCL 10 MG/2 ML VIAL IV SCH (20:04)
--- NOTE | 2017-09-29 20:10 | NUR ---
RN NOTES RECEIVED PATIENT IN BED WITH NO RESPIRATORY DISTRESS OR SHORTNESS OF BREATH. BREATHING EVEN AND UNLABORED. VENT SETTING WELL TOLERATED. SUCTIONED MODERATE AMOUNT OF SEMI LOOSE YELLOWISH SECRETION. TRACH TUBE IN PLACE. BOLAND CATHETER PATENT DRAINING CLEAR YELLOW WITH FOUL ODOR URINE. CHEST TUBE DRAIN PATENT. NO COMPLAINT OF PAIN OR DISCOMFORT. ALERT AND RESPONSIVE WITH CONFUSION. KEPT CLEAN AND DRY. WILL CONTINUE TO MONITOR.
--- NOTE | 2017-09-29 21:52 | NUR ---
RT NOTE PATIENT RECEIVED TRACHED WITH SHILEY 8 CUFFED ON MECHANICAL VENT. PATIENT IS TOLERATING CURRENT ORDERED SETTINGS. NO SIGNS OF RESPIRATORY DISTRESS NOTED. VENT PLUGGED INTO RED OUTLET. ALARMS ON AND AUDIBLE. EMERGENCY EQUIPMENT AT BEDSIDE. WILL CONTINUE TO MONITOR. Addendum: 09/30/17 at 0209 by MARGARET LUI RT Amended: Links added.
[2017-09-29] MEDS: PANTOPRAZOLE 40 MG VIAL IV SCH (21:57)
[2017-09-29] MEDS: TAMSULOSIN 0.4 MG CAP.SR.24H PO SCH (21:58)
[2017-09-30] VITALS (50 sets, daily range): BP systolic 64–159; BP diastolic 36–97
[2017-09-30] MEDS: BLOOD SUGAR DIAGNOSTIC 1 EACH STRIP IN SCH ×4 (00:51→17:23)
[2017-09-30] MEDS: METOCLOPRAMIDE HCL 10 MG/2 ML VIAL IV SCH ×4 (00:52→17:23)
[2017-09-30] MEDS: IPRATROPIUM NEB FS 0.5 MG/2.5 ML AMPUL.NEB NEB SCH ×6 (03:47→23:28)
--- NOTE | 2017-09-30 04:40 | NUR ---
RN NOTES WHILE DOING DRESSING CHANGE ON RIGHT CHEST TUBE, NOTED VENT ALARM. LOOKED FOR ANY LEAK OR DISLODGEMENT, NOTHING FOUND. CALLED RT WHICH WAS JUST IN THE OTHER ROOM. RT ATTEMPTED TO SUCTION VIA TRACH BUT NO SPUTUM WERE DRAWN. TRIED TO MECHANICAL VENTILLATION BUT MET WITH RESISTANCE, PATIENT STARTED TO SWELL. BEATRICE NOLEN WAS CALLED. DR. MEYERS WAS AROUND AND WAS ABLE TO INTUBATE PATIENT ORALLY. NOTED SKIN COLOR CHANGED FROM PALE TO FAIR. TRACH STOMA WAS COVERED. LUNG SOUNDS PRESENT UPON AUSCULTATION. PATIENT WAS PLACED ON VENT. CALLED , DR. BARKER AND LEFT A MESSAGE. CALL FAMILY, SPOKE WITH SISTER AND MADE AWARE OF THE SITUATION. SISTER WAS APPRECIATIVE OF THE CALL. PATIENT'S O2 SAT REMAINED STABLE AT 95-98%. WILL ENDORSE TO AM SHIFT FOR CONTINUITY OF CARE.
--- NOTE | 2017-09-30 05:39 | NUR ---
THERAPIST WAS CALLED AT BEDSIDE FOR VENT ALARMING, BLAISE CURRY AT BEDSIDE PERFORMING DRESSING CHANGE ON RT SIDE CHEST TUBE, VENT PEAK PRESSURE ALARM ALARMING, PT WAS NOT GETTING VOLUMES ATTEMPTED SUCTIONING VIA TRACH NO SPUTUM DRAWN. ATTEMPTED TO BAG PT, MET WITH LOTS OF RESISTANCE AND UNABLE TO BAG. PT STARTED EXHIBITING SIGNS OF SUBCUTANEOUS EMPHYSEMA, INSERTED ORAL AIRWAY AND BAGGED VIA MASK. MD NOLEN CALLED TO BEDSIDE TO INTUBATE PT. PT INTUBATED ORALLY WITH 7.0MM ETT TUBE AT 25CM LIPLINE GOOD COLOR CHANGE ON CAP AND BILATERAL BREATH SOUNDS PRESENT. PT PLACED ON VENT AND PENDING XRAY RESULTS
[2017-09-30] MEDS: IV D5/ 0.9% NACL 1,000 ML IV PRN (05:58)
--- NOTE | 2017-09-30 07:50 | NUR ---
RN NOTE PT ON BED, AOX1, ABLE TO NOD, OPEN EYES, ON LORELEI WRIST RESTRAINTS, ON TELEMETRY SB 66 TO OCCASIONAL AFIB, PT ETT 7.0, LIP 24, LUNG SOUNDS DIMINISHED, CLEAR, TRACH SITE CLOSED WITH DRESSING, DRESSING INTACT, CLEAN AND DRY. SPUTUM BLOOD TINGED, PINK/YELLOW, LEFT AND RIGHT CHEST TUBES ON LOW SUCTION, NO AIR LEAK NOTED, BOLAND CATHETER IN PLACE, DARK COLOR, BLOOD TINGED URINE NOTED, PT IS SCHEDULED FOR EGD WITH PEG PLACEMENT, FAMILY AWARE. SAFETY MEASURES IMPLEMENTED, WILL MONITOR PT.
--- NOTE | 2017-09-30 08:00 | NUR ---
PT RCVD INTUBATED ON MECHANICAL VENT ON ORDERED SETTINGS. 7.0 ET TUBE 26 @ LIP. CUFF INFLATED VIA OPERATIONS INTELLIGENCE SUPERINTENDENT. ET TUBE SECURE AND PATENT. AMBU BAG AT BEDSIDE. VENT PLUGGED INTO RED OUTLET. ALARMS ARE ON AND AUDIBLE.
--- NOTE | 2017-09-30 08:02 | NUR ---
PER DR SPAULDING ETT PULLED BACK 2CM AND SECURED AT 24CM AT THE LIP.
--- NOTE | 2017-09-30 08:40 | NUR ---
RN NOTE PT HAD PEG TUBE PLACED AT BED SIDE, TOLERATED WELL, NO DISTRESS NOTED, PER DR CRUZ IS OKAY TO USE G TUBE FOR MEDS NOW, TO START FEEDING IN 12H. TO GIVE CLINDAMYCIN 1 DOSE ONCE FOR NOW. WILL MONITOR PT.
[2017-09-30] MEDS: APIXABAN 5 MG TABLET PO SCH ×2 (09:00→17:22)
[2017-09-30] MEDS: AMIODARONE HCL 200 MG TABLET PO SCH (09:00)
[2017-09-30 09:06] LABS: ABG BASE EXCESS -4.4 mmol/L; ABG OXYGEN SATURATION 90.8 % (92.0-98.5); ABG PH 7.298 (7.350-7.450); COHb 0.3 % (0.5-1.5); MetHb 1.1 % (0.0-1.5); O2Hb 89.5 % (94.0-97.0); PEEP,BG 0 cm H2O; SITE, ABG Left Radial
--- NOTE | 2017-09-30 09:16 | NUR ---
blood tinged secretions. theodora lynn. Addendum: 09/30/17 at 0917 by LUCIEN ALVARES RT Amended: Links added.
[2017-09-30] MEDS ORDERED: FEE EMEERGENCY 1 MIN EA MC ONE (09:48)
[2017-09-30] MEDS ORDERED: ROCURONIUM BROMIDE 50 MG/5 ML IV ONE (09:48)
[2017-09-30] MEDS ORDERED: ETOMIDATE 2 MG/ML VIAL IV ONE (09:48)
[2017-09-30] MEDS: DOCUSATE SODIUM LIQ 100 MG/10 ML UDC NG SCH (09:56)
[2017-09-30] MEDS: ASCORBIC ACID 500 MG TABLET PO SCH ×2 (09:56→17:23)
[2017-09-30] MEDS: LEVOTHYROXINE SODIUM 100 MCG TABLET PO SCH (09:56)
[2017-09-30] MEDS: methylPREDNISolone SOD SUCC 125 MG/2ML VIAL IV SCH ×2 (09:56→17:22)
[2017-09-30] MEDS: GABAPENTIN 300 MG CAPSULE PO SCH ×2 (09:56→17:23)
[2017-09-30] MEDS: Z GUARD REMEDY 2 OZ OINT TP SCH (09:58)
[2017-09-30] MEDS: BETAMETHASONE DIP 0.05% CREAM 15 GM TUBE TP SCH ×2 (09:59→19:25)
[2017-09-30] MEDS: MORPHINE SULFATE INJ 4 MG/ML DISP.SYRIN IV PRN ×2 (10:38→17:18)
[2017-09-30] MEDS ORDERED: CLINDAMYCIN 900 MG in IV D5W 50 ML IV ONE (11:00)
--- NOTE | 2017-09-30 13:08 | NUR ---
PER DR SPAULDING ET TUBE PULLED BACK 2CM AND SECURED AT 22CM AT THE LIP. PT STABLE AND NO RESP DISTRESS NOTED.
--- NOTE | 2017-09-30 13:30 | NUR ---
RN NOTE NOTIFIED DR BARKER ABOUT LOW URINE OUTPUT, PT ON IVF AT 75 ML/H, NO NEW ORDERS AT THIS TIME, WILL MONITOR PT.
--- NOTE | 2017-09-30 14:04 | NUR ---
RT NOTE PER DR. SPAULDING PEEP INCREASED TO +5. NO RESP DISTRESS OR SOB NOTED. Addendum: 09/30/17 at 1405 by LUCIEN ALVARES RT Amended: Links added.
[2017-09-30] MEDS: INSULIN REGULAR, HUMAN 100 UNIT/ML 3 ML VIAL SQ PRN ×2 (14:28→17:39)
[2017-09-30] MEDS ORDERED: GLUCERNA 1.2 1,000 ML BOTTLE NG PRN (14:30)
--- NOTE | 2017-09-30 15:44 | NUR ---
RT NOTE DECREASED FIO2 TO 90%. Addendum: 09/30/17 at 1545 by LUCIEN ALVARES RT Amended: Links added.
--- NOTE | 2017-09-30 17:34 | NUR ---
RT NOTE FIO2 TITRATED TO 80%. BLAISE [place]. Addendum: 09/30/17 at 1734 by LUCIEN ALVARES RT Amended: Links added.
--- NOTE | 2017-09-30 20:01 | NUR ---
WELL PULLER. INITIAL ASSESSMENT. RECEIVED THE PT REST ON THE BED, ORALLY INTUBATED, PT AWAKE, ALERT. RESPONDING WHEN CALLING HIS NAME. ETT #7,LIP 22,AC 16,TV 500,FIO2 80%,PEEP 5. SAT 98%. NO ACUTE DISTRESS NOTED, AMBULATORY SERVICES REPRESENTATIVE SHOWING AFIB. RATE IS AT THIS TIME 57. HOB ELEVATED. GT INTACT. CLAMPED, GT SITE CLEAN. LORELEI SOFT WRIST RESTRAINT CHECKED AND RELEASED. NO INJURY OR REDNESS NOTED. FC PATENT. IV RT UPPER ARM PICC LINE IVF D5NS 75ML/H. LORELEI CHEST TUBE INTACT. NO AIR LEAK NOTED, WILL CONTINUE TO MONITOR VITALS.
--- NOTE | 2017-09-30 20:20 | NUR ---
PT RECEIVED ORALLY INTUBATED 7.5 ETT SECURED AT 24 CM AT THE LIP. PT TOLERATING VENT SETTINGS. NO RESP DISTRESS NOTED AT THIS TIME. PT IS ALERT AND AWAKE. BREATHING TX GIVEN PER MD'S ORDERED, NO ADVERSE REACTION NOTED. SX'D MODERATE AMT OF PALE YELLOW THICK SECRETIONS WITH BLOOD TINGED. VENT ALARMS SET AND AUDIBLE. AMBU BAG AT BEDSIDE. ETT CUFF CHECK SCALER. VENT PLUGGED INTO RED OUTLET. WILL CONTINUE TO MONITOR.
[2017-09-30] MEDS: GLUCERNA 1.2 1,000 ML BOTTLE GT PRN (20:57)
[2017-09-30] MEDS: TAMSULOSIN 0.4 MG CAP.SR.24H PO SCH (21:42)
[2017-09-30] MEDS: PANTOPRAZOLE 40 MG VIAL IV SCH (21:42)
[2017-09-30 22:40] LABS: CALCIUM, SERUM 7.3 mg/dL (8.5-10.1); CARBON DIOXIDE 23 mmol/L (21-32); CHLORIDE 114 mmol/L (98-107); CREATININE 0.9 mg/dL (0.6-1.3); GLUCOSE 135 mg/dL (74-106); POTASSIUM 3.2 mmol/L (3.5-5.1); SODIUM SERUM 146 mmol/L (136-145); UREA NITROGEN, BLOOD 18 mg/dL (7-18)
[2017-09-30 22:43] LABS: MAGNESIUM 1.6 mg/dL (1.8-2.4); PHOSPHORUS 2.5 mg/dL (2.5-4.9)
[2017-10-01] VITALS (66 sets, daily range): BP systolic 78–155; BP diastolic 35–112
--- NOTE | 2017-10-01 | NUR ---
STEERER. VERY SHORT RUN V TACH. BMP,MAG,PHOS SENT.WILL CONTINUE TO MONITOR.
[2017-10-01] MEDS: METOCLOPRAMIDE HCL 10 MG/2 ML VIAL IV SCH ×5 (00:30→23:52)
[2017-10-01] MEDS: BLOOD SUGAR DIAGNOSTIC 1 EACH STRIP IN SCH ×5 (00:30→23:53)
[2017-10-01] MEDS: Magnesium 1GM/D5W 100ML PREMIX 100 ML IV SCH ×2 (01:15→02:15)
[2017-10-01] MEDS: POTASSIUM CL. PREMIX PERIPHER. 50 ML IV SCH ×2 (01:34→03:53)
--- NOTE | 2017-10-01 01:43 | NUR ---
PROCUREMENT SPECIALIST. PAGEKendell TROTTER FOR LAB RESULT POTASSIUM 3.2, MAG 1,6. , NEW ORDER RECEIVED, MAG 2GMIVP,POTASSIUM 20MEQ IVP STARTED.WILL CONTINUE TO MONITOR
[2017-10-01] MEDS: IV D5/ 0.9% NACL 1,000 ML IV PRN (01:52)
[2017-10-01] MEDS: MORPHINE SULFATE INJ 4 MG/ML DISP.SYRIN IV PRN ×2 (02:44→15:13)
[2017-10-01] MEDS: IPRATROPIUM NEB FS 0.5 MG/2.5 ML AMPUL.NEB NEB SCH ×6 (03:38→23:42)
--- NOTE | 2017-10-01 04:03 | NUR ---
I&C TECHNICIAN. AM CARE. ORAL CARE, BED BATH GIVEN. LINEN CHANGED, REMAINING SAME IVF RUNNING. SAME VENT SETTING TOLERATED WE;; SAT 99%. NO ACUTE DISTRESS NOTED, CERTIFIED SURGICAL TECHNICIAN SHOWING AFIB, IV RT UPPER ARM PICC LINE. IVF D5NS 75ML/H LORELEI SOFT WRIST RESTRAINT CHECKED AND RELEASED. NO INJURY OR REDNESS NOTED, HOB ELEVATED. GT FEEDING TOLERATED WELL, NPO. FC PATENT. LORELEI SOFT WRIST RESTRAINT CHECKED AND RELEASED CONTRACTS PARALEGAL INJUTY OR REDNESS NOTEDM WILL CONTINUE TO MONITOR VITALS.
[2017-10-01] MEDS: BETAMETHASONE DIP 0.05% CREAM 15 GM TUBE TP SCH ×2 (06:20→18:39)
[2017-10-01 06:44] LABS: BASOPHILS # (AUTO) 0.1 /CMM (0.0-0.2); BASOPHILS % (AUTO) 0.6 % (0.0-2.0); HEMATOCRIT 31 % (39-51); HEMOGLOBIN 10.2 g/dL (13.5-17.5); LYMPHOCYTES % (AUTO) 4.8 % (20.0-44.0); MEAN CORPUSCULAR HGB CONC 33 g/dl (31.0-36.0); MEAN CORPUSCULAR VOLUME 86 fL (80-96); MONOCYTES # (AUTO) 0.4 /CMM (0.1-1.30); MONOCYTES % (AUTO) 2.1 % (2.0-12.0); NEUTROPHILS # (AUTO) 19.3 /CMM (1.8-8.9); NEUTROPHILS % (AUTO) 92.5 % (43.0-81.0); PLATELET COUNT (AUTO) 152 /CMM (150-450); RDW COEFFICIENT OF VARIATION 16.8 (11.5-15.0); WHITE BLOOD COUNT (AUTO) 20.8 K/uL (4.3-11.0)
[2017-10-01 07:15] LABS: ALANINE AMINOTRANSFERASE 18 U/L (12-78); ALBUMIN 1.6 g/dL (3.4-5.0); ALKALINE PHOSPHATASE 45 U/L (46-116); ASPARTATE AMINOTRANSFERASE 13 U/L (15-37); BILIRUBIN,TOTAL 0.4 mg/dL (0.2-1.0); CARBON DIOXIDE 24 mmol/L (21-32); CHLORIDE 115 mmol/L (98-107); GLUCOSE 130 mg/dL (74-106); SODIUM SERUM 145 mmol/L (136-145); TOTAL PROTEIN, SERUM 4.6 g/dL (6.4-8.2); UREA NITROGEN, BLOOD 19 mg/dL (7-18)
--- NOTE | 2017-10-01 07:40 | NUR ---
ICU/RN PT IS INTUBATED ON THE VENT AC MODE,FIO2-80%, SAT O2-100%.S/P CODE BLUE,S/P TRACH PLACEMENT AND DISLODGE TRACHEOSTOMY TUBE WITH SUBCUTANEOUS EMPHYSEMA AND BILATERAL PNEUMOTHORAX AND BILATERAL CHEST TUBE.AWAKE,ALERT.BILATERAL WRIST RESTRAINS ON.IV INFUSING ORDERED.GENERALIZED EDEMA PRESENT.RIGHT UPPER ARM PICC LINE .NEW G-TUBE IN PLACE WITH GLYTROL AT 65 ML/HR ,30 ML RESIDUAL NOTED.PT IS ON REGLAN IV.F/C DRAINING WITH MINIMAL AMOUNT OF URINE. V/S STABLE.AFEBRILE.SUCTION PROVIDED.REPOSITION FOR COMFORT.LABS REVIEW, NOTIFIED.
[2017-10-01 07:44] LABS: BAND % (MANUAL) 2 % (0.0-5.0); LYMPHOCYTES % (MANUAL) 2 % (16-48); MONOCYTES % (MANUAL) 2 % (0-11.0); MYELOCYTES % 1 % (0-0); NEUTROPHILS % (MANUAL) 93 (42-76)
[2017-10-01] MEDS: DOCUSATE SODIUM LIQ 100 MG/10 ML UDC NG SCH (08:10)
[2017-10-01] MEDS: methylPREDNISolone SOD SUCC 125 MG/2ML VIAL IV SCH ×2 (08:10→16:44)
[2017-10-01] MEDS: ASCORBIC ACID 500 MG TABLET PO SCH ×2 (08:10→16:44)
[2017-10-01] MEDS: AMIODARONE HCL 200 MG TABLET PO SCH (08:11)
[2017-10-01] MEDS: LEVOTHYROXINE SODIUM 100 MCG TABLET PO SCH (08:11)
[2017-10-01] MEDS: APIXABAN 5 MG TABLET PO SCH ×2 (08:11→16:44)
[2017-10-01] MEDS: Z GUARD REMEDY 2 OZ OINT TP SCH (08:12)
[2017-10-01] MEDS: GABAPENTIN 300 MG CAPSULE PO SCH ×2 (08:12→16:44)
--- NOTE | 2017-10-01 08:40 | NUR ---
ICU/RN DUE MEDS ARE GIVEN ORDERED.
--- NOTE | 2017-10-01 09:45 | NUR ---
ICU/RN DR BARKER SEEN THE PT .NEW ORDERS RECEIVED.
[2017-10-01] MEDS ORDERED: BUMETANIDE INJ 4 MG in IV NS 0.9% 24 ML IV ONE (10:30)
[2017-10-01 10:31] LABS: ABG BASE EXCESS -5.8 mmol/L; ABG OXYGEN SATURATION 97.2 % (92.0-98.5); ABG PCO2 36.9 mmHg (35.0-45.0); ABG PH 7.339 (7.350-7.450); ABG PO2 113.2 mmHg (75.0-100.0); AaDO2 346.2 mmHg; COHb 0.2 % (0.5-1.5); MetHb 0.8 % (0.0-1.5); O2Hb 96.2 % (94.0-97.0); PEEP,BG 5 cm H2O; SITE, ABG Left Radial; VT, ABG 500 mL
[2017-10-01] MEDS: MEROPENEM 500 MG in IV NS 0.9% 50 ML IV SCH ×2 (10:54→20:39)
[2017-10-01] MEDS: PHENYLEPHRINE 40 MG in IV D5W 250 ML IV PRN ×2 (11:11→22:23)
--- NOTE | 2017-10-01 11:15 | NUR ---
ICU/RN PT IS ON BUMEX DRIP ORDERED.BP DECREASED.NEOSYNEPHRINE STARTED ORDERED.CONTINUE MONITORING.
[2017-10-01] MEDS: INSULIN REGULAR, HUMAN 100 UNIT/ML 3 ML VIAL SQ PRN ×3 (12:21→23:52)
[2017-10-01] MEDS: PROPOFOL 100 ML IV PRN ×5 (12:23→23:49)
--- NOTE | 2017-10-01 12:25 | NUR ---
ICU/RN PT IS AGITATED HR IS UP TO 125 BPM. PT PLACED ON DIPRIVAN DRIP ORDERED.
[2017-10-01] MEDS: IV NS 0.9% 100 ML IV PRN (15:46)
--- NOTE | 2017-10-01 17:00 | NUR ---
ICU/RN DUE MEDS ARE GIVEN ORDERED.PM CARE PROVIDED.WOUND DRESSING DONE ORDERED.PT HAS NECK POST TRACH WOUND WITH YELLOW-GREEN COLOR SECRETION.RIGHT CHEST TUBE DRESSING CHANGED.SUCTION PROVIDED.REPOSITION FOR COMFORT.PT HR -135 BPM .MD NOTIFIED.
--- NOTE | 2017-10-01 17:36 | NUR ---
RT NOTE: PATIENT RECEIVED ORALLY INTUBATED WITH 7.0 ETT SECURED AT 24 CM MID LIP LINE ON PB 840 VENT. BILATERAL B/S NOTED. ALARMS VERIFIED AND AUDIBLE. SUCTIONED AND LAVAGED THICK BROTHERS/BLOOD TINGED SECRETIONS. AMBU BAG AT [facility].
--- NOTE | 2017-10-01 18:40 | NUR ---
ICU/RN EKG AND CHEST X-RAY DONE ORDERED. BS-172.PT IS SEDATED ON DIPRIVAN AND ON NEOSYNEPHRINE.WILL CONTINUE MONITORING.
--- NOTE | 2017-10-01 19:47 | NUR ---
ASSISTANT LOAN PROCESSOR. INITIAL ASSESSMENT. RECEIVED THE PT REST ON THE BED. ORALLY INTUBATED. SEDATED WITH DIPRIVAN. ETT #7, LIP 24CM,,AC 16,TV 500,FIO2 60%,SLEEP 5. SAT 98%RES HABILITATION ASSISTANT SHOWING S TACH. IV RT UPPER ARM PICC LINE DIPRIVAN 40MCG/KG/MIN,FARHANA 30MCG/MIN, HOB ELEVATED. GT FEEDING GLUCERNA 65ML/H, LORELEI CHEST TUBE INTACT. NO AIR LEAK NOTED. FC PATENT. WILL CONTINUE TO MONITOR VITALS.
--- NOTE | 2017-10-01 20:05 | NUR ---
MULTICRAFT OPERATOR. FUNERAL DRIVER SHOWING S TACH . RATE IS 135, TEMPERATURE 99. LACTIC ACID STAT SEND.
[2017-10-01] MEDS: PANTOPRAZOLE 40 MG VIAL IV SCH (21:53)
[2017-10-01] MEDS: TAMSULOSIN 0.4 MG CAP.SR.24H PO SCH (21:55)
[2017-10-01] MEDS: ACETAMINOPHEN 325 MG TABLET PO PRN (21:55)
[2017-10-01] MEDS: GLUCERNA 1.2 1,000 ML BOTTLE GT PRN (23:48)
[2017-10-02] VITALS (85 sets, daily range): BP systolic 66–140; BP diastolic 37–108
--- NOTE | 2017-10-02 02:57 | NUR ---
BOTANY TECHNICIAN. AM CARE, ORAL CARE, BED BATH GIVEN. LINEN CHANGED. REMAINING SAME VENT SETTING TOLERATED WELL. SAT 99%. NO ACUTE DISTRESS NOTED. GARBAGE PERSON SHOWING S TACH. IV RT UPPERARM PICC LINE DIPRIVAN 30MCG/KG/MIN, FARHANA 30MCG/MIN. GT FEEDING TOLERATED WELL. FC PATENT. URINE DRAINING. TURN AND REPOSITION Q2H.WILL CONTINUE TO MONITOR VITALS.
[2017-10-02] MEDS: IPRATROPIUM NEB FS 0.5 MG/2.5 ML AMPUL.NEB NEB SCH ×6 (04:28→23:47)
[2017-10-02] MEDS: METOCLOPRAMIDE HCL 10 MG/2 ML VIAL IV SCH ×4 (04:57→23:26)
[2017-10-02] MEDS: PROPOFOL 100 ML IV PRN ×5 (04:58→23:53)
[2017-10-02] MEDS: MEROPENEM 500 MG in IV NS 0.9% 50 ML IV SCH ×3 (04:58→21:08)
[2017-10-02 05:04] LABS: BASOPHILS # (AUTO) 0.1 /CMM (0.0-0.2); BASOPHILS % (AUTO) 0.4 % (0.0-2.0); HEMATOCRIT 31 % (39-51); HEMOGLOBIN 10.1 g/dL (13.5-17.5); LYMPHOCYTES % (AUTO) 3.7 % (20.0-44.0); MEAN CORPUSCULAR HGB CONC 33 g/dl (31.0-36.0); MEAN CORPUSCULAR VOLUME 86 fL (80-96); MONOCYTES # (AUTO) 0.5 /CMM (0.1-1.30); MONOCYTES % (AUTO) 1.9 % (2.0-12.0); NEUTROPHILS # (AUTO) 24.7 /CMM (1.8-8.9); PLATELET COUNT (AUTO) 201 /CMM (150-450); RDW COEFFICIENT OF VARIATION 17.5 (11.5-15.0); RED BLOOD CELL COUNT(AUTO) 3.59 MIL/uL (4.5-6.0); WHITE BLOOD COUNT (AUTO) 26.2 K/uL (4.3-11.0)
[2017-10-02 05:20] LABS: CALCIUM, SERUM 7.6 mg/dL (8.5-10.1); CARBON DIOXIDE 24 mmol/L (21-32); CHLORIDE 115 mmol/L (98-107); CREATININE 1.1 mg/dL (0.6-1.3); GLUCOSE 152 mg/dL (74-106); MAGNESIUM 1.9 mg/dL (1.8-2.4); PHOSPHORUS 2.8 mg/dL (2.5-4.9); POTASSIUM 3.6 mmol/L (3.5-5.1); SODIUM SERUM 146 mmol/L (136-145); UREA NITROGEN, BLOOD 22 mg/dL (7-18)
[2017-10-02 05:32] LABS: BAND % (MANUAL) 7 % (0.0-5.0); LYMPHOCYTES % (MANUAL) 4 % (16-48); MONOCYTES % (MANUAL) 3 % (0-11.0); NEUTROPHILS % (MANUAL) 86 (42-76)
--- NOTE | 2017-10-02 05:40 | NUR ---
DATABASE PROGRAMMER. THROUGH OUT NIGHT S TACH AND AFIB. RATE 140. AROUND 0530 S DESTINY. RATE 50. WILL CONTINUE TO MONITOR.
[2017-10-02] MEDS: BLOOD SUGAR DIAGNOSTIC 1 EACH STRIP IN SCH ×4 (05:43→23:26)
[2017-10-02] MEDS: BETAMETHASONE DIP 0.05% CREAM 15 GM TUBE TP SCH ×2 (07:00→17:57)
[2017-10-02] MEDS: LEVOTHYROXINE SODIUM 100 MCG TABLET PO SCH (07:30)
--- NOTE | 2017-10-02 07:30 | NUR ---
DENTAL COORDINATOR RECEIVED PATIENT SEDATED ON PROPOFOL AT 30 MCGS ON MECHANICAL VENTILATORY SUPPORT SATURATING 98% WARM TO TOUCH ATRIAL FIBRILLATION WITH SOME PVC NOTED ON THE MONITOR BRADYCARDIA NOTE, ON NEOSYNEPHRINE AT LOW DOSE CHEST TUBE ON BOTH LUNGS IN PLACED CONNECTED TO WALL SUCTION AT -20 PRESSURE FEEDING TOLERATED WITH BOLAND CATHETER DRAINING TO DARK COLORED URINE ADEQUATE IN AMOUNT
--- NOTE | 2017-10-02 07:50 | NUR ---
RT PATIENT REC'D ORALLY INTUBATED ON [facility] VENT WITH SETTINGS SET BY MD YOKASTA CARTER. VENT ALARMS CHECKED + AUDIBLE. CUFF PRESSURE CHECKED BOOKING PRIZER. SUCTIONED WITH TUCKER LUTHICK SECRETIONS. B/S DIM. PICKETTU BAG AT HOB Addendum: 10/02/17 at 1251 by KEE RAMIREZ RT Amended: Links added.
[2017-10-02] MEDS: methylPREDNISolone SOD SUCC 125 MG/2ML VIAL IV SCH (08:53)
[2017-10-02] MEDS: DOCUSATE SODIUM LIQ 100 MG/10 ML UDC NG SCH (08:53)
[2017-10-02] MEDS: GABAPENTIN 300 MG CAPSULE PO SCH ×2 (08:53→17:56)
[2017-10-02] MEDS: APIXABAN 5 MG TABLET PO SCH ×2 (08:54→17:57)
[2017-10-02] MEDS: Z GUARD REMEDY 2 OZ OINT TP SCH (08:54)
[2017-10-02] MEDS: ASCORBIC ACID 500 MG TABLET PO SCH ×2 (08:54→17:56)
[2017-10-02] MEDS: AMIODARONE HCL 200 MG TABLET PO SCH (09:00)
[2017-10-02 09:12] LABS: ABG BASE EXCESS -2.2 mmol/L; ABG OXYGEN SATURATION 95.9 % (92.0-98.5); ABG PCO2 40.4 mmHg (35.0-45.0); ABG PH 7.371 (7.350-7.450); ABG PO2 87.6 mmHg (75.0-100.0); AaDO2 223.5 mmHg; COHb 0.2 % (0.5-1.5); MetHb 0.7 % (0.0-1.5); PEEP,BG 5 cm H2O; SITE, ABG Right Radial; VT, ABG 500 mL
--- NOTE | 2017-10-02 11:30 | NUR ---
AUTOMOBILE DESIGNER NEOSYNEPHRINE RESTARTED AT LOW DOSE, BLOODM PRESSURE DROPPED TO SBP 80 MONITORED CLOSELY
[2017-10-02] MEDS: INSULIN REGULAR, HUMAN 100 UNIT/ML 3 ML VIAL SQ PRN ×2 (13:03→18:08)
[2017-10-02] MEDS: methylPREDNISolone SOD SUCC 40 MG/ML VIAL IV SCH (17:57)
--- NOTE | 2017-10-02 19:14 | NUR ---
ORDER DESK CALLER CHEST TUBE DRAINED AT THE RIGHT - 30 ML, SEROSANGUINEOUS AT THE LEFT - 0
[2017-10-02] MEDS: GLUCERNA 1.2 1,000 ML BOTTLE GT PRN (19:47)
--- NOTE | 2017-10-02 20:29 | NUR ---
received pt from day shift, sedated on Diprivan at 30mcg, SB, Afib controlled, on the vent, intubated, lungs congested, R and L chest tubes intact, no air leak noted, L neck subcutaneous emphysema, GT to feeding, tolerates well, f/c OK output, restraints on, v/s stable, no pain, pt turned and repositioned.
[2017-10-02] MEDS: PANTOPRAZOLE 40 MG VIAL IV SCH (21:08)
[2017-10-02] MEDS: TAMSULOSIN 0.4 MG CAP.SR.24H PO SCH (21:08)
[2017-10-03] VITALS (65 sets, daily range): BP systolic 76–156; BP diastolic 43–108
--- NOTE | 2017-10-03 00:41 | NUR ---
pt is resting in the bed, sedated on Diprivan at 30mcg, tolerates feeding, v/s stable, no pain, pt turned and repositioned q2hrs.
[2017-10-03] MEDS: IPRATROPIUM NEB FS 0.5 MG/2.5 ML AMPUL.NEB NEB SCH ×6 (03:46→23:14)
--- NOTE | 2017-10-03 04:11 | NUR ---
pt is resting in the bed, no acute distress overnight, SB, sedated on diprivan at 30mcg, tolerates feeding, v/s stable, no pain, pt cleaned, changed and repositioned q2hrs.
[2017-10-03] MEDS: MEROPENEM 500 MG in IV NS 0.9% 50 ML IV SCH ×3 (04:20→21:23)
[2017-10-03] MEDS: PROPOFOL 100 ML IV PRN ×4 (04:21→22:41)
[2017-10-03 04:51] LABS: HEMATOCRIT 28 % (39-51); HEMOGLOBIN 9.1 g/dL (13.5-17.5); LYMPHOCYTES # (AUTO) 1.1 /CMM (0.8-4.8); LYMPHOCYTES % (AUTO) 6.8 % (20.0-44.0); MEAN CORPUSCULAR HGB CONC 33 g/dl (31.0-36.0); MEAN CORPUSCULAR VOLUME 86 fL (80-96); MONOCYTES % (AUTO) 0.2 % (2.0-12.0); NEUTROPHILS # (AUTO) 15.7 /CMM (1.8-8.9); PLATELET COUNT (AUTO) 144 /CMM (150-450); RDW COEFFICIENT OF VARIATION 17.1 (11.5-15.0); WHITE BLOOD COUNT (AUTO) 16.9 K/uL (4.3-11.0)
[2017-10-03 05:12] LABS: CALCIUM, SERUM 7.9 mg/dL (8.5-10.1); CARBON DIOXIDE 25 mmol/L (21-32); CHLORIDE 112 mmol/L (98-107); GLUCOSE 135 mg/dL (74-106); SODIUM SERUM 145 mmol/L (136-145); UREA NITROGEN, BLOOD 29 mg/dL (7-18)
[2017-10-03] MEDS: METOCLOPRAMIDE HCL 10 MG/2 ML VIAL IV SCH ×4 (05:59→23:25)
[2017-10-03] MEDS: BLOOD SUGAR DIAGNOSTIC 1 EACH STRIP IN SCH ×4 (05:59→23:25)
[2017-10-03] MEDS: BETAMETHASONE DIP 0.05% CREAM 15 GM TUBE TP SCH ×2 (06:13→19:36)
--- NOTE | 2017-10-03 08:00 | NUR ---
KNITTING DEMONSTRATOR RECEIVED PT IN BED INTUBATED CXR REVIEWD, VENT SETTINGS NOTED VS STABLE PT IS ON RESTRAINTS RELEASED PROVIDED ROM AND CHECK FOR CIRCULATION AND SKIN, SEDATION VACATION PROVIDED PT WOKE UP FOLLOWS COMMANDS, HR ELEVATED PT LOOKE EXTREMILY UNCOMFORTABLE RESUMED SEDATION WILL CONTINUE TO MONITOR. CHEST TUBES X2 PRESENT WITH MINIMAL DISCHARGE NO AIR LEAKS OR BUBBLES PRESENT IN CHAMBER, DRESSINGS CDI NO S/S OF BLEEDING NOTED, SUB Q. EMPHASIMA MINIMAL LEFT NECK, DR. SUERO AT BEDSIDE ADVISED ONLY 30ML URINE SINCE 5AM ORDERED BUMEX ORDERS FOLLOWED TURND AND REPOSITION IN BED FALL PRECAUTIONS TAKEN WILL MONITOR.
[2017-10-03] MEDS: methylPREDNISolone SOD SUCC 40 MG/ML VIAL IV SCH ×2 (08:02→18:15)
[2017-10-03] MEDS: ASCORBIC ACID 500 MG TABLET PO SCH ×2 (08:03→18:15)
[2017-10-03] MEDS: DOCUSATE SODIUM LIQ 100 MG/10 ML UDC NG SCH (08:03)
[2017-10-03] MEDS: LEVOTHYROXINE SODIUM 100 MCG TABLET PO SCH (08:03)
[2017-10-03] MEDS: GABAPENTIN 300 MG CAPSULE PO SCH ×2 (08:03→18:16)
[2017-10-03] MEDS: Z GUARD REMEDY 2 OZ OINT TP SCH (08:04)
[2017-10-03] MEDS: APIXABAN 5 MG TABLET PO SCH ×2 (08:04→18:15)
[2017-10-03] MEDS: AMIODARONE HCL 200 MG TABLET PO SCH (08:04)
[2017-10-03] MEDS ORDERED: BUMETANIDE INJ 4 MG in IV NS 0.9% 24 ML IV ONE (09:00)
--- NOTE | 2017-10-03 09:00 | NUR ---
floriculture teacher pt in bed sedated had a bm provided jerel care sacral redness and minimal excoriation noted clensed with soap and h2o pad dry applied mepilex and zgaurd.
[2017-10-03 09:01] LABS: ABG BASE EXCESS -1.3 mmol/L; ABG OXYGEN SATURATION 94.8 % (92.0-98.5); ABG PCO2 41.3 mmHg (35.0-45.0); ABG PH 7.378 (7.350-7.450); ABG PO2 79.6 mmHg (75.0-100.0); AaDO2 230.4 mmHg; COHb 0.2 % (0.5-1.5); MetHb 0.5 % (0.0-1.5); O2Hb 94.1 % (94.0-97.0); PEEP,BG 5 cm H2O; SITE, ABG Right Radial; VT, ABG 500 mL
[2017-10-03] MEDS: GLUCERNA 1.2 1,000 ML BOTTLE GT PRN (18:15)
--- NOTE | 2017-10-03 20:46 | NUR ---
received pt from day shift, sedated on Diprivan at 40mcg, SB, on the vent, lungs congested, R and L chest tubes intact, no air leak noted, edema present, GT to feeding, tolerates well, f/c good output, v/s stable, no pain, pt turned and repositioned, restraints on.
[2017-10-03] MEDS: PANTOPRAZOLE 40 MG VIAL IV SCH (21:23)
[2017-10-03] MEDS: TAMSULOSIN 0.4 MG CAP.SR.24H PO SCH (21:23)
[2017-10-03] MEDS ORDERED: PHENYLEPHRINE 10 MG/ML VIAL ONE (22:45)
[2017-10-03] MEDS: PHENYLEPHRINE 40 MG in IV D5W 250 ML IV PRN (22:53)
--- NOTE | 2017-10-03 22:59 | NUR ---
PT RECEIVED INTUBATED ON VENT. NO RESP DISTRESS NOTED. PT TOLERATING VENT SETTINGS. SX'D FOR MOD AMT OF THICK PALE SECRETIONS. VENT ALARMS SET AND AUDIBLE. AMBU BAG AT BEDSIDE. ETT CUFF BROTH SETTER AND IN GOOD POSITION. WILL CONTINUE TO MONITOR. Addendum: 10/03/17 at 2301 by CODEY NIX RT Amended: Links added.
--- NOTE | 2017-10-03 23:00 | NUR ---
pt converted back to uncontrolled A fib.( HR 115-141)
--- NOTE | 2017-10-03 23:00 | NUR ---
pt SBP 76-82 pt started on tram at 40mcg.
[2017-10-04] VITALS (68 sets, daily range): BP systolic 73–150; BP diastolic 42–104
--- NOTE | 2017-10-04 00:42 | NUR ---
pt is resting in the bed, sedated on Diprivan at 35mcg, receiving tram at 10mcg, tolerates feeding, v/s stable, no pain, pt turned and repositioned q2hrs.
[2017-10-04] MEDS: PROPOFOL 100 ML IV PRN ×5 (01:20→20:30)
[2017-10-04] MEDS: IPRATROPIUM NEB FS 0.5 MG/2.5 ML AMPUL.NEB NEB SCH ×6 (03:14→23:45)
--- NOTE | 2017-10-04 04:21 | NUR ---
pt is resting in the bed, no acute distress overnight, sedated on Diprivan at 35mcg, on and off of A fib, on tram at 10mcg, tolerates feeding, good urine output, v/s stable, no pain, pt cleaned, changed and repositioned q2hrs.
[2017-10-04] MEDS: MEROPENEM 500 MG in IV NS 0.9% 50 ML IV SCH ×3 (04:25→20:30)
[2017-10-04 04:53] LABS: EOSINOPHILS % (AUTO) 0.1 % (0.0-6.0); HEMATOCRIT 31 % (39-51); HEMOGLOBIN 10.1 g/dL (13.5-17.5); LYMPHOCYTES # (AUTO) 1.6 /CMM (0.8-4.8); LYMPHOCYTES % (AUTO) 7.2 % (20.0-44.0); MEAN CORPUSCULAR HGB CONC 33 g/dl (31.0-36.0); MEAN CORPUSCULAR VOLUME 85 fL (80-96); MONOCYTES # (AUTO) 0.1 /CMM (0.1-1.30); MONOCYTES % (AUTO) 0.4 % (2.0-12.0); NEUTROPHILS % (AUTO) 92.3 % (43.0-81.0); PLATELET COUNT (AUTO) 193 /CMM (150-450); RDW COEFFICIENT OF VARIATION 17.6 (11.5-15.0); RED BLOOD CELL COUNT(AUTO) 3.62 MIL/uL (4.5-6.0); WHITE BLOOD COUNT (AUTO) 21.7 K/uL (4.3-11.0)
[2017-10-04 05:20] LABS: CALCIUM, SERUM 7.8 mg/dL (8.5-10.1); CARBON DIOXIDE 28 mmol/L (21-32); CHLORIDE 108 mmol/L (98-107); GLUCOSE 118 mg/dL (74-106); MAGNESIUM 1.8 mg/dL (1.8-2.4); POTASSIUM 3.9 mmol/L (3.5-5.1); SODIUM SERUM 144 mmol/L (136-145); UREA NITROGEN, BLOOD 34 mg/dL (7-18)
[2017-10-04] MEDS: METOCLOPRAMIDE HCL 10 MG/2 ML VIAL IV SCH ×3 (05:37→17:45)
[2017-10-04] MEDS: BLOOD SUGAR DIAGNOSTIC 1 EACH STRIP IN SCH ×3 (05:37→18:20)
[2017-10-04] MEDS: BETAMETHASONE DIP 0.05% CREAM 15 GM TUBE TP SCH ×2 (06:04→18:50)
--- NOTE | 2017-10-04 07:05 | NUR ---
SECONDARY ART TEACHER DF NIGHT RN MAYRA AND MYSELF INFORMED MD GARCIA DURING AM ROUNDS PT WITH AFIB 140,S 150,S NO ORDERS RECEIVED. PT WITH HX OF AFIB 140,S AND EPISODES OF BRADYCARDIA INTO THE 40,S AND 50,S.
[2017-10-04] MEDS: LEVOTHYROXINE SODIUM 100 MCG TABLET PO SCH (07:56)
[2017-10-04] MEDS: methylPREDNISolone SOD SUCC 40 MG/ML VIAL IV SCH ×2 (08:06→17:04)
[2017-10-04] MEDS: APIXABAN 5 MG TABLET PO SCH ×2 (08:07→17:05)
[2017-10-04] MEDS: GABAPENTIN 300 MG CAPSULE PO SCH ×2 (08:07→17:04)
[2017-10-04] MEDS: DOCUSATE SODIUM LIQ 100 MG/10 ML UDC NG SCH (08:07)
[2017-10-04] MEDS: ASCORBIC ACID 500 MG TABLET PO SCH ×2 (08:07→17:04)
[2017-10-04] MEDS: AMIODARONE HCL 200 MG TABLET PO SCH (08:07)
[2017-10-04] MEDS: Z GUARD REMEDY 2 OZ OINT TP SCH (08:08)
--- NOTE | 2017-10-04 08:24 | NUR ---
GLOVE CUFFER DF PT RECEIVED TO ROOM#259 PT ORAL INTUBATION WITH AC VENT SETTINGS WITH FIO2 OF 50%, SEDATED ON PROPOFOL @ 35 MCG.AROUSES TO TACTILE STIMULI. PT MAY NOD IS HEAD YES OR NO TO SIMPLE QUESTIONS, PT STARTED ON NEOSYNEPHRINE 515@2300 FOR HYPOTENSION CURRENT RATE OF 20MCG/MIN, CURRENT BP OF 102/55. BILATERAL CHEST TUBES IN PLACE.VSS.NAD NOTED.
--- NOTE | 2017-10-04 08:32 | NUR ---
PUPPET MAKER DF BP OF 73/45 NEOSYNEPHRINE TITRATED TO 40MCG. DIPRIVAN DECREASED TO 30 MCG. WILL MONITOR FOR EFFECT. GOAL TO KEEP SBP ABOVE 90.
--- NOTE | 2017-10-04 09:14 | NUR ---
POST TENSIONING IRONWORKER HELPER DF SBP OF 145 NEOSYNEPHRINE TITRATED TO 20MCG.
--- NOTE | 2017-10-04 11:13 | NUR ---
GRAVEL MACHINE OPERATOR DF ACCU CHECK OF 133 NO COVERAGE PER EMAR, TOLERATING TUBE FEEDING.
[2017-10-04] MEDS: BUMETANIDE INJ 0.25 MG/ML VIAL IV SCH ×2 (12:28→20:29)
--- NOTE | 2017-10-04 13:58 | NUR ---
DIGITAL MARKETING MANAGER DF I SPOKE WITH HELIO SUN SISTER OF PT AND NIECE YOLY RODNEY CONSENT RECEIVED FOR TRACHEOSTOMY PLACEMENT TO BE DONE BY MD GARCIA.
--- NOTE | 2017-10-04 16:36 | NUR ---
PT RECEIVED ORALLY INTUBATED ON MECHANICAL VENT W/ SETTINGS PER MD. VENT ALARMS CHECKED AND AUDIBLE, VENT IN RED OUTLET, AMBUBAG AT BEDSIDE. PT SX'ED AND LAVAGED PRN. BREATH SOUNDS EQUAL, DIMINISHED. NO RESP DISTRESS NOTED. PLAN IS TO CONTINUE CURRENT CARE UNDER MD ORDERS AND MONITOR FOR CHANGES. Addendum: 10/04/17 at 1636 by ROYAL CONNELLY RT Amended: Links added.
[2017-10-04] MEDS: PANTOPRAZOLE 40 MG VIAL IV SCH (20:29)
[2017-10-04] MEDS: TAMSULOSIN 0.4 MG CAP.SR.24H PO SCH (22:45)
[2017-10-04] MEDS: IV NS 0.9% 100 ML IV PRN (23:02)
[2017-10-05] VITALS (70 sets, daily range): BP systolic 75–178; BP diastolic 41–96
[2017-10-05] MEDS: BLOOD SUGAR DIAGNOSTIC 1 EACH STRIP IN SCH ×4 (01:25→18:53)
[2017-10-05] MEDS: METOCLOPRAMIDE HCL 10 MG/2 ML VIAL IV SCH ×4 (01:25→18:01)
[2017-10-05] MEDS: PROPOFOL 100 ML IV PRN ×4 (01:25→21:50)
[2017-10-05] MEDS: IPRATROPIUM NEB FS 0.5 MG/2.5 ML AMPUL.NEB NEB SCH ×6 (04:10→23:44)
[2017-10-05 04:48] LABS: BASOPHILS % (AUTO) 0.1 % (0.0-2.0); EOSINOPHILS % (AUTO) 0.6 % (0.0-6.0); HEMATOCRIT 30 % (39-51); HEMOGLOBIN 9.8 g/dL (13.5-17.5); LYMPHOCYTES % (AUTO) 11.6 % (20.0-44.0); MEAN CORPUSCULAR HGB CONC 33 g/dl (31.0-36.0); MEAN CORPUSCULAR VOLUME 85 fL (80-96); MONOCYTES # (AUTO) 0.1 /CMM (0.1-1.30); MONOCYTES % (AUTO) 0.3 % (2.0-12.0); NEUTROPHILS # (AUTO) 15.3 /CMM (1.8-8.9); NEUTROPHILS % (AUTO) 87.4 % (43.0-81.0); PLATELET COUNT (AUTO) 150 /CMM (150-450); RDW COEFFICIENT OF VARIATION 17.1 (11.5-15.0); RED BLOOD CELL COUNT(AUTO) 3.49 MIL/uL (4.5-6.0); WHITE BLOOD COUNT (AUTO) 17.5 K/uL (4.3-11.0)
[2017-10-05 05:03] LABS: CALCIUM, SERUM 7.6 mg/dL (8.5-10.1); CARBON DIOXIDE 29 mmol/L (21-32); CHLORIDE 108 mmol/L (98-107); GLUCOSE 92 mg/dL (74-106); MAGNESIUM 1.8 mg/dL (1.8-2.4); POTASSIUM 3.7 mmol/L (3.5-5.1); SODIUM SERUM 143 mmol/L (136-145); UREA NITROGEN, BLOOD 37 mg/dL (7-18)
--- NOTE | 2017-10-05 05:15 | NUR ---
PRECISION HONER PT NOTED WITH INCREASED HR 130s AND SBP 75; NEOSYNEPHRINE STARTED PER PROTOCOL. CONTINUE TO MONITOR.
[2017-10-05] MEDS: MEROPENEM 500 MG in IV NS 0.9% 50 ML IV SCH ×3 (05:45→21:50)
[2017-10-05] MEDS: PHENYLEPHRINE 40 MG in IV D5W 250 ML IV PRN ×2 (05:46→13:26)
--- NOTE | 2017-10-05 05:56 | NUR ---
HARDWARE TRAINER RIGHT CHEST TUBE OUTPUT 25 LEFT CHEST TUBE OUTPUT 25
[2017-10-05] MEDS: BETAMETHASONE DIP 0.05% CREAM 15 GM TUBE TP SCH ×2 (06:00→18:02)
[2017-10-05] MEDS: LEVOTHYROXINE SODIUM 100 MCG TABLET PO SCH (07:30)
[2017-10-05] MEDS: DOCUSATE SODIUM LIQ 100 MG/10 ML UDC NG SCH (07:42)
[2017-10-05] MEDS: AMIODARONE HCL 200 MG TABLET PO SCH (07:43)
[2017-10-05] MEDS: ASCORBIC ACID 500 MG TABLET PO SCH ×2 (07:43→17:58)
[2017-10-05] MEDS: APIXABAN 5 MG TABLET PO SCH ×2 (07:43→17:58)
[2017-10-05] MEDS: GABAPENTIN 300 MG CAPSULE PO SCH ×2 (07:43→17:58)
[2017-10-05] MEDS: IV NS 0.9% 1,000 ML IV SCH ×2 (09:17→12:39)
[2017-10-05] MEDS: BUMETANIDE INJ 0.25 MG/ML VIAL IV SCH (09:17)
[2017-10-05] MEDS: methylPREDNISolone SOD SUCC 40 MG/ML VIAL IV SCH ×2 (09:17→17:58)
[2017-10-05] MEDS: Z GUARD REMEDY 2 OZ OINT TP SCH (09:18)
--- NOTE | 2017-10-05 19:30 | NUR ---
HEALTH INFORMATION ADMINISTRATOR FARHANA TITRATED OFF; BP 137/63; CONTINUE TO MONITOR.
[2017-10-05] MEDS: TAMSULOSIN 0.4 MG CAP.SR.24H PO SCH (21:49)
[2017-10-05] MEDS: PANTOPRAZOLE 40 MG VIAL IV SCH (21:49)
[2017-10-05] MEDS: GLUCERNA 1.2 1,000 ML BOTTLE GT PRN (23:40)
[2017-10-06] VITALS (98 sets, daily range): BP systolic 68–142; BP diastolic 39–101
[2017-10-06] MEDS: BLOOD SUGAR DIAGNOSTIC 1 EACH STRIP IN SCH ×5 (01:12→23:36)
[2017-10-06] MEDS: PROPOFOL 100 ML IV PRN ×3 (01:13→13:00)
[2017-10-06] MEDS: METOCLOPRAMIDE HCL 10 MG/2 ML VIAL IV SCH ×5 (01:13→23:39)
[2017-10-06] MEDS: IPRATROPIUM NEB FS 0.5 MG/2.5 ML AMPUL.NEB NEB SCH ×6 (03:34→23:31)
[2017-10-06] MEDS: MEROPENEM 500 MG in IV NS 0.9% 50 ML IV SCH ×3 (05:32→20:38)
--- NOTE | 2017-10-06 05:57 | NUR ---
IT BUSINESS PROCESS ARCHITECT RIGHT CHEST TUBE OUTPUT 150 LEFT CHEST TUBE OUTPUT 150
[2017-10-06] MEDS: BETAMETHASONE DIP 0.05% CREAM 15 GM TUBE TP SCH ×2 (06:48→20:31)
[2017-10-06] MEDS: LEVOTHYROXINE SODIUM 100 MCG TABLET PO SCH (06:48)
--- NOTE | 2017-10-06 08:39 | NUR ---
RT NOTE RECEIVED PT MECHANICALLY VENTILATED VIA 7.0 ETT 24 CM AT LIP. SETTINGS ON VENTILATOR PRESCRIBED. ETT SECURE. CUFF INFLATED BY HAND PLATE STACKER. ALARMS SET PER PROTOCOL AND AUDIBLE. VENT PLUGGED IN TO RED OUTLET. AMBU BAG AT BED SIDE. NO DISTRESS NOTED AT MOMENT. WILL CONTINUE TO MONITOR.
[2017-10-06] MEDS: AMIODARONE HCL 200 MG TABLET PO SCH ×2 (09:00→15:39)
[2017-10-06] MEDS: DOCUSATE SODIUM LIQ 100 MG/10 ML UDC NG SCH (09:00)
[2017-10-06] MEDS: methylPREDNISolone SOD SUCC 40 MG/ML VIAL IV SCH ×2 (09:47→16:26)
[2017-10-06] MEDS: ASCORBIC ACID 500 MG TABLET PO SCH ×2 (09:48→16:26)
[2017-10-06] MEDS: GABAPENTIN 300 MG CAPSULE PO SCH ×2 (09:48→16:26)
[2017-10-06] MEDS: Z GUARD REMEDY 2 OZ OINT TP SCH (09:50)
[2017-10-06] MEDS: APIXABAN 5 MG TABLET PO SCH ×2 (09:56→16:34)
[2017-10-06] MEDS: PROSOURCE / PROSTAT (PYXIS) 30 ML UDC GT SCH ×2 (10:51→16:28)
--- NOTE | 2017-10-06 12:00 | NUR ---
BS 123, AND NO INSULIN NECESSARY PER SLIDING SCALE PER DO. PATIENT RESTING QUIETLY IN BED AND TITRATING PROPOFOL DRIP DOWN. NUSRAT HIRSCH RN
[2017-10-06] MEDS: BUMETANIDE INJ 0.25 MG/ML VIAL IV SCH ×2 (15:39→20:40)
--- NOTE | 2017-10-06 18:00 | NUR ---
PATIENT BS 126, AND NO INSULIN NECESSARY PER SLIDING SCALE PER DO. PATIENT PROPOFOL DRIP TO 5MCG/KG/MIN. NEOSYNEPHRINE AT 5 MCG/MIN. NUSRAT HIRSCH RN
--- NOTE | 2017-10-06 19:40 | NUR ---
RN NOTES RECEIVED PT WITH EYES OPEN CALM AND COOPERATIVE ZERO FLACC. NO ACUTE RESP DISTRESS WITH ETT 7.0/ 24 CM @ LIP CONNECTED TO VENT AC 16 TV 500 FIO2 50% PEEP 5 SATURATION 100%. WITH BILATERAL CHEST TUBE RIGHT CHEST HAS SEROSANGUINEOUS FLUIDS AND LEFT CHEST HAS SEROUS FLUIDS OUTPUT. ON CONTINUOS SUCTION, NO LEAK, DRESSING INTACT. TELE MONITOR REVEALS SR WITH PAC HR 67. IV SITE ON LOINEL PICC LINE WITH PROPOFOL @ 5 MCG/KG/MIN AND NEOSYNEPHRINE @ 5 MCG/MIN IV SITE INTACT AND PATENT. VSS. GT REMAINED INTACT NO RESIDUAL. LORELEI. SOFT WRIST RESTRAINT KEPT IN PLACED CIRCULATION CHECKED. REPOSITIONED PT PT COMFORTABLE. KEPT CLEAN AND DRY. WILL CONTINUE TO MONITOR.
--- NOTE | 2017-10-06 20:08 | NUR ---
PT RECEIVED INTUBATED. SX'D FOR MOD AMT OF YELLOW SECRETIONS. VENT ALARMS SET AND AUDIBLE. AMBU BAG AT BEDSIDE. VENT PLUGGED INTO RED OUTLET. WILL CONTINUE TO MONITOR. Addendum: 10/06/17 at 2008 by EKATERINA DE ANDA RT Amended: Links added.
[2017-10-06] MEDS: PANTOPRAZOLE 40 MG VIAL IV SCH (20:43)
[2017-10-06] MEDS: TAMSULOSIN 0.4 MG CAP.SR.24H PO SCH (21:35)
--- NOTE | 2017-10-06 21:50 | NUR ---
RN NOTES INFORMED EDEL END MATCHER REGARDING TRIGLYCERIDES = 455 RESULTED IN AM ANS PT STILL ON PROPOFOL 5 MCG/KG/MIN. AND PT IS CALM AND COOPERATIVE. PER END MATCHER IF HE DOESN'T NEED THE PROPOFOL THEN D/C IT.
--- NOTE | 2017-10-06 22:45 | NUR ---
RN NOTES CHEST TUBE DRAINAGE CHANGE WITH CHARGE NURSE , TOLERATED WELL NO COMPLAIN OF PAIN, KEPT SEALED AND NO LEAKS.
[2017-10-06] MEDS: INSULIN REGULAR, HUMAN 100 UNIT/ML 3 ML VIAL SQ PRN (23:39)
[2017-10-07] VITALS (68 sets, daily range): BP systolic 91–137; BP diastolic 31–87
[2017-10-07] MEDS: IPRATROPIUM NEB FS 0.5 MG/2.5 ML AMPUL.NEB NEB SCH ×6 (03:32→23:08)
[2017-10-07] MEDS: MEROPENEM 500 MG in IV NS 0.9% 50 ML IV SCH ×3 (05:00→21:45)
[2017-10-07] MEDS: METOCLOPRAMIDE HCL 10 MG/2 ML VIAL IV SCH ×3 (05:01→17:05)
[2017-10-07 05:16] LABS: EOSINOPHILS % (AUTO) 0.1 % (0.0-6.0); HEMATOCRIT 33 % (39-51); LYMPHOCYTES # (AUTO) 1.1 /CMM (0.8-4.8); LYMPHOCYTES % (AUTO) 5.4 % (20.0-44.0); MEAN CORPUSCULAR HGB CONC 34 g/dl (31.0-36.0); MEAN CORPUSCULAR VOLUME 84 fL (80-96); MONOCYTES # (AUTO) 0.1 /CMM (0.1-1.30); MONOCYTES % (AUTO) 0.5 % (2.0-12.0); NEUTROPHILS # (AUTO) 18.9 /CMM (1.8-8.9); PLATELET COUNT (AUTO) 182 /CMM (150-450); RDW COEFFICIENT OF VARIATION 16.7 (11.5-15.0); RED BLOOD CELL COUNT(AUTO) 3.88 MIL/uL (4.5-6.0); WHITE BLOOD COUNT (AUTO) 20.1 K/uL (4.3-11.0)
[2017-10-07] MEDS: BLOOD SUGAR DIAGNOSTIC 1 EACH STRIP IN SCH ×3 (05:24→17:03)
[2017-10-07 05:55] LABS: ALANINE AMINOTRANSFERASE 59 U/L (12-78); ALBUMIN 1.7 g/dL (3.4-5.0); ALKALINE PHOSPHATASE 72 U/L (46-116); ASPARTATE AMINOTRANSFERASE 22 U/L (15-37); BILIRUBIN,TOTAL 0.3 mg/dL (0.2-1.0); CARBON DIOXIDE 27 mmol/L (21-32); CHLORIDE 106 mmol/L (98-107); CREATININE 0.9 mg/dL (0.6-1.3); GLUCOSE 101 mg/dL (74-106); MAGNESIUM 2.8 mg/dL (1.8-2.4); PHOSPHORUS 3.9 mg/dL (2.5-4.9); SODIUM SERUM 141 mmol/L (136-145); TOTAL PROTEIN, SERUM 4.9 g/dL (6.4-8.2); UREA NITROGEN, BLOOD 41 mg/dL (7-18)
[2017-10-07 06:05] LABS: LYMPHOCYTES % (MANUAL) 5 % (16-48); MONOCYTES % (MANUAL) 6 % (0-11.0); NEUTROPHILS % (MANUAL) 89 (42-76)
[2017-10-07] MEDS: BETAMETHASONE DIP 0.05% CREAM 15 GM TUBE TP SCH ×2 (06:34→19:59)
--- NOTE | 2017-10-07 06:56 | NUR ---
RN NOTES PT REMAINED IN STABLE CONDITION THROUGHOUT THE SHIFT. NO ACUTE RESP DISTRESS NO CHANGE FROM ETT AND VENT SETTING SATING 100%. DENIES PAIN. VSS STABLE THROUGHOUT THE SHIFT. OFF FROM PRESSOR SINCE 444 AM OFF PROPOFOL WELL CALM AND COOPERATIVE. TELE MONITOR REMAINED SR WITH PAC'S. LORELEI. SOFT WRIST RESTRAINT KEPT ON FOR SAFETY. LORELEI. CHEST TUBE INTACT NO LEAK, DRESSING CHANGED. F/C DRAINED WITH YELLOW COLOR URINE. KEPT PT CLEAN AND DRY. ENDORSED CONTINUITY OF CARE TO AM NURSE.
--- NOTE | 2017-10-07 07:30 | NUR ---
PROFESSOR OF SPECIAL EDUCATION RECEIVED PATIENT AWAKE ON MECHANICAL VENTILATORY SUPPORT SATURATING WELL, WITH ETT IN PLACED ALERT ORIENTED X 2 AFEBRILE WITH CHEST TUBE ON BOTH SIDES IN PLACED AND WORKING IN AND OUT SINUS RHYTHM, ATRIAL FIBRILLATION NOTED ON NPO FOR TRACHEOSTOMY PLACEMENT AT 11 AM SEEN AND EXAMINED BY DR. GARCIA WITH BOLAND CATHETER DRAINING TO DARK YELLOW URINE ADEQUATE IN AMOUNT
[2017-10-07] MEDS: methylPREDNISolone SOD SUCC 40 MG/ML VIAL IV SCH (08:16)
[2017-10-07] MEDS: AMIODARONE HCL 200 MG TABLET PO SCH (08:17)
[2017-10-07] MEDS: LEVOTHYROXINE SODIUM 100 MCG TABLET PO SCH (08:17)
[2017-10-07] MEDS: BUMETANIDE INJ 0.25 MG/ML VIAL IV SCH ×2 (08:17→17:02)
[2017-10-07] MEDS: DOCUSATE SODIUM LIQ 100 MG/10 ML UDC NG SCH (08:17)
[2017-10-07] MEDS: PROSOURCE / PROSTAT (PYXIS) 30 ML UDC GT SCH ×2 (08:17→17:02)
[2017-10-07] MEDS: APIXABAN 5 MG TABLET PO SCH ×2 (08:18→17:00)
[2017-10-07] MEDS: ASCORBIC ACID 500 MG TABLET PO SCH ×2 (08:18→17:02)
[2017-10-07] MEDS: GABAPENTIN 300 MG CAPSULE PO SCH ×2 (08:18→17:02)
[2017-10-07] MEDS: Z GUARD REMEDY 2 OZ OINT TP SCH (08:27)
[2017-10-07] MEDS ORDERED: LIDOCAINE 1%-EPI 1:100,000 20 ML VIAL ONE (11:42)
[2017-10-07] MEDS ORDERED: ROCURONIUM BROMIDE 50 MG/5 ML ONE (11:51)
[2017-10-07] MEDS ORDERED: MIDAZOLAM HCL 2 MG/2ML VIAL ONE (11:51)
--- NOTE | 2017-10-07 12:34 | NUR ---
ROUTER TENDER ARRIVED FROM OR 15 MINS AGO ANESTHESIOLOGIST AT BEDSIDE, ORDERED TO GIVE 50 ML BOLUS AND MONITORED PATIENT FOR 1 HR Q15 STABLE VITAL SIGS, SHILEY [address] GARCIA
--- NOTE | 2017-10-07 13:45 | NUR ---
PILING SETTER BLOOD PRESSURE DROPPED, RESTARTED NEOSYNEPHRINE AT 10 MCGS SUCTIONED BLOODY SECRETION AROUND HIS TRACH AREA
[2017-10-07] MEDS: GLUCERNA 1.2 1,000 ML BOTTLE GT PRN (14:33)
--- NOTE | 2017-10-07 17:15 | NUR ---
ROD STRAIGHTENER ELIQUIS PER GT NOT GIVEN, PRE AND POST SURGERY MINIMAL BLEED AROUND THE TRACH
--- NOTE | 2017-10-07 17:29 | NUR ---
Intubated pt received on mechanical vent. Pt received a shiley 8 distal xlt trach. Pt tolerated current vent settings well. Vent is plugged into a red outlet, alarms are set and audible, and BVM is at bedside. Addendum: 10/07/17 at 1736 by SHREYAS CHAVEZ RT Amended: Links added.
--- NOTE | 2017-10-07 19:40 | NUR ---
RN NOTES RECEIVED ENDORSEMENT FROM PREVIOUS SHIFT. RECEIVED PATIENT WITH TRACH REPLACEMENT OF SHILEY 8 XLT. NOTED WITH BLEEDING IN THE STOMA, KEPT CLEAN. PATIENT IS AWAKE AND ALERT, DENIES ANY PAIN AND DISCOMFORT, NO DISTRESS. VS STABLE. OFF FROM PRESSORS. VENT SETTINGS TOLERATED BY PATIENT WELL, NO DISTRESS. MODERATE AMOUNT OF SECRETIONS SUCTIONED, FROTHY, THICK, YELLOW-BROTHERS COLORED. PATIENT WITH CHEST TUBES IN PLACE, CONNECTED TO WALL SUCTION. RIGHT CHEST TUBE WITH SEROSANGUINEOUS DRAINAGE NOTED. LEFT CHEST TUBE WITH SEROUS DRAINAGE. F/C IN PLACE, DRAINING WITH YELLOW URINE. IVF ORDERED. LIONEL PICC LINE INTACT WITH GOOD BLOOD RETURN. BILATERAL SOFT WRIST RESTRAINTS IN PLACE, CHECKED FOR CIRCULATION AND SKIN INTEGRITY. REPOSITIONED FOR COMFORT. NEEDS ANTICIPATED AND MET. SAFETY AND COMFORT ENSURED. WILL MONITOR CLOSELY.
--- NOTE | 2017-10-07 20:18 | NUR ---
PT RCVD BERT'D ON MECHANICAL VENT SETTINGS. SX PT. PT TRACH PATENT AND SECURE. AMBU BAG AT BEDSIDE. VENT PLUGGED INTO RED OUTLET. ALARMS ARE SET AND AUDIBLE. WILL CONTINUE TO MONITOR. Addendum: 10/07/17 at 2020 by LUCIEN ALVARES RT Amended: Links added. Addendum: 10/07/17 at 215 by LUCIEN ALVARES RT BLOOD NOTED AROUND STOMA SITE. BLAISE [place].
[2017-10-07] MEDS: IV NS 0.9% 1,000 ML IV PRN (21:44)
[2017-10-07] MEDS: PANTOPRAZOLE 40 MG VIAL IV SCH (21:46)
[2017-10-07] MEDS: TAMSULOSIN 0.4 MG CAP.SR.24H PO SCH (21:46)
[2017-10-08] VITALS (38 sets, daily range): BP systolic 87–131; BP diastolic 52–88
[2017-10-08] MEDS: BLOOD SUGAR DIAGNOSTIC 1 EACH STRIP IN SCH ×5 (00:02→23:39)
[2017-10-08] MEDS: METOCLOPRAMIDE HCL 10 MG/2 ML VIAL IV SCH ×5 (00:03→23:38)
[2017-10-08] MEDS: INSULIN REGULAR, HUMAN 100 UNIT/ML 3 ML VIAL SQ PRN ×3 (00:06→17:50)
[2017-10-08] MEDS: IPRATROPIUM NEB FS 0.5 MG/2.5 ML AMPUL.NEB NEB SCH ×6 (03:37→23:09)
[2017-10-08 05:14] LABS: EOSINOPHILS % (AUTO) 0.2 % (0.0-6.0); HEMATOCRIT 30 % (39-51); HEMOGLOBIN 9.8 g/dL (13.5-17.5); LYMPHOCYTES # (AUTO) 1.3 /CMM (0.8-4.8); LYMPHOCYTES % (AUTO) 7.9 % (20.0-44.0); MEAN CORPUSCULAR HGB CONC 33 g/dl (31.0-36.0); MEAN CORPUSCULAR VOLUME 85 fL (80-96); MONOCYTES # (AUTO) 0.1 /CMM (0.1-1.30); MONOCYTES % (AUTO) 0.6 % (2.0-12.0); NEUTROPHILS # (AUTO) 15.3 /CMM (1.8-8.9); NEUTROPHILS % (AUTO) 91.3 % (43.0-81.0); PLATELET COUNT (AUTO) 146 /CMM (150-450); RED BLOOD CELL COUNT(AUTO) 3.51 MIL/uL (4.5-6.0); WHITE BLOOD COUNT (AUTO) 16.7 K/uL (4.3-11.0)
[2017-10-08 05:33] LABS: ALANINE AMINOTRANSFERASE 51 U/L (12-78); ALBUMIN 1.6 g/dL (3.4-5.0); ALKALINE PHOSPHATASE 65 U/L (46-116); ASPARTATE AMINOTRANSFERASE 22 U/L (15-37); BILIRUBIN,TOTAL 0.3 mg/dL (0.2-1.0); CALCIUM, SERUM 7.8 mg/dL (8.5-10.1); CARBON DIOXIDE 30 mmol/L (21-32); CHLORIDE 108 mmol/L (98-107); CREATININE 0.9 mg/dL (0.6-1.3); GLUCOSE 108 mg/dL (74-106); PHOSPHORUS 3.2 mg/dL (2.5-4.9); POTASSIUM 3.7 mmol/L (3.5-5.1); SODIUM SERUM 143 mmol/L (136-145); TOTAL PROTEIN, SERUM 4.5 g/dL (6.4-8.2); UREA NITROGEN, BLOOD 40 mg/dL (7-18)
[2017-10-08] MEDS: MEROPENEM 500 MG in IV NS 0.9% 50 ML IV SCH ×3 (05:50→21:16)
[2017-10-08] MEDS: IV NS 0.9% 1,000 ML IV PRN ×3 (05:51→22:08)
--- NOTE | 2017-10-08 06:40 | NUR ---
RN NOTES PATIENT WITH NO ACUTE DISTRESS OBSERVED OVERNIGHT. TOLERATING VENT SETTINGS WELL, NO DISTRESS. BILATERAL SOFT WRIST RESTRAINTS IN PLACE AT ALL TIMES. CIRCULATION AND SKIN SKIN INTEGRITY ENSURED. TRACH STOMA WITH MINIMAL BLEEDING NOTED, THICK YELLOW-BROTHERS SECRETIONS NOTED WITH TRACHEAL SUCTIONING. TOLERATED GTF WELL, MINIMAL GASTRIC RESIDUAL NOTED. CHEST TUBES REMAINS INTACT AND DRAINING WELL. RIGHT CHEST TUBE OBSERVED WITH SEROUS DRAINAGE, 190cc TOTAL. LEFT CHEST TUBE WITH SEROUS DRAINAGE WITH 72cc TOTAL OUTPUT FOR THE SHIFT. ST TO AFIB ON MONITOR, 110-130s. BP WNL MONITORED CLOSELY. IVF ORDERED. F/C INTACT. KEPT CLEAN AND DRY. SAFETY AND COMFORT ENSURED. TURNED AND REPOSITIONED. CALL LIGHT IN REACH. WILL ENDORSE ACCORDINGLY FOR CONTINUITY OF CARE.
--- NOTE | 2017-10-08 08:00 | NUR ---
ICU/RN AM SHIFT INITIAL NOTES RECEIVED PT AWAKE IN BED, PT A/O X 1 ABLE TO MOUTH WORDS. NO ACUTE RESPIRATORY DISTRESS NOTED. ON VENTILATOR SUPPORT WITH RATES SET PRESCRIBED, SATURATING @ 98%, LUNG SOUNDS CLEAR. RESPIRATIONS EVEN & UNLABORED. TRACH SITE NOTED WITH SOME THICK BLOODY SECRETIONS, SUCTIONED FOR AIRWAY CLEARANCE. ON TELE WITH SINUS RHYTHM, HR 72. RIGHT AND LEFT CHEST TUBES INTACT NOTED WITH SEROUS OUTPUT. BOLAND CATHETER INTACT WITH YELLOW URINE OUTPUT. PICC LINE WITH ON GOING IN INFUSION OF NS @ 125CC/HR, FLUSHED, PATENT WITH NO S/S OF INFECTION. GT FEEDING ON GOING @ 65CC/HR, FLUSHED, PATENT. BILATERAL WRIST RESTRAINTS REMOVED CHECKED FOR COMFORT AND CIRCULATION THEN PLACED BACK. PT IS COMFORTABLE. PT WILL BE PLACED ON CPAP MODE SHORTLY FOR WEANING TRIAL. SCHEDULED AM MEDS TO BE GIVEN. CL WITHIN REACHED AND SAFETY MAINTAINED. ON GOING MONITORING.
[2017-10-08] MEDS: BETAMETHASONE DIP 0.05% CREAM 15 GM TUBE TP SCH ×2 (09:18→21:19)
[2017-10-08] MEDS: GLUCERNA 1.2 1,000 ML BOTTLE GT PRN (09:18)
[2017-10-08] MEDS: DOCUSATE SODIUM LIQ 100 MG/10 ML UDC NG SCH (09:19)
[2017-10-08] MEDS: LEVOTHYROXINE SODIUM 100 MCG TABLET PO SCH (09:19)
[2017-10-08] MEDS: ASCORBIC ACID 500 MG TABLET PO SCH ×2 (09:19→17:51)
[2017-10-08] MEDS: GABAPENTIN 300 MG CAPSULE PO SCH ×2 (09:19→17:51)
[2017-10-08] MEDS: methylPREDNISolone SOD SUCC 40 MG/ML VIAL IV SCH (09:19)
[2017-10-08] MEDS: APIXABAN 5 MG TABLET PO SCH ×2 (09:19→17:51)
[2017-10-08] MEDS: PROSOURCE / PROSTAT (PYXIS) 30 ML UDC GT SCH ×2 (09:19→17:51)
[2017-10-08] MEDS: Z GUARD REMEDY 2 OZ OINT TP SCH (09:20)
[2017-10-08] MEDS: AMIODARONE HCL 200 MG TABLET PO SCH (09:28)
[2017-10-08 09:41] LABS: ABG BASE EXCESS 1.5 mmol/L; ABG OXYGEN SATURATION 96.8 % (92.0-98.5); ABG PCO2 44.7 mmHg (35.0-45.0); ABG PH 7.395 (7.350-7.450); AaDO2 205.2 mmHg; COHb 0.3 % (0.5-1.5); MetHb 0.6 % (0.0-1.5); O2Hb 95.9 % (94.0-97.0); SITE, ABG Left Radial; VENT MODE, BG CPAP 5 PS 15 50%
--- NOTE | 2017-10-08 11:15 | NUR ---
ICU/RN ROUNDS - DR. SPAULDING PT SEEN & EXAMINED BY DR. SPAULDING. NO NEW ORDERS RECEIVED AT THIS TIME. MONITORING CONTINUED.
--- NOTE | 2017-10-08 17:52 | NUR ---
Pt received on AC mode and placed on CPAP per MD order. Pt tolerated CPAP well. Pt trach is secure. Vent is plugged into a red outlet, alarms are set and audible, and BVM is at beside. Addendum: 10/08/17 at 1754 by SHREYAS CHAVEZ RT Amended: Links added.
--- NOTE | 2017-10-08 19:00 | NUR ---
BUSINESS ANALYST [employer] NOTES Received patient awake,alert,with tracheostomy to the ventilator on AC mode,not in any distress,breathing regular and non labored.Converses,able to talk with the tracheostomy.coherent and appropriate.with on going feeding via GJ tube,has been off Levophed ,BP stable. Had hemodialysis today ,tolerated well.HD access via left subclavian HD catheter.Noted multiple wounds on both lower legs with necrotic/gangrenous toes,stage IV sacral decub.Comfort care done,needs attended.For possible transfer to telemetry. Addendum: 10/09/17 at 0313 by TARUN MONROE RN Please disregard above note,entered in the wrong patient chart.Intended for another patient
--- NOTE | 2017-10-08 19:00 | NUR ---
TIRE DESIGN ENGINEER NOTES Received patient asleep,arousable,easily awakens.with tracheostomy XLT #8 to the ventilator on CPAP mode,slightly labored deep inspiratory breathing but not in acute distress,tolerating 92-96%.On bilateral soft wrist restraints to prevent self extubation,patient instructed as well not to pull tube.Feeding via G tube ,tolerating well ,PICC line via LIONEL .Bilateral chest tube to Pleurovac water seal drainage both patent draining serousanguinous drainage.comfort care done,needs attended.Patient awake,alert,follows simple commands.
--- NOTE | 2017-10-08 19:45 | NUR ---
ICU/RN AM SHIFT END NOTES ALL NEEDS MET, NO ACUTE CHANGE OF CONDITION NOTED DURING THE SHIFT. PT ENDORSED TO PM NURSE TO CONTINUE CARE. CL WITHIN REACHED AND SAFETY MAINTAINED.
[2017-10-08] MEDS: PANTOPRAZOLE 40 MG VIAL IV SCH (21:16)
[2017-10-08] MEDS: TAMSULOSIN 0.4 MG CAP.SR.24H PO SCH (21:19)
--- NOTE | 2017-10-08 21:57 | NUR ---
PT RECEIVED TRACH WITH SHLY 8 XLT. NO RESP DISTRESS. PT TOLERATING CPAP MODE. SX'D FOR MOD AMT OF THICK YELLOW SECRETIONS. VENT ALARMS SET AND AUDIBLE. AMBU BAG AT BEDSIDE. TRACH SECURE. VENT PLUGGED INTO RED OUTLET. WILL CONTINUE TO MONITOR. Addendum: 10/08/17 at 2200 by CODEY NIX RT Amended: Links added.
[2017-10-08] MEDS: MORPHINE SULFATE INJ 4 MG/ML DISP.SYRIN IV PRN (23:34)
[2017-10-09] VITALS (38 sets, daily range): BP systolic 81–120; BP diastolic 45–70
[2017-10-09] MEDS: GLUCERNA 1.2 1,000 ML BOTTLE GT PRN ×2 (02:17→17:13)
[2017-10-09] MEDS: MORPHINE SULFATE INJ 4 MG/ML DISP.SYRIN IV PRN ×2 (02:19→06:18)
--- NOTE | 2017-10-09 03:00 | NUR ---
DROP FORGER HELPER NOTES Awake,alert,tries to talk,follows simple commands,tolerating CPAP mode,not in any distress.Trache care done,copious amount of secretions around the stoma.
[2017-10-09] MEDS: IPRATROPIUM NEB FS 0.5 MG/2.5 ML AMPUL.NEB NEB SCH ×6 (03:27→23:31)
--- NOTE | 2017-10-09 04:00 | NUR ---
SIGNALS COLLECTOR/ANALYST NOTES Am care done,chest tube dressing changed,tubes intact and patent.Chest tube site clean but erythematous around site.both chest tube draining serous drainage. Right tube draining more than the left. maintained on water seal Pleurovac.
[2017-10-09 05:04] LABS: BASOPHILS % (AUTO) 0.2 % (0.0-2.0); EOSINOPHILS % (AUTO) 0.8 % (0.0-6.0); HEMATOCRIT 29 % (39-51); HEMOGLOBIN 9.5 g/dL (13.5-17.5); LYMPHOCYTES # (AUTO) 1.2 /CMM (0.8-4.8); LYMPHOCYTES % (AUTO) 7.4 % (20.0-44.0); MEAN CORPUSCULAR HGB CONC 33 g/dl (31.0-36.0); MEAN CORPUSCULAR VOLUME 86 fL (80-96); MONOCYTES # (AUTO) 0.1 /CMM (0.1-1.30); MONOCYTES % (AUTO) 0.6 % (2.0-12.0); NEUTROPHILS # (AUTO) 14.2 /CMM (1.8-8.9); PLATELET COUNT (AUTO) 138 /CMM (150-450); RDW COEFFICIENT OF VARIATION 17.1 (11.5-15.0); RED BLOOD CELL COUNT(AUTO) 3.38 MIL/uL (4.5-6.0); WHITE BLOOD COUNT (AUTO) 15.6 K/uL (4.3-11.0)
[2017-10-09 05:12] LABS: CALCIUM, SERUM 7.7 mg/dL (8.5-10.1); CARBON DIOXIDE 29 mmol/L (21-32); CHLORIDE 111 mmol/L (98-107); CREATININE 0.8 mg/dL (0.6-1.3); GLUCOSE 114 mg/dL (74-106); PHOSPHORUS 3.2 mg/dL (2.5-4.9); POTASSIUM 3.8 mmol/L (3.5-5.1); SODIUM SERUM 144 mmol/L (136-145); UREA NITROGEN, BLOOD 38 mg/dL (7-18)
[2017-10-09] MEDS: MEROPENEM 500 MG in IV NS 0.9% 50 ML IV SCH ×3 (05:37→21:12)
[2017-10-09] MEDS: METOCLOPRAMIDE HCL 10 MG/2 ML VIAL IV SCH ×4 (05:37→23:58)
[2017-10-09] MEDS: IV NS 0.9% 1,000 ML IV PRN (05:37)
[2017-10-09] MEDS: BLOOD SUGAR DIAGNOSTIC 1 EACH STRIP IN SCH ×4 (05:57→23:57)
[2017-10-09] MEDS: BETAMETHASONE DIP 0.05% CREAM 15 GM TUBE TP SCH ×2 (06:18→19:05)
--- NOTE | 2017-10-09 06:52 | NUR ---
CHAEST TUBE WQIKY=565 ML SEROPUS DRAINAGE,LEFT CHEST TUBE=60 ML SEROUS DRAINAGE
--- NOTE | 2017-10-09 07:15 | NUR ---
TREE KILLER NOTES RECEIVED PATIENT AOX2 , ABLE TO FOLLOW COMMANDS , MOUTHING WORDS , NOT IN ACUTE DISTRESS , RESPIRATIONS EVEN AND UNLABORED WITH SPO2 OF 100% VIA CPAP MODE ORDERED , TRACH OF SHILEY XLT# [address] WITH MINIMAL BROTHERS DRAINAGE AROUND THE TRACH SITE , AFLUTTER 110-120 ON BEDSIDE MONITOR , GT PATENT AND INTACT WITH GLUCERNA @ 65ML/HR TOLERATING WELL WITH NO RESIDUALS NOTED , FC DRAINING VIA GRAVITY WITH CLEAR YELLOW URINE , LIONEL PICC LINE PATENT AND INTACT WITH NS @ 125ML/HR INFUSING WELL , BILATERAL CHEST TUBE TO PLEURAVAC WATER SEAL DRAINAGE WITH -20MMHG ATTACHED TO WALL SUCTION BOTH DRAINING SEROUS DRAINAGE SONJA CLAMP AT BEDSIDE , ALL NEEDS ATTENDED , BED ON LOW AND LOCKED POSITION , SIDE RAILS X2 , CALL LIGHT WITHIN REACH , HOB @ 35 , WILL CONTINUE TO MONITOR
--- NOTE | 2017-10-09 07:58 | NUR ---
RT PT RECEIVED TRACHED WITH A SHILEY 8 XLT ON THE VENT WITH NOTED SETTINGS. PT IS AWAKE AND ALERT. VENT ALARMS ARE SET AND AUDIBLE WITH BVM BY BEDSIDE. HR SYSTEMS ANALYST CUFF PRESSURE NOTED. VENT IS PLUGGED INTO RED OUTLET. NO RESPIRATORY DISTRESS NOTED AT THIS TIME, WILL CONTINUE TO MONITOR. Addendum: 10/09/17 at 1805 by MAEGAN LORD RT Amended: Links added.
[2017-10-09] MEDS: LEVOTHYROXINE SODIUM 100 MCG TABLET PO SCH (08:06)
[2017-10-09] MEDS: DOCUSATE SODIUM LIQ 100 MG/10 ML UDC NG SCH (08:06)
[2017-10-09] MEDS: ASCORBIC ACID 500 MG TABLET PO SCH ×2 (08:06→17:09)
[2017-10-09] MEDS: GABAPENTIN 300 MG CAPSULE PO SCH ×2 (08:06→17:09)
[2017-10-09] MEDS: APIXABAN 5 MG TABLET PO SCH ×2 (08:06→17:10)
[2017-10-09] MEDS: methylPREDNISolone SOD SUCC 40 MG/ML VIAL IV SCH (08:06)
[2017-10-09] MEDS: PROSOURCE / PROSTAT (PYXIS) 30 ML UDC GT SCH ×2 (08:06→17:09)
[2017-10-09] MEDS: AMIODARONE HCL 200 MG TABLET PO SCH (08:21)
[2017-10-09] MEDS: Z GUARD REMEDY 2 OZ OINT TP SCH (08:22)
[2017-10-09] MEDS: INSULIN REGULAR, HUMAN 100 UNIT/ML 3 ML VIAL SQ PRN ×2 (11:13→17:12)
--- NOTE | 2017-10-09 11:45 | NUR ---
METAL BOX MAKER NOTES SEEN AND EVALUATED BY DR SPAULDING , DISCUSSED LABS ,CURRENT V/S , PT IS AFEBRILE TOLERATING CPAP MODE PSV 10 , TV 500 FIO2 50 PEEP OF 5 WITH NO SIGNS OF DISTRESS , SPO2 OF 100% , NO CHEST XRAY FOR TODAY , R CHEST TUBE DRAINING WITH SEROUS FLUID 260 ML OUT LAST NIGHT AND L CHEST TUBE DRAINING WITH SEROUS FLUID WITH 60ML OUT , AFLUTTER 150 BMP GOES BUT NO SUSTAINING GOES DOWN TO 90-110 , MD AWARE . VERIFIED IF HE WANTS TO CONTINUE IVF PT IS ON GLUCERNA @ 65ML/HR , PER MD DC IVF AND DO ABG ON CPAP MODE
[2017-10-09 14:08] LABS: ABG BASE EXCESS -0.5 mmol/L; ABG OXYGEN SATURATION 93.7 % (92.0-98.5); ABG PCO2 43.3 mmHg (35.0-45.0); ABG PH 7.375 (7.350-7.450); ABG PO2 73.4 mmHg (75.0-100.0); AaDO2 234.4 mmHg; COHb 0.2 % (0.5-1.5); MetHb 0.4 % (0.0-1.5); O2Hb 93.1 % (94.0-97.0); SITE, ABG Left Radial; VENT MODE, BG CPAP 5 / PS 10
--- NOTE | 2017-10-09 18:00 | NUR ---
ICU/RN: Chest tube Ax: R CT: [address]: 100 cc serous output. No air leaks/bubbles noted. Dressings C/D/I.
--- NOTE | 2017-10-09 19:30 | NUR ---
MAINTENANCE CLERK INITIAL NOTES RECEIVED PATIENT IN BED, AWAKE, AOX2 , ABLE TO FOLLOW COMMANDS , MOUTHING WORDS. NO ACUTE DISTRESS NOTED AT THIS TIME, RESPIRATIONS EVEN AND UNLABORED, SPO2 = 100%. TRACH, SHILEY XLT #8 MIDLINE AND INTACT, ON CPAP MODE ORDERED, AMBUBAG AT BEDSIDE. MINIMAL BROTHERS COLORED SECRETIONS NOTED AROUND TRACH SITE, TRACH CARE RENDERED. SINUS RHYTHM WITH PACs NOTED ON BEDSIDE CHILDREN'S PROGRAM COORDINATOR. GT PATENT AND INTACT, TF OF GLUCERNA @ 65ML/HR TOLERATING FAIRLY, 30 ML OF STRAW COLORED GASTRIC RESIDUALS NOTED , FC DRAINING VIA GRAVITY WITH CLEAR YELLOW URINE , LIONEL PICC LINE PATENT AND INTACT WITH NS TKO, ALL PORTS FLUSHED WITH NS. NOTED WITH BILATERAL CHEST TUBE, BOTH NOTED WITH SEROUS DRAINAGE SONJA CLAMP AT BEDSIDE, BED IN LOWEST AND LOCKED POSITION , SIDE RAILS X2 , CALL LIGHT WITHIN REACH , HOB @ 35 DEGREES, WILL CONTINUE TO MONITOR.
--- NOTE | 2017-10-09 20:55 | NUR ---
PT RECEIVED TRACH WITH SHLY 8 XLT. NO RESP DISTRESS. PT TOLERATING CPAP MODE. SX'D FOR MOD AMT OF THICK YELLOW SECRETIONS. VENT ALARMS SET AND AUDIBLE. AMBU BAG AT BEDSIDE. TRACH SECURE. VENT PLUGGED INTO RED OUTLET. WILL CONTINUE TO MONITOR. Addendum: 10/09/17 at 2055 by CODEY NIX RT Amended: Links added.
[2017-10-09] MEDS: PANTOPRAZOLE 40 MG VIAL IV SCH (21:12)
[2017-10-09] MEDS: TAMSULOSIN 0.4 MG CAP.SR.24H PO SCH (21:12)
[2017-10-10] VITALS (37 sets, daily range): BP systolic 95–149; BP diastolic 58–102
--- NOTE | 2017-10-10 | NUR ---
WOOD FUEL PELLETIZER NOTES - [facility] RECEIVED DELIVERY FOR [facility]. PATIENT SAFELY TRANSFERRED TO [facility] B[facility] WITH ASSISTANCE FROM MULTIPLE STAFF. PATIENT TOLERATED TRANSFER TO [facility] B[facility] WELL
[2017-10-10] MEDS: IPRATROPIUM NEB FS 0.5 MG/2.5 ML AMPUL.NEB NEB SCH ×5 (03:23→20:25)
--- NOTE | 2017-10-10 04:00 | NUR ---
HOG OPERATOR NOTES FULL BED BATH RENDERED. ALL SKIN ISSUES PHOTOGRAPHED AND DOCUMENTED PER PROTOCOL. VERY SMALL BM, SMEAR AT MOST NOTED, UNABLE TO COLLECT STOOL FOR OCCULT BLOOD. WILL CONTINUE TO CLOSELY MONITOR
[2017-10-10 05:11] LABS: BASOPHILS # (AUTO) 0.1 /CMM (0.0-0.2); BASOPHILS % (AUTO) 0.4 % (0.0-2.0); EOSINOPHILS % (AUTO) 1.4 % (0.0-6.0); HEMATOCRIT 29 % (39-51); HEMOGLOBIN 9.4 g/dL (13.5-17.5); LYMPHOCYTES # (AUTO) 1.5 /CMM (0.8-4.8); LYMPHOCYTES % (AUTO) 8.6 % (20.0-44.0); MEAN CORPUSCULAR HGB CONC 33 g/dl (31.0-36.0); MEAN CORPUSCULAR VOLUME 86 fL (80-96); MONOCYTES # (AUTO) 0.5 /CMM (0.1-1.30); NEUTROPHILS # (AUTO) 14.6 /CMM (1.8-8.9); NEUTROPHILS % (AUTO) 86.6 % (43.0-81.0); PLATELET COUNT (AUTO) 154 /CMM (150-450); RDW COEFFICIENT OF VARIATION 16.9 (11.5-15.0); RED BLOOD CELL COUNT(AUTO) 3.35 MIL/uL (4.5-6.0); WHITE BLOOD COUNT (AUTO) 16.9 K/uL (4.3-11.0)
[2017-10-10 05:20] LABS: CALCIUM, SERUM 8.3 mg/dL (8.5-10.1); CARBON DIOXIDE 31 mmol/L (21-32); CHLORIDE 110 mmol/L (98-107); CREATININE 0.8 mg/dL (0.6-1.3); GLUCOSE 103 mg/dL (74-106); MAGNESIUM 2.1 mg/dL (1.8-2.4); PHOSPHORUS 2.8 mg/dL (2.5-4.9); SODIUM SERUM 145 mmol/L (136-145); UREA NITROGEN, BLOOD 40 mg/dL (7-18)
[2017-10-10] MEDS: MEROPENEM 500 MG in IV NS 0.9% 50 ML IV SCH (05:50)
[2017-10-10] MEDS: BLOOD SUGAR DIAGNOSTIC 1 EACH STRIP IN SCH ×3 (05:51→18:05)
[2017-10-10] MEDS: METOCLOPRAMIDE HCL 10 MG/2 ML VIAL IV SCH ×3 (05:57→16:39)
--- NOTE | 2017-10-10 06:00 | NUR ---
BARREL HEADER NOTES NOTED WITH WATERY STOOL X1. COLLECTED AND SENT TO LAB TO CHECK FOR STOOL OB
[2017-10-10 06:15] LABS: LYMPHOCYTES % (MANUAL) 4 % (16-48); MONOCYTES % (MANUAL) 2 % (0-11.0)
[2017-10-10 06:16] LABS: BAND % (MANUAL) 2 % (0.0-5.0); EOSINOPHILS % (MANUAL) 2 % (0-4); METAMYELOCYTES % 1 % (0-0); NEUTROPHILS % (MANUAL) 89 (42-76)
[2017-10-10] MEDS: BETAMETHASONE DIP 0.05% CREAM 15 GM TUBE TP SCH ×2 (06:40→18:55)
--- NOTE | 2017-10-10 06:52 | NUR ---
FOOD CHEMIST CLOSING NOTES PATIENT RESTING IN BED, APPEARS COMFORTABLE. RIGHT SIDE CHEST TUBE OUTPUT = 210ML. LEFT SIDE CHEST TUBE = 80ML, 290ML TOTAL OUTPUT FROM CHEST TUBES. WILL ENDORSE THE PATIENT TO THE AM SHIFT NURSE FOR CONTINUITY OF CARE
--- NOTE | 2017-10-10 07:30 | NUR ---
MANAGER ORDER AM NOTES RECEIVED PATIENT IN BED, AWAKE, AOX2 , ABLE TO FOLLOW COMMANDS , MOUTHING WORDS. NO ACUTE DISTRESS NOTED AT THIS TIME, RESPIRATIONS EVEN AND UNLABORED, SPO2 = 100%. TRACH, SHILEY XLT #8 MIDLINE AND INTACT, ON CPAP MODE ORDERED, AMBUBAG AT BEDSIDE. MINIMAL BROTHERS COLORED SECRETIONS NOTED AROUND TRACH SITE, TRACH CARE RENDERED. SINUS RHYTHM WITH PACs NOTED ON BEDSIDE SEMICONDUCTOR EQUIPMENT TECHNICIAN HR 66. NO SIGNS OF DISCOMFORT. GT PATENT AND INTACT, TF OF GLUCERNA @ 65ML/HR TOLERATING FAIRLY, 10 ML OF GASTRIC RESIDUALS NOTED , FC DRAINING VIA GRAVITY WITH CLEAR YELLOW URINE , LIONEL PICC LINE PATENT AND INTACT WITH NS TKO, ALL PORTS FLUSHED WITH NS. SITE CLEAR. NOTED WITH BILATERAL CHEST TUBE, BOTH NOTED WITH SEROUS DRAINAGE SONJA CLAMP AT BEDSIDE, BED IN LOWEST AND LOCKED POSITION , SIDE RAILS X2 , CALL LIGHT WITHIN REACH , HOB @ 35 DEGREES, WILL CONTINUE TO MONITOR.
--- NOTE | 2017-10-10 07:37 | NUR ---
RT PT RECEIVED TRACHED WITH A SHILEY 8 XLT ON THE VENT WITH NOTED SETTINGS. PT IS AWAKE AND ALERT. VENT ALARMS ARE SET AND AUDIBLE WITH BVM BY BEDSIDE. DOCK LOADER CUFF PRESSURE NOTED. VENT IS PLUGGED INTO RED OUTLET. NO RESPIRATORY DISTRESS NOTED AT THIS TIME, WILL CONTINUE TO MONITOR. Addendum: 10/10/17 at 1740 by MAEGAN LORD RT Amended: Links added.
[2017-10-10] MEDS: GABAPENTIN 300 MG CAPSULE PO SCH ×2 (08:04→16:39)
[2017-10-10] MEDS: LEVOTHYROXINE SODIUM 100 MCG TABLET PO SCH (08:04)
[2017-10-10] MEDS: ASCORBIC ACID 500 MG TABLET PO SCH ×2 (08:04→16:40)
[2017-10-10] MEDS: methylPREDNISolone SOD SUCC 40 MG/ML VIAL IV SCH (08:04)
[2017-10-10] MEDS: DOCUSATE SODIUM LIQ 100 MG/10 ML UDC NG SCH (08:05)
[2017-10-10] MEDS: AMIODARONE HCL 200 MG TABLET PO SCH (08:06)
--- NOTE | 2017-10-10 09:30 | NUR ---
RN NOTES DUE MEDS GIVEN.
[2017-10-10] MEDS: PROSOURCE / PROSTAT (PYXIS) 30 ML UDC GT SCH ×2 (10:06→16:40)
[2017-10-10] MEDS: APIXABAN 5 MG TABLET PO SCH ×2 (10:06→16:40)
[2017-10-10] MEDS: Z GUARD REMEDY 2 OZ OINT TP SCH (10:07)
[2017-10-10] MEDS: GLUCERNA 1.2 1,000 ML BOTTLE GT PRN (10:18)
[2017-10-10 11:42] LABS: OCCULT BLOOD STOOL NEGATIVE (NEGATIVE)
--- NOTE | 2017-10-10 12:34 | NUR ---
RN NOTES ACCUCHECK. BS 133 MG/DL. 2 UNITS HUM R GIVEN PER SS.
[2017-10-10] MEDS: INSULIN REGULAR, HUMAN 100 UNIT/ML 3 ML VIAL SQ PRN ×2 (12:36→18:06)
--- NOTE | 2017-10-10 16:45 | NUR ---
CARE CLINICIAN NOTES REPORT GIVEN TO EDMAR WELSH FOR DEEPIKA. PATIENT STABLE. NOT IN ANY DISTRESS
--- NOTE | 2017-10-10 17:30 | NUR ---
CUSTOMER CONSULTING MANAGER NOTES RECEIVED PATIENT AOX2 , ABLE TO FOLLOW COMMANDS , MOUTHING WORDS , NOT IN ACUTE DISTRESS , RESPIRATIONS EVEN AND UNLABORED WITH SPO2 OF 100% VIA CPAP MODE ORDERED , TRACH OF SHILEY XLT# [address] WITH MINIMAL YELLOW THICK DRAINAGE AROUND THE TRACH SITE , SR 75 ON BEDSIDE MONITOR , GT PATENT AND INTACT WITH GLUCERNA @ 65ML/HR TOLERATING WELL WITH NO RESIDUALS NOTED , FC DRAINING VIA GRAVITY WITH CLEAR YELLOW URINE , LIONEL PICC LINE PATENT AND INTACT WITH NS @ TKO INFUSING WELL , BILATERAL CHEST TUBE TO PLEURAVAC WATER SEAL DRAINAGE WITH -20MMHG ATTACHED TO WALL SUCTION BOTH DRAINING SEROUS DRAINAGE SONJA CLAMP AT BEDSIDE , ALL NEEDS ATTENDED , BED ON LOW AND LOCKED POSITION , SIDE RAILS X2 , CALL LIGHT WITHIN REACH , HOB @ 35 , WILL CONTINUE TO MONITOR
--- NOTE | 2017-10-10 18:00 | NUR ---
ICU/RN: Chest tube Ax: R CT: [address]: 100 cc serous output. No air leaks/bubbles noted. Dressings C/D/I.
[2017-10-10] MEDS: VITAMINS A AND D 56.7 GM TUBE TP PRN (18:05)
--- NOTE | 2017-10-10 19:30 | NUR ---
FACTORY MAINTENANCE MANAGER INITIAL NOTES RECEIVED PATIENT IN BED, AWAKE, AOX2 , ABLE TO FOLLOW COMMANDS , MOUTHING WORDS. NO ACUTE DISTRESS NOTED AT THIS TIME, RESPIRATIONS EVEN AND UNLABORED, SPO2 = 100%. TRACH, SHILEY XLT #8 MIDLINE AND INTACT, ON CPAP MODE ORDERED, AMBUBAG AT BEDSIDE. MINIMAL BROTHERS COLORED SECRETIONS NOTED AROUND TRACH SITE, TRACH CARE RENDERED. SINUS RHYTHM WITH PACs NOTED ON BEDSIDE ENAMEL DIPPER. GT PATENT AND INTACT, TF OF GLUCERNA @ 65ML/HR TOLERATING FAIRLY, 30 ML OF STRAW COLORED GASTRIC RESIDUALS NOTED , FC DRAINING VIA GRAVITY WITH CLEAR YELLOW URINE , LIONEL PICC LINE PATENT AND INTACT WITH NS TKO, ALL PORTS FLUSHED WITH NS. NOTED WITH BILATERAL CHEST TUBES TO CONTINUOS SUCTION @ -[id number], BOTH NOTED WITH SEROUS DRAINAGE. SONJA ANDREWS AT BEDSIDE, BED IN LOWEST AND LOCKED POSITION , SIDE RAILS X2 , CALL LIGHT WITHIN REACH , HOB @ 35 DEGREES, WILL CONTINUE TO MONITOR.
[2017-10-10] MEDS: PANTOPRAZOLE 40 MG VIAL IV SCH (20:14)
--- NOTE | 2017-10-10 21:00 | NUR ---
ADVERTISING DIRECTOR NOTES - RHYTHM CHANGE PATIENT NOTED WITH RHYTHM CHANGE TO AFIB/AFLUTTER, HR 110-140s. WILL CONTINUE TO CLOSELY MONITOR
[2017-10-10] MEDS: TAMSULOSIN 0.4 MG CAP.SR.24H PO SCH (22:04)
[2017-10-10] MEDS: MORPHINE SULFATE INJ 4 MG/ML DISP.SYRIN IV PRN (22:30)
--- NOTE | 2017-10-10 22:30 | NUR ---
MEDICAL OFFICE TECHNOLOGY INSTRUCTOR NOTES PATIENT WITH C/O 8/10 GENERALIZED PAIN, UNABLE TO SPECIFY EXACT LOCATION. MORPHINE 2MG IVP ADMINISTERED PRESCRIBED, WILL CONTINUE TO CLOSELY MONITOR
--- NOTE | 2017-10-10 22:45 | NUR ---
TRAVEL AGENCY MANAGER INITIAL NOTES RECEIVED PATIENT IN BED, AWAKE, AOX2 , ABLE TO FOLLOW COMMANDS , MOUTHING WORDS. NO ACUTE DISTRESS NOTED AT THIS TIME, RESPIRATIONS EVEN AND UNLABORED, SPO2 = 100%. NATHAN NOEL XLT #8 MIDLINE AND INTACT, ON CPAP MODE ORDERED, AMBUBAG AT BEDSIDE. MINIMAL BROTHERS COLORED SECRETIONS NOTED AROUND TRACH SITE, TRACH CARE RENDERED. SINUS RHYTHM WITH PACs NOTED ON BEDSIDE [facility]. GT PATENT AND INTACT, TF OF GLUCERNA @ 65ML/HR TOLERATING FAIRLY, 30 ML OF STRAW COLORED GASTRIC RESIDUALS NOTED , FC DRAINING VIA GRAVITY WITH CLEAR YELLOW URINE , LIONEL PICC LINE PATENT AND INTACT WITH NS TKO, ALL PORTS FLUSHED WITH NS. NOTED WITH BILATERAL CHEST TUBES TO CONTINUOS SUCTION @ -[id number], BOTH NOTED WITH SEROUS DRAINAGE. SONJA CLAMP AT BEDSIDE, BED IN LOWEST AND LOCKED POSITION , SIDE RAILS X2 , CALL LIGHT WITHIN REACH , HOB @ 35 DEGREES, WILL CONTINUE TO MONITOR. Addendum: 10/10/17 at 2252 by AUTUMN TREVIZO RN WRONG TIME DOCUMENTED
[2017-10-11] VITALS (39 sets, daily range): BP systolic 90–150; BP diastolic 27–88
--- NOTE | 2017-10-11 | NUR ---
DRYING FRAME OPERATOR NOTES BED BATH RENDERED, CHEST TUBE DRESSING CHANGED. RHYTHM BACK AND FORTH FROM SINUS RHYTHM 60-70s WITH PACs TO AFIB/AFLUTTER 100-150s ON CLASS B DRIVER. WILL CONTINUE TO CLOSELY MONITOR
[2017-10-11] MEDS: IPRATROPIUM NEB FS 0.5 MG/2.5 ML AMPUL.NEB NEB SCH ×7 (00:29→23:33)
[2017-10-11] MEDS: BLOOD SUGAR DIAGNOSTIC 1 EACH STRIP IN SCH ×4 (00:47→17:47)
[2017-10-11] MEDS: METOCLOPRAMIDE HCL 10 MG/2 ML VIAL IV SCH ×4 (00:47→17:47)
[2017-10-11] MEDS: MORPHINE SULFATE INJ 4 MG/ML DISP.SYRIN IV PRN (02:37)
[2017-10-11] MEDS: ACETAMINOPHEN 325 MG TABLET PO PRN (02:37)
--- NOTE | 2017-10-11 06:00 | NUR ---
JOB FOREMAN NOTES - CHEST TUBE OUTPUT R - 20ML SEROUS FLUID L - 70ML SEROUS-SEROSANGUINOUS FLUID
[2017-10-11] MEDS: BETAMETHASONE DIP 0.05% CREAM 15 GM TUBE TP SCH ×2 (06:09→19:55)
--- NOTE | 2017-10-11 06:52 | NUR ---
SYSTEM TECHNOLOGIST CLOSING NOTES PATIENT RESTING IN BED, NODDING HEAD YES WHEN ASKED IF COMFORTABLE, DENIES PAIN OR DISCOMFORT. ON PHARMACY ANCILLARY, PATIENT CONTINUES TO GO BACK AND FORTH BETWEEN SINUS RHYTHM WITH PACs 60s-70s TO AFIB/AFLUTTER 100-150s. ASIDE FROM FREQUENT CARDIAC RHYTHM CHANGES, NO ACUTE CHANGES THROUGHOUT THE SHIFT. WILL ENDORSE THE PATIENT TO THE AM SHIFT NURSE FOR CONTINUITY OF CARE
[2017-10-11] MEDS: GABAPENTIN 300 MG CAPSULE PO SCH ×2 (08:19→17:46)
[2017-10-11] MEDS: LEVOTHYROXINE SODIUM 100 MCG TABLET PO SCH (08:19)
[2017-10-11] MEDS: AMIODARONE HCL 200 MG TABLET PO SCH ×2 (08:21→17:46)
[2017-10-11] MEDS: ASCORBIC ACID 500 MG TABLET PO SCH ×2 (08:21→17:47)
[2017-10-11] MEDS: DOCUSATE SODIUM LIQ 100 MG/10 ML UDC NG SCH (08:22)
[2017-10-11] MEDS: APIXABAN 5 MG TABLET PO SCH ×2 (08:27→17:48)
[2017-10-11] MEDS: PROSOURCE / PROSTAT (PYXIS) 30 ML UDC GT SCH ×2 (08:28→17:45)
[2017-10-11] MEDS: Z GUARD REMEDY 2 OZ OINT TP SCH (08:29)
--- NOTE | 2017-10-11 09:00 | NUR ---
PT REMAINS ALERT, FOLLOWS COMMANDS. DENIES PAIN. VSS, OFF PRESSORS. VENT SETTINGS PER FLOW SHEET. LARGE YELLOW SECRETIONS VIA TRACH. ASSISTED WITH SUCTIONING AND HYGRINE.
[2017-10-11] MEDS: DIGOXIN INJ 0.5 MG/2 ML AMPUL IV SCH ×2 (12:35→17:47)
[2017-10-11] MEDS: diphenhydrAMINE HCL 50 MG/ML VIAL IV PRN (13:22)
[2017-10-11] MEDS: GLUCERNA 1.2 1,000 ML BOTTLE GT PRN (17:45)
[2017-10-11] MEDS: LORAZEPAM 0.5 MG TABLET PO SCH (17:46)
--- NOTE | 2017-10-11 18:48 | NUR ---
RT END OF THE SHIFT REPORT, PT. 82 Y OLD MALE REMAIN TRACHED SHILEY XLT # 8 AND SECURED. ON THE VENT WITH NOTED SETTINGS. PT. REMAIN STABLE VENT ALARMS ARE SET AND AUDIBLE, WITH AMBU BAG AT THE BEDSIDE. RETAIL SPECIAL EVENT ASSOCIATE CUFF PRESSURE NOTED. VENT IS PLUGGED INTO RED OUTLET. HME CHANGED. TX'S GIVEN INLINE. B/S BILATERALLY RALES EQUAL CHEST RISE NOTED. SX FOR MODERATE THICK YELLOW THICK SECRETIONS. NO RESPIRATORY DISTRESS NOTED T/O SHIFT, NO CHANGES. WILL CONTINUE TO MONITOR, REPORT WILL PASS TO PM SHIFT. Addendum: 10/11/17 at 1850 by PETER BENITEZ RT Amended: Links added.
--- NOTE | 2017-10-11 19:30 | NUR ---
PURCHASING/RECEIVING INITIAL NOTES RECEIVED PATIENT IN BED, AWAKE, AOX2 , ABLE TO FOLLOW COMMANDS , MOUTHING WORDS. NO ACUTE DISTRESS NOTED AT THIS TIME, RESPIRATIONS EVEN AND UNLABORED, SPO2 = 100%. TRACH, SHILEY XLT #8 MIDLINE AND INTACT, ON CPAP MODE ORDERED, AMBUBAG AT BEDSIDE. MODERATE AMOUNT OF YELLOW / BROTHERS COLORED SECRETIONS NOTED AROUND TRACH SITE, TRACH CARE RENDERED. SINUS RHYTHM WITH PACs NOTED ON BEDSIDE FURNACE MECHANIC, HR CURRENTLY 67 BPM. GT PATENT AND INTACT, TF OF GLUCERNA @ 65ML/HR TOLERATING WELL, NO GASTRIC RESIDUALS, FC DRAINING VIA GRAVITY WITH CLEAR YELLOW URINE , LIONEL PICC LINE PATENT AND INTACT WITH NS TKO, ALL PORTS FLUSHED WITH NS. NOTED WITH BILATERAL CHEST TUBES CONNECTED TO CONTINUOS SUCTION @ -[id number], RIGHT SIDE NOTED WITH SEROUS DRAINAGE, LEFT WITH SEROSANGUINOUS DRAINAGE. SONJA CLAMPS AT BEDSIDE, BED IN LOWEST AND LOCKED POSITION, SIDE RAILS UP X2 , CALL LIGHT WITHIN REACH , HOB @ 35 DEGREES, WILL CONTINUE TO MONITOR.
--- NOTE | 2017-10-11 19:34 | NUR ---
PT REMAINS ALERT, FOLLOWS COMMANDS. DENIES PAIN. VSS, OFF PRESSORS. VENT SETTINGS PER FLOW SHEET. TRACH CARE AND SKIN CARE NEEDED.
--- NOTE | 2017-10-11 21:27 | NUR ---
PT RECEIVED BERT AVALOS 8XLT ON [facility] VENT CPAP MODE. PT TOLERATING SETTINGS. SX'D FOR MOD AMT OF THICK YELLOW SECRETIONS. VENT ALARMS SET AND AUDIBLE. AMBU BAG AT BEDSIDE. TRACH SECURE. VENT PLUGGED INTO RED OUTLET. WILL CONTINUE TO MONITOR. Addendum: 10/11/17 at 2129 by CODEY NIX RT Amended: Links added.
[2017-10-11] MEDS: TAMSULOSIN 0.4 MG CAP.SR.24H PO SCH (21:58)
[2017-10-11] MEDS: PANTOPRAZOLE 40 MG VIAL IV SCH (21:58)
[2017-10-12] VITALS (37 sets, daily range): BP systolic 76–155; BP diastolic 35–86
[2017-10-12] MEDS: BLOOD SUGAR DIAGNOSTIC 1 EACH STRIP IN SCH ×4 (00:27→17:24)
[2017-10-12] MEDS: DIGOXIN INJ 0.5 MG/2 ML AMPUL IV SCH (00:28)
[2017-10-12] MEDS: METOCLOPRAMIDE HCL 10 MG/2 ML VIAL IV SCH ×4 (00:28→17:09)
[2017-10-12] MEDS: INSULIN REGULAR, HUMAN 100 UNIT/ML 3 ML VIAL SQ PRN (00:31)
--- NOTE | 2017-10-12 02:30 | NUR ---
RAIL CAR UNLOADER NOTES - CARDIAC RHYTHM CHANGE PATIENT WITH NOTED CARDIAC RHYTHM CHANGE FROM SINUS RHYTHM WITH PACs HR 60-70 BPM TO AFIB/AFLUTTER, HR IN THE 120S-130S. PATIENT RESTING IN BED, DENIES ANY PAIN OR CHEST PAIN. WILL CONTINUE TO CLOSELY MONITOR
[2017-10-12] MEDS: IPRATROPIUM NEB FS 0.5 MG/2.5 ML AMPUL.NEB NEB SCH ×6 (03:19→23:38)
[2017-10-12 04:23] LABS: BASOPHILS % (AUTO) 0.2 % (0.0-2.0); EOSINOPHILS % (AUTO) 2.3 % (0.0-6.0); HEMATOCRIT 27 % (39-51); HEMOGLOBIN 9.1 g/dL (13.5-17.5); LYMPHOCYTES # (AUTO) 1.1 /CMM (0.8-4.8); LYMPHOCYTES % (AUTO) 8.5 % (20.0-44.0); MEAN CORPUSCULAR HGB CONC 33 g/dl (31.0-36.0); MEAN CORPUSCULAR VOLUME 85 fL (80-96); MONOCYTES # (AUTO) 0.4 /CMM (0.1-1.30); MONOCYTES % (AUTO) 3.4 % (2.0-12.0); NEUTROPHILS # (AUTO) 10.8 /CMM (1.8-8.9); NEUTROPHILS % (AUTO) 85.6 % (43.0-81.0); PLATELET COUNT (AUTO) 173 /CMM (150-450); RED BLOOD CELL COUNT(AUTO) 3.22 MIL/uL (4.5-6.0); WHITE BLOOD COUNT (AUTO) 12.6 K/uL (4.3-11.0)
[2017-10-12 04:35] LABS: CALCIUM, SERUM 8.7 mg/dL (8.5-10.1); CARBON DIOXIDE 33 mmol/L (21-32); CHLORIDE 108 mmol/L (98-107); CREATININE 0.8 mg/dL (0.6-1.3); GLUCOSE 104 mg/dL (74-106); MAGNESIUM 2.3 mg/dL (1.8-2.4); POTASSIUM 4.5 mmol/L (3.5-5.1); SODIUM SERUM 145 mmol/L (136-145); UREA NITROGEN, BLOOD 35 mg/dL (7-18)
--- NOTE | 2017-10-12 06:00 | NUR ---
SUPERVISOR SCRAP PREPARATION NOTES RIGHT SIDE CHEST TUBE CLAMPED. CXR ORDERED FOR 0800.
[2017-10-12] MEDS: BETAMETHASONE DIP 0.05% CREAM 15 GM TUBE TP SCH ×2 (06:15→18:11)
--- NOTE | 2017-10-12 06:38 | NUR ---
MORTGAGE SALES MANAGER NOTES - CHEST TUBE OUTPUT R - 40ML OF SEROUS FLUID L - 40ML OF SEROSANGUINOUS FLUID
--- NOTE | 2017-10-12 06:41 | NUR ---
WINDSHIELD REPAIR TECHNICIAN CLOSING NOTES PATIENT RESTING IN BED, NODS YES WHEN ASKED IF COMFORTABLE, DENIES PAIN. R SIDE CHEST TUBE CLAMPED @ 0600, CXR TO BE TAKEN @ 0800. WILL ENDORSE THE PATIENT TO THE AM SHIFT NURSE FOR CONTINUITY OF CARE
--- NOTE | 2017-10-12 07:20 | NUR ---
CENTERLESS GRINDER- INITIAL NOTE RECEIVED PT AWAKE, ALERT, ABLE TO MOUTH WORDS AND FOLLOW COMMANDS. CURRENTLY ON MECHANICAL VENT, SHILEY 8XLT, ON CPAP MODE, MILD TACHYPNEA NOTED. BEDSIDE MONITOR REVEALS A-FIB. G-TUBE PRESENT AND RUNNING GLUCERNA @ 60 ML/HR. BILATERAL CHEST TUBES REMAIN IN PLACE. BOLAND CATHETER DRAINING TO GRAVITY CLEAR, YELLOW URINE. LIONEL PICC LINE RUNNING NS @ TKO. WILL CONTINUE TO MONITOR.
--- NOTE | 2017-10-12 07:58 | NUR ---
RT PATIENT REC'D TRACHED W/ A SHILEY #8XLT DISTAL ON [facility] VENT WITH SETTINGS SET BY MD YOKASTA CARTER. VENT ALARMS CHECKED + AUDIBLE. CUFF PRESSURE CHECKED SPEECH THERAPY TEACHER. B/S DIM CLEAR. PATIENT TRACH SUCTIONED WITH MODERATE AMT OF BROTHERS SEMITHICK SECRETIONS. PATIENT IN NO DISTRESS AT THIS TIME. BACK UP TRACH AND AMBU BAG AT HOB Addendum: 10/12/17 at 1107 by KEE RAMIREZ RT Amended: Links added.
--- NOTE | 2017-10-12 08:00 | NUR ---
BENEFITS ADVISOR- PT PLACED BY ON AC MODE BY RT DUE TO TACHYPNEA, RESPIRATIONS IN THE 30S. WILL CONTINUE TO MONITOR.
[2017-10-12] MEDS: DOCUSATE SODIUM LIQ 100 MG/10 ML UDC NG SCH (08:11)
[2017-10-12] MEDS: PROSOURCE / PROSTAT (PYXIS) 30 ML UDC GT SCH ×2 (08:11→17:08)
--- NOTE | 2017-10-12 08:25 | NUR ---
HEAT TREAT TECHNICIAN- RIGHT SIDED CHEST TUBE REMAINS CLAMPED. BEDSIDE CHEST-XRAY COMPLETED. WILL CONTINUE TO MONITOR.
--- NOTE | 2017-10-12 08:45 | NUR ---
TECHNICAL PLANNER- CATHIE [employer] MEDICINE SPECIALIST RECEIVED CALL FROM RADIOLOGIST STATING RIGHT SIDED CHEST TUBE IS OUT OF PLACE. CHARGE NURSE INFORMED DR. SPAULDING. PER MD, REMOVE CHEST TUBE ON RIGHT SIDE. ORDER PLACED. WILL CONTINUE TO MONITOR.
[2017-10-12] MEDS: GABAPENTIN 300 MG CAPSULE PO SCH ×2 (08:54→17:09)
[2017-10-12] MEDS: ASCORBIC ACID 500 MG TABLET PO SCH ×2 (08:54→17:09)
[2017-10-12] MEDS: LEVOTHYROXINE SODIUM 100 MCG TABLET PO SCH (08:54)
[2017-10-12] MEDS: LORAZEPAM 0.5 MG TABLET PO SCH ×2 (08:54→17:09)
[2017-10-12] MEDS: APIXABAN 5 MG TABLET PO SCH ×2 (08:55→17:11)
[2017-10-12] MEDS: Z GUARD REMEDY 2 OZ OINT TP SCH (08:55)
[2017-10-12] MEDS: IV NS 0.9% 100 ML IV PRN (09:01)
[2017-10-12] MEDS: AMIODARONE HCL 200 MG TABLET PO SCH ×3 (09:01→17:00)
[2017-10-12] MEDS: GLUCERNA 1.2 1,000 ML BOTTLE GT PRN (12:11)
[2017-10-12] MEDS: DIGOXIN 0.25 MG TABLET PO SCH (13:51)
--- NOTE | 2017-10-12 20:12 | NUR ---
PT RECEIVED TRACH SHL 8XLT ON [facility] VENT AC MODE. PT IS AWAKE, RESTLESS. PT TOLERATING VENT SETTINGS. SX'D FOR LARGE AMT OF THICK YELLOW SECRETIONS. VENT ALARMS SET AND AUDIBLE. AMBU BAG AT BEDSIDE, EXTRA TRACH AT BEDSIDE. VENT PLUGGED INTO RED OUTLET. Addendum: 10/12/17 at 2018 by CODEY NIX RT Amended: Links added.
[2017-10-12] MEDS: PANTOPRAZOLE 40 MG VIAL IV SCH (20:53)
[2017-10-12] MEDS: TAMSULOSIN 0.4 MG CAP.SR.24H PO SCH (21:46)
[2017-10-13] VITALS (30 sets, daily range): BP systolic 98–166; BP diastolic 22–124
[2017-10-13] MEDS: METOCLOPRAMIDE HCL 10 MG/2 ML VIAL IV SCH ×4 (00:44→17:04)
[2017-10-13] MEDS: INSULIN REGULAR, HUMAN 100 UNIT/ML 3 ML VIAL SQ PRN ×2 (00:55→06:01)
[2017-10-13] MEDS: MORPHINE SULFATE INJ 4 MG/ML DISP.SYRIN IV PRN ×3 (01:39→11:45)
[2017-10-13] MEDS: IPRATROPIUM NEB FS 0.5 MG/2.5 ML AMPUL.NEB NEB SCH ×6 (03:42→23:26)
[2017-10-13 04:43] LABS: BASOPHILS % (AUTO) 0.4 % (0.0-2.0); EOSINOPHILS % (AUTO) 2.4 % (0.0-6.0); HEMATOCRIT 26 % (39-51); HEMOGLOBIN 8.6 g/dL (13.5-17.5); LYMPHOCYTES # (AUTO) 1.6 /CMM (0.8-4.8); MEAN CORPUSCULAR HGB CONC 33 g/dl (31.0-36.0); MEAN CORPUSCULAR VOLUME 86 fL (80-96); MONOCYTES # (AUTO) 0.4 /CMM (0.1-1.30); MONOCYTES % (AUTO) 3.1 % (2.0-12.0); NEUTROPHILS # (AUTO) 9.8 /CMM (1.8-8.9); NEUTROPHILS % (AUTO) 81.1 % (43.0-81.0); PLATELET COUNT (AUTO) 170 /CMM (150-450); RDW COEFFICIENT OF VARIATION 16.9 (11.5-15.0); RED BLOOD CELL COUNT(AUTO) 3.05 MIL/uL (4.5-6.0)
[2017-10-13 05:08] LABS: CALCIUM, SERUM 8.6 mg/dL (8.5-10.1); CARBON DIOXIDE 33 mmol/L (21-32); CHLORIDE 107 mmol/L (98-107); CREATININE 0.8 mg/dL (0.6-1.3); GLUCOSE 102 mg/dL (74-106); MAGNESIUM 2.1 mg/dL (1.8-2.4); PHOSPHORUS 2.9 mg/dL (2.5-4.9); POTASSIUM 4.1 mmol/L (3.5-5.1); SODIUM SERUM 144 mmol/L (136-145); UREA NITROGEN, BLOOD 28 mg/dL (7-18)
[2017-10-13] MEDS: BLOOD SUGAR DIAGNOSTIC 1 EACH STRIP IN SCH ×4 (06:00→17:16)
--- NOTE | 2017-10-13 06:45 | NUR ---
SWITCHBOARD INSTALLER - REC'D PT. ON [facility] BED. PT.IS TRACHED & PEGGED. VENT SETTINGS ARE AC-16,TV-500,40% & PEEP 5. PEG INFUSING GLUCERNA AT 65CC/HR W/NO RESIDUALS NOTED. PT.REC'D 3 BATHS LAST NOC & THIS AM DUE TO [employer] BOLAND CATH TO GRAVITY W/GOOD UOP. AFEBRILE. MORPHINE SULFATE 4MG-IVP WAS ADM. AT 01:40 AM BEFORE PT'S MAIN BEDBATH. BILATERAL CHEST TUBE DRSGS CHANGED. RT.CT REMAINS CLAMPED. & LEFT CT PUT OUT A TOTAL OF 100CC/LABELED. VALISALENE CREAM WAS APPLIED TO FACE AT 06:45AM. PT.IS DIAPERED. BEGINNING OF SHIFT PT. HAD SOME HYPOTENSION IN THE 80'S. SBP'S GOT BETTER AROUND 23:00. PT. BECOMES EASILY RESTLESS W/TACTILE STIM. +3 EDEMA TO ALL EXT. ESPECIALLY HANDS. BILAT. SOFT WRIST RESTRAINTS REMAIN INTACT PER SAFETY PROTOCOL. RUE PICC LINE HAS VILLEGAS PORT HARD TO FLUSH. VERBAL REPORT ENDORSED TO CED WELSH. CONT.POC.
[2017-10-13] MEDS: BETAMETHASONE DIP 0.05% CREAM 15 GM TUBE TP SCH ×2 (06:53→19:07)
--- NOTE | 2017-10-13 07:00 | NUR ---
RN LICENSED PRACTICAL- INITIAL NOTE RECEIVED PT AWAKE & ALERT, ABLE TO MOUTH WORDS AND FOLLOW COMMANDS. CURRENTLY ON MECHANICAL VENT, SHILEY 8XLT, AC MODE, RESPIRATIONS EVEN & UNLABORED, NO SOB OR DISTRESS PRESENT. BEDSIDE MONITOR REVEALS SINUS RHYTHM WITH PACS. G-TUBE PRESENT AND RUNNING GLUCERNA @ 65 ML/HR. BILATERAL CHEST TUBES REMAIN IN PLACE. BOLAND CATHETER DRAINING TO GRAVITY CLEAR, YELLOW URINE. LIONEL PICC LINE RUNNING NS @ TKO. BILATERAL SOFT WRIST RESTRAINTS IN PLACE FOR SAFETY PT ATTEMPTS TO REMOVE LINES & TUBES. WILL CONTINUE TO MONITOR.
[2017-10-13] MEDS: LEVOTHYROXINE SODIUM 100 MCG TABLET PO SCH (07:49)
[2017-10-13] MEDS: DOCUSATE SODIUM LIQ 100 MG/10 ML UDC NG SCH (08:22)
[2017-10-13] MEDS: GLUCERNA 1.2 1,000 ML BOTTLE GT PRN ×2 (08:41→21:30)
[2017-10-13] MEDS: APIXABAN 5 MG TABLET PO SCH ×2 (08:41→17:02)
[2017-10-13] MEDS: PROSOURCE / PROSTAT (PYXIS) 30 ML UDC GT SCH ×2 (08:41→17:02)
[2017-10-13] MEDS: ASCORBIC ACID 500 MG TABLET PO SCH ×2 (08:43→17:03)
[2017-10-13] MEDS: AMIODARONE HCL 200 MG TABLET PO SCH ×4 (08:43→16:23)
[2017-10-13] MEDS: GABAPENTIN 300 MG CAPSULE PO SCH ×2 (08:43→17:02)
[2017-10-13] MEDS: Z GUARD REMEDY 2 OZ OINT TP SCH (08:44)
[2017-10-13] MEDS: LORAZEPAM 0.5 MG TABLET PO SCH ×2 (08:45→17:03)
--- NOTE | 2017-10-13 10:00 | NUR ---
FLOOR COVERINGS INSTALLER- RIGHT-SIDED CHEST TUBE REMOVED BY DR. SPAULDING AT BEDSIDE. PT TOLERATED WELL. WILL CONTINUE TO MONITOR.
[2017-10-13] MEDS: DIGOXIN 0.25 MG TABLET PO SCH (13:59)
[2017-10-13] MEDS: LORAZEPAM INJ 2 MG/ML VIAL IV PRN (14:56)
--- NOTE | 2017-10-13 16:02 | NUR ---
RT NOTE: RECEIVED PATIENT AWAKE AND ALERT WITH #8 SHILEY XL DISTAL TRACH IN PLACE ON PB 840 VENT. ALARMS VERIFIED AND AUDIBLE. VENT TUBING OUT OF REACH FOR PATIENT DUE TO MULTIPLE ATTEMPTS TO PULL IT WITH RESTRAINTS ON. NURSE AWARE. SUCTIONED AND LAVAGED THICK YELLOW/BROTHERS SECRETIONS. VENT PLUGGED INTO RED OUTLET. AMBU BAG AT [facility].
--- NOTE | 2017-10-13 19:30 | NUR ---
RADHA RN INITIAL NOTES RECEIVED PATIENT ASLEEP, AROUSABLE, NODS YES OR NO. DENIES PAIN OR DISCOMFORT. NO RESPIRATORY DISTRESS NOTED, VENT DEPENDENT WITH VENT SETTINGS AC 16, TV 500, FIO2 40%, PEEP 5. TRACH C/D/I. ON TELE MONITOR SB 59. SKIN WARM AND DRY TO TOUCH. WITH F/C PATENT AND INTACT, DRAINING BY GRAVITY. WITH GT PATENT AND INTACT, IN PLACE, NO RESIDUAL NOTED. WITH LIONEL PICC LINE PATEN AND INTACT. WITH LEFT CHEST TUBE IN PLACE, NO LEAKING NOTED, ON CONTINUOUS SUCTION AT -20MMHG, OUTPUT SEROUS. WITH BILATERAL SOFT WRIST RESTRAINT IN PLACE, CIRCULATION CHECKED. PER REPORT S/P RIGHT CHEST TUBE REMOVAL. DRESSING DRY AND INTACT. HOB ELEVATED. SIDE RAILS UP AND LOCKED. BED KEPT AT LOWEST POSITION. WILL CONTINUE TO MONITOR.
[2017-10-13] MEDS: PANTOPRAZOLE 40 MG VIAL IV SCH (21:25)
[2017-10-13] MEDS: TAMSULOSIN 0.4 MG CAP.SR.24H PO SCH (21:25)
--- NOTE | 2017-10-13 22:25 | NUR ---
RADHA RN NOTE CONTINUITY OF CARE ENDORSED TO KELLEY
[2017-10-14] VITALS: BP 157/56
[2017-10-14] MEDS: BLOOD SUGAR DIAGNOSTIC 1 EACH STRIP IN SCH ×5 (00:56→23:32)
[2017-10-14] MEDS: METOCLOPRAMIDE HCL 10 MG/2 ML VIAL IV SCH ×5 (00:57→23:32)
[2017-10-14 04:00] VITALS: BP 147/62
[2017-10-14] MEDS: IPRATROPIUM NEB FS 0.5 MG/2.5 ML AMPUL.NEB NEB SCH ×5 (04:04→23:08)
[2017-10-14 06:02] LABS: BASOPHILS % (AUTO) 0.1 % (0.0-2.0); EOSINOPHILS % (AUTO) 3.2 % (0.0-6.0); HEMATOCRIT 24 % (39-51); HEMOGLOBIN 8.1 g/dL (13.5-17.5); LYMPHOCYTES % (AUTO) 10.5 % (20.0-44.0); MEAN CORPUSCULAR HGB CONC 33 g/dl (31.0-36.0); MEAN CORPUSCULAR VOLUME 85 fL (80-96); MONOCYTES # (AUTO) 0.6 /CMM (0.1-1.30); MONOCYTES % (AUTO) 6.2 % (2.0-12.0); PLATELET COUNT (AUTO) 173 /CMM (150-450); RDW COEFFICIENT OF VARIATION 16.4 (11.5-15.0); RED BLOOD CELL COUNT(AUTO) 2.87 MIL/uL (4.5-6.0)
[2017-10-14] MEDS: BETAMETHASONE DIP 0.05% CREAM 15 GM TUBE TP SCH ×2 (06:03→18:35)
[2017-10-14 06:21] LABS: CALCIUM, SERUM 8.6 mg/dL (8.5-10.1); CARBON DIOXIDE 34 mmol/L (21-32); CHLORIDE 106 mmol/L (98-107); CREATININE 0.8 mg/dL (0.6-1.3); GLUCOSE 105 mg/dL (74-106); MAGNESIUM 1.9 mg/dL (1.8-2.4); POTASSIUM 4.5 mmol/L (3.5-5.1); SODIUM SERUM 143 mmol/L (136-145); UREA NITROGEN, BLOOD 25 mg/dL (7-18)
[2017-10-14 08:00] VITALS: BP_SYST 122; BP_SYST 145; BP_DIAS 47; BP_DIAS 55
[2017-10-14] MEDS: DOCUSATE SODIUM LIQ 100 MG/10 ML UDC NG SCH (08:13)
[2017-10-14] MEDS: LEVOTHYROXINE SODIUM 100 MCG TABLET PO SCH (08:14)
[2017-10-14] MEDS: ASCORBIC ACID 500 MG TABLET PO SCH ×2 (08:14→16:06)
[2017-10-14] MEDS: AMIODARONE HCL 200 MG TABLET PO SCH ×3 (08:14→16:05)
[2017-10-14] MEDS: LORAZEPAM 0.5 MG TABLET PO SCH ×2 (08:14→16:02)
[2017-10-14] MEDS: Z GUARD REMEDY 2 OZ OINT TP SCH (08:15)
[2017-10-14] MEDS: GABAPENTIN 300 MG CAPSULE PO SCH ×2 (08:15→16:02)
[2017-10-14] MEDS: APIXABAN 5 MG TABLET PO SCH ×2 (08:18→16:06)
[2017-10-14] MEDS: PROSOURCE / PROSTAT (PYXIS) 30 ML UDC GT SCH ×2 (09:30→16:06)
--- NOTE | 2017-10-14 11:14 | NUR ---
AEMT DF PT ACCU CHECK OF 101.VSS.NAD NOTED. PT IN BILATERAL SOFT WRIST RESTRAINTS FOR SAFETY PT WITH HX OF EXTUBATION/TRACH REMOVAL X2 ON THIS ADMISSION.
[2017-10-14 12:00] VITALS: BP 145/56
[2017-10-14] MEDS: DIGOXIN 0.25 MG TABLET PO SCH (12:04)
[2017-10-14] MEDS: LORAZEPAM INJ 2 MG/ML VIAL IV PRN (12:30)
--- NOTE | 2017-10-14 12:31 | NUR ---
MAT MACHINE TENDER DF PT AGITATED,RESTLESS, ADMIN 0.5 MG IV OF ATIVAN PRN AGITATION.
[2017-10-14] MEDS: GLUCERNA 1.2 1,000 ML BOTTLE GT PRN (15:46)
[2017-10-14] MEDS: diphenhydrAMINE HCL 50 MG/ML VIAL IV PRN (15:46)
--- NOTE | 2017-10-14 15:57 | NUR ---
MARKETING OPERATIONS ASSISTANT DF PT AGITATED,RESTLESS, FLAILING BUE/BLE PT MEDICATED WITH BENADRYL 50 MG IVP.VSS.NAD.
[2017-10-14 16:00] VITALS: BP_SYST 140; BP_SYST 162; BP_DIAS 51; BP_DIAS 57
--- NOTE | 2017-10-14 19:41 | NUR ---
AIRPORT ENGINEER. INITIAL ASSESSMENT. RECEIVED THE PT REST ON THE BED. TRACH TO VENT CONNECTED SHILEY# XLT 8. AC 16,TV 500,FIO2 40%, PEEP 5; SAT 98%. NO ACUTE DISTRESS NOTED DINING ROOM CASHIER SHOWING AFIB. AT THIS TIME CONTROLLED. IV RT UPPER ARM PICC LINE SALINE LOCK. 2 PORT IS NOT WORKING. LORELEI SOFT WRIST RESTRAINT CHECKED AND RELEASED. NO INJURY OR REDNESS NOTED . LT SIDE CHEST TUBE INTACT, CONNECTED TO LOW INTERMITTENT SUCTION. NO AIR LEAK NOTED. GT INTACT. GLUCERNA 65ML/H. HOB ELEVATED. FC PATENT. WILL CONTINUE TO MONITOR VITALS.
--- NOTE | 2017-10-14 19:50 | NUR ---
RT PATIENT REC'D TRACHED W/ A PETERLEY #[facility] WITH NOTED SETTINGS . VENT ALARMS SET AND AUDIBLE. CUFF PRESSURE CHECKED DRUM LOADER AND UNLOADER. BREATHING TX GIVEN PER MD'S ORDERED , NO ADVERSE REACTION NOTED. SUCTIONED MODERATE AMOUNT OF PALE YELLOW THICK SECRETIONS. BACK UP TRACH AND AMBU BAG AT [facility]. NO RESPIRATORY DISTRESS NOTED AT THIS TIME. WILL CONTINUE TO MONITOR THE PT.
[2017-10-14 20:00] VITALS: BP 148/75
[2017-10-14] MEDS: PANTOPRAZOLE 40 MG VIAL IV SCH (21:32)
[2017-10-14] MEDS: TAMSULOSIN 0.4 MG CAP.SR.24H PO SCH (21:32)
[2017-10-15] VITALS: BP_SYST 131; BP_DIAS 81; BP_DIAS 82
--- NOTE | 2017-10-15 02:46 | NUR ---
ENTEROSTOMAL NURSE. DURING SHIFT PT SLEPT ON AND OFF. WILL CONTINUE TO MONITOR. VITALS.
[2017-10-15] MEDS: LORAZEPAM INJ 2 MG/ML VIAL IV PRN (02:56)
--- NOTE | 2017-10-15 03:28 | NUR ---
RN NOTE. AM CARE ORAL CARE, BED BATH GIVEN. LINEN CHANGED. REMAINING SAME VENT SETTING TOLERATED WELL. SAT 98%, NO ACUTE DISTRESS NOTED. COMPONENT OVERHAUL OPERATOR SHOWING NSR. IV RT UPPER ARM PICC LINE SALINE LOCK. LT SIDE CHEST TUBE INTACT, NO AIR LEAK NOTED. FC PATENT. URINE DRAINING. LORELEI SOFT WRIST RESTRAINT CHECKED AND RELEASED NO INJURY OR REDNESS NOTED. GT FEEDING TOLERATED WELL. HOB ELEVATED TURN AND REPOSITION Q2H. WILL CONTINUE TO MONITOR VITALS.
[2017-10-15] MEDS: IPRATROPIUM NEB FS 0.5 MG/2.5 ML AMPUL.NEB NEB SCH ×5 (03:32→20:14)
[2017-10-15 04:00] VITALS: BP_SYST 130; BP_SYST 136; BP_DIAS 69; BP_DIAS 70
[2017-10-15] MEDS: METOCLOPRAMIDE HCL 10 MG/2 ML VIAL IV SCH ×3 (05:08→17:32)
[2017-10-15] MEDS: BLOOD SUGAR DIAGNOSTIC 1 EACH STRIP IN SCH ×3 (05:20→17:30)
[2017-10-15] MEDS: BETAMETHASONE DIP 0.05% CREAM 15 GM TUBE TP SCH ×2 (06:31→22:17)
[2017-10-15 06:51] LABS: BASOPHILS % (AUTO) 0.3 % (0.0-2.0); EOSINOPHILS % (AUTO) 2.8 % (0.0-6.0); HEMATOCRIT 24 % (39-51); HEMOGLOBIN 7.9 g/dL (13.5-17.5); LYMPHOCYTES # (AUTO) 0.9 /CMM (0.8-4.8); LYMPHOCYTES % (AUTO) 10.7 % (20.0-44.0); MEAN CORPUSCULAR HGB CONC 33 g/dl (31.0-36.0); MEAN CORPUSCULAR VOLUME 85 fL (80-96); MONOCYTES # (AUTO) 0.6 /CMM (0.1-1.30); MONOCYTES % (AUTO) 6.8 % (2.0-12.0); NEUTROPHILS # (AUTO) 6.7 /CMM (1.8-8.9); NEUTROPHILS % (AUTO) 79.4 % (43.0-81.0); PLATELET COUNT (AUTO) 170 /CMM (150-450); RDW COEFFICIENT OF VARIATION 16.4 (11.5-15.0); RED BLOOD CELL COUNT(AUTO) 2.82 MIL/uL (4.5-6.0); WHITE BLOOD COUNT (AUTO) 8.4 K/uL (4.3-11.0)
--- NOTE | 2017-10-15 07:00 | NUR ---
RN NOTES RECEIVED PT ON BED, A/Ox1, TRACH/ VENT DEPENDENT , TOLERATING CURRENT VENT SETTING WELL, NATHAN# XLT 8. AC 16,TV 500,FIO2 40%, PEEP 5, SAT 98%. NO SOB NOTED ,LT SIDE CHEST TUBE INTACT, CONNECTED TO LOW INTERMITTENT SUCTION. NO AIR LEAK NOTED.ON TELE HR IN 60'S SR - SB AT THIS TIME , RT UPPER ARM PICC LINE SALINE LOCK. 2 PORT IS NOT WORKING. LORELEI SOFT WRIST RESTRAINT ON FOR PT SAFETY , SAFETY DEVICES CHECKED AND RELEASED. NO INJURY OR REDNESS NOTED . GLUCERNA AT 65CC/HR RUNNING VIA GT, TOLERATING WELL , NO RESIDUAL NOTED , HOB ELEVATED. KRYSTIAN DRINING TO GRAVITY , PATENT AND INTACT, WILL CONTINUE TO MONITOR PT CESAR .
[2017-10-15 07:14] LABS: CALCIUM, SERUM 8.4 mg/dL (8.5-10.1); CARBON DIOXIDE 34 mmol/L (21-32); CHLORIDE 103 mmol/L (98-107); CREATININE 0.8 mg/dL (0.6-1.3); GLUCOSE 99 mg/dL (74-106); POTASSIUM 4.4 mmol/L (3.5-5.1); SODIUM SERUM 141 mmol/L (136-145); UREA NITROGEN, BLOOD 21 mg/dL (7-18)
[2017-10-15 08:00] VITALS: BP 154/61
[2017-10-15] MEDS: AMIODARONE HCL 200 MG TABLET PO SCH ×3 (08:08→17:10)
[2017-10-15] MEDS: GABAPENTIN 300 MG CAPSULE PO SCH ×2 (08:08→17:09)
[2017-10-15] MEDS: APIXABAN 5 MG TABLET PO SCH ×2 (08:09→17:10)
[2017-10-15] MEDS: LEVOTHYROXINE SODIUM 100 MCG TABLET PO SCH (08:09)
[2017-10-15] MEDS: DOCUSATE SODIUM LIQ 100 MG/10 ML UDC NG SCH (08:09)
[2017-10-15] MEDS: ASCORBIC ACID 500 MG TABLET PO SCH ×2 (08:09→17:09)
[2017-10-15] MEDS: LORAZEPAM 0.5 MG TABLET PO SCH ×2 (08:09→17:09)
[2017-10-15] MEDS: PROSOURCE / PROSTAT (PYXIS) 30 ML UDC GT SCH ×2 (08:10→17:09)
[2017-10-15] MEDS: Z GUARD REMEDY 2 OZ OINT TP SCH (08:11)
--- NOTE | 2017-10-15 11:00 | NUR ---
RN NOTES L CHEST TUBE STAYS CLAMPED PER DR SPAULDING ORDER , L CHEST SITE CDI, DRESSING INTACT , CONTINE TO MONITOR .
[2017-10-15 12:00] VITALS: BP 132/46
[2017-10-15] MEDS: DIGOXIN 0.25 MG TABLET PO SCH (12:09)
[2017-10-15] MEDS: GLUCERNA 1.2 1,000 ML BOTTLE GT PRN (12:16)
--- NOTE | 2017-10-15 14:00 | NUR ---
RN NOTES PT TIANA , TRACH CARE DONE , CONTINUE TO MONITOR .
[2017-10-15 16:00] VITALS: BP_SYST 101; BP_SYST 91; BP_DIAS 56; BP_DIAS 64
--- NOTE | 2017-10-15 18:18 | NUR ---
RN NOTES NO RESPIRATORY DISTRESS NOTED ON THIS SHIFT , CHEST TUBE CLAMPED , VSS STABLE , R UPPER ARM PICC LINE SITE CDI, BOLAND DRAINING TO GRAVITY WITH YELLOW URINE, TOLERATING TF WELL , SR UP X3, CALL LIGHT WITHIN EASY REACH, WILL ENDOSE TO HANGER OFF NURSE FOR DEEPIKA
[2017-10-15 20:00] VITALS: BP 135/56
--- NOTE | 2017-10-15 20:10 | NUR ---
RN NOTES PATIENT IN BED, AWAKE, NOTED WITH EYE TRACKING. UNABLE TO VERBALIZE NEEDS. NO RESPIRATORY DISTRESS. BREATHING EVEN AND UNLABORED. VENT SETTING WELL TOLERATED. GT PATENT, FEEDING WELL TOLERATED. BOLAND CATHETER IN PLACED, DRAINING CLEAR YELLOW WITH NO FOUL ODOR URINE. KEPT CLEAN AND DRY. WILL CONTINUE TO MONITOR.
[2017-10-15] MEDS: TAMSULOSIN 0.4 MG CAP.SR.24H PO SCH (22:08)
[2017-10-15] MEDS: PANTOPRAZOLE 40 MG VIAL IV SCH (22:08)
[2017-10-15] MEDS: VITAMINS A AND D 56.7 GM TUBE TP PRN (22:16)
[2017-10-16] VITALS: BP 111/52
[2017-10-16] MEDS: BLOOD SUGAR DIAGNOSTIC 1 EACH STRIP IN SCH ×4 (00:24→17:14)
[2017-10-16] MEDS: INSULIN REGULAR, HUMAN 100 UNIT/ML 3 ML VIAL SQ PRN ×4 (00:24→17:14)
[2017-10-16] MEDS: METOCLOPRAMIDE HCL 10 MG/2 ML VIAL IV SCH ×4 (00:25→17:15)
[2017-10-16] MEDS: IPRATROPIUM NEB FS 0.5 MG/2.5 ML AMPUL.NEB NEB SCH ×7 (00:44→23:59)
[2017-10-16 04:00] VITALS: BP 136/59
[2017-10-16] MEDS: BETAMETHASONE DIP 0.05% CREAM 15 GM TUBE TP SCH ×2 (05:55→18:00)
[2017-10-16 06:09] LABS: BASOPHILS % (AUTO) 0.2 % (0.0-2.0); EOSINOPHILS % (AUTO) 3.7 % (0.0-6.0); HEMATOCRIT 25 % (39-51); HEMOGLOBIN 8.1 g/dL (13.5-17.5); LYMPHOCYTES # (AUTO) 1.2 /CMM (0.8-4.8); LYMPHOCYTES % (AUTO) 14.4 % (20.0-44.0); MEAN CORPUSCULAR HGB CONC 33 g/dl (31.0-36.0); MEAN CORPUSCULAR VOLUME 85 fL (80-96); MONOCYTES # (AUTO) 0.7 /CMM (0.1-1.30); MONOCYTES % (AUTO) 8.2 % (2.0-12.0); NEUTROPHILS # (AUTO) 5.9 /CMM (1.8-8.9); NEUTROPHILS % (AUTO) 73.5 % (43.0-81.0); PLATELET COUNT (AUTO) 182 /CMM (150-450); RDW COEFFICIENT OF VARIATION 16.4 (11.5-15.0); RED BLOOD CELL COUNT(AUTO) 2.91 MIL/uL (4.5-6.0); WHITE BLOOD COUNT (AUTO) 8.1 K/uL (4.3-11.0)
[2017-10-16 06:28] LABS: CALCIUM, SERUM 8.6 mg/dL (8.5-10.1); CARBON DIOXIDE 34 mmol/L (21-32); CHLORIDE 103 mmol/L (98-107); CREATININE 0.9 mg/dL (0.6-1.3); GLUCOSE 99 mg/dL (74-106); POTASSIUM 4.1 mmol/L (3.5-5.1); SODIUM SERUM 142 mmol/L (136-145); UREA NITROGEN, BLOOD 23 mg/dL (7-18)
--- NOTE | 2017-10-16 06:38 | NUR ---
RN CLOSING NOTES COMFORTABLY RESTING IN BED WITH NO RESPIRATORY DISTRESS OR SHORTNESS OF BREATH. BREATHING EVEN AND UNLABORED. NO PHYSICAL MANIFESTATION OF PAIN OR DISCOMFORT. VITAL SIGNS WNL. NO SIGNIFICANT CHANGE OF CONDITION. KEPT CLEAN AND DRY. WILL ENDORSE TO AM SHIFT FOR CONTINUITY OF CARE.
--- NOTE | 2017-10-16 07:10 | NUR ---
RN INITIAL NOTES: Rec'd pt awake on bed, not in any distress, A/O x 1. On MV via trach, sating at 100%. On telemonitor, SR w/ PAC w/ HR 59 bpm. Has LIONEL PICC line, C/D/I, no s/sx of infection/infiltration noted. Has GT, on cont Glucerna 1.2 x 65 cc/hr, no residual noted upon checking. Has FC draining to BSB, yellowish urine output. Has L CT, clamped, no bleeding noted on the site. Provided comfort & safety measures. Bed kept low & in locked pos. Call light placed w/in reach. Will continue to monitor & attend pt needs.
--- NOTE | 2017-10-16 07:32 | NUR ---
PATIENT REC'D TRACHED ON [facility] VENT WITH SETTINGS SET BY MD YOKASTA CARTER. VENT ALARMS CHECKED + AUDIBLE. 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 B/S DIM COARSE. PATIENT SUCTIONED WITH SMALL AMT OF BROTHERS SEMITHICK SECRETIONS. PATIENT AWAKE, RESPONDS BUT IS UNABLE TO COMMUNICATE NEEDS. NO SOB NOTED. AMBU BAG AND BACK UP TRACH AT BEDSIDE Addendum: 10/16/17 at 0735 by KEE RAMIREZ RT Amended: Links added.
[2017-10-16 08:00] VITALS: BP 138/50
[2017-10-16] MEDS: DOCUSATE SODIUM LIQ 100 MG/10 ML UDC NG SCH (08:15)
[2017-10-16] MEDS: LORAZEPAM 0.5 MG TABLET PO SCH ×2 (08:15→16:33)
[2017-10-16] MEDS: PROSOURCE / PROSTAT (PYXIS) 30 ML UDC GT SCH ×2 (08:15→16:33)
[2017-10-16] MEDS: GABAPENTIN 300 MG CAPSULE PO SCH ×2 (08:15→16:33)
[2017-10-16] MEDS: ASCORBIC ACID 500 MG TABLET PO SCH ×2 (08:15→16:33)
[2017-10-16] MEDS: LEVOTHYROXINE SODIUM 100 MCG TABLET PO SCH (08:15)
[2017-10-16] MEDS: APIXABAN 5 MG TABLET PO SCH ×2 (08:15→16:34)
[2017-10-16] MEDS: Z GUARD REMEDY 2 OZ OINT TP SCH (08:16)
[2017-10-16] MEDS: AMIODARONE HCL 200 MG TABLET PO SCH ×3 (08:16→16:15)
--- NOTE | 2017-10-16 10:53 | NUR ---
RN NOTES: Pt seen & examined by Dr. Serra & Dr. Machuca. MDs were able to talk to the pt's relatives at bedside.
[2017-10-16 12:00] VITALS: BP 106/67
[2017-10-16] MEDS: DIGOXIN 0.25 MG TABLET PO SCH (12:33)
[2017-10-16] MEDS: MORPHINE SULFATE INJ 4 MG/ML DISP.SYRIN IV PRN (14:38)
[2017-10-16 16:00] VITALS: BP 109/49
--- NOTE | 2017-10-16 18:22 | NUR ---
RN CLOSING NOTES: No acute changes noted w/in shift. Pt tolerated MV settings via trach, sating at 100%. On telemonitor, still SR w/ PAC. LIONEL PICC line, kept C/D/I, no s/sx of infection/infiltration noted. Pt tolerated cont Glucerna 1.2 x 65 cc/hr, no residual w/in shift. FC kept draining to BSB. L CT, kept clamped, no bleeding noted on the site. Dressing changed on CT site. Kept well rested. Bed kept low & in locked pos. Call light placed w/in reach. Will endorse to PM RN for DEEPIKA.
--- NOTE | 2017-10-16 19:30 | NUR ---
RADHA RN INITIAL NOTE PT RECEIVED WITH NOTED RESTLESSNESS. A/O X1 AND ABLE TO MOUTH WORDS. ON MECH VENT SETTINGS WELL TOLERATED AND SATURATING WELL. HOB ELEVATED AND ON ASPIRATION PRECAUTIONS. CHEST TUBE TO LEFT SIDE OF ABDOMEN CLAMPED. GTF WELL TOLERATED AND NO RESIDUALS NOTED. ON BILATERAL SOFT WRIST RESTRAINTS AND PULSES PALPABLE BILATERALLY. IV LIONEL PICC CLEAN AND DRY. BOLAND CATHETER IN PLACE AND DRAINING BY GRAVITY. TELE- SR W PAC. WILL CONTINUE TO MONITOR.
[2017-10-16 20:00] VITALS: BP 112/52
[2017-10-16] MEDS: PANTOPRAZOLE 40 MG VIAL IV SCH (21:25)
[2017-10-16] MEDS: TAMSULOSIN 0.4 MG CAP.SR.24H PO SCH (21:25)
[2017-10-16] MEDS: GLUCERNA 1.2 1,000 ML BOTTLE GT PRN (21:28)
[2017-10-17] VITALS: BP 147/64
[2017-10-17] MEDS: BLOOD SUGAR DIAGNOSTIC 1 EACH STRIP IN SCH ×5 (00:15→23:39)
[2017-10-17] MEDS: METOCLOPRAMIDE HCL 10 MG/2 ML VIAL IV SCH ×5 (00:15→23:50)
[2017-10-17] MEDS: LORAZEPAM INJ 2 MG/ML VIAL IV PRN ×2 (00:18→23:51)
[2017-10-17] MEDS: IPRATROPIUM NEB FS 0.5 MG/2.5 ML AMPUL.NEB NEB SCH ×5 (03:59→19:38)
[2017-10-17 04:00] VITALS: BP 160/75
[2017-10-17 06:31] LABS: EOSINOPHILS % (AUTO) 1.4 % (0.0-6.0); HEMATOCRIT 26 % (39-51); HEMOGLOBIN 8.6 g/dL (13.5-17.5); LYMPHOCYTES # (AUTO) 0.5 /CMM (0.8-4.8); LYMPHOCYTES % (AUTO) 5.4 % (20.0-44.0); MEAN CORPUSCULAR HGB CONC 33 g/dl (31.0-36.0); MEAN CORPUSCULAR VOLUME 85 fL (80-96); MONOCYTES # (AUTO) 0.7 /CMM (0.1-1.30); MONOCYTES % (AUTO) 7.6 % (2.0-12.0); NEUTROPHILS # (AUTO) 7.8 /CMM (1.8-8.9); NEUTROPHILS % (AUTO) 85.6 % (43.0-81.0); PLATELET COUNT (AUTO) 210 /CMM (150-450); RDW COEFFICIENT OF VARIATION 16.3 (11.5-15.0); RED BLOOD CELL COUNT(AUTO) 3.07 MIL/uL (4.5-6.0); WHITE BLOOD COUNT (AUTO) 9.1 K/uL (4.3-11.0)
--- NOTE | 2017-10-17 06:52 | NUR ---
RADHA RN CLOSING NOTE PT REMAINED STABLE DURING SHIFT. NO ACUTE DISTRESS NOTED. ALL NEEDS ATTENDED TO PROMPTLY. VENT SETTINGS WELL TOLERATED. REPOSITIONED Q2. SUCTIONED NEEDED. HOB ELEVATED. KEPT CLEAN AND DRY. GOOD DEE CARE PROVIDED. GTF WELL TOLERATED. BOLAND IN PLACE. BILATERAL SOFT WRIST RESTRAINTS IN PLACE. WILL ENDORSE TO NEXT SHIFT FOR CONTINUITY OF CARE.
[2017-10-17 07:03] LABS: CALCIUM, SERUM 8.8 mg/dL (8.5-10.1); CARBON DIOXIDE 33 mmol/L (21-32); CHLORIDE 104 mmol/L (98-107); GLUCOSE 119 mg/dL (74-106); POTASSIUM 4.3 mmol/L (3.5-5.1); SODIUM SERUM 142 mmol/L (136-145); UREA NITROGEN, BLOOD 22 mg/dL (7-18)
--- NOTE | 2017-10-17 07:15 | NUR ---
RADHA RN NOTE REPORT RECEIVED FROM PABLO WELSH FOR DEEPIKA. PATIENT RESTLESS. NO C/O PAIN. BILATERAL SOFT RESTRAINTS IN PLACE AND RENEWEL REVIEWED. ASSESSED CIRCULATION AND PULSES ON BILATERAL ARMS. A/O X1. F/C INTACT. LIONEL PICC INTACT AND PATENT. ALL SAFETY MEASURES IN PLACE. GTF PATENT AND RUNNING. WILL CONTINUE TO MONITOR CLOSELY.
[2017-10-17 08:00] VITALS: BP 142/55
--- NOTE | 2017-10-17 08:16 | NUR ---
PATIENT REC'D TRACHED ON [facility] VENT WITH NOTED SETTINGS [place]ASTA WELL. VENT ALARMS CHECKED + AUDIBLE. PATIENT AWAKE, IN NO DISTRESS AT THIS TIME. B/S ASHOK, PATIENT SUCTIONED WITH MOD/LARGE AMT OF PALE YELLOW SEMITHICK SECRETIONS. AMBU BAG AND BACK UP TRACH AT BEDSIDE. Addendum: 10/17/17 at 0821 by KEE RAMIREZ RT Amended: Links added.
[2017-10-17] MEDS: GABAPENTIN 300 MG CAPSULE PO SCH ×2 (08:52→16:07)
[2017-10-17] MEDS: AMIODARONE HCL 200 MG TABLET PO SCH ×3 (08:52→16:08)
[2017-10-17] MEDS: ACETAMINOPHEN 325 MG TABLET PO PRN (08:52)
[2017-10-17] MEDS: DOCUSATE SODIUM LIQ 100 MG/10 ML UDC NG SCH (08:52)
[2017-10-17] MEDS: LORAZEPAM 0.5 MG TABLET PO SCH ×2 (08:53→16:07)
[2017-10-17] MEDS: APIXABAN 5 MG TABLET PO SCH ×2 (08:53→16:08)
[2017-10-17] MEDS: Z GUARD REMEDY 2 OZ OINT TP SCH (08:53)
[2017-10-17] MEDS: ASCORBIC ACID 500 MG TABLET PO SCH ×2 (08:54→16:07)
[2017-10-17] MEDS: LEVOTHYROXINE SODIUM 100 MCG TABLET PO SCH (08:54)
[2017-10-17] MEDS: PROSOURCE / PROSTAT (PYXIS) 30 ML UDC GT SCH ×2 (08:55→16:07)
[2017-10-17] MEDS: BETAMETHASONE DIP 0.05% CREAM 15 GM TUBE TP SCH ×2 (08:56→19:52)
[2017-10-17 12:00] VITALS: BP 120/51
[2017-10-17] MEDS: DIGOXIN 0.25 MG TABLET PO SCH (12:26)
[2017-10-17] MEDS: GLUCERNA 1.2 1,000 ML BOTTLE GT PRN (12:27)
--- NOTE | 2017-10-17 12:44 | NUR ---
RADHA RN NOTE PT TEMP 101.1 COOLING MEASURES INITIATED. WILL CONTINUE TO MONITOR CLOSELY.
[2017-10-17 16:00] VITALS: BP 122/50
[2017-10-17] MEDS ORDERED: GLUCERNA 1.2 1,000 ML BOTTLE NG PRN (16:00)
[2017-10-17 20:00] VITALS: BP 142/64
[2017-10-17] MEDS: PANTOPRAZOLE 40 MG VIAL IV SCH (21:43)
[2017-10-17] MEDS: TAMSULOSIN 0.4 MG CAP.SR.24H PO SCH (21:44)
[2017-10-17] MEDS: INSULIN REGULAR, HUMAN 100 UNIT/ML 3 ML VIAL SQ PRN (23:46)
[2017-10-18] VITALS (14 sets, daily range): BP systolic 117–159; BP diastolic 43–105
[2017-10-18] MEDS: IPRATROPIUM NEB FS 0.5 MG/2.5 ML AMPUL.NEB NEB SCH ×7 (00:20→23:27)
[2017-10-18 01:22] LABS: ABG BASE EXCESS 9.8 mmol/L; ABG OXYGEN SATURATION 86.5 % (92.0-98.5); ABG PH 7.467 (7.350-7.450); ABG PO2 54.1 mmHg (75.0-100.0); AaDO2 247.3 mmHg; COHb 0.3 % (0.5-1.5); MetHb 0.3 % (0.0-1.5); PEEP,BG 5 cm H2O; SITE, ABG Right Radial; VT, ABG 500 mL
--- NOTE | 2017-10-18 01:37 | NUR ---
RN RADHA NOTE PATIENT DESATURATING, ABG DONE, ABNORMAL PO2 54.1, PER DR SPAULDING DO CHEST XRAY FOR THORACENTESIS AND CONTINUE TO MONITOR.
[2017-10-18] MEDS: GLUCERNA 1.2 1,000 ML BOTTLE GT PRN (01:57)
--- NOTE | 2017-10-18 02:53 | NUR ---
RN RADHA NOTE CALL BACK TO DR SPAULDING TO REPORT CHEST XRAY RESULTS AND O2 SAT 92% AT 60 FIO2, OKAY TO TRANSFER TO ICU.
[2017-10-18] MEDS: MORPHINE SULFATE INJ 4 MG/ML DISP.SYRIN IV PRN ×4 (03:39→23:10)
[2017-10-18] MEDS: ACETAMINOPHEN 325 MG TABLET PO PRN ×3 (04:13→21:20)
[2017-10-18] MEDS: BETAMETHASONE DIP 0.05% CREAM 15 GM TUBE TP SCH ×2 (06:06→18:32)
[2017-10-18] MEDS: METOCLOPRAMIDE HCL 10 MG/2 ML VIAL IV SCH ×4 (06:06→23:10)
[2017-10-18] MEDS: BLOOD SUGAR DIAGNOSTIC 1 EACH STRIP IN SCH ×4 (06:06→23:10)
[2017-10-18 06:12] LABS: BASOPHILS % (AUTO) 0.1 % (0.0-2.0); HEMATOCRIT 22 % (39-51); HEMOGLOBIN 7.1 g/dL (13.5-17.5); LYMPHOCYTES # (AUTO) 0.9 /CMM (0.8-4.8); LYMPHOCYTES % (AUTO) 10.6 % (20.0-44.0); MEAN CORPUSCULAR HGB CONC 32 g/dl (31.0-36.0); MEAN CORPUSCULAR VOLUME 85 fL (80-96); MONOCYTES # (AUTO) 0.6 /CMM (0.1-1.30); MONOCYTES % (AUTO) 7.2 % (2.0-12.0); NEUTROPHILS # (AUTO) 6.6 /CMM (1.8-8.9); NEUTROPHILS % (AUTO) 80.1 % (43.0-81.0); PLATELET COUNT (AUTO) 177 /CMM (150-450); RDW COEFFICIENT OF VARIATION 16.5 (11.5-15.0); RED BLOOD CELL COUNT(AUTO) 2.57 MIL/uL (4.5-6.0); WHITE BLOOD COUNT (AUTO) 8.2 K/uL (4.3-11.0)
[2017-10-18 06:31] LABS: CALCIUM, SERUM 8.5 mg/dL (8.5-10.1); CARBON DIOXIDE 34 mmol/L (21-32); CHLORIDE 106 mmol/L (98-107); CREATININE 1.2 mg/dL (0.6-1.3); GLUCOSE 110 mg/dL (74-106); POTASSIUM 4.6 mmol/L (3.5-5.1); SODIUM SERUM 142 mmol/L (136-145); UREA NITROGEN, BLOOD 34 mg/dL (7-18)
[2017-10-18] MEDS: LEVOTHYROXINE SODIUM 100 MCG TABLET PO SCH (07:52)
--- NOTE | 2017-10-18 08:00 | NUR ---
RADHA RN NOTES RECEIVED PT IN BED, AWAKE, VERY ANXIOUS. ON VENT SETTINGS ORDERED. AMBU BAG AT BEDSIDE. PT ON TELE MONITOR. SR WITH PAC. BOLAND CATH TO GRAVITY WITH YELLOW URINE. SOFT RESTRAINTS TO BILAT WRISTS FOR PT SAFETY DUE TO PT TRYING TO PULL TRACH AND ALL LINES. WILL START GT FEEDING AT 70 CC/HR. NO RESIDUAL NOTED. LIONEL PICC LINE IN TACT. PT VERY RESTLESS. MORPHINE 4MG GIVEN ORDERED FOR PAIN. L CHEST TUBE CLAMPED ORDERED. RT AT BEDSIDE. TRACH SUCTION DONE. BREATHING TX GIVEN. SATURATION RANGING FROM 86-92%. BED LOCKED IN LOWEST POSITION. CALL LIGHT WITHIN REACH. PLAN OF CARE DISCUSSED WITH PT. WILL CONTINUE TO MONITOR PT CLOSELY.
[2017-10-18] MEDS: AMIODARONE HCL 200 MG TABLET PO SCH ×3 (09:18→16:46)
[2017-10-18] MEDS: GABAPENTIN 300 MG CAPSULE PO SCH ×2 (09:18→16:46)
[2017-10-18] MEDS: DOCUSATE SODIUM LIQ 100 MG/10 ML UDC NG SCH (09:18)
[2017-10-18] MEDS: ASCORBIC ACID 500 MG TABLET PO SCH ×2 (09:18→16:47)
[2017-10-18] MEDS: LORAZEPAM 0.5 MG TABLET PO SCH ×2 (09:18→16:47)
[2017-10-18] MEDS: Z GUARD REMEDY 2 OZ OINT TP SCH (09:19)
[2017-10-18] MEDS: APIXABAN 5 MG TABLET PO SCH ×2 (09:20→16:47)
[2017-10-18] MEDS: PROSOURCE / PROSTAT (PYXIS) 30 ML UDC GT SCH ×2 (09:23→16:50)
--- NOTE | 2017-10-18 09:32 | NUR ---
RADHA RN NOTE SEEN BY DR SPAULDING AWARE THAT LAST NIGHT AND EARLIER SARAH AM DESATURATED 84-89% . VEERY RESTLESS MORPHINE WAS GIVEN 4 MG IVP , DR SPAULDING AWARE OF ABG WAS DROWN EARLIEST AM AND ALSO AWARE THAT LT CHEST TUBE KEEP CLUMPED
--- NOTE | 2017-10-18 10:29 | NUR ---
RADHA RN NOTES SPOKE WITH DR. BARKER RE: HGB 7.1. STATED OK TO ORDER 2 UNITS PRBC WITH LASIX 20MG AFTER THE 1ST UNIT IS TRANSFUSED. PT REPOSITIONED, NO APPARENT DISTRESS AT THIS TIME. KEPT CLEAN AND DRY. WILL CONTINUE TO MONITOR.
[2017-10-18] MEDS ORDERED: FUROSEMIDE 20 MG/2 ML VIAL IV PRN (10:30)
--- NOTE | 2017-10-18 11:28 | NUR ---
RADHA RN NOTE PER DR MJ COLE TO HAVE PSYCH CONSULT FOR AGITATION AND ANXIETY. FACESHEET FAXED TO [facility]. WILL FOLLOW UP.
[2017-10-18] MEDS: DIGOXIN 0.25 MG TABLET PO SCH (12:32)
--- NOTE | 2017-10-18 12:50 | NUR ---
RADHA RN NOTE PT WITH TEMP 102.3. MD NOTIFIED. OK TO GIVE TYLENOL ORDERED AND APPLY COOLING MEASURES. WILL MONITOR TEMPERATURE BEFORE STARTING BLOOD TRANSFUSION. STATED OK FOR BLOOD, SPUTUM AND URINE CULTURE.
--- NOTE | 2017-10-18 14:00 | NUR ---
RADHA RN NOTES: PT WITH TEMP 101.7 AFTER TYLENOL GIVEN. COOLING MEASURES STILL IN PLACE. BLOOD TRANSFUSION ON HOLD FOR NOW. LEFT MESSAGE FOR MD BARKER. WAITING FOR RETURN CALL. WILL CONTINUE TO MONITOR PT.
--- NOTE | 2017-10-18 14:24 | NUR ---
RADHA RN NOTES: COOLING BLANKET IN PLACE. TEMPERATURE 100.7. WAITING FOR RETURN CALL FROM DR. BARKER TO START BLOOD TRANSFUSION.
--- NOTE | 2017-10-18 14:25 | NUR ---
RADHA RN NOTES: UA COLLECTED ORDERED.
--- NOTE | 2017-10-18 16:04 | NUR ---
RT NOTE AT 1600 SPUTUM SAMPLE COLLECTION PERFORMED WITH NO COMPLICATIONS. BLAISE MCCLENDON AWARE.
--- NOTE | 2017-10-18 16:27 | NUR ---
RADHA RN NOTE BLOOD TRANSFUSION 1 ST INIT PRBC STARTED TO INFUSE AT 50 ML PER HOUR , NO ADVERSE REACTION NOTED AT THIS TIME , WILL CONT TO MONITOR CLOSELY
--- NOTE | 2017-10-18 17:32 | NUR ---
PATIENT RECEIVED TRACHED ON MECHANICAL VENTILATION WITH SHILEY [address] ALARMS ON AND AUDIBLE. VENT PLUGGED INTO RED OUTLET. AMBU BAG @ HOB. TX GIVEN, NO ADVERSE REACTIONS NOTED. SX DONE T/O SHIFT. MODERATE THICK WHITE YELLOW SECRETIONS NOTED. SPUTUM INDUCTION OBTAINED. NO SOB NOTED T/O SHIFT. MONITORED CLOSELY. Addendum: 10/18/17 at 1733 by BIJAN CHANDLER RT Amended: Links added.
[2017-10-18] MEDS: INSULIN REGULAR, HUMAN 100 UNIT/ML 3 ML VIAL SQ PRN (17:40)
--- NOTE | 2017-10-18 18:55 | NUR ---
RADHA RN NOTE CONT ON BLOOD TRANSFUSION, NO ADVERSE REACTION NOTED ,WILL CONT TO MONITOR CLOSELY
--- NOTE | 2017-10-18 19:56 | NUR ---
RECEIVED PATIENT AWAKE AND ALERT WITH #8 SHILEY XL DISTAL TRACH IN PLACE ON PB 840 VENT. ALARMS VERIFIED AND AUDIBLE. VENT TUBING OUT OF REACH FOR PATIENT DUE TO MULTIPLE ATTEMPTS TO PULL IT WITH RESTRAINTS ON. NURSE AWARE. SUCTIONED AND LAVAGED THICK YELLOW/BROTHERS SECRETIONS. VENT PLUGGED INTO RED OUTLET. AMBU BAG AT [facility]. Addendum: 10/18/17 at 6 by SUZY WEBER RT Amended: Links added.
[2017-10-18] MEDS: PANTOPRAZOLE 40 MG VIAL IV SCH (21:20)
[2017-10-18] MEDS: TAMSULOSIN 0.4 MG CAP.SR.24H PO SCH (21:20)
[2017-10-18] MEDS: LORAZEPAM INJ 2 MG/ML VIAL IV PRN (21:21)
--- NOTE | 2017-10-18 22:55 | NUR ---
RN NOTE PATIENT IS GETTING BLOOD TRANSFUSION, TOLERATES WELL, NO REACTION NOTED, WILL CONTINUE TO MONITOR PATIENT
--- NOTE | 2017-10-18 23:30 | NUR ---
RN NOTE NO BLOOD TRANSFUSION REACTION NOTED, WILL CONTINUE TO MONITOR PATIENT
[2017-10-19] VITALS (8 sets, daily range): BP systolic 96–159; BP diastolic 37–90
--- NOTE | 2017-10-19 | NUR ---
RN NOTE NO BLOOD TRANSFUSION REACTION NOTED, WILL CONTINUE TO MONITOR PATIENT
[2017-10-19] MEDS ORDERED: ACETAMINOPHEN 650 MG/20.3 ML UDC ONE (01:35)
--- NOTE | 2017-10-19 02:04 | NUR ---
RN NOTE PATIENT TOLERATED BLOOD TRANSFUSION WELL, NO REACTION NOTED, PATIENT IS STABLE
--- NOTE | 2017-10-19 03:10 | NUR ---
RN NOTE NOTIFIED DOCTOR MJ RG TEMPERATURE OF 102.5F, NEW ORDERS GIVEN AND CARRIED OUT, CHARGE NURSE IS AWARE
[2017-10-19] MEDS: IPRATROPIUM NEB FS 0.5 MG/2.5 ML AMPUL.NEB NEB SCH ×6 (03:12→23:22)
[2017-10-19] MEDS ORDERED: IBUPROFEN 200 MG TABLET GT PRN (03:30)
[2017-10-19] MEDS ORDERED: DOSE PER PHARMACY (MD SPECIFY MEDICATION) 1 EA XX PRN (03:30)
[2017-10-19] MEDS ORDERED: MEROPENEM 1 G VIAL IV ONE (03:47)
[2017-10-19] MEDS ORDERED: VANCOMYCIN 1 GM VIAL ONE ×2 (03:53→04:00)
[2017-10-19] MEDS: MEROPENEM 1 G in IV NS 0.9% 100 ML IV SCH ×3 (03:54→21:51)
[2017-10-19] MEDS ORDERED: VANCOMYCIN 1,500 MG in IV D5W 250 ML IV ONE (04:00)
[2017-10-19] MEDS: METOCLOPRAMIDE HCL 10 MG/2 ML VIAL IV SCH ×4 (05:30→23:18)
[2017-10-19] MEDS: BLOOD SUGAR DIAGNOSTIC 1 EACH STRIP IN SCH ×5 (05:30→23:14)
--- NOTE | 2017-10-19 07:12 | NUR ---
RN INITIAL NOTES: REC'D PT ON BED, NOT IN ANY DISTRESS, A/O X 1, DROWSY/LETHARGIC. ON MV VIA TRACH, SATING AT 100%. ON TELEMONITOR, SB W/ HR 57. HAS LIONEL PICC LINE, SL, NO S/SX OF INFECTION/INFILTRATION. HAS GT, ON CONT GTF GLUCERNA 1.2 X 70 CC/HR INFUSING WELL, NO RESIDUAL NOTED UPON CHECKING. HAS FC PATENT & INTACT DRAINING TO BSB, NOTED HEMATURIA. HAS LEFT CT TUBE, SCHEDULED FOR REMOVAL. PROVIDED COMFORT & SAFETY MEASURES. BED KEPT LOW & IN LOCKED POS. CALL LIGHT PLACED W/IN REACH. WILL CONT TO MONITOR & ATTEND PT NEEDS.
[2017-10-19] MEDS ORDERED: FEE PK DOSING 1 MIN EA MC ONE (07:53)
--- NOTE | 2017-10-19 07:53 | NUR ---
PINK ALERTS ON EMAR CLEARED FOR PT's SAFETY. MEDICATIONS NON ADMINISTERED.
[2017-10-19] MEDS: GABAPENTIN 300 MG CAPSULE PO SCH ×2 (08:17→17:05)
[2017-10-19] MEDS: ASCORBIC ACID 500 MG TABLET PO SCH ×2 (08:17→17:06)
[2017-10-19] MEDS: LEVOTHYROXINE SODIUM 100 MCG TABLET PO SCH (08:17)
[2017-10-19] MEDS: DOCUSATE SODIUM LIQ 100 MG/10 ML UDC NG SCH (08:17)
[2017-10-19] MEDS: APIXABAN 5 MG TABLET PO SCH ×3 (08:17→17:06)
[2017-10-19] MEDS: PROSOURCE / PROSTAT (PYXIS) 30 ML UDC GT SCH ×2 (08:17→17:05)
[2017-10-19] MEDS: AMIODARONE HCL 200 MG TABLET PO SCH ×3 (08:18→17:00)
[2017-10-19] MEDS: LORAZEPAM 0.5 MG TABLET PO SCH ×2 (08:18→17:06)
[2017-10-19] MEDS: BETAMETHASONE DIP 0.05% CREAM 15 GM TUBE TP SCH ×2 (08:18→18:43)
[2017-10-19] MEDS: GLUCERNA 1.2 1,000 ML BOTTLE GT PRN ×2 (08:19→23:15)
[2017-10-19] MEDS: Z GUARD REMEDY 2 OZ OINT TP SCH (08:19)
--- NOTE | 2017-10-19 08:30 | NUR ---
RN NOTES: PT SEEN & EXAMINED BY DR. SPAULDING. MD REMOVED LEFT CHEST TUBE, VASELINIZED PRESSURE DRESSING APPLIED. MONITORED FOR ANY DEEPIKA. MADE AWARE OF HEMATURIA, ASKED IF OKAY TO GIVE ELIQUIS, ORDERED TO CONTINUE GIVING THE MEDS.
--- NOTE | 2017-10-19 09:00 | NUR ---
RN NOTES: PT SEEN & EXAMINED BY DR. BARKER. PER , [place] AT [facility]. DCP FOLLOWED UP W/ CM MATTHIAS, PER CM IT'S STILL PENDING FOR EVAL.
[2017-10-19] MEDS ORDERED: ACETAMINOPHEN 650 MG/20.3 ML UDC GT PRN (09:30)
[2017-10-19] MEDS: DIGOXIN 0.25 MG TABLET PO SCH (13:00)
[2017-10-19] MEDS: INSULIN REGULAR, HUMAN 100 UNIT/ML 3 ML VIAL SQ PRN ×3 (13:18→23:14)
[2017-10-19] MEDS ORDERED: OLANZAPINE 5 MG TABLET GT PRN (17:30)
--- NOTE | 2017-10-19 18:37 | NUR ---
RN CLOSING NOTES: NO ACUTE CHANGES NOTED W/IN SHIFT. PT TOLERATED MV SETTINGS VIA TRACH, SATING AT 100%. ON TELEMONITOR, STILL SR/SB. LIONEL PICC LINE, TLC, KEPT PATENT & INTACT NO S/SX OF INFECTION/INFILTRATION. PT TOLERATED CONT GTF GLUCERNA 1.2 X 70 CC/HR, NO RESIDUAL NOTED W/IN SHIFT. FC KEPT PATENT & INTACT DRAINING TO BSB, STILL NOTED W/ HEMATURIA. S/P REMOVAL OF LEFT CT TUBE, NO BLEEDING NOTED. KEPT WELL RESTED. NEEDS ATTENDED. BED KEPT LOW & IN LOCKED POS. CALL LIGHT PLACED W/IN REACH. WILL ENDORSE TO PM RN FOR DEEIPKA.
--- NOTE | 2017-10-19 19:35 | NUR ---
RADHA RN OPENING NOTES RECEIVED REPORT FROM LEN Escudero RN. PATIENT A/A/O X1 W/ CONFUSION & LETHARGY, UNABLE TO MAKE NEEDS KNOWN. OPENS/CLOSES EYES SPONTANEOUSLY & EASILY AROUSABLE. BREATHING EVEN & UNLABORED W/ TRACH INTACT & VENT SETTINGS AC 16, TV 500, FIO2 40%, PEEP 5. ON TELE W/ SINUS DESTINY W/ A FLUTTER, HR 59. NO RESPIRATORY OR CARDIAC DISTRESS NOTED. RIGHT UPPER ARM PICC LINE INTACT & PATENT W/ DRESSING CDI, SALINE LOCKED. BOLAND CATH DRAINING MINIMAL URINE W/ SOME HEMATURIA. NO S/S OF PAIN OR DISCOMFORT @ THIS TIME. SAFETY MEASURES IN PLACE W/ SIDE RAILS UP, BED LOCKED & IN LOWEST POSITION & BED ALARM ON. BILATERAL SOFT WRIST RESTRAINTS KEPT ON. WILL CONTINUE TO MONITOR CLOSELY.
[2017-10-19] MEDS: LORAZEPAM INJ 2 MG/ML VIAL IV PRN (21:51)
[2017-10-19] MEDS: PANTOPRAZOLE 40 MG VIAL IV SCH (21:51)
[2017-10-19] MEDS: TAMSULOSIN 0.4 MG CAP.SR.24H PO SCH (21:51)
[2017-10-20] VITALS: BP 138/65
[2017-10-20] MEDS ORDERED: VANCOMYCIN 1.25 GM in IV D5W 500 ML IV SCH ×2
[2017-10-20] MEDS: IPRATROPIUM NEB FS 0.5 MG/2.5 ML AMPUL.NEB NEB SCH ×6 (03:25→23:32)
[2017-10-20 04:00] VITALS: BP 148/62
[2017-10-20] MEDS: ACETAMINOPHEN 325 MG TABLET PO PRN (04:28)
[2017-10-20] MEDS: MEROPENEM 1 G in IV NS 0.9% 100 ML IV SCH ×2 (04:28→18:31)
[2017-10-20] MEDS: INSULIN REGULAR, HUMAN 100 UNIT/ML 3 ML VIAL SQ PRN ×2 (05:50→11:38)
[2017-10-20] MEDS: METOCLOPRAMIDE HCL 10 MG/2 ML VIAL IV SCH ×3 (05:50→18:01)
[2017-10-20] MEDS: BLOOD SUGAR DIAGNOSTIC 1 EACH STRIP IN SCH ×3 (05:50→17:24)
[2017-10-20 06:29] LABS: BASOPHILS % (AUTO) 0.1 % (0.0-2.0); EOSINOPHILS % (AUTO) 0.1 % (0.0-6.0); HEMATOCRIT 27 % (39-51); LYMPHOCYTES # (AUTO) 0.4 /CMM (0.8-4.8); LYMPHOCYTES % (AUTO) 2.8 % (20.0-44.0); MEAN CORPUSCULAR HGB CONC 33 g/dl (31.0-36.0); MEAN CORPUSCULAR VOLUME 86 fL (80-96); MONOCYTES # (AUTO) 0.8 /CMM (0.1-1.30); MONOCYTES % (AUTO) 5.8 % (2.0-12.0); NEUTROPHILS # (AUTO) 13.4 /CMM (1.8-8.9); NEUTROPHILS % (AUTO) 91.2 % (43.0-81.0); PLATELET COUNT (AUTO) 176 /CMM (150-450); RED BLOOD CELL COUNT(AUTO) 3.14 MIL/uL (4.5-6.0); WHITE BLOOD COUNT (AUTO) 14.6 K/uL (4.3-11.0)
[2017-10-20] MEDS: BETAMETHASONE DIP 0.05% CREAM 15 GM TUBE TP SCH ×2 (07:00→21:29)
[2017-10-20 07:02] LABS: CALCIUM, SERUM 8.6 mg/dL (8.5-10.1); CARBON DIOXIDE 33 mmol/L (21-32); CHLORIDE 101 mmol/L (98-107); CREATININE 1.4 mg/dL (0.6-1.3); GLUCOSE 113 mg/dL (74-106); MAGNESIUM 1.9 mg/dL (1.8-2.4); PHOSPHORUS 4.8 mg/dL (2.5-4.9); POTASSIUM 5.1 mmol/L (3.5-5.1); SODIUM SERUM 141 mmol/L (136-145); UREA NITROGEN, BLOOD 58 mg/dL (7-18)
--- NOTE | 2017-10-20 07:35 | NUR ---
RN NOTES RECEIVED PT FROM SPORTS ANNOUNCER, VENT/TRACH DEPENDENT TOLERATING VENT SETTINGS NO SOB OR DISTRESS NOTED. NONVERBAL, OPENS EYES TO NAME. SR ON THE TELE JAIDA HR 65. BOLAND DRAINING TO GRAVITY. GTF AT 70ML/HR TOLERATING WELL. LIONEL PICC LINE INTACT NO IVF INFUSING. LORELEI SOFT WRIST RESTRAINTS ON FOR SAFETY. BED LOCKED AND IN LOWEST POSITION, CALL LIGHT WITHIN REACH, SIDE RAILS UPX3, WILL CONT TO JAIDA.
[2017-10-20 08:00] VITALS: BP 133/68
[2017-10-20] MEDS: DOCUSATE SODIUM LIQ 100 MG/10 ML UDC NG SCH (08:12)
[2017-10-20] MEDS: LORAZEPAM 0.5 MG TABLET PO SCH ×2 (08:12→16:29)
[2017-10-20] MEDS: APIXABAN 5 MG TABLET PO SCH ×2 (08:12→16:23)
[2017-10-20] MEDS: LEVOTHYROXINE SODIUM 100 MCG TABLET PO SCH (08:12)
[2017-10-20] MEDS: GABAPENTIN 300 MG CAPSULE PO SCH ×2 (08:12→16:22)
[2017-10-20] MEDS: ASCORBIC ACID 500 MG TABLET PO SCH ×2 (08:12→16:29)
[2017-10-20] MEDS: Z GUARD REMEDY 2 OZ OINT TP SCH (08:13)
[2017-10-20] MEDS: PROSOURCE / PROSTAT (PYXIS) 30 ML UDC GT SCH ×2 (08:13→16:29)
--- NOTE | 2017-10-20 08:24 | NUR ---
Jennifer pt received on mechanical vent. Pt trach is secure. Vent is plugged into a red outlet, alarms are set and audible, and BVM is at bedside. Addendum: 10/20/17 at 0826 by SHREYAS CHAVEZ RT Amended: Links added.
[2017-10-20] MEDS: AMIODARONE HCL 200 MG TABLET PO SCH ×3 (08:28→16:52)
[2017-10-20] MEDS ORDERED: LEVOFLOXACIN 750 MG /D5W 150ML 750 MG in PREMIX 1 EA IV SCH (09:00)
[2017-10-20 12:00] VITALS: BP 143/63
[2017-10-20] MEDS: DIGOXIN 0.25 MG TABLET PO SCH (14:04)
[2017-10-20 16:00] VITALS: BP 155/61
[2017-10-20] MEDS: MORPHINE SULFATE INJ 4 MG/ML DISP.SYRIN IV PRN (17:43)
[2017-10-20 20:00] VITALS: BP 149/65
--- NOTE | 2017-10-20 20:00 | NUR ---
RN TEL INITIAL NOTES RECEIVED PT FROM AM SHIFT, VENT/TRACH DEPENDENT TOLERATING VENT SETTINGS NO SOB OR DISTRESS NOTED. NONVERBAL, OPENS EYES TO NAME. SR ON THE TELE JAIDA HR 65. BOLAND DRAINING TO GRAVITY. GTF AT 70ML/HR TOLERATING WELL. LIONEL PICC LINE INTACT NO IVF INFUSING. LORELEI SOFT WRIST RESTRAINTS ON FOR SAFETY. BED LOCKED AND IN LOWEST POSITION, CALL LIGHT WITHIN REACH, SIDE RAILS UPX3, WILL CONT TO JAIDA.
[2017-10-20] MEDS: TAMSULOSIN 0.4 MG CAP.SR.24H PO SCH (21:20)
[2017-10-20] MEDS: PANTOPRAZOLE 40 MG VIAL IV SCH (21:20)
[2017-10-21] VITALS: BP_SYST 124; BP_SYST 156; BP_DIAS 43; BP_DIAS 49
[2017-10-21] MEDS: METOCLOPRAMIDE HCL 10 MG/2 ML VIAL IV SCH ×4 (00:12→17:11)
[2017-10-21] MEDS: BLOOD SUGAR DIAGNOSTIC 1 EACH STRIP IN SCH ×4 (00:12→17:53)
[2017-10-21 01:39] LABS: ABG BASE EXCESS 2.8 mmol/L; ABG OXYGEN SATURATION 94.7 % (92.0-98.5); ABG PCO2 96.8 mmHg (35.0-45.0); ABG PH 7.162 (7.350-7.450); ABG PO2 94.3 mmHg (75.0-100.0); AaDO2 153.3 mmHg; COHb 0.3 % (0.5-1.5); MetHb 0.7 % (0.0-1.5); O2Hb 93.8 % (94.0-97.0); SITE, ABG Right Radial
--- NOTE | 2017-10-21 01:52 | NUR ---
RN NOTE SPOKE WITH DR SPAULDING DUE TO PT SEEMS TO BE IN RESPIRATORY DISTRESS ON THE VENT. ABG PERFORMED AND GIVEN TO DR. DIANA PERFORMED. AWAITING RESULTS. RECEIVED ORDERS TO INCREASE RATE TO 24 AND DO ABG IN THE MORNING. READBACK ORDERS PERFORMED AND RT NOTIFIED. WILL CONTINUE TO MONITOR PT.
[2017-10-21] MEDS: IPRATROPIUM NEB FS 0.5 MG/2.5 ML AMPUL.NEB NEB SCH ×6 (03:21→23:15)
--- NOTE | 2017-10-21 03:25 | NUR ---
PT shows signs of respiratory distress,ABG was drawn and results were relayed to DR SPAULDING, per MDS orders RR was increased to 24. DR Spaulding stated to repeate ABG AM. Addendum: 10/21/17 at 0328 by EKATERINA DE ANDA RT Amended: Links added.
[2017-10-21 04:00] VITALS: BP_SYST 101; BP_SYST 131; BP_DIAS 49; BP_DIAS 54
[2017-10-21] MEDS ORDERED: MEROPENEM 1 G VIAL IV ONE (05:12)
[2017-10-21] MEDS: MEROPENEM 1 G in IV NS 0.9% 100 ML IV SCH ×2 (05:13→17:11)
[2017-10-21] MEDS: INSULIN REGULAR, HUMAN 100 UNIT/ML 3 ML VIAL SQ PRN (05:29)
[2017-10-21 06:41] LABS: CALCIUM, SERUM 8.5 mg/dL (8.5-10.1); CARBON DIOXIDE 33 mmol/L (21-32); CHLORIDE 100 mmol/L (98-107); CREATININE 1.5 mg/dL (0.6-1.3); GLUCOSE 172 mg/dL (74-106); POTASSIUM 5.9 mmol/L (3.5-5.1); SODIUM SERUM 140 mmol/L (136-145); UREA NITROGEN, BLOOD 60 mg/dL (7-18)
[2017-10-21] MEDS: BETAMETHASONE DIP 0.05% CREAM 15 GM TUBE TP SCH ×2 (07:15→18:02)
--- NOTE | 2017-10-21 07:22 | NUR ---
RN NOTE PT REMAINS IN NO ACUTE DISTRESS IN BED. PT DID NOT HAVE ANY SIGNIFICANT CHANGE IN CONDITION DURING SHIFT. ALL NEEDS MET, ALL ORDERS CARRIED OUT. PT TOLERATED VENT SETTING WELL. WILL CONTINUE TO MONITOR PT.
[2017-10-21 07:40] LABS: ABG BASE EXCESS 5.2 mmol/L; ABG OXYGEN SATURATION 98.5 % (92.0-98.5); ABG PCO2 58.1 mmHg (35.0-45.0); ABG PH 7.359 (7.350-7.450); AaDO2 116.1 mmHg; COHb 0.3 % (0.5-1.5); MetHb 0.4 % (0.0-1.5); O2Hb 97.8 % (94.0-97.0); PEEP,BG 5 cm H2O; SITE, ABG Left Radial; VT, ABG 500 mL
[2017-10-21 08:00] VITALS: BP 121/64
--- NOTE | 2017-10-21 08:00 | NUR ---
TELE1/RN AM SHIFT INITIAL NOTES RECEIVED PT ASLEEP IN BED, PT NOTED WITH LABORED RESPIRATIONS, BUT SATURATING @ 93%, NOTED WITH DIMINISHED LUNG SOUNDS, SUCTIONED FOR AIRWAY CLEARANCE, VENT DEPENDENT AC RATE HAS INCREASED TO 24, STAT ABG TO BE ORDERED STAT. SINUS RHYTHM, HR 70. PICC LINE ON TKO, NOTED WITH REDNESS AND SOME SWELLING. GT FEEDING ON GOING @ 70CC/HR, NO GASTRIC RESIDUAL NOTED, GENERALIZED EDEMA, BOLAND CATHETER INTACT WITH YELLOW URINE OUTPUT, DVT SLEEVE IN PLACE, PUMP ON. SCHEDULED AM MEDS TO BE GIVEN. CL WITHIN REACHED AND SAFETY MAINTAINED. ON GOING MONITORING.
[2017-10-21] MEDS: PROSOURCE / PROSTAT (PYXIS) 30 ML UDC GT SCH ×2 (08:39→16:48)
[2017-10-21] MEDS: DOCUSATE SODIUM LIQ 100 MG/10 ML UDC NG SCH (08:39)
[2017-10-21] MEDS: ASCORBIC ACID 500 MG TABLET PO SCH ×2 (08:39→16:48)
[2017-10-21] MEDS: LEVOTHYROXINE SODIUM 100 MCG TABLET PO SCH (08:39)
[2017-10-21] MEDS: LORAZEPAM 0.5 MG TABLET PO SCH ×2 (08:39→16:49)
[2017-10-21] MEDS: GABAPENTIN 300 MG CAPSULE PO SCH ×2 (08:39→16:49)
[2017-10-21] MEDS: AMIODARONE HCL 200 MG TABLET PO SCH ×3 (08:40→16:48)
[2017-10-21] MEDS: Z GUARD REMEDY 2 OZ OINT TP SCH (08:40)
[2017-10-21] MEDS: APIXABAN 5 MG TABLET PO SCH ×2 (08:40→16:49)
--- NOTE | 2017-10-21 09:25 | NUR ---
TELE1/RN ROUNDS - DR. BARKER UPDATED PT'S CONDITION. PT SEEN & EXAMINED BY DR. BARKER, ALSO RE-ASSESSED PIC LINE WITH REDNESS, RECEIVED VERBAL ORDER TO D/C PICC LINE AFTER A NEW PICC LINE IS INSERTED FOR POSSIBLE INFECTION. ORDER NOTED AND CARRIED. NO OTHER ORDERS RECEIVED. ON GOING MONITORING.
--- NOTE | 2017-10-21 11:10 | NUR ---
TELE1/RN PICC LINE - REASSESSMENT PICC LINE REASSESSED BY DR. PARRISH, PER NO NEED FOR NEW PICC LINE.
[2017-10-21 12:00] VITALS: BP 110/52
[2017-10-21] MEDS: DIGOXIN 0.25 MG TABLET PO SCH (12:20)
--- NOTE | 2017-10-21 12:45 | NUR ---
TELE1/RN MICROBIOLOGY RESULT RECEIVED RESULT OF BLOOD CULTURE, POSITIVE CRE. DR. BARKER MADE AWARE, SPOKE TO MD, VERIFIED THAT PT'S D/C IS HELD. CHARGE NURSE AND INVESTIGATOR AWARE. PER MD WILL CONSULT WITH INFECTIOUS DISEASE.
[2017-10-21] MEDS ORDERED: FEE PK DOSING 1 MIN EA MC ONE (14:42)
[2017-10-21 16:00] VITALS: BP 120/53
[2017-10-21] MEDS: AMIKACIN 500 MG in IV NS 0.9% 100 ML IV SCH (16:47)
[2017-10-21] MEDS: GLUCERNA 1.2 1,000 ML BOTTLE GT PRN (16:50)
[2017-10-21] MEDS ORDERED: IV NS 0.9% 250 ML BAG IV ONE (17:00)
--- NOTE | 2017-10-21 17:15 | NUR ---
TELE1/RN ROUNDS - DR. KENDRICK UPDATED PT'S CONDITION, MADE AWARE OF THE RESULT OF BLOOD CULTURE. NO NEW ORDERS RECEIVED AT THIS TIME.
--- NOTE | 2017-10-21 17:31 | NUR ---
Trach pt received on mechanical vent. No changes made. Pt lalo is secure. Vent is plugged into a red outlet, alarms are set and audible, and BVM is at bedside. Addendum: 10/21/17 at 1732 by SHREYAS CHAVEZ RT Amended: Links added.
[2017-10-21] MEDS ORDERED: COLISTIMETHATE SODIUM 100 MG in IV NS 0.9% 50 ML IV SCH (18:00)
--- NOTE | 2017-10-21 19:30 | NUR ---
TELE1/RN AM SHIFT END NOTES ALL NEEDS MET. PT ENDORSED TO PM NURSE TO CONTINUE CARE. CL WITHIN REACHED AND SAFETY MAINTAINED.
[2017-10-21 20:00] VITALS: BP 151/57
--- NOTE | 2017-10-21 20:15 | NUR ---
TELE1/RN SHIFT INITIAL NOTES RECEIVED PT ASLEEP IN BED, PT NOTED WITH LABORED RESPIRATIONS, BUT SATURATING @ 95%, NOTED WITH DIMINISHED LUNG SOUNDS, SUCTIONED FOR AIRWAY CLEARANCE, VENT DEPENDENT AC RATE HAS INCREASED TO 24, . PICC LINE ON TKO, NOTED WITH REDNESS AND SOME SWELLING. GT FEEDING ON GOING @ 70CC/HR, NO GASTRIC RESIDUAL NOTED, GENERALIZED EDEMA, BOLAND CATHETER INTACT WITH YELLOW URINE OUTPUT, DVT SLEEVE IN PLACE, PUMP ON. SCHEDULED PM MEDS TO BE GIVEN. CL WITHIN REACHED AND SAFETY MAINTAINED. ON GOING MONITORING.
--- NOTE | 2017-10-21 20:28 | NUR ---
PATIENT RECEIVED TRACHED SHILEY 8 XLT ON [facility]. VENT WITH NOTED SETTINGS AC 24,500, PEEP 5, 50%. VENT PLUGGED INTO RED OUTLET. AMBU BAG @ HOB. BREATHING TX GIVEN PER MD'S ORDERED, NO ADVERSE REACTION NOTED. SUCTIONED MODERATE AMOUNT OF YELLOW/BROTHERS THICK SECRETIONS. TRACH SECURED AND PATENT. ALARMS SET AND AUDIBLE. NO RESPIRATORY DISTRESS NOTED AT THIS TIME. WILL CONTINUE TO MONITOR.
[2017-10-21] MEDS: TAMSULOSIN 0.4 MG CAP.SR.24H PO SCH (21:24)
[2017-10-21] MEDS: PANTOPRAZOLE 40 MG VIAL IV SCH (21:24)
[2017-10-22] VITALS: BP 124/49
[2017-10-22] MEDS: BLOOD SUGAR DIAGNOSTIC 1 EACH STRIP IN SCH ×4 (00:54→17:07)
[2017-10-22] MEDS: METOCLOPRAMIDE HCL 10 MG/2 ML VIAL IV SCH ×4 (00:54→17:00)
--- NOTE | 2017-10-22 01:01 | NUR ---
0000 BS 117 FOR GOT TO ENTER NON ADMIN COMMENT
[2017-10-22] MEDS: IPRATROPIUM NEB FS 0.5 MG/2.5 ML AMPUL.NEB NEB SCH ×5 (03:22→19:22)
[2017-10-22 04:00] VITALS: BP 118/66
[2017-10-22] MEDS: MEROPENEM 1 G in IV NS 0.9% 100 ML IV SCH ×2 (04:53→16:30)
[2017-10-22] MEDS: GLUCERNA 1.2 1,000 ML BOTTLE GT PRN ×2 (04:55→16:51)
--- NOTE | 2017-10-22 06:30 | NUR ---
RN TEL CLOSING NOTE ENDORSED PT CONT ON ABX IV, PT DC HELD D/T TESTING + CRE IN BLOOD, INFECTION DISEASE RUBBER BOOTS AND SHOES REPAIRER ON THE CASE, WILL ENDORSE TO AM SHIFT NURSE IF PT NEEDS TO BE ON ISOLATION.
[2017-10-22 07:25] LABS: CALCIUM, SERUM 8.4 mg/dL (8.5-10.1); CARBON DIOXIDE 34 mmol/L (21-32); CHLORIDE 105 mmol/L (98-107); CREATININE 1.4 mg/dL (0.6-1.3); GLUCOSE 99 mg/dL (74-106); POTASSIUM 4.7 mmol/L (3.5-5.1); SODIUM SERUM 144 mmol/L (136-145); UREA NITROGEN, BLOOD 71 mg/dL (7-18)
[2017-10-22 08:00] VITALS: BP 138/89
--- NOTE | 2017-10-22 08:00 | NUR ---
TELE1/RN AM SHIFT INITIAL NOTES RECEIVED PT AWAKE IN BED, NO ACUTE RESPIRATORY DISTRESS OR FEVER NOTED. OBSERVED TO BE MUCH BETTER STATE THAN YESTERDAY MORNING. PT A/O X 1 ABLE TO RESPOND BY NODDING, VENT DEPENDENT WITH RATES SET PRESCRIBED, SATURATING @ 100%, LUNG SOUNDS CLEAR, RESPIRATIONS EVEN & UNLABORED. SUCTIONED FOR AIRWAY CLEARANCE. ON TELE MONITORING, NOTED WITH SINUS RHYTHM, HR 65. PICC LINE ON TKO, 2 OF THE 3 PORTS POSITIVE OF BLOOD RETURN. NOTED WITH SOME GENERALIZED EDEMA. GT FEEDING ON GOING @ 70CC/HR, NO GASTRIC RESIDUAL NOTED, BOLAND CATHETER INTACT WITH YELLOW CLOUDY URINE OUTPUT, DVT SLEEVE IN PLACE, PUMP ON. SCHEDULED AM MEDS TO BE GIVEN. CL WITHIN REACHED, SAFETY MAINTAINED AND ISOLATION OBSERVED. ON GOING MONITORING.
[2017-10-22] MEDS: BETAMETHASONE DIP 0.05% CREAM 15 GM TUBE TP SCH ×2 (08:29→18:46)
[2017-10-22] MEDS: ASCORBIC ACID 500 MG TABLET PO SCH ×2 (08:30→16:30)
[2017-10-22] MEDS: GABAPENTIN 300 MG CAPSULE PO SCH ×2 (08:30→16:30)
[2017-10-22] MEDS: LEVOTHYROXINE SODIUM 100 MCG TABLET PO SCH (08:30)
[2017-10-22] MEDS: PROSOURCE / PROSTAT (PYXIS) 30 ML UDC GT SCH ×2 (08:30→16:30)
[2017-10-22] MEDS: AMIODARONE HCL 200 MG TABLET PO SCH ×3 (08:30→16:31)
[2017-10-22] MEDS: LORAZEPAM 0.5 MG TABLET PO SCH ×2 (08:30→16:30)
[2017-10-22] MEDS: APIXABAN 5 MG TABLET PO SCH ×2 (08:30→16:31)
[2017-10-22] MEDS: DOCUSATE SODIUM LIQ 100 MG/10 ML UDC NG SCH (08:31)
[2017-10-22] MEDS: Z GUARD REMEDY 2 OZ OINT TP SCH (08:31)
[2017-10-22] MEDS: AMIKACIN 500 MG in IV NS 0.9% 100 ML IV SCH (09:01)
--- NOTE | 2017-10-22 10:38 | NUR ---
TD/RN ROUNDS - DR. SPAULDING UPDATED PT'S CONDITION. PT SEEN & EXAMINED BY DR. SPAULDING, WITH VERBAL ORDER FOR STAT ABG. NOTED AND RT NOTIFIED OF ORDER. MONITORING CONTINUED.
[2017-10-22 10:54] LABS: ABG BASE EXCESS 6.1 mmol/L; ABG OXYGEN SATURATION 94.7 % (92.0-98.5); ABG PCO2 46.6 mmHg (35.0-45.0); ABG PO2 81.4 mmHg (75.0-100.0); AaDO2 222.7 mmHg; COHb 0.3 % (0.5-1.5); MetHb 1.2 % (0.0-1.5); O2Hb 93.3 % (94.0-97.0); PEEP,BG 5 cm H2O; SITE, ABG Right Radial; VT, ABG 500 mL
[2017-10-22 11:56] LABS: EOSINOPHILS % (AUTO) 0.4 % (0.0-6.0); HEMATOCRIT 27 % (39-51); HEMOGLOBIN 8.8 g/dL (13.5-17.5); LYMPHOCYTES # (AUTO) 1.1 /CMM (0.8-4.8); LYMPHOCYTES % (AUTO) 8.7 % (20.0-44.0); MEAN CORPUSCULAR HGB CONC 33 g/dl (31.0-36.0); MEAN CORPUSCULAR VOLUME 86 fL (80-96); MONOCYTES # (AUTO) 0.8 /CMM (0.1-1.30); MONOCYTES % (AUTO) 6.8 % (2.0-12.0); NEUTROPHILS # (AUTO) 10.4 /CMM (1.8-8.9); NEUTROPHILS % (AUTO) 84.1 % (43.0-81.0); PLATELET COUNT (AUTO) 174 /CMM (150-450); RDW COEFFICIENT OF VARIATION 15.9 (11.5-15.0); WHITE BLOOD COUNT (AUTO) 12.3 K/uL (4.3-11.0)
[2017-10-22 12:00] VITALS: BP 137/60
[2017-10-22] MEDS: DIGOXIN 0.25 MG TABLET PO SCH (12:34)
[2017-10-22 16:00] VITALS: BP 157/84
--- NOTE | 2017-10-22 17:30 | NUR ---
TELE1/RN AFTERNOON ROUNDS PM CARE PROVIDED. NO ACUTE CHANGE OF CONDITION NOTED, PT IS RESTING COMFORTABLY. MONITORING CONTINUED.
--- NOTE | 2017-10-22 19:18 | NUR ---
TELE1/RN AM SHIFT END NOTES ALL NEEDS MET. NO ACUTE CHANGE OF CONDITION NOTED DURING THE SHIFT. PT ENDORSED TO PM NURSE TO CONTINUE CARE. PICC LINE INTACT AND PATENT ON TKO, GT FEEDING ON GOING, BOLAND CATHETER INTACT AND WRISTS RESTRAINTS ON. CL WITHIN REACHED, SAFETY MAINTAINED AND ISOLATION OBSERVED.
[2017-10-22 20:00] VITALS: BP 135/50
--- NOTE | 2017-10-22 20:00 | NUR ---
GAS CHECK PAD MAKER NOTES RECEIVED PTS ON BED AWAKE AND RESPONSIVE NON VERBAL , ON TELE MONITOR SB-SR 58 NO SOB NO DISTRESS NOTED REMAINS ON VENT AC SETTINGS WELL TOLERATED . SUCTION SECRETION DONE HOB ELEVATED FOR ASPIRATION PRECAUTION ON LIONEL PICC LINE INTACT AND PATENT ,F/C INTACT AND PATENT DRAINING WITH YELLOWISH URINE OUTPUT, ON CONTACT ISOLATION CRE KLEBSIELLEAE AND STAPH ON THE BLOOD , PRECAUTIONARY MEASURES OBSERVED AT ALL TIMES, ON GT FEEDING GLUCERNA AT 70CC/HR WELL TOLERATED NO RESIDUAL NOTED .ALL DUE MEDS GIVEN ORDERED WITH BILATERAL SOFT WRIST RESTRAINT TO PREVENT PULLING ON INVASIVE TUBING , ALL NEEDS ATTENDED TOO CALL LIGHT WITHIN REACH KEPT PTS CLEAN DRY AND COMFORTABLE WILL CONTINUE TO MONITOR PTS.
[2017-10-22] MEDS: PANTOPRAZOLE 40 MG VIAL IV SCH (21:43)
[2017-10-22] MEDS: TAMSULOSIN 0.4 MG CAP.SR.24H PO SCH (21:43)
[2017-10-23] VITALS: BP 161/64
[2017-10-23] MEDS: IPRATROPIUM NEB FS 0.5 MG/2.5 ML AMPUL.NEB NEB SCH ×7 (00:12→23:34)
[2017-10-23] MEDS: INSULIN REGULAR, HUMAN 100 UNIT/ML 3 ML VIAL SQ PRN ×3 (00:36→23:23)
[2017-10-23] MEDS: METOCLOPRAMIDE HCL 10 MG/2 ML VIAL IV SCH ×5 (00:36→23:26)
[2017-10-23] MEDS: BLOOD SUGAR DIAGNOSTIC 1 EACH STRIP IN SCH ×5 (00:37→23:22)
--- NOTE | 2017-10-23 00:40 | NUR ---
ELECTRICAL CONTACTS ADJUSTER NOTES BLOOD SUGAR FOR 12MN IS 103 MG/DL NO COVERAGE GIVEN PER SLIDING SCALE PTS ON GT FEEDING .
[2017-10-23] MEDS: AMIKACIN 500 MG in IV NS 0.9% 100 ML IV SCH ×2 (03:39→21:01)
[2017-10-23 04:00] VITALS: BP 149/69
[2017-10-23] MEDS: MEROPENEM 1 G in IV NS 0.9% 100 ML IV SCH (04:32)
--- NOTE | 2017-10-23 05:38 | NUR ---
radiotelephone technical operator notes blood sugar for 6am is 107 mg/dl =no coverage given per sliding scale, will continue to monitor.
--- NOTE | 2017-10-23 06:23 | NUR ---
telecommunications line installer notes pts remains in bed on ac setting well tolerated on tele afib and a flutter on the monitor, no significant change noted , remain on contact isolation . precautionary measures observed,will endorse to rn day shift for continuity of care.
[2017-10-23 06:36] LABS: EOSINOPHILS % (AUTO) 0.8 % (0.0-6.0); HEMATOCRIT 26 % (39-51); HEMOGLOBIN 8.6 g/dL (13.5-17.5); LYMPHOCYTES # (AUTO) 1.1 /CMM (0.8-4.8); LYMPHOCYTES % (AUTO) 9.5 % (20.0-44.0); MEAN CORPUSCULAR HGB CONC 33 g/dl (31.0-36.0); MEAN CORPUSCULAR VOLUME 85 fL (80-96); MONOCYTES # (AUTO) 0.6 /CMM (0.1-1.30); MONOCYTES % (AUTO) 4.8 % (2.0-12.0); NEUTROPHILS # (AUTO) 10.1 /CMM (1.8-8.9); NEUTROPHILS % (AUTO) 84.9 % (43.0-81.0); PLATELET COUNT (AUTO) 194 /CMM (150-450); RED BLOOD CELL COUNT(AUTO) 3.06 MIL/uL (4.5-6.0); WHITE BLOOD COUNT (AUTO) 11.9 K/uL (4.3-11.0)
[2017-10-23] MEDS: BETAMETHASONE DIP 0.05% CREAM 15 GM TUBE TP SCH ×2 (06:37→18:08)
[2017-10-23 07:02] LABS: CALCIUM, SERUM 8.5 mg/dL (8.5-10.1); CARBON DIOXIDE 36 mmol/L (21-32); CHLORIDE 106 mmol/L (98-107); CREATININE 1.1 mg/dL (0.6-1.3); GLUCOSE 100 mg/dL (74-106); MAGNESIUM 2.1 mg/dL (1.8-2.4); PHOSPHORUS 2.9 mg/dL (2.5-4.9); POTASSIUM 4.7 mmol/L (3.5-5.1); SODIUM SERUM 146 mmol/L (136-145); UREA NITROGEN, BLOOD 62 mg/dL (7-18)
[2017-10-23 08:00] VITALS: BP 163/66
--- NOTE | 2017-10-23 08:00 | NUR ---
TELE1/RN AM SHIFT INITIAL NOTES RECEIVED PT ASLEEP IN BED, NO ACUTE RESPIRATORY DISTRESS OR CHANGE OF CONDITION NOTED. PT A/O X 1 ABLE TO RESPOND BY NODDING, VENT DEPENDENT WITH RATES SET PRESCRIBED, SATURATING @ 98%, LUNG SOUNDS CLEAR, RESPIRATIONS EVEN & UNLABORED. SUCTIONED FOR AIRWAY CLEARANCE. ON TELE MONITORING, NOTED WITH SINUS RHYTHM, HR 65. PICC LINE ON TKO, 2 PORTS POSITIVE OF BLOOD RETURN, NO S/S OF INFECTION. BILATERAL WRIST RESTRAINTS REMOVED TO CHECK FOR CIRCULATION AND COMFORT THEN PLACED BACK. GT FEEDING ON GOING @ 70CC/HR, NO GASTRIC RESIDUAL NOTED, BOLAND CATHETER INTACT WITH YELLOW CLOUDY URINE OUTPUT, DVT SLEEVE IN PLACE, PUMP ON. SCHEDULED AM MEDS TO BE GIVEN. CL WITHIN REACHED, SAFETY MAINTAINED AND ISOLATION OBSERVED. ON GOING MONITORING.
[2017-10-23] MEDS: APIXABAN 5 MG TABLET PO SCH ×2 (08:41→18:06)
[2017-10-23] MEDS: PROSOURCE / PROSTAT (PYXIS) 30 ML UDC GT SCH ×2 (08:41→18:06)
[2017-10-23] MEDS: ASCORBIC ACID 500 MG TABLET PO SCH ×2 (08:41→18:07)
[2017-10-23] MEDS: LORAZEPAM 0.5 MG TABLET PO SCH ×2 (08:42→18:07)
[2017-10-23] MEDS: Z GUARD REMEDY 2 OZ OINT TP SCH (08:42)
[2017-10-23] MEDS: LEVOTHYROXINE SODIUM 100 MCG TABLET PO SCH (08:42)
[2017-10-23] MEDS: DOCUSATE SODIUM LIQ 100 MG/10 ML UDC NG SCH (08:42)
[2017-10-23] MEDS: GABAPENTIN 300 MG CAPSULE PO SCH ×2 (08:42→18:07)
[2017-10-23] MEDS: AMIODARONE HCL 200 MG TABLET PO SCH ×3 (08:42→18:07)
[2017-10-23] MEDS: GLUCERNA 1.2 1,000 ML BOTTLE GT PRN (09:09)
--- NOTE | 2017-10-23 11:30 | NUR ---
TELE1/RN BLOOD CULTURE SENSITIVITY CALLED LABORATORY TO FOLLOW-UP ON RESULT OF BLOOD WORK SENSITIVITY TO KLEBSIELLA BLOOD TO COLSITIN, AVYCAZ & ZERBAXA PER LAUREN (OF LAB) IT WILL TAKE 72 HOURS FOR THE RESULT.
[2017-10-23 12:00] VITALS: BP 169/67
[2017-10-23] MEDS: DIGOXIN 0.25 MG TABLET PO SCH (12:43)
[2017-10-23 16:00] VITALS: BP 176/58
--- NOTE | 2017-10-23 19:30 | NUR ---
RN NOTES RECEIVED PATIENT AND REPORT FROM DAY SHIFT. WILL CONTINUE TO MONITOR PATIENT
--- NOTE | 2017-10-23 19:30 | NUR ---
TELE1/RN AM SHIFT END NOTES ALL NEEDS MET. NO ACUTE CHANGE OF CONDITION NOTED DURING THE SHIFT. PT ENDORSED TO PM NURSE TO CONTINUE CARE. CL WITHIN REACHED, SAFETY MAINTAINED AND ISOLATION OBSERVED.
[2017-10-23 20:00] VITALS: BP 151/80
[2017-10-23] MEDS: PANTOPRAZOLE 40 MG VIAL IV SCH (21:01)
[2017-10-23] MEDS: TAMSULOSIN 0.4 MG CAP.SR.24H PO SCH (21:01)
[2017-10-24] VITALS: BP 154/61
[2017-10-24] MEDS: GLUCERNA 1.2 1,000 ML BOTTLE GT PRN ×2 (00:33→21:37)
[2017-10-24] MEDS: IPRATROPIUM NEB FS 0.5 MG/2.5 ML AMPUL.NEB NEB SCH ×6 (02:57→23:06)
[2017-10-24 04:00] VITALS: BP 164/84
[2017-10-24] MEDS: METOCLOPRAMIDE HCL 10 MG/2 ML VIAL IV SCH ×3 (05:21→17:05)
[2017-10-24] MEDS: BLOOD SUGAR DIAGNOSTIC 1 EACH STRIP IN SCH ×3 (05:30→18:10)
[2017-10-24] MEDS: INSULIN REGULAR, HUMAN 100 UNIT/ML 3 ML VIAL SQ PRN (05:31)
[2017-10-24 06:58] LABS: CALCIUM, SERUM 8.8 mg/dL (8.5-10.1); CARBON DIOXIDE 34 mmol/L (21-32); CHLORIDE 106 mmol/L (98-107); CREATININE 1.1 mg/dL (0.6-1.3); GLUCOSE 121 mg/dL (74-106); POTASSIUM 5.2 mmol/L (3.5-5.1); SODIUM SERUM 145 mmol/L (136-145); UREA NITROGEN, BLOOD 53 mg/dL (7-18)
--- NOTE | 2017-10-24 07:30 | NUR ---
CHARHOUSE WORKER INITIAL NOTES: RECEIVED PT IN BED, AWAKE. RESPONSIVE TO VERBAL AND TACTILE STIMULATION. ON VENT ORDERED, NO SOB NOTED O2 SATURATION AT 97%. CONNECTED TO GT FEEDING ORDERED. PT TOLERATING WELL. ON TELE MONITOR, SINUS DESTINY- HR 58. BOLAND CATH IN PLACE, PATENT AND FLOWING YELLOW URINE. PT REMAINS WITH BILAT SOFT WRIST RESTRAINTS DUE TO PULLING TUBES. BED IN LOW AND LOCKED POSITION, CALL LIGHT WITHIN REACH. PLAN OF CARE DISCUSSED WITH PT. WILL CONTINUE TO MONITOR.
[2017-10-24] MEDS: BETAMETHASONE DIP 0.05% CREAM 15 GM TUBE TP SCH ×2 (07:58→20:45)
[2017-10-24 08:00] VITALS: BP 156/47
--- NOTE | 2017-10-24 08:00 | NUR ---
CLINICAL TRANSPLANT COORDINATOR NOTES: DR BARKER HERE TO SEE PT. NOTIFIED MD OF BP 156/47, HR 58. WITH ORDERS RECEIVED TO HOLD AMIODARONE DUE TO HR<60.
[2017-10-24] MEDS: ASCORBIC ACID 500 MG TABLET PO SCH ×2 (08:05→16:59)
[2017-10-24] MEDS: LORAZEPAM 0.5 MG TABLET PO SCH ×2 (08:05→16:59)
[2017-10-24] MEDS: DOCUSATE SODIUM LIQ 100 MG/10 ML UDC NG SCH (08:05)
[2017-10-24] MEDS: PROSOURCE / PROSTAT (PYXIS) 30 ML UDC GT SCH ×2 (08:05→16:59)
[2017-10-24] MEDS: LEVOTHYROXINE SODIUM 100 MCG TABLET PO SCH (08:05)
[2017-10-24] MEDS: GABAPENTIN 300 MG CAPSULE PO SCH ×2 (08:05→16:59)
[2017-10-24] MEDS: APIXABAN 5 MG TABLET PO SCH ×2 (08:06→16:59)
[2017-10-24] MEDS: AMIODARONE HCL 200 MG TABLET PO SCH ×4 (08:08→17:00)
[2017-10-24] MEDS: Z GUARD REMEDY 2 OZ OINT TP SCH (08:09)
[2017-10-24 09:38] LABS: ABG BASE EXCESS 7.9 mmol/L; ABG OXYGEN SATURATION 92.4 % (92.0-98.5); ABG PCO2 48.4 mmHg (35.0-45.0); ABG PH 7.451 (7.350-7.450); ABG PO2 67.7 mmHg (75.0-100.0); AaDO2 234.4 mmHg; COHb 0.3 % (0.5-1.5); MetHb 0.6 % (0.0-1.5); O2Hb 91.6 % (94.0-97.0); PEEP,BG 5 cm H2O; SITE, ABG Right Radial; VT, ABG 500 mL
[2017-10-24 12:00] VITALS: BP 164/53
[2017-10-24] MEDS: DIGOXIN 0.25 MG TABLET PO SCH (13:00)
[2017-10-24 16:00] VITALS: BP 163/56
--- NOTE | 2017-10-24 16:30 | NUR ---
COAT CHECK ATTENDANT NOTE: CALLED AND SPOKE WITH ROHINI FROM THE PHARMACY AND ACCORDING TO HER, "IT'S OK TO GIVE THE AMIKACIN DOSE FOR TODAY AND THE AMIKACIN DOSE WILL BE EVALUATED BY THE PHARMACIST BY TOMORROW." PER ROHINI, THE AMIKACIN TROUGH WERE BEING DRAWN AT THE WRONG TIME WHICH GIVES AN INACCURATE LEVEL.
[2017-10-24] MEDS: AMIKACIN 500 MG in IV NS 0.9% 100 ML IV SCH (16:36)
--- NOTE | 2017-10-24 17:00 | NUR ---
FUEL MANAGEMENT HANDLER NOTE: SPOKE WITH DR. BARKER AND MADE HIM AWARE THAT THE PATIENT'S BLOOD PRESSURE WAS ELEVATED 163/56 HR 56. MD WAS INFORMED THAT THE AMIODARONE ORDER HAS A HELD ORDER FOR HR <60. MD GAVE A HYDRALAZINE ORDER, NOTED AND ACKNOWLEDGED. WAS ALSO INFORMED THAT THE PATIENT WAS ACCEPTED AT [facility] AT [facility] (TEL#: [phone]) TO ROOM 3441A ACCORDING TO COPY TECHNICIAN MATTHIAS. TRANSPORTATION WAS ARRANGED AT 8:45PM [facility]. MD WAS AWARE AND AGREED TO IT. WAS ALSO INFORMED OF THE PRELIMINARY RESULT OF THE BLOOD CULTURE DONE ON 10/21/17. RENEE CAMARGO, SISTER WAS ALSO MADE AWARE ABOUT THE DISCHARGE TO [facility].
[2017-10-24] MEDS ORDERED: hydrALAZINE HCL 50 MG TABLET GT SCH (17:30)
--- NOTE | 2017-10-24 18:39 | NUR ---
RT END OF THE SHIFT REPORT, PT. 82 Y OLD MALE REMAIN TRACHED SHILEY XLT # 8 AND SECURED. ON THE VENT WITH NOTED SETTINGS. PT. REMAIN STABLE VENT ALARMS ARE SET AND AUDIBLE, WITH AMBU BAG AT THE BEDSIDE. MEDICAL LABORATORY TECHNICAL OFFICER CUFF PRESSURE NOTED. VENT IS PLUGGED INTO RED OUTLET. HME CHANGED. TX'S GIVEN INLINE. B/S BILATERALLY RHONCHI EQUAL CHEST RISE NOTED. SX FOR MODERATE THICK YELLOW THICK SECRETIONS. NO RESPIRATORY DISTRESS NOTED T/O SHIFT, WILL CONTINUE TO MONITOR, REPORT WILL PASS TO PM SHIFT. Addendum: 10/24/17 at 1839 by PETER BENITEZ RT Amended: Links added.
--- NOTE | 2017-10-24 19:00 | NUR ---
NAILHEAD SETTER END OF SHIFT NOTES PT REMAINS IN BED, SLEEPING. TOLERATING VENT SETTINGS WELL. GT FEEDING CONNECTED ORDERED. NO RESIDUAL NOTED. PT IN NO APPARENT DISTRESS. WILL ENDORSE TO PM SHIFT NURSE FOR CONTINUITY OF CARE.
--- NOTE | 2017-10-24 19:30 | NUR ---
SAW STRAIGHTENER NOTE: CALLED AND SPOKE WITH BLAISE TAYLOR FROM [facility] AT [facility] TO ROOM 3441A AND GAVE HER A NURSE REPORT RE: THE PATIENT'S TRANSFER TO THEIR FACILITY TONIGHT AT 8:45PM. REPORT REPORT GIVEN TO [place] SHIFT RN WAS INFORMED FOR CONTINUITY OF CARE.
[2017-10-24 20:00] VITALS: BP 136/61
--- NOTE | 2017-10-24 20:55 | NUR ---
TELE 1 RN NOTE LAB TACH NOEL CALLED AND INFORMED ME CRITICAL LAB VALUE AMIKACIN 7.6. MD AND PHARMACY MADE AWARE. NO NEW ORDER.
--- NOTE | 2017-10-24 21:30 | NUR ---
TELE 1 RN NOTE CHARGE NURSE INFORMED REGARDING AMBULANCE PICKING UP THE PT IS LATE. AFTER REVERIFYING WITH AMBULANCE COMPANY PICKUP WILL BE LATE AT 11 PM.
[2017-10-24] MEDS: TAMSULOSIN 0.4 MG CAP.SR.24H PO SCH (21:41)
[2017-10-24] MEDS: PANTOPRAZOLE 40 MG VIAL IV SCH (21:41)
--- NOTE | 2017-10-24 21:54 | NUR ---
TELE 1 RN NOTE [facility] AND RENEE CAMARGO INFORMED THAT PT IS GOING TO BE TRANSFERRED AT 2300.
--- NOTE | 2017-10-24 22:45 | NUR ---
TELE 1 RN NOTE AMBULANCE PERSONAL ARRIVED TO PICKUP THE PT FOR TRANSFER. VSS. NO DISTRESS OR DISCOMFORT NOTED. PICC LINE INTACT AND PATENT. F/C INTACT AND DRAINING WELL. EXIT CARE WAS DONE BY DAY SHIFT NURSE. REPORT GIVEN AMBULANCE PERSONAL. DISCHARGE PAPERS GIVEN TO THE AMBULANCE PERSONAL.
--- NOTE | 2017-10-24 23:04 | NUR ---
TELE 1 RN NOTE PT LEFT THE ROOM VIA GURNEY. IN NO DISTRESS. RENEE CAMARGO SISTER INFORMED.
== END 2017-10-24 23:00 | disposition short-term general hospital (02) | DRG 3 ==
LOC: ER 18:37 → ICU 19:50 → TELE-TD 09-23 13:18 → ICU 09-23 17:39 → TELE-TD 10-13 18:03 → TELE1 10-20 18:18
PROVIDERS: ADMIT Legal Medicine; ATTEND Legal Medicine
PROC: 0BH17EZ Insertion of Endotracheal Airway into Trachea, Via Natural or Artificial Opening (ICD-10-PCS; 2017-09-17)
PROC: 5A1955Z Respiratory Ventilation, Greater than 96 Consecutive Hours (ICD-10-PCS; 2017-09-17)
PROC: 0B110F4 Bypass Trachea to Cutaneous with Tracheostomy Device, Open Approach (ICD-10-PCS; 2017-09-21)
PROC: 02HV33Z Insertion of Infusion Device into Superior Vena Cava, Percutaneous Approach (ICD-10-PCS; 2017-09-21)
PROC: B548ZZA Ultrasonography of Superior Vena Cava, Guidance (ICD-10-PCS; 2017-09-21)
PROC: 0W9930Z Drainage of Right Pleural Cavity with Drainage Device, Percutaneous Approach (ICD-10-PCS; 2017-09-24)
PROC: 0W9930Z Drainage of Right Pleural Cavity with Drainage Device, Percutaneous Approach (ICD-10-PCS; 2017-09-24)
PROC: 0W9B00Z Drainage of Left Pleural Cavity with Drainage Device, Open Approach (ICD-10-PCS; 2017-09-26)
PROC: 0B21XFZ Change Tracheostomy Device in Trachea, External Approach (ICD-10-PCS; 2017-09-28)
PROC: 0DH63UZ Insertion of Feeding Device into Stomach, Percutaneous Approach (ICD-10-PCS; 2017-09-30)
PROC: 3E0G76Z Introduction of Nutritional Substance into Upper GI, Via Natural or Artificial Opening (ICD-10-PCS; 2017-09-30)
PROC: 02HV33Z Insertion of Infusion Device into Superior Vena Cava, Percutaneous Approach (ICD-10-PCS; 2017-10-03)
PROC: B548ZZA Ultrasonography of Superior Vena Cava, Guidance (ICD-10-PCS; 2017-10-03)
PROC: 0BW17FZ Revision of Tracheostomy Device in Trachea, Via Natural or Artificial Opening (ICD-10-PCS; principal; 2017-10-07 13:05)
PROC: 30233N1 Transfusion of Nonautologous Red Blood Cells into Peripheral Vein, Percutaneous Approach (ICD-10-PCS; 2017-10-18)
DX: A41.9 Sepsis, unspecified organism (principal); I21.A1 Myocardial infarction type 2; I46.9 Cardiac arrest, cause unspecified; E43 Unspecified severe protein-calorie malnutrition; J15.1 Pneumonia due to Pseudomonas; N17.0 Acute kidney failure with tubular necrosis; R65.21 Severe sepsis with septic shock; J93.0 Spontaneous tension pneumothorax; R53.2 Functional quadriplegia; J96.01 Acute respiratory failure with hypoxia; J96.02 Acute respiratory failure with hypercapnia; I50.32 Chronic diastolic (congestive) heart failure; J44.0 Chronic obstructive pulmonary disease with (acute) lower respiratory infection; N39.0 Urinary tract infection, site not specified; E66.2 Morbid (severe) obesity with alveolar hypoventilation; J95.03 Malfunction of tracheostomy stoma; J44.1 Chronic obstructive pulmonary disease with (acute) exacerbation; I48.92 Unspecified atrial flutter; T79.7XXA Traumatic subcutaneous emphysema, initial encounter; J98.11 Atelectasis; R13.10 Dysphagia, unspecified; D69.2 Other nonthrombocytopenic purpura; I11.0 Hypertensive heart disease with heart failure; I48.91 Unspecified atrial fibrillation; E11.9 Type 2 diabetes mellitus without complications; I25.10 Atherosclerotic heart disease of native coronary artery without angina pectoris; E78.5 Hyperlipidemia, unspecified; Z88.0 Allergy status to penicillin; Z91.010 Allergy to peanuts; E03.9 Hypothyroidism, unspecified; Z79.82 Long term (current) use of aspirin; Z79.899 Other long term (current) drug therapy; Z79.01 Long term (current) use of anticoagulants; Z87.891 Personal history of nicotine dependence; N40.0 Benign prostatic hyperplasia without lower urinary tract symptoms; K59.00 Constipation, unspecified; D63.8 Anemia in other chronic diseases classified elsewhere; F03.90 Unspecified dementia, unspecified severity, without behavioral disturbance, psychotic disturbance, mood disturbance, and anxiety; F43.22 Adjustment disorder with anxiety; I35.0 Nonrheumatic aortic (valve) stenosis; L98.9 Disorder of the skin and subcutaneous tissue, unspecified; R21 Rash and other nonspecific skin eruption; Y84.8 Other medical procedures as the cause of abnormal reaction of the patient, or of later complication, without mention of misadventure at the time of the procedure; Y82.9 Unspecified medical devices associated with adverse incidents; Y84.9 Medical procedure, unspecified as the cause of abnormal reaction of the patient, or of later complication, without mention of misadventure at the time of the procedure; Y92.89 Other specified places as the place of occurrence of the external cause; M19.90 Unspecified osteoarthritis, unspecified site; I49.5 Sick sinus syndrome; L85.3 Xerosis cutis; Y95 Nosocomial condition; B96.5 Pseudomonas (aeruginosa) (mallei) (pseudomallei) as the cause of diseases classified elsewhere
CPT/HCPCS: 31720; 36415; 36569; 36600; 43246; 71045-TC; 74018; 80048-TC; 80053-TC; 80150; 80202-TC; 81000-TC; 82272-TC; 82728-TC; 82803-TC; 82962-TC; 83540-TC; 83605-TC; 83735-TC; 83880; 84100-TC; 84439-TC; 84443-TC; 84478-TC; 84484-TC; 85025-TC; 85610-TC; 85730-TC; 86850-TC; 86921-TC; 87040-TC; 87070-TC; 87081-TC; 87086-TC; 87186-TC; 92611-TC; 93307-TC; 94002-TC; 94003-TC; 94640-TC; 94760-TC; 94762-TC; 99082-TC; A4216; A4606; A6253; A6402; A6403; A7526; C1751; C9113; J0171; J0278; J0330; J0690; J0770; J1160; J1200; J1650; J1815; J1940; J1956; J2060; J2185; J2250; J2270; J2370; J2405; J2704; J2765; J2920; J2930; J3010; J3370; J3475; J3480; J3490; J7030; J7040; J7042; J7050; J7060; P9016-BL; P9047; Z7610